=== PATIENT | male | born 1950 | race Caucasian/White ===

== ENCOUNTER → 2017-09-07 07:01 | Outpatient (CLI) | payer MEDICARE, SELFPAY | DX: Z12.5 Encounter for screening for malignant neoplasm of prostate (principal); R97.20 Elevated prostate specific antigen [PSA] | CPT/HCPCS: 36415; 84153; G0103 ==

== ENCOUNTER → 2018-01-12 15:23 | Outpatient (CLI) | payer MEDICARE, SELFPAY ==
[2018-01-12 17:51] LABS: Absolute Lymphocyte Count 1.01 X10^3/ul (0.83-4.51); Absolute Neutrophil Count 9.6 X10^3/uL (2.0-7.7); Basophil# 0.02 X10^3/uL; Basophil% 0.2 % (0-1); Eosinophil# 0.04 X10^3/uL; Eosinophils% 0.4 % (0-5); Hematocrit 41.2 % (40-54); Hemoglobin 13.9 g/dl (13.0-16.5); Lymphocyte # 1.01 X10^3/ul (4.0); Lymphocyte % 8.9 % (19-41); Mean Corp Hgb Conc 33.7 g/gl (32-36); Mean Corpuscular Hgb 29.6 pg (27.0-32.0); Mean Corpuscular Volume 87.8 fL (80-94); Mean Platelet Vol. 9.9 fl (6.2-12.0); Monocyte# 0.68 X10^3/uL; Neutrophil % 84.4 % (47-70); Platelet Count 198 K/mm3 (150-450); RBC Distribution Width CV 13.7 % (11.6-14.6); RBC Distribution Width SD 44.3 fl (35.1-43.9); Red Blood Count 4.69 M/mm3 (4.6-6.2); White Blood Count 11.4 K/mm3 (4.4-11.0)
[2018-01-12 17:54] LABS: ALB/GLOB Ratio 0.9 RATIO (0.9-2.4); AST(SGOT) 18 U/L (15-37); Alanine Aminotransfer ALT/SGPT 28 U/L (16-61); Albumin, Serum 3.8 g/dL (3.2-5.0); Alkaline Phosphatase 71 U/L (45-117); Anion Gap 10 (5-15); BUN 19 mg/dL (7-18); Calcium,Total 9.2 mg/dL (8.5-10.1); Chloride 106 mmol/L (98-107); Creatinine, Serum 1.19 mg/dL (0.70-1.30); EST Glomerular Filtration Rate 65 mL/min (>60); Est Glom Filt Rate - Afr Amer 78 mL/min (>60); Globulin 4.3 g/dL (2.2-4.2); Glucose 102 mg/dL (74-106); Lipase 126 U/L (73-393); Protein, Total 8.1 g/dL (6.4-8.2); Sodium Level 143 mmol/L (136-145)
[2018-01-12 17:59] LABS: POSITIVE COUNT NO; POSITIVE DIFFERENTIAL NO; POSITIVE MORPHOLOGY NO
--- OUTSIDE RECORDS SUMMARY | 2018-03-10 08:23 | XMS RPT_ITS ---
:1950 Author Organization OHIP Care Team Providers Name Role Phone RAYNA COMBS Referring Unavailable Primay Care Physicia, No Primary Care Unavailable RAYNA COMBS Attending Unavailable Napoleon Larson Attending Unavailable Napoleon Larson Primary Care Unavailable MESKO, RAJEEV W Referring Unavailable MESKO, RAJEEV W Attending Unavailable KIM RICHARDSON (LIANG) Referring Unavailable MESKO, RAJEEV W Attending Unavailable MESKO, RAJEEV W Attending Unavailable LUCIAN, RAVINDRA T Attending Unavailable MESKO, RAJEEV W Referring Unavailable LUCIAN, RAVINDRA T Referring Unavailable MESKO, RAJEEV W Referring Unavailable LUCIAN, RAVINDRA T Referring Unavailable LUCIAN, RAVINDRA T Referring Unavailable MESKO, RAJEEV W Referring Unavailable MESKO, RAJEEV W Referring Unavailable PROBLEMS PROBLEMS DATE TYPE CONDITION / CODE ATTENDING STATUS SOURCE 02/01/2018 Active Left upper NA Active [facility] quadrant pain / Main [place] R10.12(ICD-10) Repository 01/21/2018 Active Other specified NA Active [facility] disorders of [facility] [place] peritoneum / Repository K66.8(ICD-10) 01/21/2018 Active Left lower NA Active [facility] quadrant pain / [facility] [place] R10.32(ICD-10) Repository 01/20/2018 Active Neoplasm of NA Active [facility] unspecified Other [place] behavior of bone, Repository soft tissue, and skin / D49.2(ICD-10) 01/20/2018 Active Malignant neoplasm NA Active [facility] of other specified Other [place] ill-defined sites Repository / C76.8(ICD-10) 01/12/2018 Unknown K85.90 - Acute Marsha, Napoleon Active [place] pancreatitis Community without necrosis Hospital or infection, Repository unspecified / K85.90(ICD-10) 01/12/2018 Unknown M06.9 - Rheumatoid Napoleon Larson Active [place] arthritis, Community unspecified / Hospital M06.9(ICD-10) Repository 01/12/2018 Unknown G62.9 - Napoleon Larson Active [place] Polyneuropathy, Community unspecified / Hospital G62.9(ICD-10) Repository 10/09/2017 Unknown Z12.5 - Encounter RAYNA COMBS Active [place] for screening for Community malignant neoplasm [facility] of prostate / Repository Z12.5(ICD-10) 04/15/2017 Active Unknown / RAJEEV NAIR Active [facility] UNK(Unknown) [place] Repository 01/06/2016 Active Malignant neoplasm NA Active [facility] connective and Main [place] soft tissue of Repository right upper limb, including shoulder / C49.11(ICD-10) PROCEDURES PROCEDURES No Procedure Records FoundRESULTS RESULTS PROGRESS Observed: 02/01/2018 Status: COMPLETED Source: [place] 2:41 PM [facility] REPOSITORY HNO ID: [id number] Author: Gaby Burns Ct Service: (none) Author Type: (none) Type: Progress Notes Filed: 02/01/2018 2:42 PM Note Text: Radiology Service Progress Note PATIENT NAME: Marilee Simpson DATE OF SERVICE: February 01, 2018 TIME: 2:42 PM PATIENT IDENTITY VERIFICATION COMPLETED USING TWO (2) METHODS: Patient confirmed name verbally and Date of . PATIENT GENDER DATA: Male PATIENT RELEVANT IMPLANT DATA REVIEWED: Not Applicable RADIOLOGY DEPARTMENT: CT; Exam(s) Completed: Abdomen/Pelvis PERIPHERAL IV DATA: Not applicable SIGNED BY: Gaby Burns Ct February 01, 2018 2:42 PM CNOV Observed: 01/21/2018 Status: COMPLETED Source: [place] 3:00 PM [facility] REPOSITORY Office Visit (GENSWS) MARILEE SIMPSON ([id number]) 1950 M Date Time Provider Department 01/21/18 3:00 PM RAVINDRA EPSTEIN During your visit today, we recorded the following information about you: Temperature Pulse Respiration Blood pressure 97 degrees 59/minute 16/minute 118/62 Weight 116.1 kg Santa Hodge [employer]STATE [employer] DISP[employer] 01/21/2018 11:14 AM Signed REVIEW OF SYSTEMS: General: The patient denies fatigue, denies weight loss, denies weight gain, denies feeling hot, and denies feelings of cold. Eyes: The patient denies glaucoma, denies eye injury/surgery, wears glasses or contacts. Ear/Nose/Throat: The patient denies allergies, denies hayfever, denies ear infections, and denies bloody noses. Cardiovascular: The patient denies chest pain, denies heart disease, denies high blood pressure,denies cardiac stent, denies prior heart attack, denies irregular heart beat, NOTES high cholesterol, NOTES poor circulation, denies heart failure, other cardiac issues, denies claudication, denies cold feet, denies peripheral arterial stent. Respiratory: The patient denies tuberculosis, denies pneumonia, denies frequent cough, denies pulmonary embolism, denies shortness of breath, and denies coughing up blood. Gastrointestinal: The patient denies difficulty swallowing, denies acid reflux, denies ulcers, denies vomiting, denies jaundice/hepatitis, denies gallbladder problems, denies black or tarry stools, denies hemorrhoids, denies bleeding from rectum, denies diverticulitis, denies constipation, denies diarrhea, denies loss of stool control, and denies hernias. Kidney/Bladder: The patient denies kidney stones, denies urine infections, and denies bloody urine. Skin: The patient NOTES a history of skin cancer, denies bleeding/changing moles, and denies a history of skin rash. Neurologic: The patient denies a history of epilepsy/convulsions, denies headaches, denies head/spinal injuries, and denies stroke/TIA. Psychiatric: The patient denies psychiatric medications, denies depression, and denies voices, denies substance abuse. Endocrine: The patient denies thyroid disorders, denies diabetes, and denies hormonal problems. Hematologic: The patient denies a history of bruising, denies bleeding, and denies anemia, denies blood clots. Infections: The patient NOTES a history of measles and mumps, denies rheumatic fever, and denies sexually transmitted diseases. Musculoskeletal: The patient denies back pain/injury, denies back problems, denies sciatica, denies knee/foot trouble, NOTES arthritis, or denies gout. When was patient's last Mammogram screening? N/A Last Colonoscopy: NONE Santa Epstein MD 01/21/2018 5:13 PM Signed HISTORY AND PHYSICAL Marilee Mateo Simpson 1950 REFERRING PHYSICIAN: Rajeev Nair MD CHIEF COMPLAINT: abnormal ct scan - pneumoperitoneum HPI: The patient is a 67 year old male with a finding of pneumoperitoneum. The patient has a known history of right upper extremity sarcoma. He was scheduled for a follow-up chest CAT scan which he underwent at [facility] yesterday. Incidental finding was free intra-abdominal air. The patient's orthopedic surgeon, Dr. Nair called the patient this morning from a virtual visit. The patient had eaten breakfast and did not report any concerns. The patient was placed on my schedule for a diagnosis of pneumoperitoneum. In discussions with the patient, he notes pain in the left lower quadrant starting around Thanksgiving and then pain across the upper mid abdomen and through to the back. He states his been typically eating Jell-O since that time. He denies fever or chills. He notes that actually has been feeling better for the last 2 days. The patient has a diagnosis approximately one year ago of pancreatitis from unknown etiology. He was maintained in the hospital for 2 days without diagnosis. He assumed that his pain started on Thanksgiving was also pancreatitis and he felt it would be a waist at this time to return to the hospital. I had seen the patient 5 year previously were he underwent laparoscopic appendectomy for missed appendicitis. The patient was initially scheduled for later in the afternoon. I had him present to my office as soon as he could be contacted. In the office, he looked remarkably comfortable. His vitals were stable and he had no diffuse peritoneal signs. I reviewed the CT scan of the chest which did demonstrate significant free air. I did not see any time signs of intra- abdominal fluid collections and the stomach and duodenum did not demonstrate signs of inflammation. I elected to obtain laboratory studies-CBC chemistry panel and lipase, and a noncontrast CT scan. My interpretation of the CT scan as this is most likely descending colon/sigmoid diverticulitis. PAST MEDICAL HISTORY Diagnosis Date - Cancer (HCC) PAST SURGICAL HISTORY Procedure Laterality Date - APPENDECTOMY 08/28/12 Current Outpatient Prescriptions: amoxicillin-clavulanic acid (AUGMENTIN) 875-125 mg per tablet Take 1 tablet by mouth twice daily for 10 days. FOR 10 DAYS. enteric contrast (will be provided with radiology test) Take 1 Each by mouth one time only for [address] ABD/PEL WO Routine order Administer, As Directed One Time Only, via Oral, Rectal, both Oral and Rectal, Enteric Tube, Stoma or Indwelling Catheter, Enteric Contrast as designated per enteric contrast guidelines diphenhydrAMINE (BENADRYL) 25 mg tablet Take 1 tablet by mouth every 6 hours as needed for Itching/Rash. tamsulosin ER (FLOMAX) 0.4 mg cp24 Take 2 capsules by mouth daily at bedtime. Tadalafil (CIALIS) 5 mg tablet Take 5 mg by mouth as needed. Aspirin 81 mg Tab Take 81 mg by mouth. metoprolol tartrate 12.5 mg Tab Take 12.5 mg by mouth every 12 hours. MULTI-VITAMIN ORAL Take by mouth. Cholecalciferol, Vitamin D3, (VITAMIN D-3) 2,000 unit cap Take by mouth. simvastatin (ZOCOR) 40 mg tablet Take 40 mg by mouth daily at bedtime. tamsulosin (FLOMAX) 0.4 mg Cp24 Take 0.4 mg by mouth. Gabapentin 300 mg Tab Take 900 mg by mouth three times daily. No current facility-administered medications for this visit. ALLERGIES: Desitin [Zinc Oxide] PERSONAL HISTORY: Social History Marital status: Spouse name: Years of education: Number of children: Social History Main Topics Smoking status: Former Smoker Packs/day: 1.00 Years: 15.00 Types: Cigarettes Smokeless tobacco: Never Used Comment: Quit 20yrs ago Alcohol use: No FAMILY HISTORY: No family history on file. REVIEW OF SYMPTOMS: The review of systems data was entered by the nurse and reviewed by ia Nursing Notes: Santa Hodge LPN 01/21/2018 11:14 AM Signed REVIEW OF SYSTEMS: General: The patient denies fatigue, denies weight loss, denies weight gain, denies feeling hot, and denies feelings of cold. Eyes: The patient denies glaucoma, denies eye injury/surgery, wears glasses or contacts. Ear/Nose/Throat: The patient denies allergies, denies hayfever, denies ear infections, and denies bloody noses. Cardiovascular: The patient denies chest pain, denies heart disease, denies high blood pressure,denies cardiac stent, denies prior heart attack, denies irregular heart beat, NOTES high cholesterol, NOTES poor circulation, denies heart failure, other cardiac issues, denies claudication, denies cold feet, denies peripheral arterial stent. Respiratory: The patient denies tuberculosis, denies pneumonia, denies frequent cough, denies pulmonary embolism, denies shortness of breath, and denies coughing up blood. Gastrointestinal: The patient denies difficulty swallowing, denies acid reflux, denies ulcers, denies vomiting, denies jaundice/hepatitis, denies gallbladder problems, denies black or tarry stools, denies hemorrhoids, denies bleeding from rectum, denies diverticulitis, denies constipation, denies diarrhea, denies loss of stool control, and denies hernias. Kidney/Bladder: The patient denies kidney stones, denies urine infections, and denies bloody urine. Skin: The patient NOTES a history of skin cancer, denies bleeding/changing moles, and denies a history of skin rash. Neurologic: The patient denies a history of epilepsy/convulsions, denies headaches, denies head/spinal injuries, and denies stroke/TIA. Psychiatric: The patient denies psychiatric medications, denies depression, and denies voices, denies substance abuse. Endocrine: The patient denies thyroid disorders, denies diabetes, and denies hormonal problems. Hematologic: The patient denies a history of bruising, denies bleeding, and denies anemia, denies blood clots. Infections: The patient NOTES a history of measles and mumps, denies rheumatic fever, and denies sexually transmitted diseases. Musculoskeletal: The patient denies back pain/injury, denies back problems, denies sciatica, denies knee/foot trouble, NOTES arthritis, or denies gout. When was patient's last Mammogram screening? N/A Last Colonoscopy: NONE Santa Hodge LPN PHYSICAL EXAMINATION: General: The patient is 67 year old male, well nourished, well hydrated in no acute distress. The patient is oriented to time, place, and person. VITALS: Blood pressure 118/62, pulse (!) 59, temperature 36.1 ?C (97 ?F), temperature source Temporal Artery, resp. rate 16, weight 116.1 kg (256 lb), SpO2 96 %. HEENT: Normal cephalic, ataumatic, pupils are equally round, sclera are anicteric, mucous membranes are moist, oropharynx is clear. Neck has no masses, asymmetry or lymphadenopathy. Thyroid is unremarkable. Respiratory: Clear to auscultation and percussion. Normal respiratory excursion and pattern. Cardiac: Examination is regular rate and rhythm. Abdominal exam: Soft, nontender!, with no palpable masses. No hepatosplenomegaly. No palpable hernias. Rectal exam: Exam deferred Extremities: no clubbing, cyanosis or edema. No adenopathy. Other: LABORATORY VALUES: As Noted RADIOLOGIC STUDIES: As Noted I spoke directly with the radiologist interpreting the CAT scan image- Dr. Oscar Franco. Assessment IMPRESSION: Free air likely secondary to perforated diverticulitis, patient clinically improved per history and remarkably benign abdomen PLAN: At this point I feel its reasonable to have the patient maintained on a low residue diet to allow bowel rest and start Augmentin for treatment of presumed diverticulitis. I plan to obtain a repeat CT scan next week to assure that this is improving. I discussed with the patient had a presented with those pains a week ago who would most likely required urgent surgical intervention. I further reiterated that if the patient has worsening pain fever chills or other concerning symptoms that he should return immediately to my office or present to the emergency department. Diagnoses: (K66.8) Pneumoperitoneum (primary encounter diagnosis) (R10.32) LLQ pain (R10.32) Left lower quadrant pain (R10.12) Left upper quadrant pain (K57.92) Diverticulitis A letter was sent to Dr. Napoleon Larson MD indicating the above finding for this patient. Return to Clinic: The patient is instructed to follow-up with me in one week. This note was partially generated using [employer] voice recognition system, and there may be some incorrect words, spellings, and punctuation that were not noted in checking the note before saving. Ravindra Epstein MD Referring Provider: RAJEEV NAIR [[id number]] Allergies As of Date: 01/21/2018 Noted Allergy Reaction DESITIN (ZINC OXIDE) 09/09/2012 9 - Itching Date Reviewed: 01/21/2018 Reviewed by: Ravindra Epstein - Fully Assessed Reason for Visit: abnormal ct scan [Other] Primary Visit Diagnosis:Pneumoperitoneum [K66.8] Other Visit Diagnoses:LLQ pain [R10.32] Left lower quadrant pain [R10.32] Left upper quadrant pain [R10.12] Diverticulitis [K57.92] Order(s):CBC + DIFF [SQCBCDIF] Order #: [id number] FUTURE COMP METABOLIC PANEL [SQCMP] Order #: [id number] FUTURE LIPASE BLD [SQLIPA] Order #: [id number] FUTURE CT ABD/PEL WO IVCON [[id number]] Order #: [id number] FUTURE amoxicillin-clavulanic acid (AUGMENTIN) 875-125 mg per tabletTake 1 tablet by mouth twice daily for 10 days. FOR 10 DAYS.Disp: 20 tabletRfl: 0 CT ABD/PEL WO IVCON [[id number]] Order #: [id number] FUTURE enteric contrast (will be provided with radiology test)Take 1 Each by mouth one time only for [address] ABD/PEL WO Routine order Administer, As Directed One Time Only, via Oral, Rectal, both Oral and Rectal, Enteric Tube, Stoma or Indwelling Catheter, Enteric Contrast as designated per enteric contrast guidelinesDisp: 1 EachRfl: 0 Prescriptions as of 01/21/2018 Sig: AMOXICILLIN 875 MG-POTASSIUM * Take 1 tablet by mouth twice * ENTERIC CONTRAST (RADIOLOGY P* Take 1 Each by mouth one time* DIPHENHYDRAMINE 25 MG TABLET Take 1 tablet by mouth every * TAMSULOSIN 0.4 MG CAPSULE Take 2 capsules by mouth kemal* TADALAFIL 5 MG TABLET Take 5 mg by mouth as needed. ASPIRIN 81 MG TABLET Take 81 mg by mouth. METOPROLOL 12.5 MG TAB Take 12.5 mg by mouth every 1* MULTI-VITAMIN ORAL Take by mouth. CHOLECALCIFEROL (VITAMIN D3) * Take by mouth. SIMVASTATIN 40 MG TABLET Take 40 mg by mouth daily at * TAMSULOSIN 0.4 MG CAPSULE Take 0.4 mg by mouth. 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 Eyes: The patient denies glaucoma, denies eye injury/surgery, wears glasses or contacts. Ear/Nose/Throat: The patient denies allergies, denies hayfever, denies ear infections, and denies bloody noses. Cardiovascular: The patient denies chest pain, denies heart disease, denies high blood pressure,denies cardiac stent, denies prior heart attack, denies irregular heart beat, NOTES high cholesterol, NOTES poor circulation, denies heart failure, other cardiac issues, denies claudication, denies cold feet, denies peripheral arterial stent. Respiratory: The patient denies tuberculosis, denies pneumonia, denies frequent cough, denies pulmonary embolism, denies shortness of breath, and denies coughing up blood. Gastrointestinal: The patient denies difficulty swallowing, denies acid reflux, denies ulcers, denies vomiting, denies jaundice/hepatitis, denies gallbladder problems, denies black or tarry stools, denies hemorrhoids, denies bleeding from rectum, denies diverticulitis, denies constipation, denies diarrhea, denies loss of stool control, and denies hernias. Kidney/Bladder: The patient denies kidney stones, denies urine infections, and denies bloody urine. Skin: The patient NOTES a history of skin cancer, denies bleeding/changing moles, and denies a history of skin rash. Neurologic: The patient denies a history of epilepsy/convulsions, denies headaches, denies head/spinal injuries, and denies stroke/TIA. Psychiatric: The patient denies psychiatric medications, denies depression, and denies voices, denies substance abuse. Endocrine: The patient denies thyroid disorders, denies diabetes, and denies hormonal problems. Hematologic: The patient denies a history of bruising, denies bleeding, and denies anemia, denies blood clots. Infections: The patient NOTES a history of measles and mumps, denies rheumatic fever, and denies sexually transmitted diseases. Musculoskeletal: The patient denies back pain/injury, denies back problems, denies sciatica, denies knee/foot trouble, NOTES arthritis, or denies gout. When was patient's last Mammogram screening? N/A Last Colonoscopy: NONE Santa Hodge INTERSTATE [employer] DISP[employer]ER Prescriptions ordered this encounter Disp Refills Start End AMOXICILLIN 875 MG-POTASSIUM CLAVULA* 20 t* 0 01/21/2018 01/31/2018 Route: ORAL Sig: Take 1 tablet by mouth twice daily for 10 days. FOR 10 DAYS. ENTERIC CONTRAST (RADIOLOGY PROCEDUR* 1 Ea* 0 01/21/2018 01/21/2018 Class: In Office Route: ORAL Sig: Take 1 Each by mouth one time only for [address] ABD/PEL WO Routine order Administer, As Directed One Time Only, via Oral, Rectal, both Oral and Rectal, Enteric Tube, Stoma or Indwelling Catheter, Enteric Contrast as designated per enteric contrast guidelines Follow-up and Disposition History Recorded Letter Text Encounter Status:Closed by RAVINDRA EPSTEIN MD on 01/21/18 PROGRESS Observed: 01/21/2018 Status: COMPLETED Source: [place] 1:56 PM [facility] REPOSITORY O ID: [id number] Author: Ravindra Epstein Service: (none) Author Type: Physician Type: Progress Notes Filed: 01/21/2018 5:13 PM Note Text: HISTORY AND PHYSICAL Marilee Simpson 1950 REFERRING PHYSICIAN: Rajeev Nair MD CHIEF COMPLAINT: abnormal ct scan - pneumoperitoneum HPI: The patient is a 67 year old male with a finding of pneumoperitoneum. The patient has a known history of right upper extremity sarcoma. He was scheduled for a follow-up chest CAT scan which he underwent at [facility] yesterday. Incidental finding was free intra-abdominal air. The patient's orthopedic surgeon, Dr. Nair called the patient this morning from a virtual visit. The patient had eaten breakfast and did not report any concerns. The patient was placed on my schedule for a diagnosis of pneumoperitoneum. In discussions with the patient, he notes pain in the left lower quadrant starting around Thanksgiving and then pain across the upper mid abdomen and through to the back. He states his been typically eating Jell-O since that time. He denies fever or chills. He notes that actually has been feeling better for the last 2 days. The patient has a diagnosis approximately one year ago of pancreatitis from unknown etiology. He was maintained in the hospital for 2 days without diagnosis. He assumed that his pain started on Thanksgiving was also pancreatitis and he felt it would be a waist at this time to return to the hospital. I had seen the patient 5 year previously were he underwent laparoscopic appendectomy for missed appendicitis. The patient was initially scheduled for later in the afternoon. I had him present to my office as soon as he could be contacted. In the office, he looked remarkably comfortable. His vitals were stable and he had no diffuse peritoneal signs. I reviewed the CT scan of the chest which did demonstrate significant free air. I did not see any time signs of intra-abdominal fluid collections and the stomach and duodenum did not demonstrate signs of inflammation. I elected to obtain laboratory studies-CBC chemistry panel and lipase, and a noncontrast CT scan. My interpretation of the CT scan as this is most likely descending colon/sigmoid diverticulitis. PAST MEDICAL HISTORY Diagnosis Date - Cancer (HCC) PAST SURGICAL HISTORY Procedure Laterality Date - APPENDECTOMY 08/28/12 Current Outpatient Prescriptions: amoxicillin-clavulanic acid (AUGMENTIN) 875-125 mg per tablet Take 1 tablet by mouth twice daily for 10 days. FOR 10 DAYS. enteric contrast (will be provided with radiology test) Take 1 Each by mouth one time only for [address] ABD/PEL WO Routine order Administer, As Directed One Time Only, via Oral, Rectal, both Oral and Rectal, Enteric Tube, Stoma or Indwelling Catheter, Enteric Contrast as designated per enteric contrast guidelines diphenhydrAMINE (BENADRYL) 25 mg tablet Take 1 tablet by mouth every 6 hours as needed for Itching/Rash. tamsulosin ER (FLOMAX) 0.4 mg cp24 Take 2 capsules by mouth daily at bedtime. Tadalafil (CIALIS) 5 mg tablet Take 5 mg by mouth as needed. Aspirin 81 mg Tab Take 81 mg by mouth. metoprolol tartrate 12.5 mg Tab Take 12.5 mg by mouth every 12 hours. MULTI-VITAMIN ORAL Take by mouth. Cholecalciferol, Vitamin D3, (VITAMIN D-3) 2,000 unit cap Take by mouth. simvastatin (ZOCOR) 40 mg tablet Take 40 mg by mouth daily at bedtime. tamsulosin (FLOMAX) 0.4 mg Cp24 Take 0.4 mg by mouth. Gabapentin 300 mg Tab Take 900 mg by mouth three times daily. No current facility-administered medications for this visit. ALLERGIES: Desitin [Zinc Oxide] PERSONAL HISTORY: Social History Marital status: Spouse name: Years of education: Number of children: Social History Main Topics Smoking status: Former Smoker Packs/day: 1.00 Years: 15.00 Types: Cigarettes Smokeless tobacco: Never Used Comment: Quit 20yrs ago Alcohol use: No FAMILY HISTORY: No family history on file. REVIEW OF SYMPTOMS: The review of systems data was entered by the nurse and reviewed by ia Nursing Notes: Santa Hodge LPN 01/21/2018 11:14 AM Signed REVIEW OF SYSTEMS: General: The patient denies fatigue, denies weight loss, denies weight gain, denies feeling hot, and denies feelings of cold. Eyes: The patient denies glaucoma, denies eye injury/surgery, wears glasses or contacts. Ear/Nose/Throat: The patient denies allergies, denies hayfever, denies ear infections, and denies bloody noses. Cardiovascular: The patient denies chest pain, denies heart disease, denies high blood pressure,denies cardiac stent, denies prior heart attack, denies irregular heart beat, NOTES high cholesterol, NOTES poor circulation, denies heart failure, other cardiac issues, denies claudication, denies cold feet, denies peripheral arterial stent. Respiratory: The patient denies tuberculosis, denies pneumonia, denies frequent cough, denies pulmonary embolism, denies shortness of breath, and denies coughing up blood. Gastrointestinal: The patient denies difficulty swallowing, denies acid reflux, denies ulcers, denies vomiting, denies jaundice/hepatitis, denies gallbladder problems, denies black or tarry stools, denies hemorrhoids, denies bleeding from rectum, denies diverticulitis, denies constipation, denies diarrhea, denies loss of stool control, and denies hernias. Kidney/Bladder: The patient denies kidney stones, denies urine infections, and denies bloody urine. Skin: The patient NOTES a history of skin cancer, denies bleeding/changing moles, and denies a history of skin rash. Neurologic: The patient denies a history of epilepsy/convulsions, denies headaches, denies head/spinal injuries, and denies stroke/TIA. Psychiatric: The patient denies psychiatric medications, denies depression, and denies voices, denies substance abuse. Endocrine: The patient denies thyroid disorders, denies diabetes, and denies hormonal problems. Hematologic: The patient denies a history of bruising, denies bleeding, and denies anemia, denies blood clots. Infections: The patient NOTES a history of measles and mumps, denies rheumatic fever, and denies sexually transmitted diseases. Musculoskeletal: The patient denies back pain/injury, denies back problems, denies sciatica, denies knee/foot trouble, NOTES arthritis, or denies gout. When was patient's last Mammogram screening? N/A Last Colonoscopy: NONE Santa Hodge LPN PHYSICAL EXAMINATION: General: The patient is 67 year old male, well nourished, well hydrated in no acute distress. The patient is oriented to time, place, and person. VITALS: Blood pressure 118/62, pulse (!) 59, temperature 36.1 ?C (97 ?F), temperature source Temporal Artery, resp. rate 16, weight 116.1 kg (256 lb), SpO2 96 %. HEENT: Normal cephalic, ataumatic, pupils are equally round, sclera are anicteric, mucous membranes are moist, oropharynx is clear. Neck has no masses, asymmetry or lymphadenopathy. Thyroid is unremarkable. Respiratory: Clear to auscultation and percussion. Normal respiratory excursion and pattern. Cardiac: Examination is regular rate and rhythm. Abdominal exam: Soft, nontender!, with no palpable masses. No hepatosplenomegaly. No palpable hernias. Rectal exam: Exam deferred Extremities: no clubbing, cyanosis or edema. No adenopathy. Other: LABORATORY VALUES: As Noted RADIOLOGIC STUDIES: As Noted I spoke directly with the radiologist interpreting the CAT scan image- Dr. Oscar Franco. Assessment IMPRESSION: Free air likely secondary to perforated diverticulitis, patient clinically improved per history and remarkably benign abdomen PLAN: At this point I feel its reasonable to have the patient maintained on a low residue diet to allow bowel rest and start Augmentin for treatment of presumed diverticulitis. I plan to obtain a repeat CT scan next week to assure that this is improving. I discussed with the patient had a presented with those pains a week ago who would most likely required urgent surgical intervention. I further reiterated that if the patient has worsening pain fever chills or other concerning symptoms that he should return immediately to my office or present to the emergency department. Diagnoses: (K66.8) Pneumoperitoneum (primary encounter diagnosis) (R10.32) LLQ pain (R10.32) Left lower quadrant pain (R10.12) Left upper quadrant pain (K57.92) Diverticulitis A letter was sent to Dr. Napoleon Larson MD indicating the above finding for this patient. Return to Clinic: The patient is instructed to follow-up with me in one week. This note was partially generated using [employer] voice recognition system, and there may be some incorrect words, spellings, and punctuation that were not noted in checking the note before saving. Ravindra Epstein MD PROGRESS Observed: 01/21/2018 Status: COMPLETED Source: [place] 1:34 PM [facility] REPOSITORY HNO ID: [id number] Author: Gaby Cervantes Service: (none) Author Type: (none) Type: Progress Notes Filed: 01/21/2018 1:35 PM Note Text: Radiology Service Progress Note PATIENT NAME: Marilee Simpson DATE OF SERVICE: January 21, 2018 TIME: 1:35 PM PATIENT IDENTITY VERIFICATION COMPLETED USING TWO (2) METHODS: Patient confirmed name verbally and Date of . PATIENT GENDER DATA: Male PATIENT RELEVANT IMPLANT DATA REVIEWED: Not Applicable RADIOLOGY DEPARTMENT: CT; Exam(s) Completed: Abdomen/Pelvis PERIPHERAL IV DATA: Not applicable SIGNED BY: Gaby Cervantes January 21, 2018 1:[address] ABD/PEL WO IVCON Observed: 01/21/2018 Status: F Source: [place] 1:16 PM [facility] REPOSITORY * * *Final Report* * * DATE OF EXAM: Jan 21 2018 1:16PM [facility] 0531 - CT ABD/PEL WO IVCON / PROCEDURE REASON: Left lower quadrant pain * * * * Physician Interpretation * * * * EXAMINATION: CT ABD/PEL WO IVCON REASON FOR EXAM: Left lower quadrant pain TECHNIQUE: CT ABD/PEL WO IVCON; CT of the abdomen and pelvis was performed without intravenous contrast using standard technique. CT Radiation dose: Integrated Dose-length product (DLP) for this visit = 780 mGy*cm. CT Dose Reduction Employed: Automated exposure control(AEC) and iterative recon COMPARISON: CT abdomen/pelvis, 12/31/2015 FINDINGS: Manager Cost: No additional finding. Lower Thorax: Bibasilar atelectasis. Liver: Unremarkable. Biliary: No bile duct dilation. Prominence of the gallbladder rai, likely due to incomplete distention. Pancreas: Unremarkable. Spleen: Unremarkable. Splenule. Adrenals: Unremarkable. Kidneys/Ureters: Mild bilateral perinephric stranding, likely chronic. Punctate LEFT upper pole renal calculus. No hydronephrosis. Pelvis: Mild to moderate circumferential bladder wall thickening, likely related to chronic bladder outlet obstruction. Marked prostatomegaly. Prostate is 7.6 cm in size. Prominent prostate impression on the bladder. Calcification near the base of bladder (axial image 139) is within the prostatic parenchyma. Fat-containing inguinal hernias, greater on the LEFT. Gastrointestinal tract: Colonic diverticulosis. Mild wall thickening involving the proximal sigmoid colon with adjacent fat stranding consistent with diverticulitis. Appendix is absent. Stomach is incompletely distended. There are a few mildly distended segments of small bowel with a few scattered air fluid levels, but the overall bowel gas pattern appears nonobstructive. Vasculature: Vascular calcifications noted. Mild infrarenal abdominal aortic ectasia. IVC is slightly flattened in areas. No portal venous gas. Lymph nodes: No lymph node enlargement. Mesentery/Peritoneum: Trace fluid in the pelvis. Small to moderate amount of free air is present. A 1.4 x 2.5 x 1.8 cm air collection in the LEFT lower quadrant (axial image 111) has thin (2 mm thick) crescentic soft tissue or fluid attenuation along the dependent portion, though there is no discrete drainable abscess. Additional slightly larger air collections abut the anterior margin of the proximal sigmoid colon. Bones/Soft tissues: Umbilical hernia containing fat and free air. Minimal haziness in the herniated fat implies some degree of inflammation though this is felt to be of no current clinical significance. Calcification within the sacral canal inferiorly, similar to the prior. Mild degenerative changes. No acute or suspicious osseous finding. Dystrophic calcification about the RIGHT hip. IMPRESSION: 1. Perforated sigmoid diverticulitis with small to moderate amount of free air. No drainable abscess. 2. LEFT nephrolithiasis. No urinary tract obstruction. 3. Findings of chronic bladder outlet obstruction related to prostate gland enlargement. 4. Details and observations as discussed. CRITICAL TEST/RESULTS: Communicated with Dr. Lucian Lemons on 01/21/18 at 1:[address] Franco. END OF IMPRESSION Accounting Director: KRISTIAN Transcribe Date/Time: Jan 21 2018 1:30P Dictated by : OSCAR FRANCO DO This examination was interpreted and the report reviewed and electronically signed by: OSCAR FRANCO DO on Jan 21 2018 1:59PM EST [id number] COMP METABOLIC PANEL Collected: 01/21/2018 Status: F Source: [place] 12:13 PM [facility] REPOSITORY TYPE CODE TESTS RESULT OUT OF REFERENCE UNITS RANGE LAB TP 6.3-8.0 g/dL Protein, Total 7.2 LAB ALB 3.9-4.9 g/dL Albumin 4.2 LAB CA 8.5-10.2 mg/dL Calcium, Total 9.2 LAB TBIL 0.2-1.3 mg/dL Bilirubin, Total 0.6 LAB ALKP 38-113 U/L Alkaline Phosphatase 79 LAB AST 14-40 U/L AST 18 LAB GLU 74-99 mg/dL Glucose High 105 LAB BUN 9-24 mg/dL BUN 12 LAB CRET 0.73-1.22 mg/dL Creatinine 1.14 LAB NA 136-144 mmol/L Sodium 142 LAB K 3.7-5.1 mmol/L Potassium 4.8 LAB CL 97-105 mmol/L Chloride 105 LAB CO2 22-30 mmol/L CO2 28 LAB AGAP 9-18 mmol/L Anion Gap 9 LAB ALT 10-54 U/L ALT 26 LAB GFRAA eGFR- >60 Amer. LAB GFRNAA . eGFR-All Other Races >60 Result Comment: eGFR (Estimated GFR) Units of measure: mL/min/1.73 meters squared eGFR is derived from the reexpressed MDRD Study equation using the following parameters: serum creatinine, age, gender and race. The creatinine assay has been calibrated to be traceable to IDMS. An eGFR <60 mL/min/1.73m2 for >3 months is consistent with chronic kidney disease. Refer to KDOQI guidelines for clinical interpretation. In patients with unstable renal function, e.g. those with acute kidney injury, the eGFR may not accurately reflect actual GFR. CBC AND DIFFERENTIAL Collected: 01/21/2018 Status: F Source: [place] 12:13 PM [facility] REPOSITORY TYPE CODE TESTS RESULT OUT OF REFERENCE UNITS RANGE LAB WBC 3.70-11.00 k/uL WBC 7.51 LAB RBC 4.20-6.00 m/uL RBC 4.54 LAB HGB 13.0-17.0 g/dL Hemoglobin 13.2 LAB HCT 39.0-51.0 % Hematocrit 40.6 LAB MCV 80.0-100.0 fL MCV 89.4 LAB MCH 26.0-34.0 pG MCH 29.1 LAB MCHC 30.5-36.0 g/dL MCHC 32.5 LAB RDWCV 11.5-15.0 % RDW-CV 13.2 LAB PLTCT 150-400 k/uL Platelet Count 290 LAB MPV 9.0-12.7 fL MPV 10.1 LAB ANEUT % Neut% 65.6 LAB AANEUT 1.45-7.50 k/uL Abs Neut 4.93 LAB ALYMP % Lymph% 22.8 LAB AALYMP 1.00-4.00 k/uL Abs Lymph 1.71 LAB AMONO % [place]% 8.5 LAB AAMONO <0.87 k/uL Abs [place] 0.64 LAB AEOS % Eosin% 2.7 LAB AAEOS <0.46 k/uL Abs Eosin 0.20 LAB ABASO % Baso% 0.4 LAB AABASO <0.11 k/uL Abs Baso 0.03 LAB AUNRBC 0 /100 WBC NRBCs 0.0 LAB ABNRBC <0.01 k/uL Absolute nRBC <0.01 LAB DTYP DTYPE Auto Diff Performed By: #### CBCDIF, LIPA #### [facility] [address] [place], [place] [address] LIPASE Collected: 01/21/2018 Status: F Source: [place] 12:13 PM [facility] REPOSITORY TYPE CODE TESTS RESULT OUT OF REFERENCE UNITS RANGE LAB LIPA 16-61 U/L Lipase 40 Performed By: #### CBCDIF, LIPA #### [facility] [address] [place], [place] [address] PROGRESS Observed: 01/21/2018 Status: COMPLETED Source: [place] 9:42 AM [facility] REPOSITORY HNO ID: [id number] Author: Rajeev Nair MD Service: (none) Author Type: Physician Type: Progress Notes Filed: 01/21/2018 9:47 AM Note Text: Addendum: I have reviewed the CT chest imaging. No concern for anesthetic disease. The incidental finding of concern, however, is that he does have free air in his abdomen. I have actually reviewed this with our general surgery team, Dr. Lay. I saw him as a virtual visit this morning, and he did not report any concerns, was actually eating breakfast when I saw him. I called him with the results, and he tells me that he has had 2 bouts of pancreatitis, one about a year ago, and a second bout around 2017. He has had his appendix removed in the past by Dr. Epstein -- and he has kindly agreed to see the patient today and do an exam. Whether or not this can be something monitored or he needs additional imaging I will leave to the hands of the general surgeons. The patient has been made aware and given directions how to get to the clinic in [place]. Rajeev Nair MD electrical equipment technician, [facility], Division of Musculoskeletal Oncology Co-Director of [facility], [facility] Pager: [phone] January 21, 2018 9:43 AM PROGRESS Observed: 01/21/2018 Status: COMPLETED Source: [place] 8:10 AM [facility] REPOSITORY HNO ID: [id number] Author: Rajeev Nair MD Service: (none) Author Type: Physician Type: Progress Notes Filed: 01/21/2018 9:47 AM Note Text: Orthopaedic Oncology Follow-Up Clinic Note ? Surgery/Date: 01/03/2016 ?? 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 ? S: This visit represents our 24-month surveillance visit with Marilee and his . He reports no issues, no changes in his medications, still taking the Neurontin to aid with pain. No new lumps or bumps discovered. ? Pathology was reviewed under specimen #: [id number]. ?The excised specimen was consistent with Skin, right upper arm, biopsy - Cutaneous leiomyosarcoma, FNCLCC Grade 2. ? ? Exam: As this was a virtual visit, I did not perform an examination today. I did look at his wound on the screen, and I did not see any major changes as compared to previous. He was moving his elbow and hand without difficulty, and appears to have a similar exam to that which is previously documented, which I have left below: RUE The incision is pristine - horseshoe shaped -- small Dog ears are unchanged PIN/AIN/M fire well 5/ motor SILT R/U/M 2+ Radial pulse Elbow 0-130 No nodularity or concern for local recurrence on examination No axillary, supraclavicular, cervical lymphadenopathy, bilaterally. No pain with neck range of motion, rotate 70? either way, able to touch his chin to his chest, extend 30? Spinal column tenderness to percussion Raised both arms above head without difficulty, no RTC deficits concerns Well-tanned ? ? Imagin01/20/18 CT Chest --> I cannot pull up images at this point. I will review these later this morning once they're available and call the patient with the results. 01/20/18 MRI Right Humerus --> Reviewed. No concern for local recurrence. ? A/P: - I am having issues opening up the CT chest imaging. Once I get this reviewed, I will send him a Collaaj message - RTC in 6mo for CXR + clinical exam. We will begin spacing out his advanced imaging, and do this on an annual basis. I will plan on likely doing local/clinical exams only for his arm, given the subcutaneous nature, and this should be his last MRI unless there are clinical concerns. We will continue getting CT chest imaging until year 5. We will interspersed chest x-ray imaging on the opposite 6 month intervals. - I would like to get chest x-rays every other year until year 10, given the discussion the literature of cutaneous leiomyosarcoma as having a tendency to be found metastatic to the lungs even at 7-10 years postop. - I can see him annually with CT Chest imaging from years 2-5 if no concerns with next set of imaging -- with the premise that he will let me know BIBI if there are any concerning changes in the right arm appearance/exam - I have no issues with him continuing with his Neurontin, for which he is on 900 mg TID. ?He has been on this for a small nerve peripheral neuropathy for 13-14 years. ?This is being followed by his primary care physician. - He has recently changed his primary care physician. He now follows with: Dr. Napoleon Larson [address] [phone] ? ? The patient will continue being screened on the low-risk?sarcoma protocol. ? ? ? This was conducted as a virtual visit. ? Months post-op: ~2 years Rajeev Nair MD electrical equipment technician, CCL[facility], Division of Musculoskeletal Oncology Co-Director of [facility], [facility] Pager: [phone] January 21, 2018 8:10 AM MRI UP EXT W/O JOINT Observed: 01/20/2018 Status: F Source: [facility] UNILATERAL W/WO 10:46 AM [facility]ALTH SYSTEM CONTRAST REPOSITORY Performed at [facility] APPROVED BY: Bebo Patterson MD MRI RIGHT UPPER EXTREMITY WITHOUT AND WITH IV CONTRAST: CLINICAL INDICATION: Two-year surveillance imaging after reexcision of leiomyosarcoma of right upper arm December,. COMPARISON: None. Serial images are obtained of the right arm in the axial plane with T1 weighting, fat-saturated T1 weighting and STIR, coronal plane with T1 weighting and STIR and sagittal plane with T1 weighting. Fol lowing the administration of gadolinium contrast material fat-saturated T1-weighted images repeated in all three planes. There are study limitations imaging the entire arm with anatomic distortion at the level of the shoulder and elbow and inhomogeneity of fat saturation. Within these constraints, there is no definite evidence of a soft tissue mass. There is no appreciable muscle edema, atrophy or fatty replacement. The humerus is unremarkable. There are subcentimeter sized epitrochlear and axillary lymph nodes. IMPRESSION: Allowing for limitations discussed above, there is no definite evidence of locoregional recurrence. CT CHEST W/O CONTRAST Observed: 01/20/2018 Status: F Source: [facility] 9:00 AM [facility] SYSTEM REPOSITORY Performed at [facility] APPROVED BY: Marco Antonio Sotelo MD EXAMINATION: CHEST CT WITHOUT CONTRAST Indication: Leiomyosarcoma the right upper extremity. Technique: Spiral CT acquisition of the chest from the thoracic inlet to the upper abdomen without contrast. Sagittal and coronal reconstructions were performed. Lack of intravenous contrast limits e valuation of mediastinal and vascular structures. M: [id number]_3 CT Dose-Length Product: 596.84 mGy*cm CT Dose Reduction Employed: 3. mAs or kVp was manually adjusted based on either the patient size or age. Comparison: Chest CT 12/30/2016 RESULT: Limitations: None. Lines, tubes, and devices: None. Lung parenchyma and pleura: There is a stable 2 mm pulmonary nodule in the right upper lobe series 3 image 68. No new or enlarging pulmonary nodules are identified. No lung mass is identified. No ar eas of consolidation or pleural effusion. Tracheobronchial tree is unremarkable. Thoracic inlet, heart, and mediastinum: No enlarged supraclavicular, axillary, hilar or mediastinal lymph nodes. Thoracic aorta is normal in caliber. The heart is normal in size. No pericardial effusion. Bones and soft tissues: Stable 2 mm sclerotic lesion in the T12 vertebral body likely a bone island. Upper abdomen: There is a moderate amount of free intraperitoneal gas in the upper abdomen. A source for this gas is not definitively identified. There are scattered diverticula within the transverse colon. IMPRESSION: No findings to suggest recurrent or metastatic disease in the chest. There is a moderate amount of free intraperitoneal gas in the upper abdomen. This finding raises concern for perforated hollow viscus. Findings were discussed by phone with Dr. Rajeev Nair on 01/21/2018 at 8:52 AM. CBC W/DIFF, AUTOMATED Collected: 01/12/2018 Status: F Source: [place] 3:[address] [facility] REPOSITORY TYPE CODE TESTS RESULT OUT OF RANGE REFERENCE UNITS LAB L100.1000 4.4-11.0 K/mm3 High WBC 11.4 LAB L100.1200 4.6-6.2 M/mm3 Normal RBC 4.69 LAB L100.1300 13.0-16.5 g/dl Normal HGB 13.9 LAB L100.1400 40-54 % Normal HCT 41.2 LAB L100.1500 80-94 fL Normal MCV 87.8 LAB L100.1600 27.0-32.0 pg Normal MCH 29.6 LAB L100.1700 32-36 g/gl Normal MCHC 33.7 LAB L100.1810 11.6-14.6 % Normal RDW CV 13.7 LAB L100.1820 35.1-43.9 fl High RDW SD 44.3 LAB L100.1900 150-450 K/mm3 Normal PLT 198 LAB L100.2000 6.2-12.0 fl Normal MPV 9.9 LAB L100.2100 47-70 % High NEUT% 84.4 LAB L100.2200 19-41 % Low LY% 8.9 LAB L100.2300 0-10 % Normal MONO% 6.0 LAB L100.2400 0-5 % Normal EO% 0.4 LAB L100.2500 0-1 % Normal BASO% 0.2 LAB L100.2550 0.0-0.9 % Normal IM GRAN % 0.100 Result Comment: IG% - Immature Granulocytes (promyelocytes, myelocytes and metamyelocytes) > 1% indicates that a LEFT SHIFT is Present. LAB L100.2620 2.0-7.7 X10 3/uL High Absolute Neut 9.6 LAB L100.2720 0.83-4.51 X10 3/ul Normal Absolute Lymph 1.01 Performed By: #### L100.0100 #### [facility] [place], [address] COMPREHENSIVE METABOLIC Collected: 01/12/2018 Status: F Source: [facility] 3:[address] [facility] REPOSITORY Order Comment: Comments: CBCD TYPE CODE TESTS RESULT OUT OF RANGE REFERENCE UNITS LAB L501.0100 74-106 mg/dL Normal GLU 102 Result Comment: Fasting Glucose result from 100 to 125 mg/dL suggests IMPAIRED HOMEOSTASIS per A.D.A. criteria. Please note revised GLUCOSE reference range effective 2017. LAB L501.1000 7-18 mg/dL High BUN 19 LAB L501.1100 0.70-1.30 mg/dL Normal CREAT,SERUM 1.19 Result Comment: The validity of the calculated GFR AND GFRAA in patients over 70 years has not been determined. Clinical correlation is essential. LAB L501.1110 >60 mL/min Normal EST GFR 65 Result Comment: Non- GFR Calc LAB L501.1115 >60 mL/min Normal EST GFR - AA 78 Result Comment: GFR Calc LAB L501.1300 10-20 RATIO Normal BUN/CRE 16.0 LAB L501.1500 6.4-8.2 g/dL T Normal PROT 8.1 LAB L501.1800 3.2-5.0 g/dL Normal ALB 3.8 LAB L501.1950 2.2-4.2 g/dL High GLOB 4.3 LAB L501.2000 0.9-2.4 RATIO Normal A/G 0.9 LAB L501.2200 8.5-10.1 mg/dL CA Normal 9.2 LAB L501.4100 15-37 U/L Normal AST 18 LAB L501.4305 45-117 U/L Normal ALK P 71 LAB L501.4405 16-61 U/L Normal ALT 28 LAB L501.4600 0.20-1.00 mg/dL High T BILI 1.10 LAB L501.5300 136-145 mmol/L NA Normal 143 LAB L501.5600 3.5-5.1 mmol/L K Normal 4.0 LAB L501.5900 98-107 mmol/L CL Normal 106 LAB L501.6100 21.0-32.0 mmol/L Normal CO2 27.0 LAB L501.6200 5-15 Normal GAP 10 Performed By: #### L500.4050, L501.2450 #### [facility] [address] [place], [address] LIPASE Collected: 01/12/2018 Status: F Source: [place] 3:[address] [facility] REPOSITORY Order Comment: Comments: CBCD TYPE CODE TESTS RESULT OUT OF RANGE REFERENCE UNITS LAB L501.2450 73-393 U/L Normal LIPASE 126 Performed By: #### L500.4050, L501.2450 #### [facility] [address] [place], [address] PSA,TOTAL - ANNUAL Collected: 09/07/2017 Status: F Source: [place] SCREEN 7:[address] [facility] REPOSITORY TYPE CODE TESTS RESULT OUT OF REFERENCE UNITS RANGE LAB L501.9910 0.00-4.00 ng/mL High PSA,TOT 7.30 SCREEN Result Comment: This test was performed using the TPSA assay method for the [employer] chemistry system. Values obtained with different assay methods cannot be used interchangably. When changing PSA assays in the course of monitoring a patient, additional sequential testing should be carried out to confirm baseline values. Performed By: #### L501.9910 #### [place] [facility] [address] [place], [address] CNOV Observed: 07/15/2017 Status: COMPLETED Source: [place] 8:45 AM [facility] REPOSITORY Office Visit (ORTHMN) SIMPSONMARILEE RUST ([id number]) 1950 M Date Time Provider Department 07/15/17 8:45 AM RAJEEV NAIR During your visit today, we recorded the following information about you: Weight Height 113.4 kg 1.854 m Rajeev Nair MD, MD 07/15/2017 9:43 AM Signed Orthopaedic Oncology Follow-Up Clinic Note ? Surgery/Date: 01/03/2016 ?? 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 ? S: This visit represents our 18-month surveillance visit with Marilee and his . 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 Surgery date was 01/03/2016. No RT or chemotherapy pre or post operatively. He reports no new problems or concerns. He continues to be busy with various house projects, etc. He reports that intermittently he experiences numbness in the area of the incision/scar that radiates to his elbow. He continues to take Gabapentin 900 mg three times per day. As long as he stays on this dose he reports no pain. They are interested in virtual visits for his more off month visits, that don't require advanced imaging. ? Pathology was reviewed under specimen #: [id number]. The excised specimen was consistent with Skin, right upper arm, biopsy - Cutaneous leiomyosarcoma, FNCLCC Grade 2. ? ? Exam: RUE The incision is pristine - horseshoe shaped -- small Dog ears are unchanged PIN/AIN/M fire well 06/20 motor SILT R/U/M 2+ Radial pulse Elbow 0-130 No nodularity or concern for local recurrence on examination No axillary, supraclavicular, cervical lymphadenopathy, bilaterally. No pain with neck range of motion, rotate 70? either way, able to touch his chin to his chest, extend 30? Spinal column tenderness to percussion Raised both arms above head without difficulty, no RTC deficits concerns Well-tanned ? Imagin07/14/17 Chest X-ray --> Reviewed. No concerns for metastatic dissemination ? ? A/P: - RTC in 6mo for repeat CT Chest and his right humerus MRI at his 2yr anniversary. We can perform this as a virtual visit, so long as he obtains scans prior to the visit for me to review. - If there are no concerns locally, I will then revert to clinical examinations only for his arm, and do annual CT chest imaging until year 5. 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 - I can see him annually with CT Chest imaging from years 2-5 if no concerns with next set of imaging -- with the premise that he will let me know BBII if there are any concerning changes in the right arm appearance/exam - I have no issues with him continuing with his Neurontin, for which he is on 900 mg TID. He has been on this for a small nerve peripheral neuropathy for 13-14 years. This is being followed by his primary care physician. ? The patient will continue being screened on the low-risk sarcoma protocol. A total of 25min of dtgp-te-buzi minutes was spent with the patient in the office today. Greater than 50% of that time was spent counseling and/or with care coordination. ? ? ? 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 No IV access, insert saline lock prior to the beginning of sedation, infusion, injection of imaging exam. Discontinue saline lock post exam. If Pt. has a central line or IVAD, may access for administration according to line specific nursing protocol. Once exam is complete flush line and de-access according to line specific nursing protocol in the MR contrast administration guidelines linkDisp: 1 EachRfl: 0 CREATININE BLD [SQCRET] Order #: [id number] FUTURE CT CHEST WO IVCON [[id number]] Order #: [id number] FUTURE Prescriptions as of 07/15/2017 Sig: IV CONTRAST (RADIOLOGY PROCED* MRI Upper arm RT Inject, intr* DIPHENHYDRAMINE 25 MG TABLET Take 1 tablet by mouth every * TAMSULOSIN 0.4 MG CAPSULE Take 2 capsules by mouth kemal* TADALAFIL 5 MG TABLET Take 5 mg by mouth as needed. ASPIRIN 81 MG TABLET Take 81 mg by mouth. METOPROLOL 12.5 MG TAB Take 12.5 mg by mouth every 1* MULTI-VITAMIN ORAL Take by mouth. CHOLECALCIFEROL (VITAMIN D3) * Take by mouth. SIMVASTATIN 40 MG TABLET Take 40 mg by mouth daily at * TAMSULOSIN 0.4 MG CAPSULE Take 0.4 mg by mouth. GABAPENTIN 300 MG TABLET Take 900 mg by mouth three ti* Problem List As Of Date 07/15/2017 Noted Resolved PAIN IN LIMB [M79.609] INVALID FOR* Acute appendicitis with generalized peritonitis*INVALID FOR* Tumor of soft tissues [D49.2] INVALID FOR* Leiomyosarcoma of right upper extremity (HCC) [*INVALID FOR* Leiomyosarcoma of arm (HCC) [C49.10] INVALID FOR* Prescriptions ordered this encounter Disp Refills Start End IV CONTRAST (RADIOLOGY PROCEDURE) 1 Ea* 0 07/15/2017 07/16/2017 Class: In Office Sig: MRI Upper arm RT Inject, intravenously, once for 1 dose. No IV access, insert saline lock prior to the beginning of sedation, infusion, injection of imaging exam. Discontinue saline lock post exam. If Pt. has a central line or IVAD, may access for administration according to line specific nursing protocol. Once exam is complete flush line and de-access according to line specific nursing protocol in the MR contrast administration guidelines link Disposition: Return in about 6 months (around 01/15/2018). Follow-up and Disposition History Recorded Encounter Status:Closed by RAJEEV NAIR MD on 07/15/17 PROGRESS Observed: 07/15/2017 Status: COMPLETED Source: [place] 8:44 AM [facility] [place] REPOSITORY HNO ID: [id number] Author: Rajeev Nair MD Service: (none) Author Type: Physician Type: Progress Notes Filed: 07/15/2017 9:43 AM Note Text: Orthopaedic Oncology Follow-Up Clinic Note ? Surgery/Date: 01/03/2016 ?? 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 ? S: This visit represents our 18-month surveillance visit with Marilee and his . 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 Surgery date was 01/03/2016. No RT or chemotherapy pre or post operatively. He reports no new problems or concerns. He continues to be busy with various house projects, etc. He reports that intermittently he experiences numbness in the area of the incision/scar that radiates to his elbow. He continues to take Gabapentin 900 mg three times per day. As long as he stays on this dose he reports no pain. They are interested in virtual visits for his more off month visits, that don't require advanced imaging. ? Pathology was reviewed under specimen #: [id number]. The excised specimen was consistent with Skin, right upper arm, biopsy - Cutaneous leiomyosarcoma, FNCLCC Grade 2. ? ? Exam: RUE The incision is pristine - horseshoe shaped -- small Dog ears are unchanged PIN/AIN/M fire well 06/20 motor SILT R/U/M 2+ Radial pulse Elbow 0-130 No nodularity or concern for local recurrence on examination No axillary, supraclavicular, cervical lymphadenopathy, bilaterally. No pain with neck range of motion, rotate 70? either way, able to touch his chin to his chest, extend 30? Spinal column tenderness to percussion Raised both arms above head without difficulty, no RTC deficits concerns Well-tanned ? Imagin07/14/17 Chest X-ray --> Reviewed. No concerns for metastatic dissemination ? ? A/P: - RTC in 6mo for repeat CT Chest and his right humerus MRI at his 2yr anniversary. We can perform this as a virtual visit, so long as he obtains scans prior to the visit for me to review. - If there are no concerns locally, I will then revert to clinical examinations only for his arm, and do annual CT chest imaging until year 5. 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 - I can see him annually with CT Chest imaging from years 2-5 if no concerns with next set of imaging -- with the premise that he will let me know BIBI if there are any concerning changes in the right arm appearance/exam - I have no issues with him continuing with his Neurontin, for which he is on 900 mg TID. He has been on this for a small nerve peripheral neuropathy for 13-14 years. This is being followed by his primary care physician. ? The patient will continue being screened on the low-risk sarcoma protocol. A total of 25min of pohq-sw-tupu minutes was spent with the patient in the office today. Greater than 50% of that time was spent counseling and/or with care coordination. ? ? ? Months post-op: ~18 months Rajeev Nair MD electrical equipment technician, [facility], Division of Musculoskeletal Oncology Co-Director of Sarcoma Care, [facility] Pager: [phone] July 15, 2017 8:44 AM XR CHEST 2V FRONTAL/LAT Observed: 07/14/2017 Status: F Source: [place] 8:11 AM [facility] REPOSITORY * * *Final Report* * * DATE OF EXAM: Jul 14 2017 8:11AM [id number] [id number] - XR CHEST 2V FRONTAL/LAT / PROCEDURE REASON: Malignant neoplasm of connective and soft tissue of right upper limb, including * * * * Physician Interpretation * * * * EXAMINATION: CHEST RADIOGRAPH (2 VIEW FRONTAL and LATERAL) Clinical History: Malignant neoplasm of connective and soft tissue of right upper limb, including shoulder MQ: XC2_5 Comparison: 04/14/2017 RESULT: Lines, tubes, and devices: None. Lungs and pleura: No consolidation. No lung mass. No pleural effusion. Cardiomediastinal silhouette: Stable cardiomediastinal silhouette. Other: Stable degenerative changes of the thoracic spine. IMPRESSION: No acute radiographic abnormality. Accounting Director: PSCB Transcribe Date/Time: Jul 14 2017 8:48A Dictated by : DARRYL GAFFNEY MD This examination was interpreted and the report reviewed and electronically signed by: DARRYL GAFFNEY MD on Jul 14 2017 8:48AM EST [id number] PROGRESS Observed: 07/14/2017 Status: COMPLETED Source: [place] 8:04 AM [facility] REPOSITORY HNO ID: [id number] Author: Lesvia (RtОлег Jaimes Service: (none) Author Type: Catshovel Driver Type: Progress Notes Filed: 07/14/2017 8:11 AM Note Text: Radiology Service Progress Note PATIENT NAME: Marilee Simpson DATE OF SERVICE: July 14, 2017 TIME: 8:04 AM PATIENT IDENTITY VERIFICATION COMPLETED USING TWO (2) METHODS: Patient confirmed name verbally and Date of . PATIENT GENDER DATA: Male PATIENT RELEVANT IMPLANT DATA REVIEWED: Not Applicable RADIOLOGY DEPARTMENT: General X-ray: Exam(s) Completed: Chest X-Ray PERIPHERAL IV DATA: Not applicable SIGNED BY: Lesvia Baca July 14, 2017 8:04 AM PROGRESS Observed: 04/15/2017 Status: COMPLETED Source: [place] 9:24 AM [facility] REPOSITORY HNO ID: [id number] Author: Rajeev Nair MD Service: (none) Author Type: Physician Type: Progress Notes Filed: 04/15/2017 9:30 AM Note Text: [facility] STAFF PHYSICIAN NOTE OF PERSONAL INVOLVEMENT IN CARE PA-C's history reviewed. I have personally examined the patient and repeated the moreno components of the exam/history. The assessment and plan were formulated and discussed with the PA-C. Please see my below dicatation for all pertinent highlights, including historical emphasis, clinical exam, tests ordered, and the plan moving forward. See PA-C's note for additional details. Regarding the plan, we have had an in depth discussion today regarding the current symptomatology and possible causes for the current symptoms. This discussion included a personal review of all the available imaging studies with the patient, pertinent lab values, and highlighting moreno findings. I have spent a total time of 25min reviewing all available information, with 15min of that time spent in ptbk-jh-jrsb time with the patient. Greater than 50% of this visit time was spent in counseling an/or care coordination. In Summary: Highlights: This is my 15 months surveillance visit with Marilee. No issues to report, he continues on 900 mg TID for chronic small nerve peripheral neuropathy. This is not related to his arm surgery. No pain, no concerns for new lumps or bumps. Exam: RUE The incision is pristine - horseshoe shaped PIN/AIN/M fire well 5/5 motor SILT R/U/M DP palp Elbow 0-130 No nodularity or concern for local recurrence on examination No axillary, supraclavicular, cervical lymphadenopathy, bilaterally. No pain with neck range of motion, rotate 70? either way, able to touch his chin to his chest, extend 30? Spinal column tenderness to percussion Ambulates without an assistive device, no limp -- no concern for lower extremity issues Plan: - RTC in 3mo for CXR and clinical exam. We will repeat CT Chest and his right humerus MRI at his 2yr anniversary. If there are no concerns locally, I will then revert to clinical examinations only for his arm, and do annual CT chest imaging until year 5. 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 - I have no issues with him continuing with his Neurontin, for which she is on 900 mg TID. He has been on this for a small nerve peripheral neuropathy for 13-14 years. This is being followed by his primary care physician. We will continue to follow him on the low risk soft tissue sarcoma protocol. Rajeev Nair MD electrical equipment technician, [facility], Division of Musculoskeletal Oncology Co-Director of Sarcoma Care, [facility] Pager: [phone] April 15, 2017 9:24 AM PROGRESS Observed: 04/15/2017 Status: COMPLETED Source: [place] 8:45 AM [facility] REPOSIT[facility] HNO ID: [id number] Author: Kim Partida) Liz Service: (none) Author Type: Physician Ladies Suit Operator Type: Progress Notes Filed: 04/15/2017 9:30 AM Note Text: Orthopaedic Oncology Follow-Up Clinic Note Surgery/Date: 01/03/2016 ?? Diagnosis: Incompletely Excised Superficial Leiomyosarcoma of Right Posterior Arm, Superficial (original lesion 1.3cm) S: This visit represents our 15 month surveillance visit with Marilee and his . 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 Surgery date was 01/03/2016. No RT or chemotherapy pre or post operatively. He reports no new problems or concerns. He is back to his regular activities without restrictions. He reports that intermittently he experiences numbness in the area of the incision/scar that radiates to his elbow. He continues to take Gabapentin 900 mg three times per day. He reports if he misses a dose he feels the difference. As long as he stays on this dose he reports no pain. Pathology was reviewed under specimen #: [id number]. The excised specimen was consistent with Skin, right upper arm, biopsy - Cutaneous leiomyosarcoma, FNCLCC Grade 2. Exam: The right posterior arm incision is well-healed, no drainage, no concerns for erythema, cellulitis, or fluid collections that would signify infection. He has full ROM in extension of 60 degree's. Flexion to 180 degree's. Abduction and adduction is intact. Innovation Analyst strength is equal and symmetric. Able to fully pronate and supinate without difficulty. Imaging: X-ray chest 04/14/2017: Lungs and Pleura: ?The lungs are clear. ?No infiltrates, noncalcified ? nodules or pleural effusions are seen. Pulmonary vascularity is unremarkable. 3. Cardiomediastinal silhouette: ?Heart size within normal limits. 4. Other: ?Moderate narrowing of the disc spaces throughout the thoracic spine. A/P: - RTC 3 months(18 month surveillance) for clinical evaluation and imaging. Order has been placed for Chest x-ray - No restrictions on activity. - He has not weaned the Gabapentin. He continues with 900 mg tid. He reports if he misses a dose he feels the difference and would prefer to stray on current dosing. The medication is prescribed by his primary care physician Dr. Lawrence. The patient will continue being screened on the low-risk sarcoma protocol. Months post-op: 15 months Kim Richardson PA-C, MPAS Physician Ladies Suit Operator Orthopedic Oncology pager: [phone] phone: [phone] April 15, 2017 8:45 AM XR CHEST 2V FRONTAL/LAT Observed: 04/14/2017 Status: F Source: [place] 7:57 AM [facility] REPOSITORY * * *Final Report* * * DATE OF EXAM: Apr 14 2017 7:57AM [id number] - XR CHEST 2V FRONTAL/LAT / PROCEDURE REASON: Malignant neoplasm of connective and soft tissue of right upper limb, including * * * * Physician Interpretation * * * * CHEST RADIOGRAPH (PA and lateral views) 04/14/2017 7:57 AM Indications: Routine surveillance per NCCN guidelines after sarcoma resection Malignant neoplasm of connective and soft tissue of right upper limb, including shoulder follow up to leiomyosarcoma M: XC2_3 Comparison: 06/30/2016 RESULTS: 1. Lines, Tubes, and Devices: None 2. Lungs and Pleura: The lungs are clear. No infiltrates, noncalcified nodules or pleural effusions are seen. Pulmonary vascularity is unremarkable. 3. Cardiomediastinal silhouette: Heart size within normal limits. 4. Other: Moderate narrowing of the disc spaces throughout the thoracic spine. IMPRESSION: No acute museum librarian: KRISTIAN Transcribe Date/Time: Apr 14 2017 8:28A Dictated by : GAYATHRI HEAD, DO This examination was interpreted and the report reviewed and electronically signed by: GAYATHRI HEAD DO on Apr 14 2017 3:55PM EST [id number] PROGRESS Observed: 04/14/2017 Status: COMPLETED Source: [place] 7:52 AM [facility] REPOSITORY HNO ID: [id number] Author: Lesvia (Rt) Олег Baca Service: (none) Author Type: Catshovel Driver Type: Progress Notes Filed: 04/14/2017 7:58 AM Note Text: Radiology Service Progress Note PATIENT NAME: Marilee Simpson DATE OF SERVICE: April 14, 2017 TIME: 7:52 AM PATIENT IDENTITY VERIFICATION COMPLETED USING TWO (2) METHODS: Patient confirmed name verbally and Date of . PATIENT GENDER DATA: Male PATIENT RELEVANT IMPLANT DATA REVIEWED: Not Applicable RADIOLOGY DEPARTMENT: General X-ray: Exam(s) Completed: Chest X-Ray PERIPHERAL IV DATA: Not applicable SIGNED BY: RT Earl April 14, 2017 7:52 AM ALLERGIES ALLERGIES DATE TYPE / CODE NAME / CODE REACTION SEVERITY SOURCE 12/08/[address] [facility] Allergy/4160 Allergies/F00 Hospital [address](SNOMED 1638214(RXNOR Repository CT) M) 09/09/2012 DRUG ZINC OXIDE ITCHING [facility] INGREDI/[address] [place] [address](SNOMED Repository CT) ENCOUNTERS ENCOUNTERS ADMIT/DISCHARGE ACCOUNT ADMITTING ENCOUNTER LOCATION SOURCE NUMBER CLASS 02/01/2018/02/02/20 [id number] Ambulatory [address] [place] Repository 02/01/2018/02/02/20 [id number] Ambulatory [address] [place] Repository 01/21/2018/01/23/20 [id number] Ambulatory [address] [place] Repository 01/21/2018/01/22/20 [id number] Ambulatory [address] [place] Repository 01/21/2018/01/23/20 [id number] Ambulatory [address] Repository 01/21/2018/01/23/20 [id number] Ambulatory [address] [place] Repository 01/20/2018 [id number] Ambulatory [facility] Other [place] Repository 01/20/2018 [id number] Ambulatory [facility] Other [place] Repository 01/12/2018 [id number] Ambulatory [facility] ing:BFHLAB Repository 09/07/2017 [id number] Ambulatory [place] [facility] ing:MTLAB Repository 07/15/2017/07/16/19 [id number] Ambulatory [address] Repository 07/14/2017/07/15/19 [id number] Ambulatory [address] Repository 04/15/2017/04/15/19 [id number] Ambulatory [address] Repository 04/14/2017/04/14/19 [id number] Ambulatory [address] Repository PAYERS PAYERS ENCOUNTER GUARANTOR PAYER SUBSCRIBER SOURCE 01/12/2018 MARILEE Galindo Primary Insurance:MMO MARILEE Healy [id number] E MEDICAREPolicy HUFFDOB: [facility] [place]: [id number] [id number] Repository [address]Zun: (330) Date:6920-16-[phone] () [address], [place] [address]OP: 01/12/2018 Secondary NOT GIVENUNK [place] Insurance:SELF PAY [facility] Number: Effective Repository Date:2018-01-12 09/07/2017 MARILEE Galindo Primary Insurance:MMO MARILEE Healy [id number] E MEDICAREPolicy HUFFDOB: [facility] Number: [id number] [id number] Repository [address]Rkv: (330) Date:0828-59-96[phone] () [address], [place] [address]EN: 09/07/2017 Secondary NOT GIVENUNK [place] Insurance:SELF PAY [facility] Number: Effective Repository Date:2017-09-07
== END ==
PROVIDERS: Family Provider Family Medicine; PCP Family Medicine; Visit Provider Family Medicine
DX: K85.90 Acute pancreatitis without necrosis or infection, unspecified (principal); M06.9 Rheumatoid arthritis, unspecified; G62.9 Polyneuropathy, unspecified
CPT/HCPCS: 36415; 80053; 83690; 85025

== ENCOUNTER 2018-02-20 20:01 | Inpatient (IN) | payer MEDICARE, SELFPAY ==
[2018-02-20 20:01] VITALS: BP 145/87; PULSE 101; RESP 18; TEMP 39.6; O2SAT 95; BMI 33.0
--- NOTE | 2018-02-20 20:22 | EKG12_ITS ---
Test Reason : ABD PAIN Blood Pressure : / mmHG Vent. Rate : 104 BPM Atrial Rate : 104 BPM P-R Int : 158 ms QRS Dur : 112 ms QT Int : 368 ms P-R-T Axes : 049 -36 098 degrees QTc Int : 483 ms Sinus tachycardia Left axis deviation Septal infarct , age undetermined T wave abnormality, consider lateral ischemia Abnormal ECG Confirmed by JOURDAN GARCIA, MY ([id number]), photograph editor JULY TALAVERA ([id number]) on 02/23/2018 9:11:08 AM Referred By: ROXI Confirmed By:MY SOLIMAN MD
--- NOTE | 2018-02-20 20:25 | RAD_ITS ---
STUDY: X-RAY CHEST REASON FOR EXAM: Male, 67 years old. Status post perforated bowel with repair, abdominal pain and fever that started today TECHNIQUE: AP COMPARISON: 12/08/2016 FINDINGS: Lungs are mildly under expanded with reticular opacity at the right more than left lung base. Mild blunting of bilateral costophrenic angles. Normal size heart. Normal mediastinum and aidee. Normal visualized pulmonary arteries. There is atherosclerotic tortuosity of the aortic arch and descending thoracic aorta. Normal visualized thoracic spine. Normal visualized ribs, clavicles, and shoulders. There is no demonstrated abnormality of the visualized soft tissue structures of the upper abdomen. RAD/Chest 1 View (Portable) IMPRESSION: 1. Suspect bibasilar atelectasis. Pneumonia is considered less likely. Possible trace volume pleural effusions. Electronically Signed: Russel Boone MD at 20:39 EST , Service support ,
[2018-02-20 20:26] VITALS: PULSE 104
[2018-02-20 20:32] LABS: Absolute Lymphocyte Count 0.59 X10^3/ul (0.83-4.51); Absolute Neutrophil Count 9.1 X10^3/uL (2.0-7.7); Basophil# 0.01 X10^3/uL; Basophil% 0.1 % (0-1); Eosinophil# 0.05 X10^3/uL; Eosinophils% 0.5 % (0-5); Hematocrit 39.3 % (40-54); Hemoglobin 13.6 g/dl (13.0-16.5); Lymphocyte # 0.59 X10^3/ul (4.0); Lymphocyte % 5.8 % (19-41); Mean Corp Hgb Conc 34.6 g/gl (32-36); Mean Corpuscular Hgb 29.6 pg (27.0-32.0); Mean Corpuscular Volume 85.4 fL (80-94); Mean Platelet Vol. 9.8 fl (6.2-12.0); Monocyte# 0.49 X10^3/uL; Monocyte% 4.8 % (0-10); Neutrophil # 9.05 X10^3/uL (2.7-7.7); Neutrophil % 88.6 % (47-70); Platelet Count 122 K/mm3 (150-450); RBC Distribution Width CV 14.1 % (11.6-14.6); RBC Distribution Width SD 43.9 fl (35.1-43.9); White Blood Count 10.2 K/mm3 (4.4-11.0)
[2018-02-20 20:36] LABS: Differential Indicated SCAN CRITERIA MET; POSITIVE COUNT NO; POSITIVE DIFFERENTIAL YES; POSITIVE MORPHOLOGY YES
--- NOTE | 2018-02-20 20:39 | CT_ITS ---
STUDY: CT ABDOMEN AND PELVIS WITH CONTRAST REASON FOR EXAM: Male, 67 years old. Abdominal pain and fever. RADIATION DOSAGE (If Supplied By Facility): CTDIvol = ( 23.59 ) mGy, DLP = ( 1422.65 ) mGycm TECHNIQUE: Transaxial images were obtained from the dome of the diaphragm to the symphysis pubis without oral contrast. 100ML ml of Isovue 300 contrast was administered. Sagittal and coronal images were reconstructed. Individualized dose optimization techniques were used for this CT. COMPARISON: 12/08/2016. FINDINGS: Lung bases are clear. Visualized heart is normal. The liver is unremarkable. The gallbladder is unremarkable. The spleen and pancreas are unremarkable. The adrenal glands are normal. The kidneys are unremarkable. No stones or hydronephrosis. The aorta is normal in caliber. There is extensive diverticulosis of the colon. There is wall thickening and moderately extensive pericolonic stranding of the distal descending/proximal sigmoid colon. There is localized, contained perforation of the anterior bowel with a 2.5 x 2.5 cm diverticular abscess. There is no free fluid or free air. Urinary bladder is unremarkable. The prostate gland measures 6.5 x 7.1 x 8.3 cm. There is a small, fat-containing umbilical hernia, minimally increased compared to the prior study. Normal osseous structures. CT/Abdomen/Pelvis WITH Contrast IMPRESSION: 1. Acute diverticulitis of the distal descending/proximal sigmoid colon, with a small diverticular abscess. No free air. 2. Prostatic enlargement. 3. Fat-containing umbilical hernia. Dr. Clemente called results to Dr. Nina at 11:23 PM. N.B. : The above information has been verbally conveyed by Kyung Clemente MD to Yuni Nina MD, MD, on 02/20/2018 23:24:56 (ET). Electronically Signed: Kyung Clemente MD at 23:26 EST Tel , Service support ,
[2018-02-20 20:41] LABS: International Normalized Ratio 1.1; Prothrombin Time (Protime)PT. 13.8 SECONDS (11.7-14.9)
[2018-02-20 20:42] LABS: Partial Thromboplast Time 30.5 Seconds (24.1-36.2)
[2018-02-20 20:47] LABS: ALB/GLOB Ratio 1.2 RATIO (0.9-2.4); AST(SGOT) 12 U/L (15-37); Alanine Aminotransfer ALT/SGPT 20 U/L (16-61); Albumin, Serum 4.1 g/dL (3.2-5.0); Alkaline Phosphatase 83 U/L (45-117); Anion Gap 9 (5-15); BUN 17 mg/dL (7-18); BUN/Creat Ratio 15.2 RATIO (10-20); Calcium,Total 8.6 mg/dL (8.5-10.1); Chloride 107 mmol/L (98-107); Creatinine, Serum 1.12 mg/dL (0.70-1.30); EST Glomerular Filtration Rate 69 mL/min (>60); Est Glom Filt Rate - Afr Amer 84 mL/min (>60); Estimated Creatinine Clearance 72.33 ml/min; Globulin 3.4 g/dL (2.2-4.2); Glucose 138 mg/dL (74-106); Lactic Acid 1.3 mmol/L (0.4-2.0); Lipase 149 U/L (73-393); Potassium 3.4 mmol/L (3.5-5.1); Protein, Total 7.5 g/dL (6.4-8.2); Sodium Level 139 mmol/L (136-145)
[2018-02-20 21:02] LABS: Platelet Estimate SLT DEC (ADEQ)
[2018-02-20 21:05] VITALS: BP 121/79; PULSE 102; RESP 26; TEMP 39.2; O2SAT 94
[2018-02-20] MEDS: 0.9% Normal Saline 1,000 ML 150 ML IV (21:08)
[2018-02-20] MEDS: Acetaminophen 500 MG Tablet 1000 MG PO (21:08)
--- NOTE | 2018-02-20 21:20 | ED.DCSUM_ITS ---
- ER Visit Summary Date of Service: 02/20/18 Chief Complaint: Abdominal pain and fever History of Present Illness: The patient is a 67 M who presents with abdominal pain that started around 11 this morning. He has had chills and tonight noted a fever up to 105. Patient had a perforated bowel around Thanksgiving time. It was caught on a screening MRI study. Patient followed up with Dr. June and an upcoming colonoscopy is planned. 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 He has had prior appendectomy. Physical Examination: Blood pressure is 145/87, temperature 103.2, heart rate 101, respiratory rate 18, pulse ox 95% on room air. Patient sitting upright in bed. He is in no acute distress. Head neck examination reveals erythema and mild edema to the right upper eyelid. Heart is tachycardic and regular. Lungs sounds are clear. Abdomen is with diffuse tenderness and guarding throughout. Test Results: Portable chest x-ray shows suspected bibasilar atelectasis. EKG is sinus at [address] change. CBC was normal overall white count but left shift is noted with 88% neutrophils. Chemistry studies are difficult only for potassium of 3.4. LFTs significant only for a total bili of 1.5. Lipase is normal. Coags normal. Lactate is normal at 1.3. CT scan abdomen pelvis shows diverticulitis with a 2.5 cm contained abscess. No evidence of free air. Emergency Department Course and Treatment: Patient was given IV fluids and Tylenol. Repeat temperature is 100.2. Blood cultures have been sent. Patient is given a dose of Zosyn. I spoke with Dr. June who will follow along and patient will be discussed with hospitalist for admission. Treatment Plan: [] Disposition: Admit Impression: Diverticulitis with abscess This note was generated with [employer] dictation software. It may contain incorrect words, spelling, and punctuation that were not noted in review of the chart prior to signing ED Disposition - Plan for ED Patient: Chief Complaint: Abd Pain Referrals: Napoleon Larson MD [Primary Care Provider] -
[2018-02-20 21:22] VITALS: BP 121/68; PULSE 101; RESP 26; O2SAT 96
[2018-02-20 22:00] VITALS: PULSE 101; RESP 18; TEMP 37.9; O2SAT 96
[2018-02-20 23:01] LABS: Bacteria 0 SEEN /hpf (None Seen); Mucous, Urine 0 SEEN /hpf (<or=2+); Squamous Epithelial Cells - UA 0 SEEN /hpf (0-5)
[2018-02-20 23:16] LABS: Color, Urine Straw (Yellow); Glucose, Dipstick Normal (Normal); Ketone-Dipstick Negative (Negative); Leukocyte Esterase-Dipstick Negative /ul (Negative); Nitrite-Dipstick Negative (Negative); Occult Blood-Urine 25 /ul (Negative); Protein-Dipstick Negative (Negative); Specific Gravity, Urine 1.005 (1.002-1.030); Urine Bilirubin Dipstick Negative (Negative); Urine Clarity Clear (Clear); Urine Urobilinogen Normal (Normal)
[2018-02-20 23:18] LABS: Red Blood Cells-Urine 0-5 SEEN /hpf (0-5); White Blood Cells 0-5 SEEN /hpf (0-5)
--- NOTE | 2018-02-20 23:55 | PCM.HP.STD ---
Problem List (1) Acute diverticulitis of intestine Status: Acute History of Present Illness Date of Admission: 02/20/18 Chief Complaint: left lower quadrant abdomen pain The patient is a 67 year old M with a significant history of sarcoma status post surgery who presented with 1 day history of progressively worsening sharp excruciating pain in the left lower quadrant. His pain worsens with movement like standing up or walking. It is improved with not moving. His pain is nonradiating. Associated with his symptoms is fever; chills and diaphoresis. At home patient's temperature was 105.4 and a wet rag was applied to his forehead. At emergency department his highest temperature was 103.2. His initial heart rate was from 101-104. His respiratory rate was persistently 26. CT of his abdomen showed acute diverticulitis of the distal descending/proximal sigmoid colon with a small diverticular abscess without free air as well as fat-containing umbilical hernia. The Emergency department doctor discussed the case with General Surgeon; Dr. Watson. Per emergency department doctor Dr. Watson will be following the patient inpatient. As mentioned above patient has history of sarcoma and he follows up with oncology for longitudinal imaging. Around 2017 he had the same left lower quadrant pain. Longitudinal follow up of Sarcoma via radiographic image (?CT) of the Chest showed free air in his abdomen. Patient was subsequently sent to see General surgeon Dr. Watson who also ordered CT of his abdomen. The CT of the abdomen at that time showed diverticulitis for which reason patient was started on antibiotics. 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 Small fiber neuropathy G62.9 Allergies cod liver oil [From Desitin] Allergy (Verified 02/20/18 20:09) Rash zinc oxide [From Desitin] Allergy (Verified 02/20/18 20:09) Rash Home Medications: Ambulatory Orders Medication Instructions Recorded Aspirin [Aspirin, Baby] 81 mg PO DAILY@0800 12/08/16 Cholecalciferol (VIT D3) [Vitamin 2,000 unit PO DAILY 12/08/16 D] Gabapentin [Neurontin] 900 mg PO TIDCM 12/08/16 Metoprolol Tartrate [Lopressor 12.5 mg PO DAILY 12/08/16 (Beta Felicitas)] Multivit-Min/FA/Lycopen/Lutein 1 each PO DAILY 12/08/16 [Centrum Silver Men Tablet] Simvastatin [Zocor] 40 mg PO QHS 12/08/16 Tamsulosin HCl [Flomax] 0.4 mg PO DAILY 12/08/16 Surgical History: appendectomy, - - 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, 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 Denies: Weight Change HEENT: Denies: Head Aches, Sinus Congestion, Sinus Drainage Cardiovascular: Denies: Chest Pain, Palpitations Respiratory: Denies: Cough, Shortness of breath at rest, Sputum production Gastrointestinal: Reports: Abdominal Pain. Denies: Nausea, Vomiting Genitourinary: Denies: Dysuria Musculoskeletal: Denies: Joint Pain, Joint Tenderness Skin: Denies: Rash, Wounds Neurological: Denies: Numbness, Tingling, Focal weakness Psychiatric: Denies: Anxiety, Depression, Homicidal Ideations, Suicidal Ideations Hematologic/ Lymphatic: Denies: Easy Bruising, Easy Bleeding VTE Information - Inpt Only VTE Present on Admission: No VTE Mechan Device Prophylaxis: None VTE Pharm Prophylaxis ordered?: Yes Patient Problems: Active and Suspected Problems (Last Updated 02/21/18 @ 01:01 by Tomer Jones MD) Acute diverticulitis of intestine (Acute) - Physical Exam General: Alert, Oriented x3, Cooperative HEENT: Atraumatic, PERRLA, EOMI, Normocephalic, - - Erythematous right eyelid (raccoon eyes)-patient reported that this has occurred for the last month. Neck: Supple, No JVD, Negative Carotid Bruits Lungs: Clear to auscultation, Normal air movement Cardiovascular: Regular rate, No murmurs Abdomen: Bowel Sounds Present, Soft, Obese, Tender - Left lower quadrant Extremities: No edema, Capillary Refill Less than 3 Seconds Skin: No rashes, No breakdown Musculoskeletal: No Tenderness to Palpation of Joints or Extremities Neurological: Neuro grossly intact Psych/Mental Status: Normal Affect, Appropriate Vital Signs Temp Pulse Resp BP Pulse Ox 100.2 F H 101 H 18 121/68 H 96 02/20/18 22:00 02/20/18 22:00 02/20/18 22:00 02/20/18 21:22 02/20/18 22:00 Oxygen Delivery Method Room Air Weight: 113.398 kg Body Mass Index (BMI) 33.0 Laboratory Tests Past 24 Hrs 02/20/18 02/20/18 02/20/18 20:25 20:25 20:25 WBC 10.2 RBC 4.60 Hgb 13.6 Hct 39.3 L MCV 85.4 MCH 29.6 MCHC 34.6 RDW 14.1 RDW Differential 43.9 Plt Count 122 L MPV 9.8 Immature Gran % (Auto) 0.200 Neut % (Auto) 88.6 H Lymph % (Auto) 5.8 L [place] % (Auto) 4.8 Eos % (Auto) 0.5 Baso % (Auto) 0.1 Absolute Neuts (auto) 9.1 H Absolute Lymphs (auto) 0.59 L Total Counted Not Reportable Differential Comment SEE COMMENT Platelet Estimate SLT DEC PT 13.8 INR 1.1 APTT 30.5 Sodium 139 Potassium 3.4 L Chloride 107 Carbon Dioxide 23.0 Anion Gap 9 BUN 17 Creatinine 1.12 Estim Creat Clear Calc 72.33 Est GFR (MDRD) Af Amer 84 Est GFR (MDRD) Non-Af 69 BUN/Creatinine Ratio 15.2 Glucose 138 H Lactic Acid Calcium 8.6 Total Bilirubin 1.50 H AST 12 L ALT 20 Alkaline Phosphatase 83 Total Protein 7.5 Albumin 4.1 Globulin 3.4 Albumin/Globulin Ratio 1.2 Lipase 149 Urine Color Urine Clarity Urine pH Ur Specific [place] Urine Protein Urine Glucose (UA) Urine Ketones Urine Occult Blood Urine Nitrite Urine Bilirubin Urine Urobilinogen Ur Leukocyte Esterase Urine RBC Urine WBC Ur Squamous Epith Cells Urine Bacteria Urine Mucus 02/20/18 02/20/18 20:25 22:50 WBC RBC Hgb Hct MCV MCH MCHC RDW RDW Differential Plt Count MPV Immature Gran % (Auto) Neut % (Auto) Lymph % (Auto) [place] % (Auto) Eos % (Auto) Baso % (Auto) Absolute Neuts (auto) Absolute Lymphs (auto) Total Counted Differential Comment Platelet Estimate PT INR APTT Sodium Potassium Chloride Carbon Dioxide Anion Gap BUN Creatinine Estim Creat Clear Calc Est GFR (MDRD) Af Amer Est GFR (MDRD) Non-Af BUN/Creatinine Ratio Glucose Lactic Acid 1.3 Calcium Total Bilirubin AST ALT Alkaline Phosphatase Total Protein Albumin Globulin Albumin/Globulin Ratio Lipase Urine Color Straw Urine Clarity Clear Urine pH 6.0 Ur Specific [place] 1.005 Urine Protein Negative Urine Glucose (UA) Normal Urine Ketones Negative Urine Occult Blood 25 H Urine Nitrite Negative Urine Bilirubin Negative Urine Urobilinogen Normal Ur Leukocyte Esterase Negative Urine RBC 0-5 SEEN Urine WBC 0-5 SEEN Ur Squamous Epith Cells 0 SEEN Urine Bacteria 0 SEEN Urine Mucus 0 SEEN Assessment/Plan All Active Problems (Last Updated 02/21/18 @ 01:01 by Tomer Jones MD) Mid abdominal pain (Acute) Acute diverticulitis of intestine (Acute) The patient is a 67 year old M with a significant history of sarcoma status post surgery who presented with 1 day history of progressively worsening sharp excruciating pain in the left lower quadrant; fever; chills; and anorexia and with CT abdomen evidence of diverticulitis with abscess after being treated for the same disease with outpatient antibiotics; and meeting SIRS criteria consistent with sepsis Sepsis secondary to acute diverticulitis with abscess but without free air. Patient meets SIRS criteria with heart rate between 101 to 104; respiratory rate persistent at 26. Persistent fever with T-max of 103.2 and requiring Tylenol. Source of infection is acute diverticulitis. Patient meets criteria for sepsis. Patient does not meet criteria for severe sepsis or septic shock at this time. Patient received Zosyn and IV fluids maintenance infusion was initiated at the emergency department. We will continue patient on ciprofloxacin and Flagyl. Since patient is having some mild hypokalemia we will initiate Lactated Ringers with 40 of potassium for maintenance infusion. IV morphine as needed for pain IV Zofran as needed for nausea vomiting We will keep n.p.o. at this time. Trend CBC and BMP. General surgeon, Dr. Watson consulted. Hypokalemia Replacement as above Trend BMP. Elevated bilirubin Likely from sepsis. Treat sepsis as above. History of Sarcoma Continue outpatient follow-up. Small fiber neuropathy Gabapentin continued BPH Flomax continued DVT prophylaxis Subcutaneous heparin. Miscellaneous: Patient is on home metoprolol. He denies any dysrhythmia. He reported that he take it for dizzy spells. He reports that the medication was started about 10 years ago by a internet e commerce specialist. Importantly on admission his heart rate was from 101 to 104 but later trended down to normal range. Unclear while patient takes metoprolol. Initially discussed with patient that metoprolol will be stopped. However upon review of records his blood pressure is not within goal. We will continue metoprolol at this time. Hypertension?metoprolol continued. Code Visit Inpatient E&M: 96299 Init Hosp L3
[2018-02-21] VITALS (8 sets, daily range): BP systolic 106–124; BP diastolic 62–83; PULSE 81–91; RESP 18–24; TEMP 36.7–39.1; O2SAT 93–100; BMI 34.1
[2018-02-21] MEDS: Morphine 2 MG/ML Syringe IV ×5 (02:12→19:59)
[2018-02-21 06:07] LABS: Absolute Lymphocyte Count 1.05 X10^3/ul (0.83-4.51); Absolute Neutrophil Count 9.4 X10^3/uL (2.0-7.7); Basophil# 0.02 X10^3/uL; Basophil% 0.2 % (0-1); Eosinophil# 0.01 X10^3/uL; Eosinophils% 0.1 % (0-5); Hematocrit 35.9 % (40-54); Hemoglobin 12.1 g/dl (13.0-16.5); Lymphocyte # 1.05 X10^3/ul (4.0); Lymphocyte % 9.4 % (19-41); Mean Corp Hgb Conc 33.7 g/gl (32-36); Mean Corpuscular Hgb 29.5 pg (27.0-32.0); Mean Corpuscular Volume 87.6 fL (80-94); Mean Platelet Vol. 10.3 fl (6.2-12.0); Monocyte# 0.72 X10^3/uL; Monocyte% 6.4 % (0-10); Neutrophil # 9.36 X10^3/uL (2.7-7.7); Neutrophil % 83.7 % (47-70); Platelet Count 126 K/mm3 (150-450); RBC Distribution Width CV 14.4 % (11.6-14.6); White Blood Count 11.2 K/mm3 (4.4-11.0)
[2018-02-21 06:13] LABS: POSITIVE COUNT NO; POSITIVE DIFFERENTIAL NO; POSITIVE MORPHOLOGY NO
[2018-02-21 06:27] LABS: Anion Gap 9 (5-15); BUN 16 mg/dL (7-18); BUN/Creat Ratio 16.7 RATIO (10-20); Calcium,Total 7.9 mg/dL (8.5-10.1); Chloride 110 mmol/L (98-107); Creatinine, Serum 0.96 mg/dL (0.70-1.30); EST Glomerular Filtration Rate 83 mL/min (>60); Est Glom Filt Rate - Afr Amer 101 mL/min (>60); Estimated Creatinine Clearance 84.39 ml/min; Glucose 113 mg/dL (74-106); Potassium 3.7 mmol/L (3.5-5.1); Sodium Level 143 mmol/L (136-145)
[2018-02-21] MEDS: Ciprofloxacin 400 MG/200 ML BAG 200 MG IV ×2 (06:47→21:02)
--- NOTE | 2018-02-21 08:42 | PCM.PN.HOSP ---
Patient Problems: Active and Suspected Problems (Last Updated 02/21/18 @ 01:01 by Tomer Jones MD) Acute diverticulitis of intestine (Acute) Subjective: Patient seen and examined. He was admitted with complaint of worsening left lower quadrant pain and fever. He is being managed for sepsis due to diverticulitis and diverticular abscess. He still complains of pain in the left lower quadrant and rates it at about 5 out of 10. He denies any fever overnight, any chills, any shortness of breath, any diarrhea vomiting. Review of systems otherwise negative. Labs and vitals reviewed. General surgery on board. Vitals/I&O's: Vital Signs Temp Pulse Resp BP Pulse Ox 98.8 F 81 20 H 113/62 95 02/21/18 07:45 02/21/18 07:45 02/21/18 07:45 02/21/18 07:45 02/21/18 07:45 Oxygen Delivery Method Room Air Weight: 258 lb 13.163 oz Body Mass Index (BMI) 34.1 Intake and Output for Last 24 Hours 02/19/18 02/20/18 02/21/18 23:59 23:59 23:59 Intake Total 404 / 404 Output Total 300 / 300 Balance 104 / 104 General: Alert, Oriented x3, Cooperative, No apparent distress, - - looks uncomfortable and in pain HEENT: Atraumatic, PERRLA, EOMI, Normocephalic Oral: Moist Mucosa Neck: Supple, No JVD, Negative Carotid Bruits Lungs: Clear to auscultation, Normal air movement, No rhonchi, No wheeze, No rales Cardiovascular: Regular rate, Regular Rhythm, Normal S1, Normal S2, No murmurs Abdomen: Bowel Sounds Present, Soft, - - marked left lower quadrant tenderness, with significant guarding, but no rebound tenderness. Extremities: No clubbing, No cyanosis, No edema, Capillary Refill Less than 3 Seconds Skin: No rashes, No breakdown Musculoskeletal: No Tenderness to Palpation of Joints or Extremities Lymphatic: No Cervical, Supraclavicular, or Inguinal Adenopathy Neurological: Cranial nerves II-XII grossly intact, Neuro grossly intact, Motor Exam 5/5 strength throughout Psych/Mental Status: Normal Affect, Appropriate, Alert and oriented to time, place, person, mood and affect Laboratory Results 02/20/18 20:25: WBC 10.2, RBC 4.60, Hgb 13.6, Hct 39.3 L, MCV 85.4, MCH 29.6, MCHC 34.6, RDW 14.1, RDW Differential 43.9, Plt Count 122 L, MPV 9.8, Immature Gran % (Auto) 0.200, Neut % (Auto) 88.6 H, Lymph % (Auto) 5.8 L, [place] % (Auto) 4.8, Eos % (Auto) 0.5, Baso % (Auto) 0.1, Absolute Neuts (auto) 9.1 H, Absolute Lymphs (auto) 0.59 L, Total Counted Not Reportable, Differential Comment SEE COMMENT, Platelet Estimate SLT 02/20/18 20:25: PT 13.8, INR 1.1, APTT 30.5 02/20/18 20:25: Sodium 139, Potassium 3.4 L, Chloride 107, Carbon Dioxide 23.0, Anion Gap 9, BUN 17, Creatinine 1.12, Estim Creat Clear Calc 72.33, Est GFR (MDRD) Af Amer 84, Est GFR (MDRD) Non-Af 69, BUN/Creatinine Ratio 15.2, Glucose 138 H, Calcium 8.6, Total Bilirubin 1.50 H, AST 12 L, ALT 20, Alkaline Phosphatase 83, Total Protein 7.5, Albumin 4.1, Globulin 3.4, Albumin/Globulin Ratio 1.2, Lipase 149 02/20/18 20:25: Lactic Acid 1.3 02/20/18 22:50: Urine Color Straw, Urine Clarity Clear, Urine pH 6.0, Ur Specific [place] 1.005, Urine Protein Negative, Urine Glucose (UA) Normal, Urine Ketones Negative, Urine Occult Blood 25 H, Urine Nitrite Negative, Urine Bilirubin Negative, Urine Urobilinogen Normal, Ur Leukocyte Esterase Negative, Urine RBC 0-5 SEEN, Urine WBC 0-5 SEEN, Ur Squamous Epith Cells 0 SEEN, Urine Bacteria 0 SEEN, Urine Mucus 0 SEEN 02/21/18 05:38: WBC 11.2 H, RBC 4.10 L, Hgb 12.1 L, Hct 35.9 L, MCV 87.6, MCH 29.5, MCHC 33.7, RDW 14.4, RDW Differential 45.0 H, Plt Count 126 L, MPV 10.3, Immature Gran % (Auto) 0.200, Neut % (Auto) 83.7 H, Lymph % (Auto) 9.4 L, [place] % (Auto) 6.4, Eos % (Auto) 0.1, Baso % (Auto) 0.2, Absolute Neuts (auto) 9.4 H, Absolute Lymphs (auto) 1.05, Total Counted Not Reportable 02/21/18 05:38: Sodium 143, Potassium 3.7, Chloride 110 H, Carbon Dioxide 24.0, Anion Gap 9, BUN 16, Creatinine 0.96, Estim Creat Clear Calc 84.39, Est GFR (MDRD) Af Amer 101, Est GFR (MDRD) Non-Af 83, BUN/Creatinine Ratio 16.7, Glucose 113 H, Calcium 7.9 L Diagnostic Data Chest X-Ray 02/20/18 20:25 IMPRESSION: 1. Suspect bibasilar atelectasis. Pneumonia is considered less likely. Possible trace volume pleural effusions. Electronically Signed: Russel Boone MD at 20:39 EST , Service support , Abdomen/Pelvis CT 02/20/18 20:39 IMPRESSION: 1. Acute diverticulitis of the distal descending/proximal sigmoid colon, with a small diverticular abscess. No free air. 2. Prostatic enlargement. 3. Fat-containing umbilical hernia. Dr. Clemente called results to Dr. Nina at 11:23 PM. N.B. : The above information has been verbally conveyed by Kyung Clemente MD to Yuni Nina MD, MD, on 02/20/2018 23:24:56 (ET). Electronically Signed: Kyung Clemente MD at 23:26 EST Tel , Service support , Current Medications Gabapentin (Neurontin) 900 mg PO TIDCM JERED Ciprofloxacin (Cipro) 400 mg in 200 mls @ 200 mls/hr IV Q12 JERED Last Admin: 02/21/18 06:47 Dose: 200 mls/hr Potassium Chloride 40 meq/ (Lactated Ringer's) 1,020 mls @ 100 mls/hr IV .[id number] ON LICENSE OF [facility] Stop: 02/21/18 21:26 Last Admin: 02/21/18 01:57 Dose: 100 mls/hr Metronidazole (Flagyl) 500 mg in 100 mls @ 100 mls/hr IV Q8H JERED Last Admin: 02/21/18 05:18 Dose: 100 mls/hr Morphine Sulfate () 1 - 2 mg IV Q4H PRN PRN PRN Reason: PAIN Last Admin: 02/21/18 05:24 Dose: 2 mg Ondansetron HCl (Zofran) 4 mg IV Q8H PRN PRN PRN Reason: NAUSEA Tamsulosin HCl (Flomax) 0.4 mg PO DAILY ON LICENSE OF [facility] Zolpidem Tartrate (Ambien (Generic)) 5 mg PO QHS PRN PRN PRN Reason: INSOMNIA Medical Necessity - Tobacco Use Smoking Status: Never smoker Assessment/Plan All Active Problems (Last Updated 02/21/18 @ 01:01 by Tomer Jones MD) Mid abdominal pain (Acute) Acute diverticulitis of intestine (Acute) 1. Sepsis due to acute diverticulitis with diverticular abscess fever has trended down; tachycardia and tachypnea have also improved on IVF, and IV ciprofloxacin and IV flagyl general surgery on board; for percutaneous drainage of abscess tomorrow keep NPO for now IV morphine for pain and IV zofran for nausea and vomiting 2. Hypokalemia: resovled. k is 3.7. Will monitor 3. Elevated bilirubin: biliriubin was 1.5 on admission; will check to see if it has trended down 4. History of sarcoma: stable. Follow up with oncologist on outpatient basis 5. BPH: on flomax 6. Peripheral neuropathy: on gabapentin 7. Hypertension: controlled. On metoprolol DVT prophylaxis: heparin Code Visit Inpatient E&M: 20017 Subs Hosp L3
--- NOTE | 2018-02-21 08:47 | PN_ITS ---
Patient Problems: Active and Suspected Problems (Last Updated 02/21/18 @ 01:01 by Tomer Jones MD) Acute diverticulitis of intestine (Acute) Subjective: Patient seen and examined. He was admitted with complaint of worsening left lower quadrant pain and fever. He is being managed for sepsis due to diverticulitis and diverticular abscess. He still complains of pain in the left lower quadrant and rates it at about 5 out of 10. He denies any fever overnight, any chills, any shortness of breath, any diarrhea vomiting. Review of systems otherwise negative. Labs and vitals reviewed. General surgery on board. Vitals/I&O's: Vital Signs Temp Pulse Resp BP Pulse Ox 98.8 F 81 20 H 113/62 95 02/21/18 07:45 02/21/18 07:45 02/21/18 07:45 02/21/18 07:45 02/21/18 07:45 Oxygen Delivery Method Room Air Weight: 258 lb 13.163 oz Body Mass Index (BMI) 34.1 Intake and Output for Last 24 Hours 02/19/18 02/20/18 02/21/18 23:59 23:59 23:59 Intake Total 404 / 404 Output Total 300 / 300 Balance 104 / 104 General: Alert, Oriented x3, Cooperative, No apparent distress, - - looks uncomfortable and in pain HEENT: Atraumatic, PERRLA, EOMI, Normocephalic Oral: Moist Mucosa Neck: Supple, No JVD, Negative Carotid Bruits Lungs: Clear to auscultation, Normal air movement, No rhonchi, No wheeze, No rales Cardiovascular: Regular rate, Regular Rhythm, Normal S1, Normal S2, No murmurs Abdomen: Bowel Sounds Present, Soft, - - marked left lower quadrant tenderness, with significant guarding, but no rebound tenderness. Extremities: No clubbing, No cyanosis, No edema, Capillary Refill Less than 3 Seconds Skin: No rashes, No breakdown Musculoskeletal: No Tenderness to Palpation of Joints or Extremities Lymphatic: No Cervical, Supraclavicular, or Inguinal Adenopathy Neurological: Cranial nerves II-XII grossly intact, Neuro grossly intact, Motor Exam 5/5 strength throughout Psych/Mental Status: Normal Affect, Appropriate, Alert and oriented to time, place, person, mood and affect Laboratory Results 02/20/18 20:25: WBC 10.2, RBC 4.60, Hgb 13.6, Hct 39.3 L, MCV 85.4, MCH 29.6, MCHC 34.6, RDW 14.1, RDW Differential 43.9, Plt Count 122 L, MPV 9.8, Immature Gran % (Auto) 0.200, Neut % (Auto) 88.6 H, Lymph % (Auto) 5.8 L, [place] % (Auto) 4.8, Eos % (Auto) 0.5, Baso % (Auto) 0.1, Absolute Neuts (auto) 9.1 H, Absolute Lymphs (auto) 0.59 L, Total Counted Not Reportable, Differential Comment SEE COMMENT, Platelet Estimate SLT 02/20/18 20:25: PT 13.8, INR 1.1, APTT 30.5 02/20/18 20:25: Sodium 139, Potassium 3.4 L, Chloride 107, Carbon Dioxide 23.0, Anion Gap 9, BUN 17, Creatinine 1.12, Estim Creat Clear Calc 72.33, Est GFR (MDRD) Af Amer 84, Est GFR (MDRD) Non-Af 69, BUN/Creatinine Ratio 15.2, Glucose 138 H, Calcium 8.6, Total Bilirubin 1.50 H, AST 12 L, ALT 20, Alkaline Phosphatase 83, Total Protein 7.5, Albumin 4.1, Globulin 3.4, Albumin/Globulin Ratio 1.2, Lipase 149 02/20/18 20:25: Lactic Acid 1.3 02/20/18 22:50: Urine Color Straw, Urine Clarity Clear, Urine pH 6.0, Ur Specific [place] 1.005, Urine Protein Negative, Urine Glucose (UA) Normal, Urine Ketones Negative, Urine Occult Blood 25 H, Urine Nitrite Negative, Urine Bilirubin Negative, Urine Urobilinogen Normal, Ur Leukocyte Esterase Negative, Urine RBC 0-5 SEEN, Urine WBC 0-5 SEEN, Ur Squamous Epith Cells 0 SEEN, Urine Bacteria 0 SEEN, Urine Mucus 0 SEEN 02/21/18 05:38: WBC 11.2 H, RBC 4.10 L, Hgb 12.1 L, Hct 35.9 L, MCV 87.6, MCH 29.5, MCHC 33.7, RDW 14.4, RDW Differential 45.0 H, Plt Count 126 L, MPV 10.3, Immature Gran % (Auto) 0.200, Neut % (Auto) 83.7 H, Lymph % (Auto) 9.4 L, [place] % (Auto) 6.4, Eos % (Auto) 0.1, Baso % (Auto) 0.2, Absolute Neuts (auto) 9.4 H, Absolute Lymphs (auto) 1.05, Total Counted Not Reportable 02/21/18 05:38: Sodium 143, Potassium 3.7, Chloride 110 H, Carbon Dioxide 24.0, Anion Gap 9, BUN 16, Creatinine 0.96, Estim Creat Clear Calc 84.39, Est GFR (MDRD) Af Amer 101, Est GFR (MDRD) Non-Af 83, BUN/Creatinine Ratio 16.7, Glucose 113 H, Calcium 7.9 L Diagnostic Data Chest X-Ray 02/20/18 20:25 IMPRESSION: 1. Suspect bibasilar atelectasis. Pneumonia is considered less likely. Possible trace volume pleural effusions. Electronically Signed: Russel Boone MD at 20:39 EST , Service support , Abdomen/Pelvis CT 02/20/18 20:39 IMPRESSION: 1. Acute diverticulitis of the distal descending/proximal sigmoid colon, with a small diverticular abscess. No free air. 2. Prostatic enlargement. 3. Fat-containing umbilical hernia. Dr. Clemente called results to Dr. Nina at 11:23 PM. N.B. : The above information has been verbally conveyed by Kyung Clemente MD to Yuni Nina MD, MD, on 02/20/2018 23:24:56 (ET). Electronically Signed: Kyung Clemente MD at 23:26 EST Tel , Service support , Current Medications Gabapentin (Neurontin) 900 mg PO TIDCM JERED Ciprofloxacin (Cipro) 400 mg in 200 mls @ 200 mls/hr IV Q12 JERED Last Admin: 02/21/18 06:47 Dose: 200 mls/hr Potassium Chloride 40 meq/ (Lactated Ringer's) 1,020 mls @ 100 mls/hr IV .[id number] [facility] Stop: 02/21/18 21:26 Last Admin: 02/21/18 01:57 Dose: 100 mls/hr Metronidazole (Flagyl) 500 mg in 100 mls @ 100 mls/hr IV Q8H JERED Last Admin: 02/21/18 05:18 Dose: 100 mls/hr Morphine Sulfate () 1 - 2 mg IV Q4H PRN PRN PRN Reason: PAIN Last Admin: 02/21/18 05:24 Dose: 2 mg Ondansetron HCl (Zofran) 4 mg IV Q8H PRN PRN PRN Reason: NAUSEA Tamsulosin HCl (Flomax) 0.4 mg PO DAILY [facility] Zolpidem Tartrate (Ambien (Generic)) 5 mg PO QHS PRN PRN PRN Reason: INSOMNIA Medical Necessity - Tobacco Use Smoking Status: Never smoker Assessment/Plan All Active Problems (Last Updated 02/21/18 @ 01:01 by Tomer Jones MD) Mid abdominal pain (Acute) Acute diverticulitis of intestine (Acute) 1. Sepsis due to acute diverticulitis with diverticular abscess * fever has trended down; tachycardia and tachypnea have also improved * on IVF, and IV ciprofloxacin and IV flagyl * general surgery on board; for percutaneous drainage of abscess tomorrow * keep NPO for now * IV morphine for pain and IV zofran for nausea and vomiting * 2. Hypokalemia: resovled. k is 3.7. Will monitor 3. Elevated bilirubin: biliriubin was 1.5 on admission; will check to see if it has trended down 4. History of sarcoma: stable. Follow up with oncologist on outpatient basis 5. BPH: on flomax 6. Peripheral neuropathy: on gabapentin 7. Hypertension: controlled. On metoprolol DVT prophylaxis: heparin Code Visit Inpatient E&M: [id number] [facility] Hosp L3
[2018-02-21] MEDS: Gabapentin 300 MG Capsule 900 MG PO ×3 (09:35→18:15)
[2018-02-21] MEDS: Tamsulosin HCl 0.4 MG Capsule PO (09:42)
--- NOTE | 2018-02-21 11:15 | PCM.CONS.GEN ---
Reason for Consult Date of Consultation: 02/21/18 Reason for Consultation: diverticulitis History of Present Illness: The patient is a 67 year old M presents with a one-day history of left lower quadrant pain and fever up to 105. He presented to [facility] emergency department. CT scan of the abdomen and pelvis was obtained which demonstrated proximal sigmoid diverticulitis with a 2.5 cm abscess. Richard is a patient I am following for perforated diverticulitis with significant pneumoperitoneum. ? The patient is a 67 year old male with a finding of pneumoperitoneum. ?The patient has a known history of right upper extremity sarcoma. ?He was scheduled for a follow-up chest CAT scan which he underwent at [facility] yesterday. ?Incidental finding was free intra-abdominal air. ?The patient's orthopedic surgeon, Dr. Hill called the patient this morning from a virtual visit. The patient had eaten breakfast and did not report any concerns. ? The patient was placed on my schedule for a diagnosis of pneumoperitoneum. ? ? In discussions with the patient, he notes pain in the left lower quadrant starting around Thanksgiving and then pain across the upper mid abdomen and through to the back. ?He states he had been typically eating Jell-O since that time. ?He denies fever or chills. ?He notes that actually has been feeling better for the last 2 days. ? The patient has a diagnosis approximately one year ago of pancreatitis from unknown etiology. ?He was maintained in the hospital for 2 days without diagnosis. ?He assumed that his pain started on Thanksgiving was also pancreatitis and he felt it would be a waist at this time to return to the hospital. ?I had seen the patient 5 year previously were he underwent laparoscopic appendectomy for missed appendicitis. ? The patient was initially scheduled for later in the afternoon. ?I had him present to my office as soon as he could be contacted. ?In the office, he looked remarkably comfortable. ?His vitals were stable and he had no diffuse peritoneal signs. ?I reviewed the CT scan of the chest which did demonstrate significant free air. ?I did not see any time signs of intra-abdominal fluid collections and the stomach and duodenum did not demonstrate signs of inflammation. ?I elected to obtain laboratory studies-CBC chemistry panel and lipase, and a noncontrast CT scan. ? Again the patient had improved abdominal symptoms and was tolerating a low residue diet without challenges by the time he presented to my office. ? My interpretation of the CT scan as this is most likely descending colon/sigmoid diverticulitis. ?I received a phone call from the radiologist later commenting on the same findings. ?We agreed that this would be very clinically worrisome in the acute setting. ?We concluded it was reasonable to plan for a follow-up CT scan a week. ?He was discharged home from my office on a low residue diet with oral antibiotics. ? The patient still denies any significant abdominal pain. ?He notes no fever or chills. ?He is taking his oral antibiotics. ?He would like to advance his diet. ? Repeat CT scan was obtained on February 01, 2018. ?This demonstrated: ? IMPRESSION: Improving perforated diverticulitis without interval developing abscess. the patient was doing well until yesterday. he denies current nausea or vomiting. He notes no flatus or bowel movement since yesterday 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 Small fiber neuropathy G62.9 Allergies cod liver oil [From Desitin] Allergy (Verified 02/20/18 20:09) Rash zinc oxide [From Desitin] Allergy (Verified 02/20/18 20:09) Rash Home Medications: Ambulatory Orders Medication Instructions Recorded Aspirin [Aspirin, Baby] 81 mg PO DAILY@0800 12/08/16 Cholecalciferol (VIT D3) [Vitamin 2,000 unit PO DAILY 12/08/16 D] Gabapentin [Neurontin] 900 mg PO TIDCM 12/08/16 Metoprolol Tartrate [Lopressor 12.5 mg PO DAILY 12/08/16 (Beta Felicitas)] Multivit-Min/FA/Lycopen/Lutein 1 each PO DAILY 12/08/16 [Centrum Silver Men Tablet] Simvastatin [Zocor] 40 mg PO QHS 12/08/16 Tamsulosin HCl [Flomax] 0.4 mg PO DAILY 12/08/16 Surgical History: appendectomy, - - 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, 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 Denies: Chills, Weight Change HEENT: Denies: Head Aches, Sinus Congestion, Sinus Drainage Cardiovascular: Denies: Chest Pain, Palpitations Respiratory: Denies: Cough, Shortness of breath at rest, Sputum production Gastrointestinal: Reports: Abdominal Pain. Denies: Nausea, Vomiting Genitourinary: Denies: Dysuria Musculoskeletal: Denies: Joint Pain, Joint Tenderness Skin: Denies: Rash, Wounds Neurological: Denies: Numbness, Tingling, Focal weakness Psychiatric: Denies: Anxiety, Depression, Homicidal Ideations, Suicidal Ideations Hematologic/ Lymphatic: Denies: Easy Bruising, Easy Bleeding Patient Problems: Active and Suspected Problems (Last Updated 02/21/18 @ 01:01 by Tomer Jones MD) Acute diverticulitis of intestine (Acute) - Physical Exam General: Alert, Oriented x3, Cooperative Lungs: Clear to auscultation, Normal air movement Cardiovascular: Regular rate, No murmurs Abdomen: Bowel Sounds Present, Soft, Tender - LLQwithout diffuse peritoneal signs Vital Signs Temp Pulse Resp BP Pulse Ox 98.8 F 81 20 H 113/62 95 02/21/18 07:45 02/21/18 07:45 02/21/18 07:45 02/21/18 07:45 02/21/18 07:45 Oxygen Delivery Method Room Air Weight: 117.4 kg Body Mass Index (BMI) 34.1 Intake and Output for Last 24 Hours 02/19/18 02/20/18 02/21/18 23:59 23:59 23:59 Intake Total 404 / 404 Output Total 300 / 300 Balance 104 / 104 Laboratory Tests Past 24 Hrs 02/20/18 02/20/18 02/20/18 20:25 20:25 20:25 WBC 10.2 RBC 4.60 Hgb 13.6 Hct 39.3 L MCV 85.4 MCH 29.6 MCHC 34.6 RDW 14.1 RDW Differential 43.9 Plt Count 122 L MPV 9.8 Immature Gran % (Auto) 0.200 Neut % (Auto) 88.6 H Lymph % (Auto) 5.8 L [place] % (Auto) 4.8 Eos % (Auto) 0.5 Baso % (Auto) 0.1 Absolute Neuts (auto) 9.1 H Absolute Lymphs (auto) 0.59 L Total Counted Not Reportable Differential Comment SEE COMMENT Platelet Estimate SLT DEC PT 13.8 INR 1.1 APTT 30.5 Sodium 139 Potassium 3.4 L Chloride 107 Carbon Dioxide 23.0 Anion Gap 9 BUN 17 Creatinine 1.12 Estim Creat Clear Calc 72.33 Est GFR (MDRD) Af Amer 84 Est GFR (MDRD) Non-Af 69 BUN/Creatinine Ratio 15.2 Glucose 138 H Lactic Acid Calcium 8.6 Total Bilirubin 1.50 H AST 12 L ALT 20 Alkaline Phosphatase 83 Total Protein 7.5 Albumin 4.1 Globulin 3.4 Albumin/Globulin Ratio 1.2 Lipase 149 Urine Color Urine Clarity Urine pH Ur Specific Tensed Urine Protein Urine Glucose (UA) Urine Ketones Urine Occult Blood Urine Nitrite Urine Bilirubin Urine Urobilinogen Ur Leukocyte Esterase Urine RBC Urine WBC Ur Squamous Epith Cells Urine Bacteria Urine Mucus 02/20/18 02/20/18 02/21/18 20:25 22:50 05:38 WBC 11.2 H RBC 4.10 L Hgb 12.1 L Hct 35.9 L MCV 87.6 MCH 29.5 MCHC 33.7 RDW 14.4 RDW Differential 45.0 H Plt Count 126 L MPV 10.3 Immature Gran % (Auto) 0.200 Neut % (Auto) 83.7 H Lymph % (Auto) 9.4 L [place] % (Auto) 6.4 Eos % (Auto) 0.1 Baso % (Auto) 0.2 Absolute Neuts (auto) 9.4 H Absolute Lymphs (auto) 1.05 Total Counted Not Reportable Differential Comment Platelet Estimate PT INR APTT Sodium Potassium Chloride Carbon Dioxide Anion Gap BUN Creatinine Estim Creat Clear Calc Est GFR (MDRD) Af Amer Est GFR (MDRD) Non-Af BUN/Creatinine Ratio Glucose Lactic Acid 1.3 Calcium Total Bilirubin AST ALT Alkaline Phosphatase Total Protein Albumin Globulin Albumin/Globulin Ratio Lipase Urine Color Straw Urine Clarity Clear Urine pH 6.0 Ur Specific [place] 1.005 Urine Protein Negative Urine Glucose (UA) Normal Urine Ketones Negative Urine Occult Blood 25 H Urine Nitrite Negative Urine Bilirubin Negative Urine Urobilinogen Normal Ur Leukocyte Esterase Negative Urine RBC 0-5 SEEN Urine WBC 0-5 SEEN Ur Squamous Epith Cells 0 SEEN Urine Bacteria 0 SEEN Urine Mucus 0 SEEN 02/21/18 05:38 WBC RBC Hgb Hct MCV MCH MCHC RDW RDW Differential Plt Count MPV Immature Gran % (Auto) Neut % (Auto) Lymph % (Auto) [place] % (Auto) Eos % (Auto) Baso % (Auto) Absolute Neuts (auto) Absolute Lymphs (auto) Total Counted Differential Comment Platelet Estimate PT INR APTT Sodium 143 Potassium 3.7 Chloride 110 H Carbon Dioxide 24.0 Anion Gap 9 BUN 16 Creatinine 0.96 Estim Creat Clear Calc 84.39 Est GFR (MDRD) Af Amer 101 Est GFR (MDRD) Non-Af 83 BUN/Creatinine Ratio 16.7 Glucose 113 H Lactic Acid Calcium 7.9 L Total Bilirubin AST ALT Alkaline Phosphatase Total Protein Albumin Globulin Albumin/Globulin Ratio Lipase Urine Color Urine Clarity Urine pH Ur Specific Tensed Urine Protein Urine Glucose (UA) Urine Ketones Urine Occult Blood Urine Nitrite Urine Bilirubin Urine Urobilinogen Ur Leukocyte Esterase Urine RBC Urine WBC Ur Squamous Epith Cells Urine Bacteria Urine Mucus Assessment/Plan All Active Problems (Last Updated 02/21/18 @ 01:01 by Tomer Jones MD) Mid abdominal pain (Acute) Acute diverticulitis of intestine (Acute) recurrent diverticulitis mouth diverticular abscess Patient was admitted to medicine service was started on Zosyn for IV antibiotics. I plan for conservative management currently and plan for CT-guided aspiration/drainage of this left lower quadrant 2.5 cm abscess. We will order repeat laboratory studies along with coags in the morning. Hopefully the patient can be converted from a complicated due to an uncomplicated diverticulitis. My plan with just the patient in discussions before was to proceed with sigmoid resection typically 8 weeks after his attack. Hopefully by converting him through the above process will be able to perform some elective surgery. If the patient fails to improve or has persistent ileus obstructive pattern will require more urgent surgical intervention.
--- NOTE | 2018-02-21 11:19 | CON.PCM_ITS ---
Reason for Consult Date of Consultation: 02/21/18 Reason for Consultation: diverticulitis History of Present Illness: The patient is a 67 year old M presents with a one-day history of left lower quadrant pain and fever up to 105. He presented to [facility] emergency department. CT scan of the abdomen and pelvis was obtained which demonstrated proximal sigmoid diverticulitis with a 2.5 cm abscess. Richard is a patient I am following for perforated diverticulitis with significant pneumoperitoneum. ? The patient is a 67 year old male with a finding of pneumoperitoneum. ?The patient has a known history of right upper extremity sarcoma. ?He was scheduled for a follow-up chest CAT scan which he underwent at [facility] yesterday. ?Incidental finding was free intra-abdominal air. ?The patient's orthopedic surgeon, Dr. Hill called the patient this morning from a virtual visit. The patient had eaten breakfast and did not report any concerns. ? The patient was placed on my schedule for a diagnosis of pneumoperitoneum. ? ? In discussions with the patient, he notes pain in the left lower quadrant starting around Thanksgiving and then pain across the upper mid abdomen and through to the back. ?He states he had been typically eating Jell-O since that t mery. ?He denies fever or chills. ?He notes that actually has been feeling better for the last 2 days. ? The patient has a diagnosis approximately one year ago of pancreatitis from unknown etiology. ?He was maintained in the hospital for 2 days without diagnosis. ?He assumed that his pain started on Thanksgiving was also pancreatitis and he felt it would be a waist at this time to [facility]. ?I had seen the patient 5 year previously were he underwent laparoscopic appendectomy for missed appendicitis. ? The patient was initially scheduled for later in the afternoon. ?I had him prese nt to my office as soon as he could be contacted. ?In the office, he looked remarkably comfortable. ?His vitals were stable and he had no diffuse peritoneal signs. ?I reviewed the CT scan of the chest which did demonstrate significant free air. ?I did not see any time signs of intra-abdominal fluid collections and the stomach and duodenum did not demonstrate signs of inflammation. ?I elected to obtain laboratory studies-CBC chemistry panel and lipase, and a noncontrast CT scan. ? Again the patient had improved abdominal symptoms and was tolerating a low residue diet without challenges by the time he presented to my office. ? My interpretation of the CT scan as this is most likely descending colon/sigmoid diverticulitis. ?I received a phone call from the radiologist later commenting on the same findings. ?We agreed that this would be very clinically worrisome in the acute setting. ?We concluded it was reasonable to plan for a follow-up CT scan a week. ?He was discharged home from my office on a low residue diet with oral antibiotics. ? The patient still denies any significant abdominal pain. ?He notes no fever or chills. ?He is taking his oral antibiotics. ?He would like to advance his diet. ? Repeat CT scan was obtained on February 01, 2018. ?This demonstrated: ? IMPRESSION: Improving perforated diverticulitis without interval developing abscess. the patient was doing well until yesterday. he denies current nausea or vomiting. He notes no flatus or bowel movement since yesterday 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 Small fiber neuropathy G62.9 Allergies cod liver oil [From Desitin] Allergy (Verified 02/20/18 20:09) Rash zinc oxide [From Desitin] Allergy (Verified 02/20/18 20:09) Rash Home Medications: Ambulatory Orders Medication Instructions Recorded Aspirin [Aspirin, Baby] 81 mg PO DAILY@0800 12/08/16 Cholecalciferol (VIT D3) [Vitamin 2,000 unit PO DAILY 12/08/16 D] Gabapentin [Neurontin] 900 mg PO TIDCM 12/08/16 Metoprolol Tartrate [Lopressor 12.5 mg PO DAILY 12/08/16 (Beta Felicitas)] Multivit-Min/FA/Lycopen/Lutein 1 each PO DAILY 12/08/16 [Centrum Silver Men Tablet] Simvastatin [Zocor] 40 mg PO QHS 12/08/16 Tamsulosin HCl [Flomax] 0.4 mg PO DAILY 12/08/16 Surgical History: appendectomy, - - 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, 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 Denies: Chills, Weight Change HEENT: Denies: Head Aches, Sinus Congestion, Sinus Drainage Cardiovascular: Denies: Chest Pain, Palpitations Respiratory: Denies: Cough, Shortness of breath at rest, Sputum production Gastrointestinal: Reports: Abdominal Pain. Denies: Nausea, Vomiting Genitourinary: Denies: Dysuria Musculoskeletal: Denies: Joint Pain, Joint Tenderness Skin: Denies: Rash, Wounds Neurological: Denies: Numbness, Tingling, Focal weakness Psychiatric: Denies: Anxiety, Depression, Homicidal Ideations, Suicidal Ideations Hematologic/ Lymphatic: Denies: Easy Bruising, Easy Bleeding Patient Problems: Active and Suspected Problems (Last Updated 02/21/18 @ 01:01 by Tomer Jones MD) Acute diverticulitis of intestine (Acute) - Physical Exam General: Alert, Oriented x3, Cooperative Lungs: Clear to auscultation, Normal air movement Cardiovascular: Regular rate, No murmurs Abdomen: Bowel Sounds Present, Soft, Tender - LLQwithout diffuse peritoneal signs Vital Signs Temp Pulse Resp BP Pulse Ox 98.8 F 81 20 H 113/62 95 02/21/18 07:45 02/21/18 07:45 02/21/18 07:45 02/21/18 07:45 02/21/18 07:45 Oxygen Delivery Method Room Air Weight: 117.4 kg Body Mass Index (BMI) 34.1 Intake and Output for Last 24 Hours 02/19/18 02/20/18 02/21/18 23:59 23:59 23:59 Intake Total 404 / 404 Output Total 300 / 300 Balance 104 / 104 Laboratory Tests Past 24 Hrs 02/20/18 02/20/18 02/20/18 20:25 20:25 20:25 WBC 10.2 RBC 4.60 Hgb 13.6 Hct 39.3 L MCV 85.4 MCH 29.6 MCHC 34.6 RDW 14.1 RDW Differential 43.9 Plt Count 122 L MPV 9.8 Immature Gran % (Auto) 0.200 Neut % (Auto) 88.6 H Lymph % (Auto) 5.8 L [place] % (Auto) 4.8 Eos % (Auto) 0.5 Baso % (Auto) 0.1 Absolute Neuts (auto) 9.1 H Absolute Lymphs (auto) 0.59 L Total Counted Not Reportable Differential Comment SEE COMMENT Platelet Estimate SLT DEC PT 13.8 INR 1.1 APTT 30.5 Sodium 139 Potassium 3.4 L Chloride 107 Carbon Dioxide 23.0 Anion Gap 9 BUN 17 Creatinine 1.12 Estim Creat Clear Calc 72.33 Est GFR (MDRD) Af Amer 84 Est GFR (MDRD) Non-Af 69 BUN/Creatinine Ratio 15.2 Glucose 138 H Lactic Acid Calcium 8.6 Total Bilirubin 1.50 H AST 12 L ALT 20 Alkaline Phosphatase 83 Total Protein 7.5 Albumin 4.1 Globulin 3.4 Albumin/Globulin Ratio 1.2 Lipase 149 Urine Color Urine Clarity Urine pH Ur Specific [place] Urine Protein Urine Glucose (UA) Urine Ketones Urine Occult Blood Urine Nitrite Urine Bilirubin Urine Urobilinogen Ur Leukocyte Esterase Urine RBC Urine WBC Ur Squamous Epith Cells Urine Bacteria Urine Mucus 02/20/18 02/20/18 02/21/18 20:25 22:50 05:38 WBC 11.2 H RBC 4.10 L Hgb 12.1 L Hct 35.9 L MCV 87.6 MCH 29.5 MCHC 33.7 RDW 14.4 RDW Differential 45.0 H Plt Count 126 L MPV 10.3 Immature Gran % (Auto) 0.200 Neut % (Auto) 83.7 H Lymph % (Auto) 9.4 L [place] % (Auto) 6.4 Eos % (Auto) 0.1 Baso % (Auto) 0.2 Absolute Neuts (auto) 9.4 H Absolute Lymphs (auto) 1.05 Total Counted Not Reportable Differential Comment Platelet Estimate PT INR APTT Sodium Potassium Chloride Carbon Dioxide Anion Gap BUN Creatinine Estim Creat Clear Calc Est GFR (MDRD) Af Amer Est GFR (MDRD) Non-Af BUN/Creatinine Ratio Glucose Lactic Acid 1.3 Calcium Total Bilirubin AST ALT Alkaline Phosphatase Total Protein Albumin Globulin Albumin/Globulin Ratio Lipase Urine Color Straw Urine Clarity Clear Urine pH 6.0 Ur Specific [place] 1.005 Urine Protein Negative Urine Glucose (UA) Normal Urine Ketones Negative Urine Occult Blood 25 H Urine Nitrite Negative Urine Bilirubin Negative Urine Urobilinogen Normal Ur Leukocyte Esterase Negative Urine RBC 0-5 SEEN Urine WBC 0-5 SEEN Ur Squamous Epith Cells 0 SEEN Urine Bacteria 0 SEEN Urine Mucus 0 SEEN 02/21/18 05:38 WBC RBC Hgb Hct MCV MCH MCHC RDW RDW Differential Plt Count MPV Immature Gran % (Auto) Neut % (Auto) Lymph % (Auto) [place] % (Auto) Eos % (Auto) Baso % (Auto) Absolute Neuts (auto) Absolute Lymphs (auto) Total Counted Differential Comment Platelet Estimate PT INR APTT Sodium 143 Potassium 3.7 Chloride 110 H Carbon Dioxide 24.0 Anion Gap 9 BUN 16 Creatinine 0.96 Estim Creat Clear Calc 84.39 Est GFR (MDRD) Af Amer 101 Est GFR (MDRD) Non-Af 83 BUN/Creatinine Ratio 16.7 Glucose 113 H Lactic Acid Calcium 7.9 L Total Bilirubin AST ALT Alkaline Phosphatase Total Protein Albumin Globulin Albumin/Globulin Ratio Lipase Urine Color Urine Clarity Urine pH Ur Specific [place] Urine Protein Urine Glucose (UA) Urine Ketones Urine Occult Blood Urine Nitrite Urine Bilirubin Urine Urobilinogen Ur Leukocyte Esterase Urine RBC Urine WBC Ur Squamous Epith Cells Urine Bacteria Urine Mucus Assessment/Plan All Active Problems (Last Updated 02/21/18 @ 01:01 by Tomer Jones MD) Mid abdominal pain (Acute) Acute diverticulitis of intestine (Acute) recurrent diverticulitis mouth diverticular abscess Patient was admitted to medicine service was started on Zosyn for IV antibiotics. I plan for conservative management currently and plan for CT- guided aspiration/drainage of this left lower quadrant 2.5 cm abscess. We will order repeat laboratory studies along with coags in the morning. Hopefully the patient can be converted from a complicated due to an uncompli cated diverticulitis. My plan with just the patient in discussions before was to proceed with sigmoid resection typically 8 weeks after his attack. Hopefully by converting him through the above process will be able to perform some elective surgery. If the patient fails to improve or has persistent ileus obstructive pattern will require more urgent surgical intervention.
[2018-02-21] MEDS: Ondansetron 4 MG/2 ML Vial IV (12:27)
[2018-02-21 16:00] LABS: AST(SGOT) 12 U/L (15-37); Alanine Aminotransfer ALT/SGPT 16 U/L (16-61); Albumin, Serum 3.3 g/dL (3.2-5.0); Alkaline Phosphatase 64 U/L (45-117); Bilirubin, Direct 0.26 mg/dL (0.00-0.30); Globulin 3.1 g/dL (2.2-4.2); Protein, Total 6.4 g/dL (6.4-8.2)
[2018-02-21] MEDS: Acetaminophen 325 MG Tablet 650 MG PO (18:20)
[2018-02-22] VITALS (13 sets, daily range): BP systolic 109–154; BP diastolic 61–78; PULSE 77–88; RESP 13–22; TEMP 36.8–37.4; O2SAT 93–97
[2018-02-22] MEDS: Morphine 2 MG/ML Syringe IV ×2 (02:01→06:00)
[2018-02-22 05:42] LABS: Absolute Lymphocyte Count 0.95 X10^3/ul (0.83-4.51); Absolute Neutrophil Count 10.6 X10^3/uL (2.0-7.7); Basophil# 0.01 X10^3/uL; Basophil% 0.1 % (0-1); Eosinophil# 0.01 X10^3/uL; Eosinophils% 0.1 % (0-5); Hematocrit 37.4 % (40-54); Hemoglobin 12.1 g/dl (13.0-16.5); Lymphocyte # 0.95 X10^3/ul (4.0); Lymphocyte % 7.8 % (19-41); Mean Corp Hgb Conc 32.4 g/gl (32-36); Mean Corpuscular Hgb 29.2 pg (27.0-32.0); Mean Corpuscular Volume 90.3 fL (80-94); Mean Platelet Vol. 9.8 fl (6.2-12.0); Monocyte# 0.61 X10^3/uL; Neutrophil # 10.64 X10^3/uL (2.7-7.7); Neutrophil % 86.9 % (47-70); Platelet Count 115 K/mm3 (150-450); RBC Distribution Width SD 49.5 fl (35.1-43.9); Red Blood Count 4.14 M/mm3 (4.6-6.2); White Blood Count 12.2 K/mm3 (4.4-11.0)
[2018-02-22 05:46] LABS: Anion Gap 9 (5-15); BUN 13 mg/dL (7-18); BUN/Creat Ratio 14.3 RATIO (10-20); Calcium,Total 8.3 mg/dL (8.5-10.1); Chloride 107 mmol/L (98-107); Creatinine, Serum 0.91 mg/dL (0.70-1.30); EST Glomerular Filtration Rate 89 mL/min (>60); Est Glom Filt Rate - Afr Amer 107 mL/min (>60); Estimated Creatinine Clearance 89.02 ml/min; Glucose 110 mg/dL (74-106); Potassium 3.8 mmol/L (3.5-5.1); Sodium Level 140 mmol/L (136-145)
[2018-02-22] MEDS: 0.9% NaCl Peripheral Flush Adult/Peds IV ×3 (06:01→09:00)
[2018-02-22 06:13] LABS: International Normalized Ratio 1.4; Prothrombin Time (Protime)PT. 16.9 SECONDS (11.7-14.9)
[2018-02-22 06:25] LABS: POSITIVE COUNT NO; POSITIVE DIFFERENTIAL NO; POSITIVE MORPHOLOGY NO
[2018-02-22] MEDS: Ondansetron 4 MG/2 ML Vial IV (09:00)
[2018-02-22] MEDS: 0.9% NaCl IVPB Med Flush (250 mL) 15 ML IV (09:21)
[2018-02-22] MEDS: Tamsulosin HCl 0.4 MG Capsule PO (09:22)
[2018-02-22] MEDS: Ciprofloxacin 400 MG/200 ML BAG 200 MG IV ×2 (09:22→21:04)
[2018-02-22] MEDS: Gabapentin 300 MG Capsule 900 MG PO ×3 (09:22→16:31)
--- NOTE | 2018-02-22 09:25 | PCM.PN.HOSP ---
Patient Problems: Active and Suspected Problems (Last Updated 02/21/18 @ 01:01 by Tomer Jones MD) Acute diverticulitis of intestine (Acute) Subjective: Patient seen and examined. Still complains of abdominal pain and rates it at about 7 out of 10. He denies any nausea vomiting, any fever or chills, chest pain or shortness of breath. His mentions that patient has had some redness of the right eye which has been going on for about a month. He saw his primary care doctor wanted to monitor it and see if he would resolve on its own. However periorbital redness has persisted. Patient is asymptomatic and does not have any discharge or redness of the actual eye. Labs and vitals reviewed. Temperature peaked at 102.4 Fahrenheit yesterday. white cell count has trended up to 12.2 Vitals/I&O's: Vital Signs Temp Pulse Resp BP Pulse Ox 99.1 F 84 16 113/69 94 02/22/18 08:43 02/22/18 08:43 02/22/18 08:43 02/22/18 08:43 02/22/18 08:43 Oxygen Delivery Method Room Air Weight: 258 lb 13.163 oz Body Mass Index (BMI) 34.1 Intake and Output for Last 24 Hours 02/20/18 02/21/18 02/22/18 23:59 23:59 23:59 Intake Total 1778 / 1778 1087 / 1087 Output Total 1050 / 1050 550 / 550 Balance 728 / 728 537 / 537 General: Alert, Oriented x3, Cooperative, No apparent distress HEENT: Atraumatic, PERRLA, EOMI, Normocephalic, - - mild erythematous papular right periorbital rash. No erythema or discharge of the conjuctiva Oral: Dry Mucosa Neck: Supple, No JVD, Negative Carotid Bruits Lungs: Clear to auscultation, Normal air movement, No rhonchi, No wheeze, No rales Cardiovascular: Regular rate, Regular Rhythm, Normal S1, Normal S2, No murmurs Abdomen: Bowel Sounds Present, Soft, - - moderate suprapubic and left lower quadrant tenderness, with mild guarding, but no rebound tenderness Extremities: No clubbing, No cyanosis, No edema, Capillary Refill Less than 3 Seconds Skin: No rashes, No breakdown Musculoskeletal: No Tenderness to Palpation of Joints or Extremities Lymphatic: No Cervical, Supraclavicular, or Inguinal Adenopathy Neurological: Cranial nerves II-XII grossly intact, Neuro grossly intact, Motor Exam 5/5 strength throughout Psych/Mental Status: Normal Affect, Appropriate, Alert and oriented to time, place, person, mood and affect Laboratory Results 02/21/18 05:38: Total Bilirubin 2.20 H, Direct Bilirubin 0.26, AST 12 L, ALT 16, Alkaline Phosphatase 64, Total Protein 6.4, Albumin 3.3, Globulin 3.1 02/22/18 05:08: WBC 12.2 H, RBC 4.14 L, Hgb 12.1 L, Hct 37.4 L, MCV 90.3, MCH 29.2, MCHC 32.4, RDW 15.0 H, RDW Differential 49.5 H, Plt Count 115 L, MPV 9.8, Immature Gran % (Auto) 0.100, Neut % (Auto) 86.9 H, Lymph % (Auto) 7.8 L, [place] % (Auto) 5.0, Eos % (Auto) 0.1, Baso % (Auto) 0.1, Absolute Neuts (auto) 10.6 H, Absolute Lymphs (auto) 0.95, Total Counted Not Reportable 02/22/18 05:08: Sodium 140, Potassium 3.8, Chloride 107, Carbon Dioxide 24.0, Anion Gap 9, BUN 13, Creatinine 0.91, Estim Creat Clear Calc 89.02, Est GFR (MDRD) Af Amer 107, Est GFR (MDRD) Non-Af 89, BUN/Creatinine Ratio 14.3, Glucose 110 H, Calcium 8.3 L 02/22/18 05:08: PT 16.9 H, INR 1.4 Current Medications Acetaminophen (Tylenol) 650 mg PO Q6H PRN PRN PRN Reason: pain/fever Last Admin: 02/21/18 18:20 Dose: 650 mg Gabapentin (Neurontin) 900 mg PO TIDCM [facility] Last Admin: 02/22/18 09:22 Dose: 900 mg Ciprofloxacin (Cipro) 400 mg in 200 mls @ 200 mls/hr IV Q12 [facility] Last Admin: 02/22/18 09:22 Dose: 200 mls/hr Metronidazole (Flagyl) 500 mg in 100 mls @ 100 mls/hr IV Q8H [facility] Last Admin: 02/22/18 06:00 Dose: 100 mls/hr Sodium Chloride () 250 mls @ 15 mls/hr IV .[id number] PRN PRN Reason: SALINE FLUSH Last Admin: 02/22/18 09:21 Dose: 15 mls/hr Morphine Sulfate () 1 - 2 mg IV Q4H PRN PRN PRN Reason: PAIN Last Admin: 02/22/18 06:00 Dose: 2 mg Ondansetron HCl (Zofran) 4 mg IV Q8H PRN PRN PRN Reason: NAUSEA Last Admin: 02/22/18 09:00 Dose: 4 mg Sodium Chloride () 5 - 15 ml IV UD PRN PRN Reason: SALINE FLUSH Last Admin: 02/22/18 09:00 Dose: 10 ml Tamsulosin HCl (Flomax) 0.4 mg PO DAILY [facility] Last Admin: 02/22/18 09:22 Dose: 0.4 mg Zolpidem Tartrate (Ambien (Generic)) 5 mg PO QHS PRN PRN PRN Reason: INSOMNIA Medical Necessity - Tobacco Use Smoking Status: Never smoker Assessment/Plan All Active Problems (Last Updated 02/21/18 @ 01:01 by Tomer Jones MD) Mid abdominal pain (Acute) Acute diverticulitis of intestine (Acute) 1. Sepsis due to acute diverticulitis with diverticular abscess spiked fever to 102.4F overnight leucocytosis also trended up to 12.2 today on IV ciprofloxacin and flagyl for percutaneous drainage of the diverticular abscess today continue being NO on IV morphine and IV zofran urine and blood cultures still pending 2. Hypokalemia: resolved. 3. Elevated bilirubin: biliriubin was 1.5 on admission; trended up to 2.2 yesterday. will check today to monitor trend. 4. History of sarcoma: stable. Follow up with oncologist on outpatient basis 5. BPH: on flomax 6. Peripheral neuropathy: on gabapentin 7. Hypertension: controlled. On metoprolol DVT prophylaxis: heparin Code Visit Inpatient E&M: 27351 [facility] Hosp L3
--- NOTE | 2018-02-22 09:31 | PN_ITS ---
Patient Problems: Active and Suspected Problems (Last Updated 02/21/18 @ 01:01 by Tomer Jones MD) Acute diverticulitis of intestine (Acute) Subjective: Patient seen and examined. Still complains of abdominal pain and rates it at about 7 out of 10. He denies any nausea vomiting, any fever or chills, chest pain or shortness of breath. His mentions that patient has had some redness of the right eye which has been going on for about a month. He saw his primary care doctor wanted to monitor it and see if he would resolve on its own. However periorbital redness has persisted. Patient is asymptomatic and does not have any discharge or redness of the actual eye. Labs and vitals reviewed. Temperature peaked at 102.4 Fahrenheit yesterday. white cell count has trended up to 12.2 Vitals/I&O's: Vital Signs Temp Pulse Resp BP Pulse Ox 99.1 F 84 16 113/69 94 02/22/18 08:43 02/22/18 08:43 02/22/18 08:43 02/22/18 08:43 02/22/18 08:43 Oxygen Delivery Method Room Air Weight: 258 lb 13.163 oz Body Mass Index (BMI) 34.1 Intake and Output for Last 24 Hours 02/20/18 02/21/18 02/22/18 23:59 23:59 23:59 Intake Total 1778 / 1778 1087 / 1087 Output Total 1050 / 1050 550 / 550 Balance 728 / 728 537 / 537 General: Alert, Oriented x3, Cooperative, No apparent distress HEENT: Atraumatic, PERRLA, EOMI, Normocephalic, - - mild erythematous papular right periorbital rash. No erythema or discharge of the conjuctiva Oral: Dry Mucosa Neck: Supple, No JVD, Negative Carotid Bruits Lungs: Clear to auscultation, Normal air movement, No rhonchi, No wheeze, No rales Cardiovascular: Regular rate, Regular Rhythm, Normal S1, Normal S2, No murmurs Abdomen: Bowel Sounds Present, Soft, - - moderate suprapubic and left lower quadrant tenderness, with mild guarding, but no rebound tenderness Extremities: No clubbing, No cyanosis, No edema, Capillary Refill Less than 3 Seconds Skin: No rashes, No breakdown Musculoskeletal: No Tenderness to Palpation of Joints or Extremities Lymphatic: No Cervical, Supraclavicular, or Inguinal Adenopathy Neurological: Cranial nerves II-XII grossly intact, Neuro grossly intact, Motor Exam 5/5 strength throughout Psych/Mental Status: Normal Affect, Appropriate, Alert and oriented to time, place, person, mood and affect Laboratory Results 02/21/18 05:38: Total Bilirubin 2.20 H, Direct Bilirubin 0.26, AST 12 L, ALT 16, Alkaline Phosphatase 64, Total Protein 6.4, Albumin 3.3, Globulin 3.1 02/22/18 05:08: WBC 12.2 H, RBC 4.14 L, Hgb 12.1 L, Hct 37.4 L, MCV 90.3, MCH 29.2, MCHC 32.4, RDW 15.0 H, RDW Differential 49.5 H, Plt Count 115 L, MPV 9.8, Immature Gran % (Auto) 0.100, Neut % (Auto) 86.9 H, Lymph % (Auto) 7.8 L, [place] % (Auto) 5.0, Eos % (Auto) 0.1, Baso % (Auto) 0.1, Absolute Neuts (auto) 10.6 H, Absolute Lymphs (auto) 0.95, Total Counted Not Reportable 02/22/18 05:08: Sodium 140, Potassium 3.8, Chloride 107, Carbon Dioxide 24.0, Anion Gap 9, BUN 13, Creatinine 0.91, Estim Creat Clear Calc 89.02, Est GFR (MDRD) Af Amer 107, Est GFR (MDRD) Non-Af 89, BUN/Creatinine Ratio 14.3, Glucose 110 H, Calcium 8.3 L 02/22/18 05:08: PT 16.9 H, INR 1.4 Current Medications Acetaminophen (Tylenol) 650 mg PO Q6H PRN PRN PRN Reason: pain/fever Last Admin: 02/21/18 18:20 Dose: 650 mg Gabapentin (Neurontin) 900 mg PO TIDCM [facility] Last Admin: 02/22/18 09:22 Dose: 900 mg Ciprofloxacin (Cipro) 400 mg in 200 mls @ 200 mls/hr IV Q12 [facility] Last Admin: 02/22/18 09:22 Dose: 200 mls/hr Metronidazole (Flagyl) 500 mg in 100 mls @ 100 mls/hr IV Q8H [facility] Last Admin: 02/22/18 06:00 Dose: 100 mls/hr Sodium Chloride () 250 mls @ 15 mls/hr IV .[id number] PRN PRN Reason: SALINE FLUSH Last Admin: 02/22/18 09:21 Dose: 15 mls/hr Morphine Sulfate () 1 - 2 mg IV Q4H PRN PRN PRN Reason: PAIN Last Admin: 02/22/18 06:00 Dose: 2 mg Ondansetron HCl (Zofran) 4 mg IV Q8H PRN PRN PRN Reason: NAUSEA Last Admin: 02/22/18 09:00 Dose: 4 mg Sodium Chloride () 5 - 15 ml IV UD PRN PRN Reason: SALINE FLUSH Last Admin: 02/22/18 09:00 Dose: 10 ml Tamsulosin HCl (Flomax) 0.4 mg PO DAILY [facility] Last Admin: 02/22/18 09:22 Dose: 0.4 mg Zolpidem Tartrate (Ambien (Generic)) 5 mg PO QHS PRN PRN PRN Reason: INSOMNIA Medical Necessity - Tobacco Use Smoking Status: Never smoker Assessment/Plan All Active Problems (Last Updated 02/21/18 @ 01:01 by Tomer Jones MD) Mid abdominal pain (Acute) Acute diverticulitis of intestine (Acute) 1. Sepsis due to acute diverticulitis with diverticular abscess * spiked fever to 102.4F overnight * leucocytosis also trended up to 12.2 today * on IV ciprofloxacin and flagyl * for percutaneous drainage of the diverticular abscess today * continue being NO * on IV morphine and IV zofran * urine and blood cultures still pending * 2. Hypokalemia: resolved. 3. Elevated bilirubin: biliriubin was 1.5 on admission; trended up to 2.2 yesterday. will check today to monitor trend. 4. History of sarcoma: stable. Follow up with oncologist on outpatient basis 5. BPH: on flomax 6. Peripheral neuropathy: on gabapentin 7. Hypertension: controlled. On metoprolol DVT prophylaxis: heparin Code Visit Inpatient E&M: 61873 [facility] Hosp L3
[2018-02-22] MEDS: fentaNYL 100 MCG/2 ML Ampul IV (10:17)
[2018-02-22] MEDS: Midazolam 2 MG/2 ML Syringe IV (10:17)
[2018-02-22 10:22] LABS: AST(SGOT) 11 U/L (15-37); Alanine Aminotransfer ALT/SGPT 15 U/L (16-61); Alkaline Phosphatase 56 U/L (45-117); Globulin 3.6 g/dL (2.2-4.2); Protein, Total 6.6 g/dL (6.4-8.2)
--- NOTE | 2018-02-22 11:00 | CT_ITS ---
PROCEDURE: CT DIRECTED ABSCESS DRAINAGE, PERITONEAL DATE OF EXAMINATION: August 22, 2018. INDICATION: Male, 67 years old. Sigmoid diverticular abscess. PHYSICIAN: Jose Harrington M.D. CONSENT: Written informed consent was obtained having explained the risks, benefits and alternatives in detail with the patient who accepted the risks and agreed to proceed. Laboratory review and clinical assessment was performed. CONSCIOUS SEDATION PROTOCOL: The Drugs used were: 2 mg Versed, IV., and 50 mcg Fentanyl, IV. The sedation time was: 13 minutes. Conscious sedation was started at 10:17 AM and terminated at 10:30 AM. The conscious sedation protocol was independently monitored. RADIATION DOSAGE (If Supplied By Facility): CTDIvol = ( 26 ) mGy, DLP = ( 957.8 ) mGycm TECHNIQUE: CT sections were made through the abdomen and pelvis revealing an abscess in the sigmoid colon. The skin surface was prepped and draped in a sterile fashion. 8.5 [place] all-purpose drainage catheter was then inserted into the collection and formed into position. Additional fluid was aspirated for a total of approximately 6 cc of cloudy red fluid. The catheter was sutured into position to allow for continued drainage. Followup CT sections reveals good position of the catheter CT/Abscess/Fistula/Sinus Tract IMPRESSION: 1. CT directed drainage of a fluid collection using CT image guidance and image documentation as described. 2. Conscious Sedation protocol utilized with independent monitoring Electronically Signed: Jose Harrington MD at 12:26 EST Tel [phone], Service support ,
--- NOTE | 2018-02-22 13:30 | CASEMGMT ---
RN MISSY Face to Face with patient for initial transition planning/care coordination assessment. RN CM introduced self and role at [facility]. Patient lying in bed, alert and oriented, at bedside. Patient willing to participate in assessment and is able to answer all questions appropriately. Care providers, pharmacy, and demographics verified. Patient wishes to discharge home, denies need for home health at this time. Patient states he has no further needs or concerns at this time. CM to follow for discharge planning needs that may arise. PCP: Marsha Specialists: [facility] Pharmacy: [facility] Insurance: [employer] Prescription Benefit: Yes Living Will/HPOA: None LNOK: Living Arrangements: Patient lives with in 1 story home with 6 steps to enter home. Patient is independent at home. Transportation: Self/ DME/HHC: None, denies need Disposition Plan: Patient to discharge home with family support and follow-up plans in place. Dawn RODRIGUEZ, RN, CM
[2018-02-22] MEDS: Acetaminophen 325 MG Tablet 650 MG PO (16:31)
--- NOTE | 2018-02-22 18:14 | PCM.PN.SRG ---
Patient Problems: Active and Suspected Problems (Last Updated 02/21/18 @ 01:01 by Tomer Jones MD) Acute diverticulitis of intestine (Acute) Subjective: less pain after drainage of abscess - Physical Exam General: Alert, Oriented x3, Cooperative Lungs: Clear to auscultation, Normal air movement Cardiovascular: Regular rate, Regular Rhythm Abdomen: Bowel Sounds Present, Soft, Tender - LLQ, Pigtail drain with scant purulent drainage Vital Signs Temp Pulse Resp BP Pulse Ox 99.3 F H 80 16 119/67 94 02/22/18 16:26 02/22/18 14:23 02/22/18 14:23 02/22/18 14:23 02/22/18 14:23 Oxygen Flow Rate (L/min) [3] 2 Oxygen Flow Rate (L/min) [2] 2 Oxygen Flow Rate (L/min) 2 Oxygen Delivery Method [3] Nasal Cannula Oxygen Delivery Method [2] Nasal Cannula Oxygen Delivery Method [1 ( Room Air Initial Baseline)] Oxygen Delivery Method Room Air Weight: 117.4 kg Body Mass Index (BMI) 34.1 Intake and Output for Last 24 Hours 02/20/18 02/21/18 02/22/18 23:59 23:59 23:59 Intake Total 1778 / 1778 1087 / 1087 Output Total 1050 / 1050 556 / 556 Balance 728 / 728 531 / 531 Microbiology Past 72 Hours 02/22/18 10:30 Gram Stain - Final Diverticulum 02/20/18 22:50 Urine Culture - Preliminary Urine, Clean Catch Culture exhibits no growth. Laboratory Tests Past 24 Hrs 02/22/18 02/22/18 02/22/18 05:08 05:08 05:08 WBC 12.2 H RBC 4.14 L Hgb 12.1 L Hct 37.4 L MCV 90.3 MCH 29.2 MCHC 32.4 RDW 15.0 H RDW Differential 49.5 H Plt Count 115 L MPV 9.8 Immature Gran % (Auto) 0.100 Neut % (Auto) 86.9 H Lymph % (Auto) 7.8 L [place] % (Auto) 5.0 Eos % (Auto) 0.1 Baso % (Auto) 0.1 Absolute Neuts (auto) 10.6 H Absolute Lymphs (auto) 0.95 Total Counted Not Reportable PT 16.9 H INR 1.4 Sodium 140 Potassium 3.8 Chloride 107 Carbon Dioxide 24.0 Anion Gap 9 BUN 13 Creatinine 0.91 Estim Creat Clear Calc 89.02 Est GFR (MDRD) Af Amer 107 Est GFR (MDRD) Non-Af 89 BUN/Creatinine Ratio 14.3 Glucose 110 H Calcium 8.3 L Total Bilirubin Direct Bilirubin AST ALT Alkaline Phosphatase Total Protein Albumin Globulin 02/22/18 05:08 WBC RBC Hgb Hct MCV MCH MCHC RDW RDW Differential Plt Count MPV Immature Gran % (Auto) Neut % (Auto) Lymph % (Auto) [place] % (Auto) Eos % (Auto) Baso % (Auto) Absolute Neuts (auto) Absolute Lymphs (auto) Total Counted PT INR Sodium Potassium Chloride Carbon Dioxide Anion Gap BUN Creatinine Estim Creat Clear Calc Est GFR (MDRD) Af Amer Est GFR (MDRD) Non-Af BUN/Creatinine Ratio Glucose Calcium Total Bilirubin 2.70 H Direct Bilirubin 0.30 AST 11 L ALT 15 L Alkaline Phosphatase 56 Total Protein 6.6 Albumin 3.0 L Globulin 3.6 Medical Necessity - Tobacco Use Smoking Status: Never smoker Assessment/Plan All Active Problems (Last Updated 02/21/18 @ 01:01 by Tomer Jones MD) Mid abdominal pain (Acute) Acute diverticulitis of intestine (Acute) recurrent diverticulitis mouth diverticular abscess Patient was admitted to medicine service was started on Zosyn for IV antibiotics. I plan for conservative management. CT-guided aspiration/drainage of this left lower quadrant 2.5 cm abscess yielded 6cc pus and drain placed. patient clinically better Hopefully the patient can be converted from a complicated due to an uncomplicated diverticulitis. My plan with just the patient in discussions before was to proceed with sigmoid resection typically 8 weeks after his attack. Hopefully by converting him through the above process will be able to perform some elective surgery. If the patient fails to improve or has persistent ileus obstructive pattern will require more urgent surgical intervention.
[2018-02-23 03:50] VITALS: BP 134/69; PULSE 81; RESP 13; TEMP 36.6; O2SAT 95
[2018-02-23] MEDS: Acetaminophen 325 MG Tablet 650 MG PO (06:25)
[2018-02-23 06:40] LABS: Anion Gap 10 (5-15); BUN 14 mg/dL (7-18); BUN/Creat Ratio 17.1 RATIO (10-20); Calcium,Total 8.2 mg/dL (8.5-10.1); Chloride 106 mmol/L (98-107); Creatinine, Serum 0.82 mg/dL (0.70-1.30); EST Glomerular Filtration Rate 100 mL/min (>60); Est Glom Filt Rate - Afr Amer 121 mL/min (>60); Estimated Creatinine Clearance 98.79 ml/min; Glucose 106 mg/dL (74-106); Potassium 3.6 mmol/L (3.5-5.1); Sodium Level 140 mmol/L (136-145)
[2018-02-23 07:01] VITALS: O2SAT 94
[2018-02-23 07:18] LABS: Absolute Lymphocyte Count 0.85 X10^3/ul (0.83-4.51); Absolute Neutrophil Count 8.8 X10^3/uL (2.0-7.7); Basophil# 0.01 X10^3/uL; Basophil% 0.1 % (0-1); Eosinophil# 0.09 X10^3/uL; Eosinophils% 0.9 % (0-5); Hematocrit 34.1 % (40-54); Hemoglobin 11.3 g/dl (13.0-16.5); Lymphocyte # 0.85 X10^3/ul (4.0); Lymphocyte % 8.3 % (19-41); Mean Corp Hgb Conc 33.1 g/gl (32-36); Mean Corpuscular Hgb 29.2 pg (27.0-32.0); Mean Corpuscular Volume 88.1 fL (80-94); Mean Platelet Vol. 10.6 fl (6.2-12.0); Monocyte# 0.51 X10^3/uL; Neutrophil # 8.78 X10^3/uL (2.7-7.7); Neutrophil % 85.6 % (47-70); Platelet Count 121 K/mm3 (150-450); RBC Distribution Width CV 14.6 % (11.6-14.6); Red Blood Count 3.87 M/mm3 (4.6-6.2); White Blood Count 10.3 K/mm3 (4.4-11.0)
[2018-02-23 07:24] LABS: Differential Indicated SCAN CRITERIA MET; POSITIVE COUNT NO; POSITIVE DIFFERENTIAL NO; POSITIVE MORPHOLOGY YES
--- NOTE | 2018-02-23 07:33 | PN.SURG_ITS ---
Patient Problems: Active and Suspected Problems (Last Updated 02/21/18 @ 01:01 by Tomer Jones MD) Acute diverticulitis of intestine (Acute) Subjective: less pain, passing flatus and liquid bowel movements - Physical Exam General: Alert, Oriented x3, Cooperative Lungs: Clear to auscultation, Normal air movement Cardiovascular: Regular rate, Regular Rhythm Abdomen: Bowel Sounds Present, Soft, Tender - LLQ pain - less, pigtail in place Vital Signs Temp Pulse Resp BP Pulse Ox 98 F 81 13 134/69 H 95 02/23/18 03:50 02/23/18 03:50 02/23/18 03:50 02/23/18 03:50 02/23/18 03:50 Oxygen Flow Rate (L/min) [3] 2 Oxygen Flow Rate (L/min) [2] 2 Oxygen Flow Rate (L/min) 2 Oxygen Delivery Method [3] Nasal Cannula Oxygen Delivery Method [2] Nasal Cannula Oxygen Delivery Method [1 ( Room Air Initial Baseline)] Oxygen Delivery Method Room Air Weight: 117.4 kg Body Mass Index (BMI) 34.1 Intake and Output for Last 24 Hours 02/21/18 02/22/18 02/23/18 23:59 23:59 23:59 Intake Total 1778 / 1778 1087 / 1087 1024 / 1024 Output Total 1050 / 1050 556 / 556 600 / 600 Balance 728 / 728 531 / 531 424 / 424 Microbiology Past 72 Hours 02/22/18 10:30 Gram Stain - Final Diverticulum 02/20/18 22:50 Urine Culture - Preliminary Urine, Clean Catch Culture exhibits no growth. Laboratory Tests Past 24 Hrs 02/22/18 02/23/18 02/23/18 05:08 05:45 05:45 WBC 10.3 RBC 3.87 L Hgb 11.3 L Hct 34.1 L MCV 88.1 MCH 29.2 MCHC 33.1 RDW 14.6 RDW Differential 46.0 H Plt Count 121 L MPV 10.6 Immature Gran % (Auto) 0.100 Neut % (Auto) 85.6 H Lymph % (Auto) 8.3 L [place] % (Auto) 5.0 Eos % (Auto) 0.9 Baso % (Auto) 0.1 Absolute Neuts (auto) 8.8 H Absolute Lymphs (auto) 0.85 Total Counted Pending Sodium 140 Potassium 3.6 Chloride 106 Carbon Dioxide 24.0 Anion Gap 10 BUN 14 Creatinine 0.82 Estim Creat Clear Calc 98.79 Est GFR (MDRD) Af Amer 121 Est GFR (MDRD) Non-Af 100 BUN/Creatinine Ratio 17.1 Glucose 106 Calcium 8.2 L Total Bilirubin 2.70 H Direct Bilirubin 0.30 AST 11 L ALT 15 L Alkaline Phosphatase 56 Total Protein 6.6 Albumin 3.0 L Globulin 3.6 Medical Necessity - Tobacco Use Smoking Status: Never smoker Assessment/Plan All Active Problems (Last Updated 02/21/18 @ 01:01 by Tomer Jones MD) Mid abdominal pain (Acute) Acute diverticulitis of intestine (Acute) recurrent diverticulitis mouth diverticular abscess Patient was admitted to medicine service was started on Zosyn for IV antibiotics. I plan for conservative management. CT-guided aspiration/drainage of this left lower quadrant 2.5 cm abscess yielded 6cc pus and drain placed. patient clinically better. Passing flatus and liquid stools. Will start clears, may advance to full liquids/low residue if tolerating. Hopefully the patient can be converted from a complicated due to an uncomplicated diverticulitis. My plan with just the patient in discussions before was to proceed with sigmoid resection typically 8 weeks after his attack. Hopefully by converting him through the above process will be able to perform some elective surgery. If the patient fails to improve or has persistent ileus obstructive pattern will require more urgent surgical intervention.
--- NOTE | 2018-02-23 09:32 | PCM.PN.HOSP ---
Patient Problems: Active and Suspected Problems (Last Updated 02/21/18 @ 01:01 by Tomer Jones MD) Acute diverticulitis of intestine (Acute) Subjective: Patient seen and examined. He had CT-guided drainage of the diverticular abscess yesterday and it drained about 6 cc of fluid. A drain was left in place. He has no complaints this morning. He denies any fever or chills, any cough or chest pain, shortness of breath, diarrhea over 2. Abdominal pain is improved he rates it at about 5 out of 10 now. Labs and vitals reviewed. He is to be started on clears today to advance as tolerated. Vitals/I&O's: Vital Signs Temp Pulse Resp BP Pulse Ox 98 F 81 13 134/69 H 94 02/23/18 03:50 02/23/18 03:50 02/23/18 03:50 02/23/18 03:50 02/23/18 07:01 Oxygen Flow Rate (L/min) [3] 2 Oxygen Flow Rate (L/min) [2] 2 Oxygen Flow Rate (L/min) 2 Oxygen Delivery Method [3] Nasal Cannula Oxygen Delivery Method [2] Nasal Cannula Oxygen Delivery Method [1 ( Room Air Initial Baseline)] Oxygen Delivery Method Room Air Weight: 258 lb 13.163 oz Body Mass Index (BMI) 34.1 Intake and Output for Last 24 Hours 02/21/18 02/22/18 02/23/18 23:59 23:59 23:59 Intake Total 1778 / 1778 1087 / 1087 1024 / 1024 Output Total 1050 / 1050 556 / 556 600 / 600 Balance 728 / 728 531 / 531 424 / 424 General: Alert, Oriented x3, Cooperative, No apparent distress HEENT: Atraumatic, PERRLA, EOMI, Normocephalic, - - mild erythematous papular right periorbital rash. No erythema or discharge of the conjuctiva Oral: Dry Mucosa Neck: Supple, No JVD, Negative Carotid Bruits Lungs: Clear to auscultation, Normal air movement, No rhonchi, No wheeze, No rales Cardiovascular: Regular rate, Regular Rhythm, Normal S1, Normal S2, No murmurs Abdomen: Bowel Sounds Present, Soft, - -mild right lower quadrant tenderness, no guarding; drain in place, contains very scanty pus. Extremities: No clubbing, No cyanosis, No edema, Capillary Refill Less than 3 Seconds Skin: No rashes, No breakdown Musculoskeletal: No Tenderness to Palpation of Joints or Extremities Lymphatic: No Cervical, Supraclavicular, or Inguinal Adenopathy Neurological: Cranial nerves II-XII grossly intact, Neuro grossly intact, Motor Exam 5/5 strength throughout Psych/Mental Status: Normal Affect, Appropriate, Alert and oriented to time, place, person, mood and affect Microbiology Past 72 Hours 02/22/18 10:30 Diverticulum Gram Stain - Final 02/22/18 10:30 Diverticulum Wound Culture - Preliminary Gram positive organism GNR lactose wire drawer Gram negative meri 02/20/18 22:50 Urine, Clean Catch Urine Culture - Final Culture exhibits no growth. 02/20/18 20:25 Blood Culture (Wb) - Anticubital Right Blood Culture - Preliminary No growth in 48 hours. 02/20/18 20:25 Blood Culture (Wb) - Left Hand Blood Culture - Preliminary No growth in 48 hours. Laboratory Results 02/22/18 05:08: Total Bilirubin 2.70 H, Direct Bilirubin 0.30, AST 11 L, ALT 15 L, Alkaline Phosphatase 56, Total Protein 6.6, Albumin 3.0 L, Globulin 3.6 02/23/18 05:45: WBC 10.3, RBC 3.87 L, Hgb 11.3 L, Hct 34.1 L, MCV 88.1, MCH 29.2, MCHC 33.1, RDW 14.6, RDW Differential 46.0 H, Plt Count 121 L, MPV 10.6, Immature Gran % (Auto) 0.100, Neut % (Auto) 85.6 H, Lymph % (Auto) 8.3 L, [place] % (Auto) 5.0, Eos % (Auto) 0.9, Baso % (Auto) 0.1, Absolute Neuts (auto) 8.8 H, Absolute Lymphs (auto) 0.85, Total Counted Not Reportable 02/23/18 05:45: Sodium 140, Potassium 3.6, Chloride 106, Carbon Dioxide 24.0, Anion Gap 10, BUN 14, Creatinine 0.82, Estim Creat Clear Calc 98.79, Est GFR (MDRD) Af Amer 121, Est GFR (MDRD) Non-Af 100, BUN/Creatinine Ratio 17.1, Glucose 106, Calcium 8.2 L Current Medications Acetaminophen (Tylenol) 650 mg PO Q6H PRN PRN PRN Reason: pain/fever Last Admin: 02/23/18 06:25 Dose: 650 mg Gabapentin (Neurontin) 900 mg PO TIDCM [facility] Last Admin: 02/22/18 16:31 Dose: 900 mg Ciprofloxacin (Cipro) 400 mg in 200 mls @ 200 mls/hr IV Q12 [facility] Last Admin: 02/22/18 21:04 Dose: 200 mls/hr Metronidazole (Flagyl) 500 mg in 100 mls @ 100 mls/hr IV Q8H [facility] Last Admin: 02/23/18 06:20 Dose: 100 mls/hr Sodium Chloride () 250 mls @ 15 mls/hr IV .[id number] PRN PRN Reason: SALINE FLUSH Last Admin: 02/22/18 09:21 Dose: 15 mls/hr Sodium Chloride () 500 mls @ 15 mls/hr IV .[id number] [facility] Last Admin: 02/22/18 10:17 Dose: 15 mls/hr Morphine Sulfate () 1 - 2 mg IV Q4H PRN PRN PRN Reason: PAIN Last Admin: 02/22/18 06:00 Dose: 2 mg Ondansetron HCl (Zofran) 4 mg IV Q8H PRN PRN PRN Reason: NAUSEA Last Admin: 02/22/18 09:00 Dose: 4 mg Sodium Chloride () 5 - 15 ml IV UD PRN PRN Reason: SALINE FLUSH Last Admin: 02/22/18 09:00 Dose: 10 ml Tamsulosin HCl (Flomax) 0.4 mg PO DAILY [facility] Last Admin: 02/22/18 09:22 Dose: 0.4 mg Zolpidem Tartrate (Ambien (Generic)) 5 mg PO QHS PRN PRN PRN Reason: INSOMNIA Medical Necessity - Tobacco Use Smoking Status: Never smoker Assessment/Plan All Active Problems (Last Updated 02/21/18 @ 01:01 by Tomer Jones MD) Mid abdominal pain (Acute) Acute diverticulitis of intestine (Acute) 1. Sepsis due to acute diverticulitis with diverticular abscess s/p CT guided drainage of abscess temperature has resolved leucocytosis resolved and down to 10.2 had ~ 6cc of pus drained from abscess on IV morphine nad IV zofran on IV ciprofloxacin and IV metronidazole blood cultures showed no grown in 48 hours. urine culture was also negative wound culture showed gram positive organism, GNR lactose wire drawer and gram negative meri. Speciation is pending start clear liquid diet today, to advance as tolerated 2. Hypokalemia: resolved. 3. Elevated bilirubin: biliriubin was 1.5 on admission; trended up to 2.7 yesterday. will check today to monitor trend. WIll get liver and gallbladder [facility]G if it keeps trending up 4. History of sarcoma: stable. Follow up with oncologist on outpatient basis 5. BPH: on flomax 6. Peripheral neuropathy: on gabapentin 7. Hypertension: controlled. On metoprolol DVT prophylaxis: heparin Code Visit Inpatient E&M: [id number] Subs Hosp L3
--- NOTE | 2018-02-23 09:39 | PN_ITS ---
Patient Problems: Active and Suspected Problems (Last Updated 02/21/18 @ 01:01 by Tomer Jones MD) Acute diverticulitis of intestine (Acute) Subjective: Patient seen and examined. He had CT-guided drainage of the diverticular abscess yesterday and it drained about 6 cc of fluid. A drain was left in place. He has no complaints this morning. He denies any fever or chills, any cough or chest pain, shortness of breath, diarrhea over 2. Abdominal pain is improved he rates it at about 5 out of 10 now. Labs and vitals reviewed. He is to be started on clears today to advance as tolerated. Vitals/I&O's: Vital Signs Temp Pulse Resp BP Pulse Ox 98 F 81 13 134/69 H 94 02/23/18 03:50 02/23/18 03:50 02/23/18 03:50 02/23/18 03:50 02/23/18 07:01 Oxygen Flow Rate (L/min) [3] 2 Oxygen Flow Rate (L/min) [2] 2 Oxygen Flow Rate (L/min) 2 Oxygen Delivery Method [3] Nasal Cannula Oxygen Delivery Method [2] Nasal Cannula Oxygen Delivery Method [1 ( Room Air Initial Baseline)] Oxygen Delivery Method Room Air Weight: 258 lb 13.163 oz Body Mass Index (BMI) 34.1 Intake and Output for Last 24 Hours 02/21/18 02/22/18 02/23/18 23:59 23:59 23:59 Intake Total 1778 / 1778 1087 / 1087 1024 / 1024 Output Total 1050 / 1050 556 / 556 600 / 600 Balance 728 / 728 531 / 531 424 / 424 General: Alert, Oriented x3, Cooperative, No apparent distress HEENT: Atraumatic, PERRLA, EOMI, Normocephalic, - - mild erythematous papular right periorbital rash. No erythema or discharge of the conjuctiva Oral: Dry Mucosa Neck: Supple, No JVD, Negative Carotid Bruits Lungs: Clear to auscultation, Normal air movement, No rhonchi, No wheeze, No rales Cardiovascular: Regular rate, Regular Rhythm, Normal S1, Normal S2, No murmurs Abdomen: Bowel Sounds Present, Soft, - -mild right lower quadrant tenderness, no guarding; drain in place, contains very scanty pus. Extremities: No clubbing, No cyanosis, No edema, Capillary Refill Less than 3 Seconds Skin: No rashes, No breakdown Musculoskeletal: No Tenderness to Palpation of Joints or Extremities Lymphatic: No Cervical, Supraclavicular, or Inguinal Adenopathy Neurological: Cranial nerves II-XII grossly intact, Neuro grossly intact, Motor Exam 5/5 strength throughout Psych/Mental Status: Normal Affect, Appropriate, Alert and oriented to time, place, person, mood and affect Microbiology Past 72 Hours 02/22/18 10:30 Diverticulum Gram Stain - Final 02/22/18 10:30 Diverticulum Wound Culture - Preliminary Gram positive organism GNR lactose enterprise resource planner Gram negative meri 02/20/18 22:50 Urine, Clean Catch Urine Culture - Final Culture exhibits no growth. 02/20/18 20:25 Blood Culture (Wb) - Anticubital Right Blood Culture - Preliminary No growth in 48 hours. 02/20/18 20:25 Blood Culture (Wb) - Left Hand Blood Culture - Preliminary No growth in 48 hours. Laboratory Results 02/22/18 05:08: Total Bilirubin 2.70 H, Direct Bilirubin 0.30, AST 11 L, ALT 15 L, Alkaline Phosphatase 56, Total Protein 6.6, Albumin 3.0 L, Globulin 3.6 02/23/18 05:45: WBC 10.3, RBC 3.87 L, Hgb 11.3 L, Hct 34.1 L, MCV 88.1, MCH 29.2, MCHC 33.1, RDW 14.6, RDW Differential 46.0 H, Plt Count 121 L, MPV 10.6, Immature Gran % (Auto) 0.100, Neut % (Auto) 85.6 H, Lymph % (Auto) 8.3 L, [place] % (Auto) 5.0, Eos % (Auto) 0.9, Baso % (Auto) 0.1, Absolute Neuts (auto) 8.8 H, Absolute Lymphs (auto) 0.85, Total Counted Not Reportable 02/23/18 05:45: Sodium 140, Potassium 3.6, Chloride 106, Carbon Dioxide 24.0, Anion Gap 10, BUN 14, Creatinine 0.82, Estim Creat Clear Calc 98.79, Est GFR (MDRD) Af Amer 121, Est GFR (MDRD) Non-Af 100, BUN/Creatinine Ratio 17.1, Glucose 106, Calcium 8.2 L Current Medications Acetaminophen (Tylenol) 650 mg PO Q6H PRN PRN PRN Reason: pain/fever Last Admin: 02/23/18 06:25 Dose: 650 mg Gabapentin (Neurontin) 900 mg PO TIDCM [facility] Last Admin: 02/22/18 16:31 Dose: 900 mg Ciprofloxacin (Cipro) 400 mg in 200 mls @ 200 mls/hr IV Q12 [facility] Last Admin: 02/22/18 21:04 Dose: 200 mls/hr Metronidazole (Flagyl) 500 mg in 100 mls @ 100 mls/hr IV Q8H [facility] Last Admin: 02/23/18 06:20 Dose: 100 mls/hr Sodium Chloride () 250 mls @ 15 mls/hr IV .[id number] PRN PRN Reason: SALINE FLUSH Last Admin: 02/22/18 09:21 Dose: 15 mls/hr Sodium Chloride () 500 mls @ 15 mls/hr IV .[id number] [facility] Last Admin: 02/22/18 10:17 Dose: 15 mls/hr Morphine Sulfate () 1 - 2 mg IV Q4H PRN PRN PRN Reason: PAIN Last Admin: 02/22/18 06:00 Dose: 2 mg Ondansetron HCl (Zofran) 4 mg IV Q8H PRN PRN PRN Reason: NAUSEA Last Admin: 02/22/18 09:00 Dose: 4 mg Sodium Chloride () 5 - 15 ml IV UD PRN PRN Reason: SALINE FLUSH Last Admin: 02/22/18 09:00 Dose: 10 ml Tamsulosin HCl (Flomax) 0.4 mg PO DAILY [facility] Last Admin: 02/22/18 09:22 Dose: 0.4 mg Zolpidem Tartrate (Ambien (Generic)) 5 mg PO QHS PRN PRN PRN Reason: INSOMNIA Medical Necessity - Tobacco Use Smoking Status: Never smoker Assessment/Plan All Active Problems (Last Updated 02/21/18 @ 01:01 by Tomer Jones MD) Mid abdominal pain (Acute) Acute diverticulitis of intestine (Acute) 1. Sepsis due to acute diverticulitis with diverticular abscess s/p CT guided drainage of abscess * temperature has resolved * leucocytosis resolved and down to 10.2 * had ~ 6cc of pus drained from abscess * on IV morphine nad IV zofran * on IV ciprofloxacin and IV metronidazole * blood cultures showed no grown in 48 hours. urine culture was also negative * wound culture showed gram positive organism, GNR lactose enterprise resource planner and gram negative meri. Speciation is pending * start clear liquid diet today, to advance as tolerated * 2. Hypokalemia: resolved. 3. Elevated bilirubin: * biliriubin was 1.5 on admission; * trended up to 2.7 yesterday. will check today to monitor trend. * WIll get liver and gallbladder [facility] if it keeps trending up 4. History of sarcoma: stable. Follow up with oncologist on outpatient basis 5. BPH: on flomax 6. Peripheral neuropathy: on gabapentin 7. Hypertension: controlled. On metoprolol DVT prophylaxis: heparin Code Visit Inpatient E&M: [id number] [facility] Hosp L3
[2018-02-23 09:50] VITALS: BP 112/71; PULSE 74; RESP 18; TEMP 36.6; O2SAT 96
[2018-02-23] MEDS: Gabapentin 300 MG Capsule 900 MG PO ×3 (10:59→19:48)
[2018-02-23] MEDS: Ciprofloxacin 400 MG/200 ML BAG 200 MG IV ×2 (10:59→22:25)
[2018-02-23] MEDS: Tamsulosin HCl 0.4 MG Capsule PO (11:00)
[2018-02-23 11:20] LABS: AST(SGOT) 11 U/L (15-37); Alanine Aminotransfer ALT/SGPT 13 U/L (16-61); Alkaline Phosphatase 63 U/L (45-117); Bilirubin, Direct 0.54 mg/dL (0.00-0.30); Globulin 3.8 g/dL (2.2-4.2); Protein, Total 6.8 g/dL (6.4-8.2)
[2018-02-23] MEDS: Ondansetron 4 MG/2 ML Vial IV ×2 (13:48→22:28)
[2018-02-23] MEDS: Morphine 2 MG/ML Syringe IV (13:48)
[2018-02-23 15:50] VITALS: BP 124/70; PULSE 88; RESP 18; TEMP 36.6; O2SAT 95
[2018-02-23 21:21] VITALS: BP 111/74; PULSE 74; RESP 18; TEMP 37; O2SAT 97
[2018-02-23 21:25] VITALS: PULSE 101; RESP 18; O2SAT 96
[2018-02-24 02:41] VITALS: BP 107/76; PULSE 66; RESP 18; TEMP 36.6; O2SAT 97
[2018-02-24] MEDS: Morphine 2 MG/ML Syringe IV (02:43)
[2018-02-24 02:50] VITALS: PULSE 66
--- NOTE | 2018-02-24 06:38 | PN.SURG_ITS ---
Patient Problems: Active and Suspected Problems (Last Updated 02/21/18 @ 01:01 by Tomer Jones MD) Acute diverticulitis of intestine (Acute) Subjective: passing flatus, liquid bowel movements, pain improved - Physical Exam General: Alert, Oriented x3, Cooperative Lungs: Clear to auscultation, Normal air movement Cardiovascular: Regular rate, Regular Rhythm, No murmurs Abdomen: Bowel Sounds Present, Soft, Tender - LLQ improved Vital Signs Temp Pulse Resp BP Pulse Ox 98 F 66 18 107/76 97 02/24/18 02:41 02/24/18 02:50 02/24/18 02:41 02/24/18 02:41 02/24/18 02:41 Oxygen Flow Rate (L/min) [3] 2 Oxygen Flow Rate (L/min) [2] 2 Oxygen Flow Rate (L/min) 2 Oxygen Delivery Method [3] Nasal Cannula Oxygen Delivery Method [2] Nasal Cannula Oxygen Delivery Method [1 ( Room Air Initial Baseline)] Oxygen Delivery Method Room Air Weight: 117.4 kg Body Mass Index (BMI) 34.1 Intake and Output for Last 24 Hours 02/22/18 02/23/18 02/24/18 23:59 23:59 23:59 Intake Total 1087 / 1087 2300 / 2300 1552 / 1552 Output Total 556 / 556 600 / 600 1050 / 1050 Balance 531 / 531 1700 / 1700 502 / 502 Microbiology Past 72 Hours 02/22/18 10:30 Gram Stain - Final Diverticulum Wound Culture - Preliminary Gram positive organism GNR lactose diving judge Gram negative meri 02/20/18 22:50 Urine Culture - Final Urine, Clean Catch Culture exhibits no growth. 02/20/18 20:25 Blood Culture - Preliminary Blood Culture (Wb) - Anticubital Right No growth in 48 hours. 02/20/18 20:25 Blood Culture - Preliminary Blood Culture (Wb) - Left Hand No growth in 48 hours. Laboratory Tests Past 24 Hrs 02/23/18 02/23/18 02/23/18 05:45 05:45 05:45 WBC 10.3 RBC 3.87 L Hgb 11.3 L Hct 34.1 L MCV 88.1 MCH 29.2 MCHC 33.1 RDW 14.6 RDW Differential 46.0 H Plt Count 121 L MPV 10.6 Immature Gran % (Auto) 0.100 Neut % (Auto) 85.6 H Lymph % (Auto) 8.3 L [place] % (Auto) 5.0 Eos % (Auto) 0.9 Baso % (Auto) 0.1 Absolute Neuts (auto) 8.8 H Absolute Lymphs (auto) 0.85 Total Counted Not Reportable Sodium 140 Potassium 3.6 Chloride 106 Carbon Dioxide 24.0 Anion Gap 10 BUN 14 Creatinine 0.82 Estim Creat Clear Calc 98.79 Est GFR (MDRD) Af Amer 121 Est GFR (MDRD) Non-Af 100 BUN/Creatinine Ratio 17.1 Glucose 106 Calcium 8.2 L Total Bilirubin 2.40 H Direct Bilirubin 0.54 H AST 11 L ALT 13 L Alkaline Phosphatase 63 Total Protein 6.8 Albumin 3.0 L Globulin 3.8 Medical Necessity - Tobacco Use Smoking Status: Never smoker Assessment/Plan All Active Problems (Last Updated 02/21/18 @ 01:01 by Tomer Jones MD) Mid abdominal pain (Acute) Acute diverticulitis of intestine (Acute) recurrent diverticulitis mouth diverticular abscess Patient was admitted to medicine service was started on Zosyn for IV antibiotics. I plan for conservative management. CT-guided aspiration/drainage of this left lower quadrant 2.5 cm abscess yielded 6cc pus and drain placed. patient clinically better. Passing flatus and liquid stools. will maintain on full liquids/low residue. OK with discharge on oral cipro/flagyl. Have patient follow up in my office Thursday. Hopefully the patient can be converted from a complicated due to an uncomplicated diverticulitis. My plan with just the patient in discussions before was to proceed with sigmoid resection typically 8 weeks after his attack. Hopefully by converting him through the above process will be able to perform some elective surgery. If the patient fails to improve or has persistent ileus obstructive pattern will require more urgent surgical intervention.
[2018-02-24 06:53] LABS: Absolute Lymphocyte Count 1.01 X10^3/ul (0.83-4.51); Absolute Neutrophil Count 5.6 X10^3/uL (2.0-7.7); Basophil# 0.01 X10^3/uL; Basophil% 0.1 % (0-1); Eosinophil# 0.26 X10^3/uL; Eosinophils% 3.5 % (0-5); Hematocrit 35.1 % (40-54); Hemoglobin 11.6 g/dl (13.0-16.5); Lymphocyte # 1.01 X10^3/ul (4.0); Lymphocyte % 13.4 % (19-41); Mean Corpuscular Hgb 28.9 pg (27.0-32.0); Mean Corpuscular Volume 87.3 fL (80-94); Mean Platelet Vol. 9.7 fl (6.2-12.0); Monocyte# 0.61 X10^3/uL; Monocyte% 8.1 % (0-10); Neutrophil # 5.62 X10^3/uL (2.7-7.7); Neutrophil % 74.8 % (47-70); Platelet Count 138 K/mm3 (150-450); RBC Distribution Width CV 14.6 % (11.6-14.6); RBC Distribution Width SD 46.2 fl (35.1-43.9); Red Blood Count 4.02 M/mm3 (4.6-6.2); White Blood Count 7.5 K/mm3 (4.4-11.0)
[2018-02-24 06:57] LABS: POSITIVE COUNT NO; POSITIVE DIFFERENTIAL NO; POSITIVE MORPHOLOGY NO
[2018-02-24 07:05] LABS: AST(SGOT) 10 U/L (15-37); Alanine Aminotransfer ALT/SGPT 15 U/L (16-61); Alkaline Phosphatase 58 U/L (45-117); Anion Gap 9 (5-15); BUN 12 mg/dL (7-18); BUN/Creat Ratio 14.1 RATIO (10-20); Bilirubin, Direct 0.31 mg/dL (0.00-0.30); Calcium,Total 8.3 mg/dL (8.5-10.1); Chloride 106 mmol/L (98-107); Creatinine, Serum 0.85 mg/dL (0.70-1.30); EST Glomerular Filtration Rate 96 mL/min (>60); Est Glom Filt Rate - Afr Amer 116 mL/min (>60); Estimated Creatinine Clearance 95.31 ml/min; Globulin 4.1 g/dL (2.2-4.2); Glucose 110 mg/dL (74-106); Potassium 3.4 mmol/L (3.5-5.1); Protein, Total 7.1 g/dL (6.4-8.2); Sodium Level 141 mmol/L (136-145)
[2018-02-24] MEDS: Gabapentin 300 MG Capsule 900 MG PO ×2 (08:06→13:11)
[2018-02-24 08:37] VITALS: BP 125/73; PULSE 70; RESP 18; TEMP 36.6; O2SAT 95
[2018-02-24] MEDS: Ciprofloxacin 400 MG/200 ML BAG 200 MG IV (10:21)
[2018-02-24] MEDS: Tamsulosin HCl 0.4 MG Capsule PO (10:22)
[2018-02-24] MEDS: Acetaminophen 325 MG Tablet 650 MG PO (10:24)
--- NOTE | 2018-02-24 10:57 | DCINST_ITS ---
- Discharge Diagnoses Current Active Problems: Current Active and Chronic Problems (Last Updated 02/21/18 @ 01:01 by Tomer Jones MD) Acute diverticulitis of intestine (Acute) You will use the following diet at home:: Full liquid - no Cream of Wheat or Oatmeal. To advance as per general surgery instructions after review on Thursday Your food should be the consistency of: Regular Discharge Activity: Return to Normal Activity Weight Bearing Status: Weight bearing as tolerated Call your doctor if your incision/area has: Continuous Slow Oozing, Increased Pain/ Swelling, Foul Smelling Discharge Call your doctor if you observe: Fever of 101 or Higher, - - abdominal pain Instructions: Understanding Diverticulosis and Diverticulitis, Discharge Instructions for Diverticulitis Allergies/Adverse Reactions: Allergies cod liver oil [From Desitin] Allergy (Verified 02/20/18 20:09) Rash zinc oxide [From Desitin] Allergy (Verified 02/20/18 20:09) Rash Medications to take at Discharge Aspirin [Aspirin, Baby] 81 mg PO DAILY@0800 12/08/16 Cholecalciferol (VIT D3) [Vitamin D3] 2,000 unit PO DAILY 12/08/16 Gabapentin [Neurontin] 900 mg PO TIDCM 12/08/16 Metoprolol Tartrate [Lopressor (beta erinn)] 12.5 mg PO DAILY 12/08/16 Multivit-Min/FA/Lycopen/Lutein [Centrum Silver Men Tablet] 1 each PO DAILY 12/08/16 Simvastatin [Zocor] 40 mg PO QHS 12/08/16 Tamsulosin HCl [Flomax] 0.4 mg PO DAILY 12/08/16 Acetaminophen [Tylenol] 650 mg PO Q6H PRN PRN #30 tablet 02/24/18 Cefdinir 300 mg PO BID 7 Days #14 capsule 02/24/18 Ibuprofen 400 mg PO Q6H PRN PRN #30 tablet 02/24/18 Metronidazole 500 mg PO TID 7 Days #21 tablet 02/24/18 Ondansetron [Zofran] 8 mg PO Q8H PRN PRN #30 tablet 02/24/18 The following prescriptions were given: Acetaminophen [Tylenol] 650 mg PO Q6H PRN PRN #30 tablet PRN Reason: Pain Ibuprofen 400 mg PO Q6H PRN PRN #30 tablet PRN Reason: Pain Ondansetron [Zofran] 8 mg PO Q8H PRN PRN #30 tablet PRN Reason: Nausea/Vomiting Cefdinir 300 mg PO BID 7 Days #14 capsule Metronidazole 500 mg PO TID 7 Days #21 tablet Primary Care Physician: Napoleon Larson MD [Primary Care Provider] - Please follow up with your Primary Care Physician in: one week Test Results: Test results from this visit will be discussed in further detail at your follow- up appointment, if applicable. Please Follow Up With: Ravindra Watson MD When: 2 days Proposed Discharge Date: 02/24/18
--- NOTE | 2018-02-24 10:57 | DS.PCM_ITS ---
Discharge Date and Diagnosis Date of Admission: 02/20/18 Date of Discharge: 02/24/18 - Primary Discharge Diagnosis Active and Suspected Problems (Last Updated 02/21/18 @ 01:01 by Tomer Jones MD) Acute diverticulitis of intestine with abscess (Acute) Hospital Course and Treatment Imaging Results: Diagnostic Data Chest X-Ray 02/20/18 20:25 IMPRESSION: 1. Suspect bibasilar atelectasis. Pneumonia is considered less likely. Possible trace volume pleural effusions. Electronically Signed: Russel Boone MD at 20:39 EST , Service support , Abdomen/Pelvis CT 02/20/18 20:39 IMPRESSION: 1. Acute diverticulitis of the distal descending/proximal sigmoid colon, with a small diverticular abscess. No free air. 2. Prostatic enlargement. 3. Fat-containing umbilical hernia. Dr. Clemente called results to Dr. Nina at 11:23 PM. N.B. : The above information has been verbally conveyed by Kyung Clemente MD to Yuni Nina MD, MD, on 02/20/2018 23:24:56 (ET). Electronically Signed: Kyung Clemente MD at 23:26 EST Tel , Service support , Abscess Drainage 02/22/18 11:00 IMPRESSION: 1. CT directed drainage of a fluid collection using CT image guidance and image documentation as described. 2. 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 He was admitted with a 1 day history of progressively worsening sharp pain in his left lower quadrant which is aggravated by movement. He had no relieving factors. He had assisted fever and chills and diaphoresis. At home his temperature peaked at 105.4 Fahrenheit. He was also tachycardic and tachypneic. CT of the abdomen done in the ED showed acute diverticulitis of the distal descending and proximal sigmoid colon with a small diverticular abscess without free air as well as a fat-containing umbilical hernia. He was admitted and managed for acute diverticulitis with diverticular abscess formation. Of note it must be mentioned that patient had similar symptoms around 2017, and had a CAT scan done which showed diverticulitis. He was managed with antibiotics at that time. Patient was started on IV ciprofloxacin and Flagyl during this admission. General surgery was consulted. His temperature and elevated white cell count settled with tachypnea and tachycardia also settled. He had CT-guided drainage of the diverticular abscess drainage of about 6 cc of pus. Blood cultures were negative at 48 hours and urine culture was also negative. Wound cultures grew gram-negative lactose head of biology rods and gram-negative rods as well as 3+ alpha hemolytic Streptococcus. Patient remained stable, a drain was left in situ and he was discharged home on 02/24/2018 with a prescription for p.o. cefdinir 300 mg twice daily and p.o. Flagyl. He is to follow-up with general surgery on 02/26/2018 for assessment and possible removal of drain. He is also to follow-up with his primary care doctor. Per general surgery, plan will be for a colonoscopy about 6-8 weeks after this acute phase has resolved. Seen and examined prior to discharge. He felt well and had no complaints. Pain had improved significantly. He denied any fever or chills, any cough or chest pain, any palpitations or dizziness, any abdominal pain, any diarrhea vomiting. 12 point review of systems is otherwise negative. Labs and vitals reviewed. Home medications reviewed and reconciled On examination Vital Signs Height 6 ft 1 in Weight: 258 lb 13.163 oz Weight in Pounds 258.8 lbs Pulse Ox 95 Temperature 97.8 F Pulse Rate [3] 82 Pulse Rate [2] 80 Pulse Rate [1 (Initial 82 Baseline)] Pulse Rate 70 Respiratory Rate [3] 13 Respiratory Rate [2] 20 Respiratory Rate [1 (Initial 20 Baseline)] Respiratory Rate 18 Blood Pressure [3] 133/77 Blood Pressure [2] 121/75 Blood Pressure [1 (Initial 127/68 Baseline)] Blood Pressure 125/73 Blood Pressure Position Semi-Fowlers [] General: Alert, Oriented x3, Cooperative, No apparent distress HEENT: Atraumatic, PERRLA, EOMI, Normocephalic, - - mild erythematous papular right periorbital rash. No erythema or discharge of the conjuctiva Oral: Dry Mucosa Neck: Supple, No JVD, Negative Carotid Bruits Lungs: Clear to auscultation, Normal air movement, No rhonchi, No wheeze, No rales Cardiovascular: Regular rate, Regular Rhythm, Normal S1, Normal S2, No murmurs Abdomen: Bowel Sounds Present, Soft, - -mild right lower quadrant tenderness, no guarding; drain in place, contains no pus. Extremities: No clubbing, No cyanosis, No edema, Capillary Refill Less than 3 Seconds Skin: No rashes, No breakdown Musculoskeletal: No Tenderness to Palpation of Joints or Extremities Lymphatic: No Cervical, Supraclavicular, or Inguinal Adenopathy Neurological: Cranial nerves II-XII grossly intact, Neuro grossly intact, Motor Exam 5/5 strength throughout Psych/Mental Status: Normal Affect, Appropriate, Alert and oriented to time, place, person, mood and affect Plan as detailed above. - Physical Exam Vital Signs Temp Pulse Resp BP Pulse Ox 97.8 F 70 18 125/73 H 95 02/24/18 08:37 02/24/18 08:37 02/24/18 08:37 02/24/18 08:37 02/24/18 08:37 Oxygen Flow Rate (L/min) [3] 2 Oxygen Flow Rate (L/min) [2] 2 Oxygen Flow Rate (L/min) 2 Oxygen Delivery Method [3] Nasal Cannula Oxygen Delivery Method [2] Nasal Cannula Oxygen Delivery Method [1 ( Room Air Initial Baseline)] Oxygen Delivery Method Room Air Weight: 258 lb 13.163 oz Body Mass Index (BMI) 34.1 Intake and Output for Last 24 Hours 02/22/18 02/23/18 02/24/18 23:59 23:59 23:59 Intake Total 1087 / 1087 2300 / 2300 1552 / 1552 Output Total 556 / 556 600 / 600 1050 / 1050 Balance 531 / 531 1700 / 1700 502 / 502 Microbiology Past 72 Hours 02/22/18 10:30 Gram Stain - Final Diverticulum Wound Culture - Preliminary Alpha Hemolytic Streptococcus GNR lactose head of biology Gram negative meri Anaerobic Culture - Preliminary Checking for anaerobes, further studies to follow. 02/20/18 22:50 Urine Culture - Final Urine, Clean Catch Culture exhibits no growth. 02/20/18 20:25 Blood Culture - Preliminary Blood Culture (Wb) - Anticubital Right No growth in 48 hours. 02/20/18 20:25 Blood Culture - Preliminary Blood Culture (Wb) - Left Hand No growth in 48 hours. Laboratory Tests Past 24 Hrs 02/23/18 02/24/18 02/24/18 05:45 06:25 06:25 WBC 7.5 RBC 4.02 L Hgb 11.6 L Hct 35.1 L MCV 87.3 MCH 28.9 MCHC 33.0 RDW 14.6 RDW Differential 46.2 H Plt Count 138 L MPV 9.7 Immature Gran % (Auto) 0.100 Neut % (Auto) 74.8 H Lymph % (Auto) 13.4 L [place] % (Auto) 8.1 Eos % (Auto) 3.5 Baso % (Auto) 0.1 Absolute Neuts (auto) 5.6 Absolute Lymphs (auto) 1.01 Total Counted Not Reportable Sodium 141 Potassium 3.4 L Chloride 106 Carbon Dioxide 26.0 Anion Gap 9 BUN 12 Creatinine 0.85 Estim Creat Clear Calc 95.31 Est GFR (MDRD) Af Amer 116 Est GFR (MDRD) Non-Af 96 BUN/Creatinine Ratio 14.1 Glucose 110 H Calcium 8.3 L Total Bilirubin 2.40 H 1.30 H Direct Bilirubin 0.54 H 0.31 H AST 11 L 10 L ALT 13 L 15 L Alkaline Phosphatase 63 58 Total Protein 6.8 7.1 Albumin 3.0 L 3.0 L Globulin 3.8 4.1 Discharge Diet: Low fat/ Low Cholesterol Discharge Activity: Return to Normal Activity Weight Bearing Status: Weight bearing as tolerated Call your doctor if your incision/area has: Continuous Slow Oozing, Increased Pain/ Swelling, Foul Smelling Discharge Call your doctor if you observe: Fever of 101 or Higher, - - abdominal pain Home Medications: Medications to take at Discharge Aspirin [Aspirin, Baby] 81 mg PO DAILY@0800 12/08/16 Cholecalciferol (VIT D3) [Vitamin D3] 2,000 unit PO DAILY 12/08/16 Gabapentin [Neurontin] 900 mg PO TIDCM 12/08/16 Metoprolol Tartrate [Lopressor (beta erinn)] 12.5 mg PO DAILY 12/08/16 Multivit-Min/FA/Lycopen/Lutein [Centrum Silver Men Tablet] 1 each PO DAILY 12/08/16 Simvastatin [Zocor] 40 mg PO QHS 12/08/16 Tamsulosin HCl [Flomax] 0.4 mg PO DAILY 12/08/16 Acetaminophen [Tylenol] 650 mg PO Q6H PRN PRN #30 tablet 02/24/18 Cefdinir 300 mg PO BID 7 Days #14 capsule 02/24/18 Ibuprofen 400 mg PO Q6H PRN PRN #30 tablet 02/24/18 Metronidazole 500 mg PO TID 7 Days #21 tablet 02/24/18 Ondansetron [Zofran] 8 mg PO Q8H PRN PRN #30 tablet 02/24/18 Following Prescrptions Were Given to Patient: Acetaminophen [Tylenol] 650 mg PO Q6H PRN PRN #30 tablet PRN Reason: Pain Ibuprofen 400 mg PO Q6H PRN PRN #30 tablet PRN Reason: Pain Ondansetron [Zofran] 8 mg PO Q8H PRN PRN #30 tablet PRN Reason: Nausea/Vomiting Cefdinir 300 mg PO BID 7 Days #14 capsule Metronidazole 500 mg PO TID 7 Days #21 tablet Primary Care Physician: Napoleon Larson MD [Primary Care Provider] - Please follow up with your Primary Care Physician in: one week Please Follow Up With: Ravindra Watson MD When: 2 days Patient Instructions: Understanding Diverticulosis and Diverticulitis, Discharge Instructions for Diverticulitis Disposition: Home Minutes spent on discharge:: 35 Patient Condition:: Stable Medical Necessity - Tobacco Use Smoking Status: Never smoker Meaningful Use Info Meaningful Use Diagnoses (Choose all that apply): None applicable Code Visit Inpatient E&M: 82358 Disch Hosp
--- NOTE | 2018-02-25 14:54 | CASEMGMT ---
RODNEY LOUIS Discharge Follow-Up Phone Call. Kelly: Sol Strata: 3 Discharge Date: 02/24/18 Adm Dx: Sepsis secondary to Acute Diverticulitis. Call placed to pt to inquire about how he has been feeling since he was discharged home. Pt stated, I'm not doing too bad. Pt stated he was able to get all of his new prescriptions and has an appt with Dr Watson tomorrow. States he already had an appt scheduled with is PCP for next week as well. Pt denies having any questions about his discharge instructions or medications. States everyone @ [facility] treated him really nice. RODNEY LOUIS thanked pt for choosing [facility]. Dolores RODRIGUEZ RN, CM
== END 2018-02-24 13:00 | disposition home or self-care (01) | DRG 872 ==
LOC: ED 20:26 → MS3 02-21 00:30
PROVIDERS: Surgery; Admitting Provider Hospitalist; Emergency Provider Emergency Medicine; Family Provider Family Medicine; PCP Family Medicine; Visit Provider Student in an Organized Health Care Education/Training Program
DX: A41.9 Sepsis, unspecified organism (principal); K57.20 Diverticulitis of large intestine with perforation and abscess without bleeding; E87.6 Hypokalemia; N40.0 Benign prostatic hyperplasia without lower urinary tract symptoms; Z79.899 Other long term (current) drug therapy; K42.9 Umbilical hernia without obstruction or gangrene; Z85.89 Personal history of malignant neoplasm of other organs and systems; G62.9 Polyneuropathy, unspecified; I10 Essential (primary) hypertension; Z98.890 Other specified postprocedural states; B95.4 Other streptococcus as the cause of diseases classified elsewhere
CPT/HCPCS: 20501; 36415; 71045; 74177; 77012; 80048; 80053; 80076; 81001; 83605; 83690; 85025; 85610; 85730; 87040; 87070; 87075; 87077; 87086; 87186; 87205; 93005; 94762; 97162; 97166; 97530; 97802; 99156; 99284; J7030; J7040; J7050; J7120; Q9967; A4216; J0744; J2405

== ENCOUNTER → 2018-04-19 10:33 | Outpatient (CLI) | payer MEDICARE, SELFPAY ==
[2018-02-21 01:33] VITALS: BMI 34.1
--- NOTE | 2018-04-19 10:55 | RAD_ITS ---
STUDY: X-RAY CHEST REASON FOR EXAM: Male, 67 years old. Weakness and shortness of breath. Abnormal lung sounds. TECHNIQUE: PA and lateral views of the chest. COMPARISON: 02/20/2018 FINDINGS: There is marked amount of free air under the right hemidiaphragm and left hemidiaphragm compatible with bowel perforation. The lungs are clear and expanded. There is no demonstrated pleural abnormality. Normal size heart. Normal mediastinum and aidee. Normal visualized pulmonary arteries. Normal visualized aortic arch and descending thoracic aorta. Normal visualized thoracic spine. Normal visualized ribs, clavicles, and shoulders. There is no demonstrated abnormality of the visualized soft tissue structures of the upper abdomen. RAD/Chest PA and Lateral IMPRESSION: Large amounts of free air underneath both hemidiaphragms compatible with bowel perforation. CT abdomen and pelvis needed to further evaluate. Lungs themselves are clear. N.B. : Antionette Kay OT, confirmed on 04/19/2018 11:39:38 (ET) that the referring physician received the results and did not require a verbal consultation. Electronically Signed: Tenzin Lee DO at 11:40 EST Tel , Service support ,
[2018-04-19 12:35] LABS: Absolute Lymphocyte Count 0.92 X10^3/ul (0.83-4.51); Absolute Neutrophil Count 6.5 X10^3/uL (2.0-7.7); Basophil# 0.01 X10^3/uL; Basophil% 0.1 % (0-1); Eosinophil# 0.11 X10^3/uL; Eosinophils% 1.3 % (0-5); Hematocrit 35.2 % (40-54); Lymphocyte # 0.92 X10^3/ul (4.0); Lymphocyte % 11.2 % (19-41); Mean Corp Hgb Conc 31.3 g/gl (32-36); Mean Corpuscular Hgb 27.4 pg (27.0-32.0); Mean Corpuscular Volume 87.6 fL (80-94); Monocyte# 0.67 X10^3/uL; Monocyte% 8.2 % (0-10); Neutrophil # 6.47 X10^3/uL (2.7-7.7); Platelet Count 218 K/mm3 (150-450); RBC Distribution Width SD 53.3 fl (35.1-43.9); Red Blood Count 4.02 M/mm3 (4.6-6.2); White Blood Count 8.2 K/mm3 (4.4-11.0)
[2018-04-19 12:40] LABS: POSITIVE COUNT NO; POSITIVE DIFFERENTIAL NO; POSITIVE MORPHOLOGY NO
[2018-04-19 13:02] LABS: ALB/GLOB Ratio 0.7 RATIO (0.9-2.4); AST(SGOT) 40 U/L (15-37); Alanine Aminotransfer ALT/SGPT 31 U/L (16-61); Albumin, Serum 3.2 g/dL (3.2-5.0); Alkaline Phosphatase 75 U/L (45-117); Anion Gap 8 (5-15); BUN 17 mg/dL (7-18); BUN/Creat Ratio 18.2 RATIO (10-20); Calcium,Total 8.4 mg/dL (8.5-10.1); Chloride 105 mmol/L (98-107); Creatinine, Serum 0.94 mg/dL (0.70-1.30); EST Glomerular Filtration Rate 85 mL/min (>60); Est Glom Filt Rate - Afr Amer 103 mL/min (>60); Globulin 4.6 g/dL (2.2-4.2); Glucose 97 mg/dL (74-106); Protein, Total 7.8 g/dL (6.4-8.2); Sodium Level 138 mmol/L (136-145)
== END ==
PROVIDERS: Family Provider Family Medicine; PCP Family Medicine; Referring Provider Family Medicine; Visit Provider Family Medicine
DX: R53.83 Other fatigue (principal); R11.0 Nausea; K57.80 Diverticulitis of intestine, part unspecified, with perforation and abscess without bleeding; R05 Cough; R53.1 Weakness
CPT/HCPCS: 36415; 71046; 80053; 85025

== ENCOUNTER 2018-04-22 09:45 | Inpatient (IN) | payer MEDICARE, SELFPAY ==
[2018-02-21 01:33] VITALS: BMI 34.1
[2018-04-22 10:00] VITALS: BP 117/77; PULSE 71; RESP 18; TEMP 37.3; O2SAT 94
[2018-04-22 10:04] VITALS: BMI 29.1
--- NOTE | 2018-04-22 10:11 | CT_ITS ---
STUDY: CT ABDOMEN AND PELVIS WITH CONTRAST REASON FOR EXAM: Male, 67 years old. History of diverticulosis. Free abdominal air. RADIATION DOSAGE (If Supplied By Facility): CTDIvol = ( 26.03 ) mGy, DLP = ( 1518.45 ) mGycm TECHNIQUE: Transaxial images were obtained from the dome of the diaphragm to the symphysis pubis with oral contrast. Isovue 300 100 IV/Oral was administered. Sagittal and coronal images were reconstructed. Individualized dose optimization techniques were used for this CT. COMPARISON: Comparison is made with prior examination dated February 20, 2018. FINDINGS: Mild degree of increased markings at the lung bases suggestive of atelectasis. The visualized portions of the heart are within normal limits. There is evidence of a large amount of free intraperitoneal air. Small air bubbles are also seen in the retroperitoneum. There is decreased attenuation of the liver consistent with steatosis. Normal gallbladder and extrahepatic biliary system. There is mild splenomegaly. Normal pancreas. Normal bilateral adrenal glands. Normal right kidney. Normal left kidney. There is a small hiatal hernia. Normal small intestine. There are multiple colonic diverticula consistent with diverticulosis. The previously seen small peridiverticular abscess collection as resolved. The appendix is visualized and appears normal. There is scattered atherosclerotic calcification of the abdominal aorta, without a demonstrated aneurysm. Normal inferior vena cava. Normal retroperitoneum. Normal urinary bladder. There is enlargement of the prostate gland. It measures 6.9 cm by 6.3 cm. This causes indentation at the bladder base. There is a small umbilical hernia containing air. Normal osseous structures. CT/Abdomen/Pelvis WITH Contrast IMPRESSION: Large amount of free intraperitoneal air. This most likely secondary to a perforated gastric/duodenal ulcer. Sigmoid diverticulosis. The previously seen small peridiverticular abscess as cleared. Electronically Signed: Jose Harrington, at 14:59 EST , Service support ,
[2018-04-22] MEDS: Lactated Ringers 1,000 ML 100 ML IV ×2 (10:43→19:19)
[2018-04-22 10:49] LABS: Absolute Lymphocyte Count 0.74 X10^3/ul (0.83-4.51); Absolute Neutrophil Count 4.7 X10^3/uL (2.0-7.7); Basophil# 0.02 X10^3/uL; Basophil% 0.3 % (0-1); Eosinophil# 0.08 X10^3/uL; Eosinophils% 1.3 % (0-5); Hematocrit 30.4 % (40-54); Hemoglobin 9.7 g/dl (13.0-16.5); Lymphocyte # 0.74 X10^3/ul (4.0); Lymphocyte % 12.1 % (19-41); Mean Corp Hgb Conc 31.9 g/gl (32-36); Mean Corpuscular Hgb 27.4 pg (27.0-32.0); Mean Corpuscular Volume 85.9 fL (80-94); Mean Platelet Vol. 10.8 fl (6.2-12.0); Monocyte# 0.55 X10^3/uL; Platelet Count 185 K/mm3 (150-450); RBC Distribution Width CV 17.1 % (11.6-14.6); RBC Distribution Width SD 53.2 fl (35.1-43.9); Red Blood Count 3.54 M/mm3 (4.6-6.2); White Blood Count 6.1 K/mm3 (4.4-11.0)
[2018-04-22 10:54] LABS: International Normalized Ratio 1.2; Prothrombin Time (Protime)PT. 14.9 SECONDS (11.7-14.9)
[2018-04-22 10:55] LABS: POSITIVE COUNT NO; POSITIVE DIFFERENTIAL NO; POSITIVE MORPHOLOGY NO
--- NOTE | 2018-04-22 11:06 | HP.PCM_ITS ---
History and Physical Date of Admission: 04/22/18 HISTORY AND PHYSICAL ? Richard Fraire 1950 ? ? REFERRING PHYSICIAN: ??Napoleon Larson MD ? CHIEF COMPLAINT: ??Established Patient ? HPI: The patient is a 67 year old male with worsening failure to thrive over the past few weeks. ?He was seen by his primary care physician 2 days previously. ?He was sent to [facility] for a chest x-ray and laboratory studies. ?Laboratory studies were relatively unremarkable with normal white blood cell count, mild anemia, normal protein and albumin, slightly elevated liver profile. ?Chest x-ray did demonstrate significant free air. ? The patient states that he has a degree of apprehension eating food due to his diverticulitis but does not complain of pain. ?Unfortunately, the patient is very stoic. ?He denies change in his bowel habits. ?He denies fever or chills. ?He states he does not have pain when he eats but again a degree of food aversion. ?The most concerning feature to his is that he has lost approximately 20 pounds of weight and is having increasing weakness. ? The patient has a recently complex history related to his diverticulitis. ? Richard is a patient I am following for perforated diverticulitis with significant pneumoperitoneum. ? The patient is a 67 year old male with a finding of pneumoperitoneum. ?The patient has a known history of right upper extremity sarcoma. ?He was scheduled for a follow-up chest CAT scan which he underwent at [facility] yesterday. ?Incidental finding was free intra-abdominal air. ?The patient's orthopedic surgeon, Dr. Hill called the patient this morning from a virtual visit. The patient had eaten breakfast and did not report any concerns. ? The patient was placed on my schedule for a diagnosis of pneumoperitoneum. ? ? In discussions with the patient, he notes pain in the left lower quadrant starting around Thanksgiving and then pain across the upper mid abdomen and through to the back. ?He states his been typically eating Jell-O since that time. ?He denies fever or chills. ?He notes that actually has been feeling better for the last 2 days. ? The patient has a diagnosis approximately one year ago of pancreatitis from unknown etiology. ?He was maintained in the hospital for 2 days without diagnosis. ?He assumed that his pain started on Thanksgiving was also pancreatitis and he felt it would be a waist at this time to return to the hospital. ?I had seen the patient 5 year previously were he underwent laparoscopic appendectomy for missed appendicitis. ? The patient was initially scheduled for later in the afternoon. ?I had him present to my office as soon as he could be contacted. ?In the office, he looked remarkably comfortable. ?His vitals were stable and he had no diffuse peritoneal signs. ?I reviewed the CT scan of the chest which did demonstrate significant free air. ?I did not see any time signs of intra-abdominal fluid collections and the stomach and duodenum did not demonstrate signs of inflammation. ?I elected to obtain laboratory studies-CBC chemistry panel and lipase, and a noncontrast CT scan. ? Again the patient had improved abdominal symptoms and was tolerating a low residue diet without challenges by the time he presented to my office. ? My interpretation of the CT scan as this is most likely descending colon/sigmoid diverticulitis. ?I received a phone call from the radiologist later commenting on the same findings. ?We agreed that this would be very clinically worrisome in the acute setting. ?We concluded it was reasonable to plan for a follow-up CT scan a week. ?He was discharged home from my office on a low residue diet with oral antibiotics. ? The patient still denies any significant abdominal pain. ?He notes no fever or chills. ?He is taking his oral antibiotics. ?He would like to advance his diet. ? Repeat CT scan was obtained. ?This demonstrated: ? IMPRESSION: Improving perforated diverticulitis without interval developing abscess. ? The patient was then doing well until February 20 when he noted fever to 105 and left-sided abdominal pain. ?He presented to [facility] emergency department. ?Follow-up CT scan demonstrated a 2-1/2 cm abscess near the site of recurrent diverticulitis. ?He was admitted, given IV antibiotics and underwent percutaneous drainage with pigtail catheter placement. He did well and was transitioned to oral antibiotics and discharged to home on February 24, 2018. ?I saw him approximately 3 weeks previously. ?Our plan was to perform colonoscopy and then sigmoid resection on May 04 and . ? ? ? PAST MEDICAL HISTORY PAST MEDICAL HISTORY Diagnosis Date ? BPH (benign prostatic hyperplasia) ? ? Cancer (HCC) ? ? leiomyosarcoma ? Hyperlipidemia ? ? ? PAST SURGICAL HISTORY PAST SURGICAL HISTORY Procedure Laterality Date ? APPENDECTOMY ? 08/28/12 ? COLONOSCOPY ? ? ? KNEE SURGERY HX Right 1974 ? PAST SURGICAL HISTORY OF Right 2016 ? RUE sarcoma excision ? PAST SURGICAL HISTORY OF Right 2003 ? removeal of aneurysm behind rt knee ? ? CURRENT MEDICATIONS ? Current Outpatient Medications: ondansetron (ZOFRAN) 4 mg tablet Take 4 mg by mouth every 4 hours as needed. Lactobacillus acidophilus (PROBIOTIC ORAL) Take by mouth. Aspirin 81 mg Tab Take 81 mg by mouth. metoprolol tartrate 12.5 mg Tab Take 12.5 mg by mouth every 12 hours. MULTI-VITAMIN ORAL Take ?by mouth. Cholecalciferol, Vitamin D3, (VITAMIN D-3) 2,000 unit cap Take ?by mouth. simvastatin (ZOCOR) 40 mg tablet Take 40 mg by mouth daily at bedtime. tamsulosin (FLOMAX) 0.4 mg Cp24 Take 0.4 mg by mouth. Gabapentin 300 mg Tab Take 900 mg by mouth three times daily. ciprofloxacin HCl (CIPRO) 500 mg tablet Take 1 tablet by mouth twice daily. (Patient not taking: Reported on 04/22/2018 ) diphenhydrAMINE (BENADRYL) 25 mg tablet Take 1 tablet by mouth every 6 hours as needed for Itching/Rash. tamsulosin ER (FLOMAX) 0.4 mg cp24 Take 2 capsules by mouth daily at bedtime. Tadalafil (CIALIS) 5 mg tablet Take 5 mg by mouth as needed. ? No current facility-administered medications for this visit.? ? ALLERGIES:?Desitin [Zinc Oxide] ? PERSONAL HISTORY:? SOCIAL HISTORY Social History ??Socioeconomic History ?Marital status: ?Spouse name: Not on file ?Number of children: Not on file ?Years of education: Not on file ?Highest education level: Not on file ??Social Needs ?Financial resource strain: Not on file ?Food insecurity - worry: Not on file ?Food insecurity - inability: Not on file ?Transportation needs - medical: Not on file ?Transportation needs - non-medical: Not on file ??Occupational History ?Not on file ??Tobacco Use ?Smoking status: Former Smoker ?Packs/day: 1.00 ?Years: 15.00 ?Pack years: 15 ?Types: Cigarettes ?Smokeless tobacco: Never Used ?Tobacco comment: Quit 20yrs ago ??Substance and Sexual Activity ?Alcohol use: No ?Drug use: Never ?Sexual activity: Not on file ??Other Topics ?Concerns: ?Not on file ??Social History Narrative ?Not on file ? FAMILY HISTORY:? FAMILY HISTORY FAMILY HISTORY Problem Relation Age of Onset ? Cancer Mother ?uterine ? Cancer Father ?lung ? Cancer Sister ?multiple myeloma ? Diabetes Brother ? ? REVIEW OF SYMPTOMS: ??The review of systems data was entered by the nurse and reviewed by me ? There are no exam notes on file for this visit. ? ? PHYSICAL EXAMINATION: ? General: ?The patient is 67 year old male, well nourished, well hydrated in no acute distress. ?The patient is oriented to time, place, and person. ? VITALS:?Blood pressure 106/72, pulse 104, temperature 36.8 ?C (98.2 ?F), temperature source Temporal Artery, height 185.4 cm (6' 1), weight 101.2 kg (223 lb 3.2 oz), SpO2 93 %. ? HEENT: ?Normal cephalic, ataumatic, pupils are equally round, sclera are anicteric, mucous membranes are moist, oropharynx is clear. ?Neck has no masses, asymmetry or lymphadenopathy. ?Thyroid is unremarkable. ?Overall the patient just looks not well. ? Respiratory: ?Clear to auscultation and percussion. ?Normal respiratory excursion and pattern. ? Cardiac: ?Examination is regular rate and rhythm. ? Abdominal exam: ?Soft, nontender, ?with no palpable masses. ?No hepatosplenomegaly. ?No palpable hernias. ? Rectal exam:?exam deferred ? Extremities: ?no clubbing, cyanosis or edema. ?No adenopathy. ? Other: ? ? LABORATORY VALUES: As Noted ? RADIOLOGIC STUDIES: ?As Noted ? Assessment ? IMPRESSION: Significant internal free air on chest x-ray, question diverticulitis versus perforated ulcer etiology ? PLAN: ??I plan [place] the [place] [facility] [place] ?We'll start IV fluids and Zosyn. ?Repeat labs and obtain CT scan to hopefully better differentiate whether recurring complicated diverticulitis versus second etiology such as perforated gastric or duodenal ulcer. ? Diagnoses:?(K57.92) Diverticulitis ?(primary encounter diagnosis) (K66.8) Pneumoperitoneum ? ?This note will be forwarded to Dr. Napoleon Larson MD. ? This note was partially generated using [employer] voice recognition system, and there may be some incorrect words, spellings, and punctuation that were not noted in checking the note before saving.? Ravindra Watson MD
[2018-04-22] MEDS: 0.9% NaCl Peripheral Flush Adult/Peds IV ×2 (11:07→19:45)
[2018-04-22 11:50] LABS: ALB/GLOB Ratio 0.7 RATIO (0.9-2.4); AST(SGOT) 45 U/L (15-37); Alanine Aminotransfer ALT/SGPT 32 U/L (16-61); Albumin, Serum 3.1 g/dL (3.2-5.0); Alkaline Phosphatase 67 U/L (45-117); Anion Gap 10 (5-15); BUN 19 mg/dL (7-18); BUN/Creat Ratio 20.5 RATIO (10-20); Calcium,Total 8.3 mg/dL (8.5-10.1); Chloride 104 mmol/L (98-107); Creatinine, Serum 0.93 mg/dL (0.70-1.30); EST Glomerular Filtration Rate 87 mL/min (>60); Est Glom Filt Rate - Afr Amer 105 mL/min (>60); Estimated Creatinine Clearance 87.11 ml/min; Globulin 4.5 g/dL (2.2-4.2); Glucose 90 mg/dL (74-106); Potassium 3.9 mmol/L (3.5-5.1); Protein, Total 7.6 g/dL (6.4-8.2); Sodium Level 136 mmol/L (136-145)
[2018-04-22 16:00] VITALS: BP 117/55; PULSE 82; RESP 18; TEMP 37.4; O2SAT 94
[2018-04-22] MEDS: Morphine 2 MG/ML Syringe IV (19:18)
[2018-04-22 20:11] VITALS: BP 103/72; PULSE 88; RESP 18; TEMP 37.6; O2SAT 94
[2018-04-22 20:30] VITALS: PULSE 88; RESP 18; O2SAT 94
[2018-04-23] VITALS (12 sets, daily range): BP systolic 99–130; BP diastolic 61–73; PULSE 79–84; RESP 16–18; TEMP 36.8–37.4; O2SAT 92–96; BMI 29.1
[2018-04-23] MEDS: Lactated Ringers 1,000 ML 100 ML IV ×2 (05:32→13:31)
--- NOTE | 2018-04-23 05:54 | US_ITS ---
STUDY: Four-quadrant limited ultrasound of the abdomen-ascites check. REASON FOR VISIT: Male, 67 years old. Ascites check COMPARISON: CT scan 04/22/2018. FINDINGS: No free fluid seen in the abdomen or pelvis. Electronically Signed: Hermes Andrew MD at 10:23 EST , Service support , US/Abdomen Limited
[2018-04-23 06:33] LABS: Absolute Lymphocyte Count 0.65 X10^3/ul (0.83-4.51); Absolute Neutrophil Count 4.3 X10^3/uL (2.0-7.7); Basophil# 0.01 X10^3/uL; Basophil% 0.2 % (0-1); Eosinophils% 1.8 % (0-5); Hematocrit 31.7 % (40-54); Hemoglobin 9.8 g/dl (13.0-16.5); Lymphocyte # 0.65 X10^3/ul (4.0); Lymphocyte % 11.9 % (19-41); Mean Corp Hgb Conc 30.9 g/gl (32-36); Mean Corpuscular Hgb 26.6 pg (27.0-32.0); Mean Corpuscular Volume 86.1 fL (80-94); Mean Platelet Vol. 10.1 fl (6.2-12.0); Monocyte# 0.37 X10^3/uL; Monocyte% 6.8 % (0-10); Neutrophil # 4.33 X10^3/uL (2.7-7.7); Neutrophil % 78.9 % (47-70); Platelet Count 194 K/mm3 (150-450); RBC Distribution Width SD 51.8 fl (35.1-43.9); Red Blood Count 3.68 M/mm3 (4.6-6.2); White Blood Count 5.5 K/mm3 (4.4-11.0)
[2018-04-23 06:34] LABS: POSITIVE COUNT NO; POSITIVE DIFFERENTIAL NO; POSITIVE MORPHOLOGY NO
[2018-04-23 06:47] LABS: ALB/GLOB Ratio 0.7 RATIO (0.9-2.4); AST(SGOT) 37 U/L (15-37); Alanine Aminotransfer ALT/SGPT 27 U/L (16-61); Albumin, Serum 2.8 g/dL (3.2-5.0); Alkaline Phosphatase 60 U/L (45-117); Anion Gap 11 (5-15); BUN 14 mg/dL (7-18); BUN/Creat Ratio 15.6 RATIO (10-20); Chloride 106 mmol/L (98-107); EST Glomerular Filtration Rate 90 mL/min (>60); Est Glom Filt Rate - Afr Amer 109 mL/min (>60); Estimated Creatinine Clearance 90.01 ml/min; Globulin 3.9 g/dL (2.2-4.2); Glucose 101 mg/dL (74-106); Potassium 3.6 mmol/L (3.5-5.1); Protein, Total 6.7 g/dL (6.4-8.2); Sodium Level 140 mmol/L (136-145)
[2018-04-23 08:41] LABS: International Normalized Ratio 1.2; Prothrombin Time (Protime)PT. 15.1 SECONDS (11.7-14.9)
[2018-04-23 08:42] LABS: Partial Thromboplast Time 37.9 Seconds (24.1-36.2)
--- NOTE | 2018-04-23 10:25 | NURSING ---
Patient transported off unit to US at this time.
--- NOTE | 2018-04-23 10:25 | CASEMGMT ---
Addendum entered by Anita Perez 04/23/18 14:39: 1320: Returned to room to completed RN CM assessment. Pt is out of room at this time @ Endo. CM to attempt again at a later time. Original Note: To room for RN CM admission assessment. Staff in room getting pt ready to take to radiology for CT. Will attempt later. Dolores RODRIGUEZ RN CM
--- NOTE | 2018-04-23 10:50 | NURSING ---
Notified by procedure nurse in U/S that there was no fluid to drain. Patient transported back up to room.
--- NOTE | 2018-04-23 11:28 | NURSING ---
Patient off unit to ENDO at this time.
--- NOTE | 2018-04-23 12:30 | EGD_PTH ---
PATIENT: MARILEE SIMPSON LOC: MS3 U#:[id number] AGE/SX: 67/M ROOM: [facility] [place] RE04/22/[address]: Dr. Tangela Mortensen MD : 1950 BED: 1 DIS: 05/05/2018 SPEC #: [id number] RECD: 04/23/18 14:33 STATUS: ABRAHAM REAriadne #: [id number] LEROY: 04/23/18 12:[address]: Ravindra Watson DEPT: SURGICAL PATHOLOGY RECD BY: Radha Lyle ENTERED: 04/26/18 09:41 SP TYPE: EGD BIOPSY [facility] DR: Dr. Napoleon Larson MD Tissues: A - Gastric mucous membrane B - COLON BIOPSY Procedures: Surgery Specimen Level III Surgery Specimen Level IV Surgery Specimen Level V HEADER OPERATION: EGD ([facility] [place]) PRE-OP DIAGNOSIS: Free intra-abdominal air TISSUE SUBMITTED: A. Antral biopsy, B. Diverticulum segment MICROSCOPIC DIAGNOSIS A. Antral biopsy: Mild gastritis. See microscopic description and comment. B. Diverticulum segment: Diverticulosis and diverticulitis. Colonic donut, no pathologic diagnosis. TITO:hernando 04/28/18 COMMENT A. The results of immunohistochemistry for Helicobacter pylori will be reported separately ([id number]). MICROSCOPIC DESCRIPTION Slides are reviewed. A. The specimen shows fragments of gastric mucosa with chronic inflammatory cell infiltrates in the lamina propria consisting of lymphocytes and plasma cells, consistent with mild chronic gastritis. GROSS DESCRIPTION A - Received in fixative is one container labeled with the patient's name and designated antral biopsy. The specimen consists of multiple irregular fragments of light rhodes soft tissue that in aggregate measure 0.3 x 0.3 x 0.1 cm. Also present is one minute fragment measuring <0.1 cm in greatest dimension. The entire specimen is submitted in one cassette. / TITO:hernando 04/27/18 B - Received in fixative is one container labeled with the patient's name and designated diverticulum segment. The specimen consists of colon with attached pericolonic adipose tissue measuring 10 cm in length. Both resection margins are stapled. Sections reveal multiple diverticula. No obviously ruptured diverticula are identified. Sections of pericolonic adipose tissue show a focal area of youssef, purulent exudate. Sections of pericolonic adipose tissue do not show any obviously enlarged lymph node. Also present in the container is a donut-shaped piece of colonic tissue measuring 5.5 x 1 x 1 cm. Multiple bisi are noted in this piece. Also present in the container are three variable sized pieces of adipose tissue measuring in aggregate 7.5 x 6 x 3 cm. Sections do not reveal any mass lesion. Visitor Services Coordinator sections are submitted in six cassettes as follows: 1-5 - largest segment of colon (1 - resection margin, 2-4 - diverticula, 5 - pericolonic adipose tissue), 6 - detached pieces of adipose tissue and donut shaped piece of tissue. / SJ:rg 04/27/18 TC: 5 CPT: 19425, 27825, 83846
--- NOTE | 2018-04-23 12:30 | IMM_PTH ---
PATIENT: MARILEE SIMPSON LOC: MS3 U#:[id number] AGE/SX: 67/M ROOM: [facility] [place] RE04/22/[address]: Dr. Tangela Mortensen MD : 1950 BED: 1 DIS: 05/05/2018 SPEC #: [id number] RECD: 04/26/18 11:45 STATUS: ABRAHAM REQ #: [id number] LEROY: 04/23/18 12:[address]: Ravindra Watson DEPT: IMMUNOHISTOCHEMISTRY RECD BY: Gladis Arteaga ENTERED: 04/26/18 11:47 SP TYPE: IMMUNO OTHR DR: Dr. Napoleon Larson MD Tissues: A - Stomach, NOS Procedures: H Pylori (initial) PHYSICIAN & INSTITUTION [place] [id number] SPECIMEN INFORMATION: Tissue Source: A - Antral biopsy Clinical Info: Free intra-abdominal air Specimen Number: [id number] CPT code: 93079 METHODOLOGY: Deparaffinized sections of prefer/formalin-fixed tissue or PAP/DQ stained slides are incubated with monoclonal/polyclonal antibodies/oligonucleotide probes. Localization is made via biotin free immunoperoxidase method. Appropriate controls are performed and reacted as expected. Results on target cell population are indicated in the following table: RESULTS: ANTIBODY / CLONE RESULT Block A H Pylori (polyclonal) negative These tests were developed and their performance characteristics determined by [facility]. They may not have been cleared or approved by the U.S. Food and Drug Administration. The FDA has determined that such clearance or approval is not necessary. INTERPRETATION: A. Antral biopsy: Negative for Helicobacter pylori organisms. SJ:hernando 04/28/18
--- NOTE | 2018-04-23 13:03 | OP.ENDO_ITS ---
04/23/2018 Napoleon Larson Re : Upper GI endoscopy procedure for Richard Rosen Marsha This procedure was performed on Monday, April 23, 2018. My impressions and recommendations are as follows: Impressions : - Normal examined jejunum. - Acute duodenitis. - Gastritis. Biopsied. - Normal gastric fundus. - Small hiatal hernia. - Non-severe esophagitis. Recommendations : - Give Protonix (pantoprazole): initiate therapy with 80 mg IV bolus, then 8 mg/hr IV by continuous infusion. - Continue present medications. My findings are described in the full procedure note, which is enclosed. If I can be of further assistance, please feel free to contact me at Doctor phone number(s): , Work: . Sincerely, Ravindra Watson MD 04/23/2018 1:03:25 PM This report has been signed electronically.
--- NOTE | 2018-04-23 14:35 | NURSING ---
Patient off unit to US at this time.
--- NOTE | 2018-04-23 14:55 | RAD_ITS ---
PROCEDURE: Fluoroscopic guidance for aspiration of free intra-abdominal air. DATE OF EXAMINATION: April 23, 2018. INDICATION: Male, 67 years old. Free intraperitoneal air. PHYSICIAN: Dr. Harrington FLUOROSCOPY TIME (if supplied): (0:21) minutes/seconds Under direct fluoroscopic guidance, a 5 Yoruba catheter was placed in the anterior abdomen. Approximately 80 cc of air was withdrawn. RAD/Fluoro Guided Needle Placement IMPRESSION: 80 cc of air was aspirated. The patient tolerated the procedure well. Electronically Signed: Jose Harrington, at 15:41 EST , Service support ,
[2018-04-23] MEDS: Tamsulosin HCl 0.4 MG Capsule PO (16:20)
--- NOTE | 2018-04-23 18:40 | PN.SURG_ITS ---
Subjective: urinary retention, abdominal distention, no significant abdominal pain - Physical Exam General: Alert, Oriented x3, Cooperative Lungs: Clear to auscultation, Normal air movement Cardiovascular: Regular rate, No murmurs Abdomen: Bowel Sounds Present, Soft, Non Tender, - - tympanitic Vital Signs Temp Pulse Resp BP Pulse Ox 98.7 F 80 18 130/72 H 93 04/23/18 14:18 04/23/18 14:18 04/23/18 14:18 04/23/18 14:18 04/23/18 14:18 Oxygen Flow Rate (L/min) 2 Oxygen Delivery Method Room Air Weight: 100.2 kg Body Mass Index (BMI) 29.1 Intake and Output for Last 24 Hours 04/21/18 04/22/18 04/23/18 23:59 23:59 23:59 Intake Total 600 / 600 3048 / 3048 Output Total 200 / 200 1575 / 1575 Balance 400 / 400 1473 / 1473 Laboratory Tests Past 24 Hrs 04/23/18 04/23/18 04/23/18 06:15 06:15 06:15 WBC 5.5 RBC 3.68 L Hgb 9.8 L Hct 31.7 L MCV 86.1 MCH 26.6 L MCHC 30.9 L RDW 17.0 H RDW Differential 51.8 H Plt Count 194 MPV 10.1 Immature Gran % (Auto) 0.400 Neut % (Auto) 78.9 H Lymph % (Auto) 11.9 L Tyrrell % (Auto) 6.8 Eos % (Auto) 1.8 Baso % (Auto) 0.2 Absolute Neuts (auto) 4.3 Absolute Lymphs (auto) 0.65 L Total Counted Not Reportable PT 15.1 H INR 1.2 APTT 37.9 H Sodium 140 Potassium 3.6 Chloride 106 Carbon Dioxide 23.0 Anion Gap 11 BUN 14 Creatinine 0.90 Estim Creat Clear Calc 90.01 Est GFR (MDRD) Af Amer 109 Est GFR (MDRD) Non-Af 90 BUN/Creatinine Ratio 15.6 Glucose 101 Calcium 8.0 L Total Bilirubin 1.80 H AST 37 ALT 27 Alkaline Phosphatase 60 Total Protein 6.7 Albumin 2.8 L Globulin 3.9 Albumin/Globulin Ratio 0.7 L Medical Necessity - Tobacco Use Smoking Status: Former smoker Tobacco Use: Cigarettes Assessment/Plan All Active Problems (Last Updated 02/21/18 @ 01:01 by Tomer Jones MD) Mid abdominal pain (Acute) Acute diverticulitis of intestine (Acute) pneumoperitoneum with minimal abdominal pain patient with 2 week history of increasing abdominal distention and food aversion, history of complicated diverticulitis. CT scan obtained yesterday was felt to be consistent with probably a duodenal perforation due to a significant amount of intra-abdominal free air and no signs of intra-abdominal fluid. There was also noted to be no contrast leakage. Patient underwent upper endoscopy today which demonstrated significant duodenitis in the second and third portions of the duodenum. The impression was that he most likely had a duodenal ulcer perforation which sealed itself. The patient was started on a continuous IV proton pump inhibitor last night. he notes improvement in his abdominal complaints this morning. The patient also went abdominal aspiration yielding approximately 80 cc of air and attempt to see if this improved his abdominal distention feeling. Currently the patient is noting difficulty urination. We will restart his Garrison max and place a straight cathetered ?1.
[2018-04-23] MEDS: Atorvastatin Calcium 20 MG Tablet PO (20:07)
[2018-04-23] MEDS: Gabapentin 300 MG Capsule 900 MG PO (20:07)
[2018-04-24] VITALS (8 sets, daily range): BP systolic 114–133; BP diastolic 60–81; PULSE 66–99; RESP 18; TEMP 36.8–39.4; O2SAT 93–97
[2018-04-24] MEDS: Lactated Ringers 1,000 ML 100 ML IV (02:17)
[2018-04-24 06:54] LABS: Absolute Lymphocyte Count 0.67 X10^3/ul (0.83-4.51); Absolute Neutrophil Count 2.6 X10^3/uL (2.0-7.7); Basophil# 0.01 X10^3/uL; Basophil% 0.3 % (0-1); Eosinophil# 0.06 X10^3/uL; Eosinophils% 1.6 % (0-5); Lymphocyte # 0.67 X10^3/ul (4.0); Lymphocyte % 18.1 % (19-41); Mean Corpuscular Hgb 26.9 pg (27.0-32.0); Mean Corpuscular Volume 86.8 fL (80-94); Mean Platelet Vol. 10.2 fl (6.2-12.0); Monocyte# 0.39 X10^3/uL; Monocyte% 10.5 % (0-10); Neutrophil # 2.55 X10^3/uL (2.7-7.7); Neutrophil % 68.7 % (47-70); Platelet Count 184 K/mm3 (150-450); RBC Distribution Width CV 16.4 % (11.6-14.6); RBC Distribution Width SD 50.5 fl (35.1-43.9); Red Blood Count 3.34 M/mm3 (4.6-6.2); White Blood Count 3.7 K/mm3 (4.4-11.0)
[2018-04-24 06:56] LABS: POSITIVE COUNT NO; POSITIVE DIFFERENTIAL NO; POSITIVE MORPHOLOGY NO
[2018-04-24 07:06] LABS: ALB/GLOB Ratio 0.7 RATIO (0.9-2.4); AST(SGOT) 32 U/L (15-37); Alanine Aminotransfer ALT/SGPT 24 U/L (16-61); Albumin, Serum 2.5 g/dL (3.2-5.0); Alkaline Phosphatase 51 U/L (45-117); Anion Gap 11 (5-15); BUN 10 mg/dL (7-18); BUN/Creat Ratio 15.4 RATIO (10-20); Calcium,Total 7.9 mg/dL (8.5-10.1); Chloride 110 mmol/L (98-107); Creatinine, Serum 0.65 mg/dL (0.70-1.30); EST Glomerular Filtration Rate 131 mL/min (>60); Est Glom Filt Rate - Afr Amer 158 mL/min (>60); Estimated Creatinine Clearance 81.01 ml/min; Globulin 3.7 g/dL (2.2-4.2); Glucose 85 mg/dL (74-106); Potassium 3.4 mmol/L (3.5-5.1); Protein, Total 6.2 g/dL (6.4-8.2); Sodium Level 143 mmol/L (136-145)
[2018-04-24] MEDS: Tamsulosin HCl 0.4 MG Capsule PO (09:01)
[2018-04-24] MEDS: Gabapentin 300 MG Capsule 900 MG PO (09:01)
--- NOTE | 2018-04-24 09:06 | PCM.PN.SRG ---
Subjective: no complaints of pain, no nausea since starting proton pump inhibitors, tolerated liquids. - Physical Exam General: Alert, Oriented x3, Cooperative Lungs: Clear to auscultation, Normal air movement Cardiovascular: Regular rate, No murmurs Abdomen: Bowel Sounds Present, Soft, Non Tender, - - tympanitic Vital Signs Temp Pulse Resp BP Pulse Ox 98.4 F 69 18 114/67 96 04/24/18 02:13 04/24/18 02:13 04/24/18 02:13 04/24/18 02:13 04/24/18 02:13 Oxygen Flow Rate (L/min) 2 Oxygen Delivery Method Nasal Cannula Weight: 100.2 kg Body Mass Index (BMI) 29.1 Intake and Output for Last 24 Hours 04/22/18 04/23/18 04/24/18 23:59 23:59 23:59 Intake Total 600 / 600 3048 / 3048 1632 / 1632 Output Total 200 / 200 1575 / 1575 500 / 500 Balance 400 / 400 1473 / 1473 1132 / 1132 Laboratory Tests Past 24 Hrs 04/24/18 04/24/18 06:12 06:12 WBC 3.7 L RBC 3.34 L Hgb 9.0 L Hct 29.0 L MCV 86.8 MCH 26.9 L MCHC 31.0 L RDW 16.4 H RDW Differential 50.5 H Plt Count 184 MPV 10.2 Immature Gran % (Auto) 0.800 Neut % (Auto) 68.7 Lymph % (Auto) 18.1 L Whitman % (Auto) 10.5 H Eos % (Auto) 1.6 Baso % (Auto) 0.3 Absolute Neuts (auto) 2.6 Absolute Lymphs (auto) 0.67 L Total Counted Not Reportable Sodium 143 Potassium 3.4 L Chloride 110 H Carbon Dioxide 22.0 Anion Gap 11 BUN 10 Creatinine 0.65 L Estim Creat Clear Calc 81.01 Est GFR (MDRD) Af Amer 158 Est GFR (MDRD) Non-Af 131 BUN/Creatinine Ratio 15.4 Glucose 85 Calcium 7.9 L Total Bilirubin 1.70 H AST 32 ALT 24 Alkaline Phosphatase 51 Total Protein 6.2 L Albumin 2.5 L Globulin 3.7 Albumin/Globulin Ratio 0.7 L Medical Necessity - Tobacco Use Smoking Status: Former smoker Tobacco Use: Cigarettes Assessment/Plan All Active Problems (Last Updated 02/21/18 @ 01:01 by Tomer Jones MD) Mid abdominal pain (Acute) Acute diverticulitis of intestine (Acute) pneumoperitoneum with minimal abdominal pain patient with 2 week history of increasing abdominal distention and food aversion, history of complicated diverticulitis. CT scan obtained yesterday was felt to be consistent with probably a duodenal perforation due to a significant amount of intra-abdominal free air and no signs of intra-abdominal fluid. There was also noted to be no contrast leakage. Patient underwent upper endoscopy today which demonstrated significant duodenitis in the second and third portions of the duodenum. The impression was that he most likely had a duodenal ulcer perforation which sealed itself. The patient was started on a continuous IV proton pump inhibitor last night. he notes improvement in his abdominal complaints this morning. The patient also went abdominal aspiration yielding approximately 80 cc of air and attempt to see if this improved his abdominal distention feeling. Currently the patient is noting difficulty urination. We will restart his Flomax and place a straight cathetered ?1- patient had voided since straight catheter. We'll change IV fluids to maintenance fluid with increased potassium given electrolytes. Advance to regular diet.
[2018-04-24 10:08] LABS: Anion Gap 10 (5-15); BUN 10 mg/dL (7-18); BUN/Creat Ratio 15.3 RATIO (10-20); Calcium,Total 7.8 mg/dL (8.5-10.1); Chloride 110 mmol/L (98-107); Creatinine, Serum 0.65 mg/dL (0.70-1.30); EST Glomerular Filtration Rate 129 mL/min (>60); Est Glom Filt Rate - Afr Amer 157 mL/min (>60); Estimated Creatinine Clearance 81.01 ml/min; Glucose 101 mg/dL (74-106); Potassium 3.3 mmol/L (3.5-5.1); Sodium Level 141 mmol/L (136-145)
[2018-04-24] MEDS: Potassium Chloride 40 MEQ in Dext 5%-0.45% NS 1,000 ML 60 MEQ IV (10:25)
[2018-04-24] MEDS: Morphine 2 MG/ML Syringe IV (10:35)
[2018-04-24 11:33] LABS: Anion Gap 11 (5-15); BUN 10 mg/dL (7-18); BUN/Creat Ratio 14.5 RATIO (10-20); Calcium,Total 7.9 mg/dL (8.5-10.1); Chloride 111 mmol/L (98-107); Creatinine, Serum 0.69 mg/dL (0.70-1.30); EST Glomerular Filtration Rate 121 mL/min (>60); Est Glom Filt Rate - Afr Amer 146 mL/min (>60); Estimated Creatinine Clearance 81.01 ml/min; Glucose 83 mg/dL (74-106); Potassium 3.5 mmol/L (3.5-5.1); Sodium Level 143 mmol/L (136-145)
--- NOTE | 2018-04-24 12:25 | NS ---
Calorie Count Dietary staff will provide menus w/ pt meal trays. Please document percentage of foods consumed on menus and leave for dietitian on bathroom door in pt's room. Dietitian will collect menus and document calorie intake. Discussed calorie count w/ pt and - verbalized understanding. RN Heather kimble. Calorie count will be conducted for meals on 04/24, 04/25, and 04/26. Please call clinical dietitian at [phone] or [phone] w/ questions. Candido Srinivasan MS, RDN, LD
[2018-04-24 13:59] LABS: Anion Gap 6 (5-15); BUN 9 mg/dL (7-18); BUN/Creat Ratio 12.8 RATIO (10-20); Calcium,Total 7.5 mg/dL (8.5-10.1); Chloride 110 mmol/L (98-107); EST Glomerular Filtration Rate 119 mL/min (>60); Est Glom Filt Rate - Afr Amer 144 mL/min (>60); Estimated Creatinine Clearance 81.01 ml/min; Glucose 123 mg/dL (74-106); Potassium 3.2 mmol/L (3.5-5.1); Sodium Level 140 mmol/L (136-145)
--- NOTE | 2018-04-24 16:37 | CM.UR ---
RN CM Assessment Introduced role of RN CM to patient. Patient is alert, oriented and able to participate in RN CM Assessment. Care providers, pharmacy, and demographics verified. Presentation: free abd air noted when chest CT done. Hx of multiple abd problems. PCP: Niko Larson Specialists: Walter; urologist dr. anderson. Preferred Pharmacy: [facility] Insurance: [employer] Prescription Benefit: Yes LNOK: Juanis Living Arrangements: Lives in 1 story home with . 6 steps to enter. Usually independent at home but has been more weak. Transportation: Patient drives or . DME: Lift chair HHC/SNF: none, denies need. DC PLAN: Home with no anticipated needs identified. Pham Kearns, RNC, CCM.
[2018-04-24] MEDS: Ondansetron 4 MG/2 ML Vial IV (17:47)
--- NOTE | 2018-04-24 18:47 | CT_ITS ---
We are attempting to reach Ravindra Watson to discuss findings. An addendum with communication details will be sent when the communication is complete. STUDY: CT ABDOMEN AND PELVIS WITH CONTRAST REASON FOR EXAM: Male, 67 years old. Fever and nausea RADIATION DOSAGE (If Supplied By Facility): CTDIvol = ( 17.08 ) mGy, DLP = ( 1361.15 ) mGycm TECHNIQUE: Transaxial images were obtained from the dome of the diaphragm to the symphysis pubis with oral contrast. Isovue 300 100 IV/Oral was administered. Sagittal and coronal images were reconstructed. Individualized dose optimization techniques were used for this CT. COMPARISON: 04/22/2018 FINDINGS: The visualized lung bases are unremarkable. The visualized portions of the heart are within normal limits. Small hiatal hernia. Normal liver. Normal gallbladder and extrahepatic biliary system. Splenomegaly with spleen length of 16 cm. Normal pancreas. Normal bilateral adrenal glands. Normal right kidney. Normal left kidney. Normal visualized stomach. Normal small intestine. Stable extensive pneumoperitoneum. Site of perforation is identified in the descending colon laterally on image 88 of series 2, likely related to diverticulitis. Extensive adjacent inflammatory changes are now noted. Evolving mild ascites. Appendectomy. There is diffuse atherosclerotic calcification of the abdominal aorta, without a demonstrated aneurysm. Normal inferior vena cava. Normal retroperitoneum. Normal urinary bladder. Prostatomegaly and prostate calcifications. Normal abdominal wall. Normal osseous structures. CT/Abdomen/Pelvis WITH Contrast IMPRESSION: Stable extensive pneumoperitoneum. Site of perforation is identified in the descending colon laterally on image 88 of series 2, likely related to diverticulitis. Extensive adjacent inflammatory changes are now noted. No abscess is seen. Splenomegaly. Evolving mild ascites. Small hiatal hernia. Electronically Signed: Joe Dhaliwal MD at 23:12 EST Tel , Service support ,
[2018-04-24] MEDS: proCHLORPERazine 10 MG/2 ML Vial 5 MG IV (19:03)
[2018-04-24] MEDS: Acetaminophen 650 MG Suppository RECTAL (19:47)
[2018-04-25] VITALS (19 sets, daily range): BP systolic 97–124; BP diastolic 53–76; PULSE 69–91; RESP 16–20; TEMP 36.4–37.7; O2SAT 82–99; BMI 29.1
[2018-04-25] MEDS: Potassium Chloride 40 MEQ in Dext 5%-0.45% NS 1,000 ML 60 MEQ IV (04:57)
[2018-04-25 05:41] LABS: Absolute Lymphocyte Count 0.68 X10^3/ul (0.83-4.51); Absolute Neutrophil Count 5.3 X10^3/uL (2.0-7.7); Basophil# 0.01 X10^3/uL; Basophil% 0.2 % (0-1); Eosinophil# 0.01 X10^3/uL; Eosinophils% 0.2 % (0-5); Hematocrit 29.4 % (40-54); Hemoglobin 9.3 g/dl (13.0-16.5); Lymphocyte # 0.68 X10^3/ul (4.0); Lymphocyte % 10.5 % (19-41); Mean Corp Hgb Conc 31.6 g/gl (32-36); Mean Corpuscular Hgb 27.4 pg (27.0-32.0); Mean Corpuscular Volume 86.7 fL (80-94); Mean Platelet Vol. 10.1 fl (6.2-12.0); Monocyte# 0.45 X10^3/uL; Neutrophil # 5.28 X10^3/uL (2.7-7.7); Neutrophil % 81.8 % (47-70); POSITIVE COUNT NO; POSITIVE DIFFERENTIAL NO; POSITIVE MORPHOLOGY NO; Platelet Count 177 K/mm3 (150-450); RBC Distribution Width CV 16.4 % (11.6-14.6); RBC Distribution Width SD 50.4 fl (35.1-43.9); Red Blood Count 3.39 M/mm3 (4.6-6.2); White Blood Count 6.5 K/mm3 (4.4-11.0)
[2018-04-25 05:45] LABS: Anion Gap 9 (5-15); BUN 9 mg/dL (7-18); BUN/Creat Ratio 10.5 RATIO (10-20); Calcium,Total 7.6 mg/dL (8.5-10.1); Chloride 108 mmol/L (98-107); Creatinine, Serum 0.86 mg/dL (0.70-1.30); EST Glomerular Filtration Rate 94 mL/min (>60); Est Glom Filt Rate - Afr Amer 114 mL/min (>60); Glucose 112 mg/dL (74-106); Potassium 3.2 mmol/L (3.5-5.1); Sodium Level 142 mmol/L (136-145)
--- NOTE | 2018-04-25 07:47 | EKG12_ITS ---
Test Reason : PRE OP Blood Pressure : / mmHG Vent. Rate : 088 BPM Atrial Rate : 088 BPM P-R Int : 142 ms QRS Dur : 106 ms QT Int : 440 ms P-R-T Axes : 018 -09 004 degrees QTc Int : 532 ms Normal sinus rhythm Prolonged QT Abnormal ECG Confirmed by JOURDAN GARCIA, MY ([id number]), manager editorial SIRENA MALDONADO ([id number]) on 04/30/2018 9:59:52 AM Referred By: Ravindra Watson Confirmed By:MY SOLIMAN MD
[2018-04-25] MEDS: Potassium Chloride 10mEq/100mL 10 MEQ/100 ML IV.SOLN. 100 MEQ IV BOLUS ×3 (09:20→15:56)
[2018-04-25] MEDS: proCHLORPERazine 10 MG/2 ML Vial 5 MG IV (09:47)
--- NOTE | 2018-04-25 09:58 | PCM.PN.SRG ---
Subjective: feeling worse last night and fever - Physical Exam General: Alert, Oriented x3, Cooperative Lungs: Clear to auscultation, Normal air movement Cardiovascular: Regular rate, No murmurs Abdomen: Non Tender, Hypoactive Bowel Sounds, - - tympanitic Vital Signs Temp Pulse Resp BP Pulse Ox 99.3 F H 86 20 H 98/67 97 04/25/18 09:45 04/25/18 09:45 04/25/18 09:45 04/25/18 09:45 04/25/18 09:45 Oxygen Flow Rate (L/min) 2 Oxygen Delivery Method Nasal Cannula Weight: 100.2 kg Body Mass Index (BMI) 29.1 Intake and Output for Last 24 Hours 04/23/18 04/24/18 04/26/18 23:59 23:59 00:59 Intake Total 3048 / 3048 3002 / 3002 720 / 720 Output Total 1575 / 1575 1600 / 1600 825 / 825 Balance 1473 / 1473 1402 / 1402 -105 / -105 Laboratory Tests Past 24 Hrs 04/24/18 04/24/18 04/24/18 09:36 11:04 13:15 WBC RBC Hgb Hct MCV MCH MCHC RDW RDW Differential Plt Count MPV Immature Gran % (Auto) Neut % (Auto) Lymph % (Auto) [place] % (Auto) Eos % (Auto) Baso % (Auto) Absolute Neuts (auto) Absolute Lymphs (auto) Total Counted Sodium 141 143 140 Potassium 3.3 L 3.5 3.2 L Chloride 110 H 111 H 110 H Carbon Dioxide 21.0 21.0 24.0 Anion Gap 10 11 6 BUN 10 10 9 Creatinine 0.65 L 0.69 L 0.70 Estim Creat Clear Calc 81.01 81.01 81.01 Est GFR (MDRD) Af Amer 157 146 144 Est GFR (MDRD) Non-Af 129 121 119 BUN/Creatinine Ratio 15.3 14.5 12.8 Glucose 101 83 123 H Calcium 7.8 L 7.9 L 7.5 L 04/25/18 04/25/18 04:55 04:55 WBC 6.5 RBC 3.39 L Hgb 9.3 L Hct 29.4 L MCV 86.7 MCH 27.4 MCHC 31.6 L RDW 16.4 H RDW Differential 50.4 H Plt Count 177 MPV 10.1 Immature Gran % (Auto) 0.300 Neut % (Auto) 81.8 H Lymph % (Auto) 10.5 L [place] % (Auto) 7.0 Eos % (Auto) 0.2 Baso % (Auto) 0.2 Absolute Neuts (auto) 5.3 Absolute Lymphs (auto) 0.68 L Total Counted Not Reportable Sodium 142 Potassium 3.2 L Chloride 108 H Carbon Dioxide 25.0 Anion Gap 9 BUN 9 Creatinine 0.86 Estim Creat Clear Calc 94.20 Est GFR (MDRD) Af Amer 114 Est GFR (MDRD) Non-Af 94 BUN/Creatinine Ratio 10.5 Glucose 112 H Calcium 7.6 L Medical Necessity - Tobacco Use Smoking Status: Former smoker Tobacco Use: Cigarettes Assessment/Plan All Active Problems (Last Updated 02/21/18 @ 01:01 by Tomer Jones MD) Mid abdominal pain (Acute) Acute diverticulitis of intestine (Acute) pneumoperitoneum with minimal abdominal pain - initially felt to be probable perforated duodenal ulcer given the patient's presentation and lack of abdominal pain patient with 2 week history of increasing abdominal distention and food aversion, history of complicated diverticulitis. CT scan obtained yesterday was felt to be consistent with probably a duodenal perforation due to a significant amount of intra-abdominal free air and no signs of intra-abdominal fluid. There was also noted to be no contrast leakage. The patient was started on a continuous IV proton pump inhibitor. he notes improvement in his abdominal complaints this morning. Patient underwent upper endoscopy today which demonstrated significant duodenitis in the second and third portions of the duodenum. The impression was that he most likely had a duodenal ulcer perforation which sealed itself. the patient was given food Thursday morning. By Thursday afternoon he is feeling more nauseated and vomited. He also had fever to 103. He was still denying any significant abdominal pain. Repeat CT scan was obtained late in the evening. This demonstrated was felt to be more inflammation again around the area of prior diverticulitis and extravasated air with now a small amount of intra-abdominal fluid. I discussed with the patient and his the fact that I am now totally comfortable his issue is recurring diverticulitis and probably did have duodenitis doubted duodenal perforation. My plan at this point since he has failed to improve on IV antibiotics and now seems worsening is to perform exploratory laparotomy with end Timmons's colostomy. I discussed with the patient and his the fact that performing an anastomosis has in my opinion too high a risk of leak in a contaminated field and given all his other issues feel this is the safest way to proceed. Patient's potassium is low. He was given potassium riders.
--- NOTE | 2018-04-25 11:11 | NURSING ---
1050 report given to OR nurse, pt taken down to OR. Robin Oejda RN
[2018-04-25] MEDS: Bupivacaine Mpf 0.5% 30 ML VIAL (13:30)
--- NOTE | 2018-04-25 13:58 | OP.PCM_ITS ---
Report of Operation Date of Procedure: 04/25/18 Pre-Operative Diagnosis: complicated diverticulitis, Hinchey III or IV Post-Operative Diagnosis: complicated diverticulitis, Hinchey III - proximal sigmoid perforation with significant pneumoperitoneum, no signs of gastric or duodenal perforation Surgery/Procedure Performed:: exploratory laparotomy, sigmoid resetion with end Phyllis's colostomy crop insurance claims adjuster: Chau Mejía Type of Anesthesia:: General Anesthesiologist: Marlena Montejo - [id number] Specimen's removed: sigmoid resection, umbilicla hernia sac Drains: NG, Ríos - 130cc, ARIE x 1 Estimated Blood Loss (mL): 150 Fluids Replaced: 2300 Description of Procedure: The patient was brought to the operating suite. Sign in was performed verifying patient, site, procedure, position, and DVT prophylaxis with SCDs. Patient is received Zosyn. A Ríos catheter was placed. Following induction of general anesthetic, the patient?s abdomen was prepped and draped in the usual fashion. Timeout was performed verifying patient, site, position. A linear incision was made in the midline above and below the umbilicus and dissection carried down to the posterior sheath. The peritoneal cavity was carefully entered and then extension of the incision was made both sharply and using electrocautery. The patient was found to have significant intra-abdominal inflammation without monica purulent stool being present. The proximal sigmoid colon had 2 small areas of perforation which were noted and oversewn with a 3-0 silk. Self- retaining retractors were placed, the small bowel was packed up and the sigmoid colon was mobilized. There were adhesions of the omentum to the area of diverticulitis in the proximal and mid sigmoid. The Harmonic scalpel was used to free up the omentum from its attachments to prevent additional spillage had been a perforation below this point. Once this was completed , a window was made through the sigmoid mesentery just distal to this significantly inflamed segment and in echelon stapler-gold or thick load was used to transect the sigmoid colon in the mid sigmoid colon. The sigmoid mesentery below the transected bowel was divided. When the distal sigmoid was sufficiently mobilized, 2 2-0 Prolene sutures were placed in the apices of the transected sigmoid colon/Timmons?s pouch to allow it to be located more easily in the future. The sigmoid colon was bluntly and sharply dissected from the lateral attachments. The mesentery below the inflamed section of colon was divided with Harmonic scalpel and occasionally ligated with 2-0 Vicryl ties As the colon was mobilized proximal to the area of perforation significant inflammation, a window was again made in the mesentery and the bowel transected with an echelon stapler gold or thick load. The specimen was then passed off. The avascular plane at the descending sigmoid junction was mobilized somewhat to allow the colon to be brought up as a colostomy. Once this was felt to be adequately mobilized, the site was marked for creation of the left lower quadrant colostomy. A nasogastric tube was placed into the stomach and verified by palpation I was present. The abdominal cavity was then irrigated and aspirated copious amounts of saline. Due to the concern of a possible perforated ulcer the duodenum was palpated below the transverse colon with no signs of inflammation or leakage and above the transverse colon at the level of the anterior aspect of the stomach and the duodenal bulb. There were no signs of intrinsic inflammation in that area. The lesser sac was not opened. A circular incision is made at the skin at the colostomy site of core of fat taken out. A cruciate incision was made in the anterior sheath. The rectus muscle was slightly divided but then spread using Shara clamps and a cruciate incision made in the posterior sheath. 4 3-0 Vicryl sutures were used to connect the posterior and anterior sheath and then later to the colon at the level of the fascial defect. Following this peritoneal cavity was again examined all 4 quadrants. A 15 round Kevin-Zavala drain was placed through a right lower quadrant incision and secured with 3-0 nylon suture. The drain was placed in the pelvis to the left lower quadrant. This was attached to bulb suction After all sponge and instrument counts were correct, 0 - PDS suture was used to close the fascia in running fashion. The cutaneous fat was irrigated. Skin was closed with bisi. Dressing was applied. The above deeper Vicryl sutures were then sewn to the serosa of the colon at 4 points. The staple line transected and sent to pathology. Interrupted 3-0 Vicryl sutures were then used to mature the colon edge to the skin edge creating a flush colostomy. A digit was easily be inserted into the stoma subfascially. A red top tube was used to verify that there was good perfusion the mucosa throughout. Dressing applied to the midline. A dressing was applied to the Kevin-Zavala drain site. Stoma bag was applied over the colostomy. The patient was extubated and brought to recovery room in stable condition. - Admit VTE Documentation VTE Present on Admission: No VTE Mechan Device Prophylaxis: SCD's VTE Pharm Prophylaxis ordered?: No
--- NOTE | 2018-04-25 16:22 | NURSING ---
AccessRN will be here between 1900 and 1999 for PICC line placement
[2018-04-25] MEDS: Lactated Ringers 1,000 ML 100 ML IV (17:50)
[2018-04-26] VITALS (23 sets, daily range): BP systolic 103–125; BP diastolic 54–79; PULSE 60–78; RESP 16–18; TEMP 36.4–36.8; O2SAT 92–97
[2018-04-26] MEDS: Lactated Ringers 1,000 ML 100 ML IV ×2 (03:11→14:21)
--- NOTE | 2018-04-26 08:04 | NURSING ---
Was asked to see patient for colostomy education and teaching. pt states his plan is to return home with his . did discuss home health for further teaching as well. pt is POD#1. there is minimal serosanguineous drainage noted in the colostomy appliance. no flatus noted. pt still has NG tube. stoma is dark red in color. does not appear to be very well budded. pt may need a convex appliance in the future. plan to better assess the stoma and change the appliance probably tomorrow. will do some education with the as well when she comes in. pt denies further needs at this time.
--- NOTE | 2018-04-26 08:57 | PCM.PN.SRG ---
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 ARIE serosanguinous, Stoma pink, slight bloody output, no gas in bag Vital Signs Temp Pulse Resp BP Pulse Ox 98.3 F 71 18 112/66 92 04/26/18 08:22 04/26/18 08:22 04/26/18 08:22 04/26/18 08:22 04/26/18 08:22 Oxygen Flow Rate (L/min) 1 Oxygen Delivery Method Nasal Cannula Weight: 100.2 kg Body Mass Index (BMI) 29.1 Intake and Output for Last 24 Hours 04/24/18 04/25/18 04/26/18 22:59 23:59 23:59 Intake Total 1622 / 1622 Output Total 1265 / 1265 Balance 357 / 357 Medical Necessity - Tobacco Use Smoking Status: Former smoker Tobacco Use: Cigarettes Assessment/Plan All Active Problems (Last Updated 02/21/18 @ 01:01 by Tomer Jones MD) Mid abdominal pain (Acute) Acute diverticulitis of intestine (Acute) POD # 1 s/p exploratory laparotomy with segmental sigmoid resection for perforated diverticulitis with end Phyllis's colostomy pneumoperitoneum with spiking fever Thursday night- initially felt to be probable perforated duodenal ulcer given the patient's presentation and lack of abdominal pain. He had fever to 103. He was still denying any significant abdominal pain. Repeat CT scan was obtained late in the evening. This demonstrated was felt to be more inflammation again around the area of prior diverticulitis and extravasated air with now a small amount of intra-abdominal fluid. I discussed with the patient and his the fact that I am now totally comfortable his issue is recurring diverticulitis and probably did have duodenitis doubted duodenal perforation. My plan at this point since he has failed to improve on IV antibiotics and now seems worsening is to perform exploratory laparotomy with end Timmons's colostomy. I discussed with the patient and his the fact that performing an anastomosis has in my opinion too high a risk of leak in a contaminated field and given all his other issues feel this is the safest way to proceed. Patient's potassium is low. He was given potassium riders. patient with 2 week history of increasing abdominal distention and food aversion, history of complicated diverticulitis. CT scan obtained yesterday was felt to be consistent with probably a duodenal perforation due to a significant amount of intra-abdominal free air and no signs of intra-abdominal fluid. There was also noted to be no contrast leakage. The patient was started on a continuous IV proton pump inhibitor. he notes improvement in his abdominal complaints this morning. Patient underwent upper endoscopy today which demonstrated significant duodenitis in the second and third portions of the duodenum. The impression was that he most likely had a duodenal ulcer perforation which sealed itself - The duodenum and anterior stomach were examined and felt to be normal intraoperatively Patient is doing well today, few bowel sounds, minimal gas in stoma bag. Is and Os as anticipated. WIll encourage incentive spirometer use and ambulation
[2018-04-26] MEDS: Enoxaparin 40 MG/0.4 ML Syringe SC (10:21)
[2018-04-27] VITALS (10 sets, daily range): BP systolic 107–133; BP diastolic 70–83; PULSE 67–84; RESP 12–20; TEMP 36.4–37.1; O2SAT 93–97
[2018-04-27] MEDS: Lactated Ringers 1,000 ML 100 ML IV ×3 (00:14→19:38)
--- NOTE | 2018-04-27 08:14 | NURSING ---
removed the ostomy appliance from the left abdomen. there was a small amount of serosanguineous drainage noted. no flatus noted. stoma is pink, flush with skin, and measures approx 1 3/8. stoma is slightly oval in shape. peristomal skin is intact. cleansed with skin with Dial soap and water. pat dry. applied a 2 piece flat Paco appliance with a small amount of stoma paste. patient and observed appliance change. both deny questions. reviewed the colostomy booklet with patient's . will discuss with case management to get home health arranged at home. will arrange for supplies through [facility] unless home health prefers to get them through somewhere else. will continue education.
--- NOTE | 2018-04-27 08:59 | NURSING ---
wound/stoma photo: abdomen
[2018-04-27] MEDS: Enoxaparin 40 MG/0.4 ML Syringe SC (09:47)
--- NOTE | 2018-04-27 18:32 | PCM.PN.SRG ---
Subjective: no flatus, incisional abdominal pain - Physical Exam General: Alert, Oriented x3, Cooperative Lungs: Clear to auscultation, Normal air movement Cardiovascular: Regular rate, No murmurs Abdomen: Soft, Hypoactive Bowel Sounds, Tender - at incisions, mildly distended, ARIE serosanguineous, NG minimal output, stoma pink with minimal output Vital Signs Temp Pulse Resp BP Pulse Ox 97.6 F L 81 16 131/78 H 94 04/27/18 15:58 04/27/18 15:58 04/27/18 15:59 04/27/18 15:58 04/27/18 15:59 Oxygen Flow Rate (L/min) 1 Oxygen Delivery Method Nasal Cannula Weight: 100.2 kg Body Mass Index (BMI) 29.1 Intake and Output for Last 24 Hours 04/25/18 04/26/18 04/27/18 23:59 23:59 23:59 Intake Total 3286.7 / 3286.7 3313.5 / 3313.5 Output Total 2395 / 2395 1678 / 1678 Balance 891.7 / 891.7 1635.5 / 1635.5 Medical Necessity - Tobacco Use Smoking Status: Former smoker Tobacco Use: Cigarettes Assessment/Plan All Active Problems (Last Updated 02/21/18 @ 01:01 by Tomer Jones MD) Mid abdominal pain (Acute) Acute diverticulitis of intestine (Acute) POD # 2 s/p exploratory laparotomy with segmental sigmoid resection for perforated diverticulitis with end Phyllis's colostomy pneumoperitoneum with spiking fever Thursday night- initially felt to be probable perforated duodenal ulcer given the patient's presentation and lack of abdominal pain. He had fever to 103. He was still denying any significant abdominal pain. Repeat CT scan was obtained late in the evening. This demonstrated was felt to be more inflammation again around the area of prior diverticulitis and extravasated air with now a small amount of intra-abdominal fluid. I discussed with the patient and his the fact that I am now totally comfortable his issue is recurring diverticulitis and probably did have duodenitis doubted duodenal perforation. My plan at this point since he has failed to improve on IV antibiotics and now seems worsening is to perform exploratory laparotomy with end Timmons's colostomy. I discussed with the patient and his the fact that performing an anastomosis has in my opinion too high a risk of leak in a contaminated field and given all his other issues feel this is the safest way to proceed. Patient's potassium is low. He was given potassium riders. patient with 2 week history of increasing abdominal distention and food aversion, history of complicated diverticulitis. CT scan obtained yesterday was felt to be consistent with probably a duodenal perforation due to a significant amount of intra-abdominal free air and no signs of intra-abdominal fluid. There was also noted to be no contrast leakage. The patient was started on a continuous IV proton pump inhibitor. he notes improvement in his abdominal complaints this morning. Patient underwent upper endoscopy today which demonstrated significant duodenitis in the second and third portions of the duodenum. The impression was that he most likely had a duodenal ulcer perforation which sealed itself - The duodenum and anterior stomach were examined and felt to be normal intraoperatively Patient is doing well today, few bowel sounds, minimal gas in stoma bag. Is and Os as anticipated. WIll encourage incentive spirometer use and ambulation
[2018-04-28] VITALS (14 sets, daily range): BP systolic 111–141; BP diastolic 67–86; PULSE 74–89; RESP 12–24; TEMP 36.7–37.5; O2SAT 93–98
[2018-04-28] MEDS: Lactated Ringers 1,000 ML 100 ML IV ×2 (04:41→14:38)
[2018-04-28] MEDS: 0.9% NaCl Peripheral Flush Adult/Peds IV ×2 (05:54→05:55)
[2018-04-28 06:22] LABS: Absolute Lymphocyte Count 0.49 X10^3/ul (0.83-4.51); Absolute Neutrophil Count 3.7 X10^3/uL (2.0-7.7); Eosinophil# 0.03 X10^3/uL; Eosinophils% 0.6 % (0-5); Hematocrit 27.6 % (40-54); Hemoglobin 8.7 g/dl (13.0-16.5); Lymphocyte # 0.49 X10^3/ul (4.0); Lymphocyte % 10.5 % (19-41); Mean Corp Hgb Conc 31.5 g/gl (32-36); Mean Corpuscular Hgb 27.5 pg (27.0-32.0); Mean Corpuscular Volume 87.3 fL (80-94); Mean Platelet Vol. 9.9 fl (6.2-12.0); Monocyte# 0.37 X10^3/uL; Monocyte% 7.9 % (0-10); Neutrophil # 3.74 X10^3/uL (2.7-7.7); Neutrophil % 80.1 % (47-70); Platelet Count 175 K/mm3 (150-450); RBC Distribution Width CV 16.3 % (11.6-14.6); RBC Distribution Width SD 50.8 fl (35.1-43.9); Red Blood Count 3.16 M/mm3 (4.6-6.2); White Blood Count 4.7 K/mm3 (4.4-11.0)
[2018-04-28 06:24] LABS: Differential Indicated SCAN CRITERIA MET; POSITIVE COUNT NO; POSITIVE DIFFERENTIAL YES; POSITIVE MORPHOLOGY NO
--- NOTE | 2018-04-28 06:25 | PCM.PN.SRG ---
Subjective: pain 3/10 - Physical Exam General: Alert, Oriented x3, Cooperative Lungs: Clear to auscultation, Normal air movement Cardiovascular: Regular rate, No murmurs Abdomen: Bowel Sounds Present, Soft, Tender - at incisions, minimal NG output. no output in stoma bag, stoma pink, JU - serosanguinous Vital Signs Temp Pulse Resp BP Pulse Ox 98.2 F 77 12 134/77 H 94 04/28/18 04:00 04/28/18 04:00 04/28/18 04:03 04/28/18 04:00 04/28/18 04:00 Oxygen Flow Rate (L/min) 1 Oxygen Delivery Method Nasal Cannula Weight: 100.2 kg Body Mass Index (BMI) 29.1 Intake and Output for Last 24 Hours 04/26/18 04/27/18 04/28/18 23:59 23:59 23:59 Intake Total 3286.7 / 3286.7 4171.4 / 4171.4 801 / 801 Output Total 2395 / 2395 2123 / 2123 1130 / 1130 Balance 891.7 / 891.7 2048.4 / 2048.4 -329 / -329 Laboratory Tests Past 24 Hrs 04/28/18 04/28/18 06:00 06:00 WBC 4.7 RBC 3.16 L Hgb 8.7 L Hct 27.6 L MCV 87.3 MCH 27.5 MCHC 31.5 L RDW 16.3 H RDW Differential 50.8 H Plt Count 175 MPV 9.9 Immature Gran % (Auto) 0.900 Neut % (Auto) 80.1 H Lymph % (Auto) 10.5 L [place] % (Auto) 7.9 Eos % (Auto) 0.6 Baso % (Auto) 0.0 Absolute Neuts (auto) 3.7 Absolute Lymphs (auto) 0.49 L Total Counted Pending Sodium Pending Potassium Pending Chloride Pending Carbon Dioxide Pending Anion Gap Pending BUN Pending Creatinine Pending Est GFR (MDRD) Af Amer Pending Est GFR (MDRD) Non-Af Pending BUN/Creatinine Ratio Pending Glucose Pending Calcium Pending Total Bilirubin Pending AST Pending ALT Pending Alkaline Phosphatase Pending Total Protein Pending Albumin Pending Medical Necessity - Tobacco Use Smoking Status: Former smoker Tobacco Use: Cigarettes Assessment/Plan All Active Problems (Last Updated 02/21/18 @ 01:01 by Tomer Jones MD) Mid abdominal pain (Acute) Acute diverticulitis of intestine (Acute) POD # 3 s/p exploratory laparotomy with segmental sigmoid resection for perforated diverticulitis with end Phyllis's colostomy pneumoperitoneum with spiking fever Thursday night- initially felt to be probable perforated duodenal ulcer given the patient's presentation and lack of abdominal pain. He had fever to 103. He was still denying any significant abdominal pain. Repeat CT scan was obtained late in the evening. This demonstrated was felt to be more inflammation again around the area of prior diverticulitis and extravasated air with now a small amount of intra-abdominal fluid. I discussed with the patient and his the fact that I am now totally comfortable his issue is recurring diverticulitis and probably did have duodenitis doubted duodenal perforation. My plan at this point since he has failed to improve on IV antibiotics and now seems worsening is to perform exploratory laparotomy with end Timmons's colostomy. I discussed with the patient and his the fact that performing an anastomosis has in my opinion too high a risk of leak in a contaminated field and given all his other issues feel this is the safest way to proceed. Patient's potassium is low. He was given potassium riders. patient with 2 week history of increasing abdominal distention and food aversion, history of complicated diverticulitis. CT scan obtained yesterday was felt to be consistent with probably a duodenal perforation due to a significant amount of intra-abdominal free air and no signs of intra-abdominal fluid. There was also noted to be no contrast leakage. The patient was started on a continuous IV proton pump inhibitor. he notes improvement in his abdominal complaints this morning. Patient is doing well today, improved bowel sounds, minimal gas in stoma bag. WIll D/C NG tube and restart flomax. Is and Os as anticipated. WIll encourage incentive spirometer use and ambulation
[2018-04-28 06:30] LABS: ALB/GLOB Ratio 0.6 RATIO (0.9-2.4); AST(SGOT) 28 U/L (15-37); Alanine Aminotransfer ALT/SGPT 25 U/L (16-61); Albumin, Serum 2.1 g/dL (3.2-5.0); Alkaline Phosphatase 42 U/L (45-117); Anion Gap 11 (5-15); BUN 12 mg/dL (7-18); BUN/Creat Ratio 17.7 RATIO (10-20); Calcium,Total 7.5 mg/dL (8.5-10.1); Chloride 105 mmol/L (98-107); Creatinine, Serum 0.68 mg/dL (0.70-1.30); EST Glomerular Filtration Rate 124 mL/min (>60); Est Glom Filt Rate - Afr Amer 150 mL/min (>60); Estimated Creatinine Clearance 81.01 ml/min; Globulin 3.7 g/dL (2.2-4.2); Glucose 87 mg/dL (74-106); Potassium 3.3 mmol/L (3.5-5.1); Protein, Total 5.8 g/dL (6.4-8.2); Sodium Level 143 mmol/L (136-145)
[2018-04-28 06:43] LABS: Anisocytosis 1+; Differential Comment SCAN; Hypochromasia 1+; Microcytosis 1+; Platelet Estimate ADEQUATE (ADEQ); Platelet Morphology LARGE; Polychromasia 1+
--- NOTE | 2018-04-28 07:02 | NURSING ---
MORPHINE BAG FOR COOK ROAST THAT WAS INITIATED ON 04/25 AT 1646 COMPLETED INFUSION TODAY. NO MORPHINE TO WASTE. WITNESSED BY RODNEY BROWN AND RODNEY VILLARREAL.
[2018-04-28] MEDS: Enoxaparin 40 MG/0.4 ML Syringe SC (08:24)
--- NOTE | 2018-04-28 16:40 | CON.PCM_ITS ---
Problem List (1) Altered mental status Status: Acute (2) Mid abdominal pain Status: Acute (3) Acute diverticulitis of intestine Status: Acute Reason for Consult Date of Consultation: 04/28/18 Reason for Consultation: Altered mental status today History of Present Illness: The patient is a 67 year old M with history of perforated sigmoid diverticulitis status post exploratory laparotomy with segmental sigmoid resection for perforated diverticulitis with an Timmons's colostomy; postop day 3 is being consulted for altered mental status and overall medical management. As mentioned, patient was initially admitted with minimal abdominal pain with increasing abdominal distention, loss of appetite and history of complicated diverticulitis. CT scan was done which showed pneumoperitoneum with site of perforation identified in descending colon likely due to diverticulitis with extensive adjacent inflammatory changes. No obvious abscess but evolving mild ascites. For which patient underwent exploratory laparotomy. As per the , patient is more confused and sleepy today. Patient is on IV morphine, patient-controlled analgesia. He has been participating in physical therapy and walked a few steps yesterday but more lethargic today. Colostomy is empty. No gas passed through colostomy. Colostomy is healthy and red granulation tissue. No high-grade fever. T-max today was 99.5 Fahrenheit. Patient had a bout of cough in the morning mainly dry. No tachypnea. On 1 L of oxygen. 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 Small fiber neuropathy G62.9 Allergies cod liver oil [From Desitin] Allergy (Verified 02/20/18 20:09) Rash zinc oxide [From Desitin] Allergy (Verified 02/20/18 20:09) Rash Home Medications: Ambulatory Orders Medication Instructions Recorded Aspirin [Aspirin, Baby] 81 mg PO DAILY@0800 12/08/16 Cholecalciferol (VIT D3) [Vitamin 2,000 unit PO DAILY 12/08/16 D3] Gabapentin [Neurontin] 900 mg PO BID 12/08/16 Multivit-Min/FA/Lycopen/Lutein 1 each PO DAILY 12/08/16 [Centrum Silver Men Tablet] Simvastatin [Zocor] 40 mg PO QHS 12/08/16 Tamsulosin HCl [Flomax] 0.4 mg PO DAILY 12/08/16 Acetaminophen [Tylenol] 650 mg PO Q6H PRN PRN #30 tablet 02/24/18 Ibuprofen 400 mg PO Q6H PRN PRN #30 tablet 02/24/18 Ondansetron [Zofran Odt] 4 mg PO Q4H PRN PRN 04/22/18 Surgical History: appendectomy, - - 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, 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 Denies: Shortness of breath at rest, Sputum production Gastrointestinal: Reports: Abdominal Pain. Denies: Nausea, Vomiting Genitourinary: Denies: Dysuria Musculoskeletal: Denies: Joint Pain, Joint Tenderness Skin: Denies: Rash, Wounds Neurological: Denies: Numbness, Tingling, Focal weakness Psychiatric: Denies: Anxiety, Depression, Homicidal Ideations, Suicidal Ideations Hematologic/ Lymphatic: Denies: Easy Bruising, Easy Bleeding Patient Problems: Active and Suspected Problems (Last Updated 02/21/18 @ 01:01 by Tomer Jones MD) Altered mental status (Acute) - Physical Exam General: Alert, Oriented x3, Cooperative, Lethargic HEENT: Atraumatic, PERRLA, EOMI, Normocephalic Oral: Dry Mucosa Neck: Supple, No JVD, Negative Carotid Bruits Lungs: Diminished - Air entry is diminished in bilateral lung bases., Rhonchi - Bilateral coarse rhonchi present Cardiovascular: Regular rate, Regular Rhythm, Normal S1, Normal S2, No murmurs Abdomen: Bowel Sounds Present, Soft, Non Tender, Hypoactive Bowel Sounds, - - Left lower quadrant colostomy with healthy granulation tissue. Colostomy bag empty. No bleeding Midline abdominal surgical incision wound. ARIE drain present with a small serosanguineous fluid. Extremities: No edema, Capillary Refill Less than 3 Seconds Skin: - Musculoskeletal: No Tenderness to Palpation of Joints or Extremities Neurological: Cranial nerves II-XII grossly intact Psych/Mental Status: Normal Affect, Appropriate Vital Signs Temp Pulse Resp BP Pulse Ox 99.5 F H 77 18 138/76 H 95 04/28/18 15:25 04/28/18 15:25 04/28/18 15:25 04/28/18 15:25 04/28/18 15:25 Oxygen Flow Rate (L/min) 1 Oxygen Delivery Method Nasal Cannula Weight: 220 lb 14.451 oz Body Mass Index (BMI) 29.1 Intake and Output for Last 24 Hours 04/26/18 04/27/18 04/28/18 23:59 23:59 23:59 Intake Total 3286.7 / 3286.7 4171.4 / 4171.4 1584 / 1584 Output Total 2395 / 2395 2123 / 2123 3020 / 3020 Balance 891.7 / 891.7 2048.4 / 2048.4 -1436 / -1436 Laboratory Tests Past 24 Hrs 04/28/18 04/28/18 06:00 06:00 WBC 4.7 RBC 3.16 L Hgb 8.7 L Hct 27.6 L MCV 87.3 MCH 27.5 MCHC 31.5 L RDW 16.3 H RDW Differential 50.8 H Plt Count 175 MPV 9.9 Immature Gran % (Auto) 0.900 Neut % (Auto) 80.1 H Lymph % (Auto) 10.5 L [place] % (Auto) 7.9 Eos % (Auto) 0.6 Baso % (Auto) 0.0 Absolute Neuts (auto) 3.7 Absolute Lymphs (auto) 0.49 L Total Counted Not Reportable Differential Comment SCAN Platelet Estimate ADEQUATE Plt Morphology Comment LARGE Polychromasia 1+ Hypochromasia 1+ Anisocytosis 1+ Microcytosis 1+ Sodium 143 Potassium 3.3 L Chloride 105 Carbon Dioxide 27.0 Anion Gap 11 BUN 12 Creatinine 0.68 L Estim Creat Clear Calc 81.01 Est GFR (MDRD) Af Amer 150 Est GFR (MDRD) Non-Af 124 BUN/Creatinine Ratio 17.7 Glucose 87 Calcium 7.5 L Total Bilirubin 1.20 H AST 28 ALT 25 Alkaline Phosphatase 42 L Total Protein 5.8 L Albumin 2.1 L Globulin 3.7 Albumin/Globulin Ratio 0.6 L Assessment/Plan All Active Problems (Last Updated 02/21/18 @ 01:01 by Tomer Jones MD) Mid abdominal pain (Acute) Acute diverticulitis of intestine (Acute) Altered mental status (Acute) The patient is a 67 year old M with history of perforated sigmoid diverticulitis status post exploratory laparotomy with segmental sigmoid resection for perforated diverticulitis with an Timmons's colostomy; postop day 3 is being consulted for altered mental status and overall medical management. As mentioned, patient was initially admitted with minimal abdominal pain with increasing abdominal distention, loss of appetite and history of complicated diverticulitis. CT scan was done which showed pneumoperitoneum mainly due to descending colon perforation due to diverticulitis with extensive inflammatory changes. Patient is more lethargic today. 1. Acute encephalopathy probably related to medication induced, morphine/bilateral lower lungs atelectasis: Patient has low-grade fever 99.5. Patient is already on IV antibiotic Zosyn. Repeat chest x-ray. Patient is encouraged for incentive spirometry. Mucinex 1200 mg twice daily. DuoNeb as needed. Patient denies history of COPD/emphysema or chronic respiratory disease. Pulmonary hygiene encouraged. Advise decreasing the IV morphine to the minimum until the patient is more awake and participate in physical therapy and chest physiotherapy. Avoid Benadryl. Advise Ríos catheter discontinuation if patient can spontaneously void on bedside. Patient to maintain negative fluid balance as he still 6.5 L cumulative positive fluid balance since admission 2. Perforated diverticulitis status post extensive laparotomy with segmental sigmoid resection with Phyllis's colostomy: As per Dr. June's care. Medications reviewed. DVT prophylaxis already on enoxaparin 40 g subcu daily. Follow-up chest x-ray. Code Visit Inpatient E&M: 93432 Init Hosp L3
--- NOTE | 2018-04-28 16:47 | RAD_ITS ---
STUDY: X-RAY CHEST REASON FOR EXAM: Male, 67 years old. Shortness of breath TECHNIQUE: 1 view COMPARISON: Moderate for 2019 FINDINGS: The free air underneath both hemidiaphragms seen in the prior examination have resolved. The lungs are clear. The heart and mediastinum are normal. Mild degenerative changes of the thoracic spine. Normal visualized ribs, clavicles, and shoulders. There is no demonstrated abnormality of the visualized soft tissue structures of the upper abdomen. RAD/Chest 1 View (Portable) IMPRESSION: No acute findings in the lungs. Electronically Signed: Benedicto Mattson MD at 5:23 EDT Tel , Service support ,
[2018-04-28] MEDS: Tamsulosin HCl 0.4 MG Capsule PO (17:06)
[2018-04-28] MEDS: Acetylcysteine 800 MG/4 ML VIAL.NEB. INHALATION (19:03)
[2018-04-28] MEDS: Ipratropium/Albuterol Sulfate 3 ML AMPUL.NEB INHALATION (19:04)
[2018-04-28] MEDS: Ondansetron 4 MG/2 ML Vial IV (19:06)
[2018-04-29] VITALS (12 sets, daily range): BP systolic 103–127; BP diastolic 64–78; PULSE 80–97; RESP 16–22; TEMP 36.6–37.7; O2SAT 90–99
[2018-04-29] MEDS: Ondansetron 4 MG/2 ML Vial IV ×3 (00:12→11:09)
[2018-04-29] MEDS: Lactated Ringers 1,000 ML 100 ML IV (00:12)
[2018-04-29] MEDS: Ipratropium/Albuterol Sulfate 3 ML AMPUL.NEB INHALATION ×3 (02:42→19:12)
[2018-04-29] MEDS: Acetylcysteine 800 MG/4 ML VIAL.NEB. INHALATION ×2 (02:42→11:15)
[2018-04-29 07:20] LABS: Absolute Lymphocyte Count 0.54 X10^3/ul (0.83-4.51); Absolute Neutrophil Count 3.6 X10^3/uL (2.0-7.7); Basophil# 0.01 X10^3/uL; Basophil% 0.2 % (0-1); Eosinophil# 0.04 X10^3/uL; Eosinophils% 0.9 % (0-5); Hematocrit 26.8 % (40-54); Hemoglobin 8.3 g/dl (13.0-16.5); Lymphocyte # 0.54 X10^3/ul (4.0); Lymphocyte % 11.6 % (19-41); Mean Corpuscular Hgb 26.5 pg (27.0-32.0); Mean Corpuscular Volume 85.6 fL (80-94); Mean Platelet Vol. 9.7 fl (6.2-12.0); Monocyte# 0.43 X10^3/uL; Monocyte% 9.2 % (0-10); Neutrophil % 77.2 % (47-70); POSITIVE COUNT NO; POSITIVE DIFFERENTIAL YES; Platelet Count 152 K/mm3 (150-450); RBC Distribution Width CV 16.8 % (11.6-14.6); RBC Distribution Width SD 52.8 fl (35.1-43.9); Red Blood Count 3.13 M/mm3 (4.6-6.2); White Blood Count 4.7 K/mm3 (4.4-11.0)
[2018-04-29 07:21] LABS: Differential Indicated SCAN CRITERIA MET; POSITIVE MORPHOLOGY NO
[2018-04-29 07:48] LABS: Anisocytosis 1+
[2018-04-29 07:54] LABS: ALB/GLOB Ratio 0.5 RATIO (0.9-2.4); AST(SGOT) 71 U/L (15-37); Alanine Aminotransfer ALT/SGPT 46 U/L (16-61); Alkaline Phosphatase 43 U/L (45-117); Anion Gap 9 (5-15); BUN 8 mg/dL (7-18); BUN/Creat Ratio 14.2 RATIO (10-20); Calcium,Total 7.6 mg/dL (8.5-10.1); Chloride 106 mmol/L (98-107); Creatinine, Serum 0.56 mg/dL (0.70-1.30); EST Glomerular Filtration Rate 154 mL/min (>60); Est Glom Filt Rate - Afr Amer 186 mL/min (>60); Estimated Creatinine Clearance 81.01 ml/min; Globulin 3.7 g/dL (2.2-4.2); Glucose 84 mg/dL (74-106); Potassium 3.4 mmol/L (3.5-5.1); Protein, Total 5.7 g/dL (6.4-8.2); Sodium Level 142 mmol/L (136-145)
--- NOTE | 2018-04-29 08:54 | NURSING ---
Pt resting awake in bed. states patient still has some confusion this morning, but slightly improved. dressing to abdomen is D&I. the colostomy appliance is in place with a small amount of serosanguineous drainage noted. no flatus or stool noted yet. pt denies much discomfort at this time. will continue to monitor. plan to change appliance again tomorrow with .
[2018-04-29] MEDS: Enoxaparin 40 MG/0.4 ML Syringe SC (11:08)
--- NOTE | 2018-04-29 11:35 | CPS ---
patients would like for RT to evaluate patient and Not give the mucomyst if it is not indicated, med makes patient nauseated.
--- NOTE | 2018-04-29 14:26 | CASEMGMT ---
Social Work Note RN MISSY Oliveira updated this worker that pt is agreeable to TCU at discharge and per Dr. Watson pt won't be medically cleared for discharge until Thursday or Thursday. SW placed a call to [facility] in TCU who states she will have a bed for pt Thursday and is able to accept pt pending pre-cert. Pt updated. Plan: TCU pending pre-cert Dawn Jordan [employer], FUGITIVE DETECTIVE
--- NOTE | 2018-04-29 16:23 | PCM.PROGNOTE ---
Patient Problems: Active and Suspected Problems (Last Updated 02/21/18 @ 01:01 by Tomer Jones MD) Altered mental status (Acute) Subjective: Patient was seen and examined today, he is still n.p.o., I talked briefly with his also who is in the room today. Patient's white count remains normal at 4.7, hemoglobin is stable at 8.3. Potassium was slightly low at 3.4 - Physical Exam General: Alert, Oriented x3, Cooperative, No apparent distress, Well developed HEENT: Atraumatic, PERRLA, EOMI, Normocephalic Oral: Moist Mucosa Neck: Supple, No JVD, Negative Carotid Bruits Lungs: Clear to auscultation, Normal air movement Cardiovascular: Regular rate, No murmurs Abdomen: Bowel Sounds Present, Soft, Hypoactive Bowel Sounds, - - Colostomy present Extremities: No clubbing, No cyanosis, No edema, Capillary Refill Less than 3 Seconds Skin: No rashes, No breakdown Musculoskeletal: No Tenderness to Palpation of Joints or Extremities, No Muscle Wasting Neurological: Cranial nerves II-XII grossly intact, Neuro grossly intact, Sensory exam intact to light touch and pain, Coordination normal Psych/Mental Status: Normal Affect, Appropriate, Alert and oriented to time, place, person, mood and affect Vital Signs Temp Pulse Resp BP Pulse Ox 97.8 F 90 18 103/78 94 04/29/18 15:03 04/29/18 15:03 04/29/18 15:03 04/29/18 15:03 04/29/18 15:03 Oxygen Flow Rate (L/min) 1 Oxygen Delivery Method Nasal Cannula Weight: 100.2 kg Body Mass Index (BMI) 29.1 Intake and Output for Last 24 Hours 04/27/18 04/28/18 04/29/18 23:59 23:59 23:59 Intake Total 4171.4 / 4171.4 1584 / 1584 2360 / 2360 Output Total 2123 / 2123 3020 / 3020 2125 / 2125 Balance 2048.4 / 2048.4 -1436 / -1436 235 / 235 Laboratory Tests Past 24 Hrs 04/29/18 04/29/18 06:50 06:50 WBC 4.7 RBC 3.13 L Hgb 8.3 L Hct 26.8 L MCV 85.6 MCH 26.5 L MCHC 31.0 L RDW 16.8 H RDW Differential 52.8 H Plt Count 152 MPV 9.7 Immature Gran % (Auto) 0.900 Neut % (Auto) 77.2 H Lymph % (Auto) 11.6 L [place] % (Auto) 9.2 Eos % (Auto) 0.9 Baso % (Auto) 0.2 Absolute Neuts (auto) 3.6 Absolute Lymphs (auto) 0.54 L Total Counted Not Reportable Anisocytosis 1+ Sodium 142 Potassium 3.4 L Chloride 106 Carbon Dioxide 27.0 Anion Gap 9 BUN 8 Creatinine 0.56 L Estim Creat Clear Calc 81.01 Est GFR (MDRD) Af Amer 186 Est GFR (MDRD) Non-Af 154 BUN/Creatinine Ratio 14.2 Glucose 84 Calcium 7.6 L Total Bilirubin 1.10 H AST 71 H ALT 46 Alkaline Phosphatase 43 L Total Protein 5.7 L Albumin 2.0 L Globulin 3.7 Albumin/Globulin Ratio 0.5 L Medical Necessity - Tobacco Use Smoking Status: Former smoker Tobacco Use: Cigarettes Assessment/Plan All Active Problems (Last Updated 02/21/18 @ 01:01 by Tomer Jones MD) Mid abdominal pain (Acute) Acute diverticulitis of intestine (Acute) Altered mental status (Acute) #1 acute encephalopathy-resolved at this time, this could be as result of medications (narcotics), continue present care, patient is on oral medications at home including gabapentin, he is n.p.o. at this time however it is not able to take them. When the patient resumes a clear liquid diet, I will place him back on his home medications #2 chronic neuropathy-etiology unclear #3 hyperlipidemia #4 BPH #5 postop day #4 oratory laparotomy, sigmoid resection, and colostomy placement due to complicated diverticulitis with proximal sigmoid perforation-continue present antibiotic coverage Code Visit Inpatient E&M: 31827 Subs Hosp L2
--- NOTE | 2018-04-29 17:06 | PCM.PN.SRG ---
Patient Problems: Active and Suspected Problems (Last Updated 02/21/18 @ 01:01 by Tomer Jones MD) Altered mental status (Acute) Subjective: still tired, no flatus in bag, somewhat confused but improved - Physical Exam General: Alert, Cooperative Lungs: Clear to auscultation, Normal air movement Cardiovascular: Regular rate, Regular Rhythm Abdomen: Bowel Sounds Present, Soft, Tender - incisions, ARIE serous, no output in stoma, stoma pink Vital Signs Temp Pulse Resp BP Pulse Ox 97.8 F 90 18 103/78 94 04/29/18 15:03 04/29/18 15:03 04/29/18 15:03 04/29/18 15:03 04/29/18 15:03 Oxygen Flow Rate (L/min) 1 Oxygen Delivery Method Nasal Cannula Weight: 100.2 kg Body Mass Index (BMI) 29.1 Intake and Output for Last 24 Hours 04/27/18 04/28/18 04/29/18 23:59 23:59 23:59 Intake Total 4171.4 / 4171.4 1584 / 1584 2360 / 2360 Output Total 2123 / 2123 3020 / 3020 2125 / 2125 Balance 2048.4 / 2048.4 -1436 / -1436 235 / 235 Laboratory Tests Past 24 Hrs 04/29/18 04/29/18 06:50 06:50 WBC 4.7 RBC 3.13 L Hgb 8.3 L Hct 26.8 L MCV 85.6 MCH 26.5 L MCHC 31.0 L RDW 16.8 H RDW Differential 52.8 H Plt Count 152 MPV 9.7 Immature Gran % (Auto) 0.900 Neut % (Auto) 77.2 H Lymph % (Auto) 11.6 L [place] % (Auto) 9.2 Eos % (Auto) 0.9 Baso % (Auto) 0.2 Absolute Neuts (auto) 3.6 Absolute Lymphs (auto) 0.54 L Total Counted Not Reportable Anisocytosis 1+ Sodium 142 Potassium 3.4 L Chloride 106 Carbon Dioxide 27.0 Anion Gap 9 BUN 8 Creatinine 0.56 L Estim Creat Clear Calc 81.01 Est GFR (MDRD) Af Amer 186 Est GFR (MDRD) Non-Af 154 BUN/Creatinine Ratio 14.2 Glucose 84 Calcium 7.6 L Total Bilirubin 1.10 H AST 71 H ALT 46 Alkaline Phosphatase 43 L Total Protein 5.7 L Albumin 2.0 L Globulin 3.7 Albumin/Globulin Ratio 0.5 L Medical Necessity - Tobacco Use Smoking Status: Former smoker Tobacco Use: Cigarettes Assessment/Plan All Active Problems (Last Updated 02/21/18 @ 01:01 by Tomer Jones MD) Mid abdominal pain (Acute) Acute diverticulitis of intestine (Acute) Altered mental status (Acute) POD # 4 s/p exploratory laparotomy with segmental sigmoid resection for perforated diverticulitis with end Phyllis's colostomy pneumoperitoneum with spiking fever Thursday night- initially felt to be probable perforated duodenal ulcer given the patient's presentation and lack of abdominal pain. He had fever to 103. He was still denying any significant abdominal pain. Repeat CT scan was obtained late in the evening. This demonstrated was felt to be more inflammation again around the area of prior diverticulitis and extravasated air with now a small amount of intra-abdominal fluid. I discussed with the patient and his the fact that I am now totally comfortable his issue is recurring diverticulitis and probably did have duodenitis doubted duodenal perforation. My plan at this point since he has failed to improve on IV antibiotics and now seems worsening is to perform exploratory laparotomy with end Timmons's colostomy. I discussed with the patient and his the fact that performing an anastomosis has in my opinion too high a risk of leak in a contaminated field and given all his other issues feel this is the safest way to proceed. Patient's potassium is low. He was given potassium riders. patient with 2 week history of increasing abdominal distention and food aversion, history of complicated diverticulitis. CT scan obtained yesterday was felt to be consistent with probably a duodenal perforation due to a significant amount of intra-abdominal free air and no signs of intra-abdominal fluid. There was also noted to be no contrast leakage. The patient was started on a continuous IV proton pump inhibitor. he notes improvement in his abdominal complaints this morning. Patient is doing well today, improved bowel sounds, minimal gas in stoma bag. WIll D/C NG tube and restart flomax. Is and Os as anticipated. WIll encourage incentive spirometer use and ambulation
[2018-04-29] MEDS: Tamsulosin HCl 0.4 MG Capsule PO (18:45)
[2018-04-30 00:28] VITALS: BP 115/70; PULSE 85; RESP 16; TEMP 37.1; O2SAT 94
[2018-04-30 04:31] VITALS: BP 118/76; PULSE 78; RESP 16; TEMP 36.9; O2SAT 94
[2018-04-30 08:52] VITALS: BP 113/70; PULSE 80; RESP 16; TEMP 37; O2SAT 93
[2018-04-30 09:03] LABS: Prealbumin 9.8 mg/dL (20.0-40.0)
[2018-04-30] MEDS: Pantoprazole Sodium 40 MG Tablet PO (09:20)
[2018-04-30] MEDS: Enoxaparin 40 MG/0.4 ML Syringe SC (09:20)
--- NOTE | 2018-04-30 09:34 | CASEMGMT ---
Addendum entered by Dawn Jordan 04/30/18 12:53: Green sheet on chart in the event pre-cert is obtained for the weekend. Original Note: Social Work Note SW received call from Nara in TCU stating that a bed opened up on Thursday if pre-cert is obtained and pt is medically cleared. Plan: TCU pending pre-cert Dawn Jordan [employer], [employer]
[2018-04-30 14:05] VITALS: BP 100/68; PULSE 85; RESP 16; TEMP 36.7; O2SAT 92
--- NOTE | 2018-04-30 14:09 | NURSING ---
Removed the colostomy appliance. stoma remains beefy red and measures approx 1 3/8 and is oval in shape. stoma is flush with the skin. periwound is intact. states there was a moderate amount of flatus in the appliance earlier today. none noted currently. only small amount of serosanguineous drainage noted in the pouch. cleansed peristomal skin with warm water. pat dry. applied a flat 2 piece Bassett appliance with a small amount of stoma paste. present and observed ostomy appliance change as well. plan is for patient to go to TCU at discharge.
[2018-04-30] MEDS: Ibuprofen 400 MG Tablet PO ×2 (14:14→20:11)
[2018-04-30 15:33] VITALS: PULSE 88; RESP 20; O2SAT 92
[2018-04-30] MEDS: Ipratropium/Albuterol Sulfate 3 ML AMPUL.NEB INHALATION (15:33)
[2018-04-30] MEDS: Tamsulosin HCl 0.4 MG Capsule PO (17:12)
--- NOTE | 2018-04-30 19:14 | PN_ITS ---
Patient Problems: Active and Suspected Problems (Last Updated 02/21/18 @ 01:01 by Tomer Jones MD) Altered mental status (Acute) Subjective: Patient was seen and examined today, patient appeared appropriate today and alert, he is not on any oxygen any longer, we are waiting approval for the patient to go to TCU for rehab services. Patient's diet was changed today he is now able to intake a clear liquid diet, he will be resuming his oral medications. - Physical Exam General: Alert, Oriented x3, Cooperative, No apparent distress, Well developed HEENT: Atraumatic, PERRLA, EOMI, Normocephalic Oral: Moist Mucosa Neck: Supple, Trachea Midline, Thyroid Normal Size and Texture Lungs: Clear to auscultation, Normal air movement, No rhonchi, No wheeze, No rales Cardiovascular: Regular rate, Regular Rhythm, Normal S1, Normal S2, No murmurs, No Ectopic Activity, PMI Normal, No rub noted, No Gallop Abdomen: Bowel Sounds Present, Soft, Non Tender, - - Colostomy in place Extremities: No clubbing, No cyanosis, No edema, Capillary Refill Less than 3 Seconds Skin: No rashes, No breakdown Neurological: Cranial nerves II-XII grossly intact, Neuro grossly intact, Sensory exam intact to light touch and pain, Coordination normal Psych/Mental Status: Normal Affect, Appropriate, Alert and oriented to time, place, person, mood and affect Vital Signs Temp Pulse Resp BP Pulse Ox 98.1 F 88 20 H 100/68 92 04/30/18 14:05 04/30/18 15:33 04/30/18 15:33 04/30/18 14:05 04/30/18 15:33 Oxygen Flow Rate (L/min) 1 Oxygen Delivery Method Nasal Cannula Weight: 100.2 kg Body Mass Index (BMI) 29.1 Intake and Output for Last 24 Hours 04/28/18 04/29/18 04/30/18 23:59 23:59 23:59 Intake Total 1584 / 1584 3079 / 3079 970 / 970 Output Total 3020 / 3020 2375 / 2375 2530 / 2530 Balance -1436 / -1436 704 / 704 -1560 / -1560 Laboratory Tests Past 24 Hrs 04/30/18 08:30 Prealbumin 9.8 L Medical Necessity - Tobacco Use Smoking Status: Former smoker Tobacco Use: Cigarettes Assessment/Plan All Active Problems (Last Updated 02/21/18 @ 01:01 by Tomer Jones MD) Mid abdominal pain (Acute) Acute diverticulitis of intestine (Acute) Altered mental status (Acute) #1 acute encephalopathy-resolved at this time, this most probably was secondary to narcotic pain medications and stress of surgery. #2 chronic neuropathy-etiology unclear, patient will resume oral medication for this- Neurontin-I have started him back on a smaller dose of Neurontin that he was taking at home, I have decided to place him on 300 mg twice a day. #3 hyperlipidemia-patient was placed on Lipitor #4 BPH #5 postop day #5 exploratory laparotomy, sigmoid resection, and colostomy placement due to complicated diverticulitis with proximal sigmoid perforation- continue present antibiotic coverage #6 generalized debility secondary to complicated diverticulitis with proximal sigmoid perforation Code Visit Inpatient E&M: 04113 Subs Hosp L2
[2018-04-30 20:00] VITALS: BP 112/70; PULSE 75; RESP 16; TEMP 36.9; O2SAT 96
[2018-04-30] MEDS: 0.9% NaCl PICC Flush IV (20:13)
[2018-04-30] MEDS: 0.9% NaCl Peripheral Flush Adult/Peds IV (20:14)
[2018-04-30] MEDS: Atorvastatin Calcium 20 MG Tablet PO (21:20)
[2018-05-01] VITALS (9 sets, daily range): BP systolic 91–110; BP diastolic 59–72; PULSE 73–86; RESP 16–24; TEMP 36.5–37; O2SAT 90–99
[2018-05-01 05:38] LABS: Absolute Lymphocyte Count 0.48 X10^3/ul (0.83-4.51); Absolute Neutrophil Count 3.2 X10^3/uL (2.0-7.7); Basophil# 0.01 X10^3/uL; Basophil% 0.2 % (0-1); Eosinophil# 0.12 X10^3/uL; Eosinophils% 2.8 % (0-5); Hematocrit 26.7 % (40-54); Hemoglobin 8.1 g/dl (13.0-16.5); Lymphocyte # 0.48 X10^3/ul (4.0); Lymphocyte % 11.2 % (19-41); Mean Corp Hgb Conc 30.3 g/gl (32-36); Mean Corpuscular Hgb 26.7 pg (27.0-32.0); Mean Corpuscular Volume 88.1 fL (80-94); Mean Platelet Vol. 9.9 fl (6.2-12.0); Monocyte# 0.41 X10^3/uL; Monocyte% 9.5 % (0-10); Neutrophil # 3.18 X10^3/uL (2.7-7.7); Platelet Count 156 K/mm3 (150-450); RBC Distribution Width CV 16.9 % (11.6-14.6); RBC Distribution Width SD 52.4 fl (35.1-43.9); Red Blood Count 3.03 M/mm3 (4.6-6.2); White Blood Count 4.3 K/mm3 (4.4-11.0)
[2018-05-01] MEDS: 0.9% NaCl PICC Flush IV ×4 (05:42→16:06)
[2018-05-01 05:43] LABS: Differential Indicated SCAN CRITERIA MET; POSITIVE COUNT YES; POSITIVE DIFFERENTIAL YES; POSITIVE MORPHOLOGY YES
[2018-05-01 05:59] LABS: BUN 5 mg/dL (7-18); Creatinine, Serum 0.55 mg/dL (0.70-1.30); Glucose 110 mg/dL (74-106)
[2018-05-01 06:00] LABS: ALB/GLOB Ratio 0.5 RATIO (0.9-2.4); AST(SGOT) 66 U/L (15-37); Alanine Aminotransfer ALT/SGPT 61 U/L (16-61); Albumin, Serum 2.1 g/dL (3.2-5.0); Alkaline Phosphatase 45 U/L (45-117); Anion Gap 5 (5-15); Calcium,Total 7.8 mg/dL (8.5-10.1); Chloride 112 mmol/L (98-107); EST Glomerular Filtration Rate 156 mL/min (>60); Est Glom Filt Rate - Afr Amer 189 mL/min (>60); Estimated Creatinine Clearance 81.01 ml/min; Globulin 3.9 g/dL (2.2-4.2); Potassium 3.5 mmol/L (3.5-5.1); Sodium Level 145 mmol/L (136-145)
--- NOTE | 2018-05-01 06:02 | PCM.PN.SRG ---
Patient Problems: Active and Suspected Problems (Last Updated 02/21/18 @ 01:01 by Tomer Jones MD) Altered mental status (Acute) Subjective: missed note 04/30 - still slightly confused - Physical Exam General: Alert, Oriented x3, Cooperative Lungs: Clear to auscultation, Normal air movement Cardiovascular: Regular rate, No murmurs Abdomen: Bowel Sounds Present, Soft, Tender - incisions - air in stoma bag, no stool, ARIE - serosanguinous Vital Signs Temp Pulse Resp BP Pulse Ox 97.7 F L 73 18 110/70 99 05/01/18 02:00 05/01/18 02:00 05/01/18 02:00 05/01/18 02:00 05/01/18 02:00 Oxygen Flow Rate (L/min) 1 Oxygen Delivery Method Room Air Weight: 100.2 kg Body Mass Index (BMI) 29.1 Intake and Output for Last 24 Hours 04/29/18 04/30/18 05/01/18 23:59 23:59 23:59 Intake Total 3079 / 3079 970 / 970 1201 / 1201 Output Total 2375 / 2375 2530 / 2530 1520 / 1520 Balance 704 / 704 -1560 / -1560 -319 / -319 Laboratory Tests Past 24 Hrs 04/30/18 05/01/18 05/01/18 08:30 05:18 05:18 WBC 4.3 L RBC 3.03 L Hgb 8.1 L Hct 26.7 L MCV 88.1 MCH 26.7 L MCHC 30.3 L RDW 16.9 H RDW Differential 52.4 H Plt Count 156 MPV 9.9 Immature Gran % (Auto) 2.300 H Neut % (Auto) 74.0 H Lymph % (Auto) 11.2 L [place] % (Auto) 9.5 Eos % (Auto) 2.8 Baso % (Auto) 0.2 Absolute Neuts (auto) 3.2 Absolute Lymphs (auto) 0.48 L Total Counted Pending Sodium 145 Potassium 3.5 Chloride 112 H Carbon Dioxide 28.0 Anion Gap 5 BUN 5 L Creatinine 0.55 L Estim Creat Clear Calc 81.01 Est GFR (MDRD) Af Amer 189 Est GFR (MDRD) Non-Af 156 BUN/Creatinine Ratio 9.0 L Glucose 110 H Calcium 7.8 L Total Bilirubin 1.20 H AST 66 H ALT 61 Alkaline Phosphatase 45 Total Protein 6.0 L Albumin 2.1 L Globulin 3.9 Albumin/Globulin Ratio 0.5 L Prealbumin 9.8 L Medical Necessity - Tobacco Use Smoking Status: Former smoker Tobacco Use: Cigarettes Assessment/Plan All Active Problems (Last Updated 02/21/18 @ 01:01 by Tomer Jones MD) Mid abdominal pain (Acute) Acute diverticulitis of intestine (Acute) Altered mental status (Acute) POD # 5 s/p exploratory laparotomy with segmental sigmoid resection for perforated diverticulitis with end Phyllis's colostomy pneumoperitoneum with spiking fever Thursday night- initially felt to be probable perforated duodenal ulcer given the patient's presentation and lack of abdominal pain. He had fever to 103. He was still denying any significant abdominal pain. Repeat CT scan was obtained late in the evening. This demonstrated was felt to be more inflammation again around the area of prior diverticulitis and extravasated air with now a small amount of intra-abdominal fluid. I discussed with the patient and his the fact that I am now totally comfortable his issue is recurring diverticulitis and probably did have duodenitis doubted duodenal perforation. My plan at this point since he has failed to improve on IV antibiotics and now seems worsening is to perform exploratory laparotomy with end Timmons's colostomy. I discussed with the patient and his the fact that performing an anastomosis has in my opinion too high a risk of leak in a contaminated field and given all his other issues feel this is the safest way to proceed. Patient's potassium is low. He was given potassium riders. patient with 2 week history of increasing abdominal distention and food aversion, history of complicated diverticulitis. CT scan obtained yesterday was felt to be consistent with probably a duodenal perforation due to a significant amount of intra-abdominal free air and no signs of intra-abdominal fluid. There was also noted to be no contrast leakage. The patient was started on a continuous IV proton pump inhibitor. he notes improvement in his abdominal complaints this morning. Patient is doing well today, improved bowel sounds, more gas in stoma bag. start clears and restart oral meds. Anticipate need for rehab due to deconditioning and malnutrition. Will encourage incentive spirometer use and ambulation
[2018-05-01] MEDS: Ipratropium/Albuterol Sulfate 3 ML AMPUL.NEB INHALATION ×3 (07:04→22:29)
--- NOTE | 2018-05-01 07:21 | PN.SURG_ITS ---
Patient Problems: Active and Suspected Problems (Last Updated 02/21/18 @ 01:01 by Tomer Jones MD) Altered mental status (Acute) Subjective: alert and oriented 2 out of 3,still mildly confused, - Physical Exam General: Alert, Cooperative, No apparent distress Lungs: Clear to auscultation, Normal air movement Cardiovascular: Regular rate, Regular Rhythm Abdomen: Hypoactive Bowel Sounds, Tender - along incisions, some air and stoma bag without stool, [place] serosanguineous Vital Signs Temp Pulse Resp BP Pulse Ox 97.7 F L 73 18 110/70 99 05/01/18 02:00 05/01/18 02:00 05/01/18 02:00 05/01/18 02:00 05/01/18 02:00 Oxygen Flow Rate (L/min) 1 Oxygen Delivery Method Room Air Weight: 100.2 kg Body Mass Index (BMI) 29.1 Intake and Output for Last 24 Hours 04/29/18 04/30/18 05/01/18 23:59 23:59 23:59 Intake Total 3079 / 3079 970 / 970 1201 / 1201 Output Total 2375 / 2375 2530 / 2530 1520 / 1520 Balance 704 / 704 -1560 / -1560 -319 / -319 Laboratory Tests Past 24 Hrs 04/30/18 05/01/18 05/01/18 08:30 05:18 05:18 WBC 4.3 L RBC 3.03 L Hgb 8.1 L Hct 26.7 L MCV 88.1 MCH 26.7 L MCHC 30.3 L RDW 16.9 H RDW Differential 52.4 H Plt Count 156 MPV 9.9 Immature Gran % (Auto) 2.300 H Neut % (Auto) 74.0 H Lymph % (Auto) 11.2 L [place] % (Auto) 9.5 Eos % (Auto) 2.8 Baso % (Auto) 0.2 Absolute Neuts (auto) 3.2 Absolute Lymphs (auto) 0.48 L Total Counted Not Reportable Diff Path Review June Sodium 145 Potassium 3.5 Chloride 112 H Carbon Dioxide 28.0 Anion Gap 5 BUN 5 L Creatinine 0.55 L Estim Creat Clear Calc 81.01 Est GFR (MDRD) Af Amer 189 Est GFR (MDRD) Non-Af 156 BUN/Creatinine Ratio 9.0 L Glucose 110 H Calcium 7.8 L Total Bilirubin 1.20 H AST 66 H ALT 61 Alkaline Phosphatase 45 Total Protein 6.0 L Albumin 2.1 L Globulin 3.9 Albumin/Globulin Ratio 0.5 L Prealbumin 9.8 L Medical Necessity - Tobacco Use Smoking Status: Former smoker Tobacco Use: Cigarettes Assessment/Plan All Active Problems (Last Updated 02/21/18 @ 01:01 by Tomer Jones MD) Mid abdominal pain (Acute) Acute diverticulitis of intestine (Acute) Altered mental status (Acute) POD # 6 s/p exploratory laparotomy with segmental sigmoid resection for perforated diverticulitis with end Phyllis's colostomy pneumoperitoneum with spiking fever Thursday night- initially felt to be probable perforated duodenal ulcer given the patient's presentation and lack of abdominal pain. He had fever to 103. He was still denying any significant abdominal pain. Repeat CT scan was obtained late in the evening. This demonstrated was felt to be more inflammation again around the area of prior diverticulitis and extravasated air with now a small amount of intra-abdominal fluid. I discussed with the patient and his the fact that I am now totally comfortable his issue is recurring diverticulitis and probably did have duodenitis doubted duodenal perforation. My plan at this point since he has failed to improve on IV antibiotics and now seems worsening is to perform exploratory laparotomy with end Timmons's colostomy. I discussed with the patient and his the fact that performing an anastomosis has in my opinion too high a risk of leak in a contaminated field and given all his other issues feel this is the safest way to proceed. Patient's potassium is low. He was given potassium riders. patient with 2 week history of increasing abdominal distention and food aversion, history of complicated diverticulitis. CT scan obtained yesterday was felt to be consistent with probably a duodenal perforation due to a significant amount of intra-abdominal free air and no signs of intra-abdominal fluid. There was also noted to be no contrast leakage. The patient was started on a continuous IV proton pump inhibitor. he notes improvement in his abdominal c omplaints this morning. Patient is doing well today, improved bowel sounds, more gas in stoma bag. Add ensure clear to current clear liquids clears and restart oral meds. Anticipate need for rehab due to deconditioning and malnutrition. Will encourage incentive spirometer use and ambulation
--- NOTE | 2018-05-01 09:57 | PN_ITS ---
Patient Problems: Active and Suspected Problems (Last Updated 02/21/18 @ 01:01 by Tomer Jones MD) Altered mental status (Acute) Subjective: Patient was seen and examined. His pain is fairly controlled. Denied any fever or chills. Has had a advancement of his diet and he has been tolerating it. ROS is negative. Vitals/I&O's: Vital Signs Temp Pulse Resp BP Pulse Ox 97.7 F L 85 20 H 110/70 90 05/01/18 02:00 05/01/18 07:04 05/01/18 07:04 05/01/18 02:00 05/01/18 07:04 Oxygen Flow Rate (L/min) 1 Oxygen Delivery Method Room Air Weight: 100.2 kg Body Mass Index (BMI) 29.1 Intake and Output for Last 24 Hours 04/29/18 04/30/18 05/01/18 23:59 23:59 23:59 Intake Total 3079 / 3079 970 / 970 1201 / 1201 Output Total 2375 / 2375 2530 / 2530 1520 / 1520 Balance 704 / 704 -1560 / -1560 -319 / -319 General: Alert, Oriented x3, Cooperative, No apparent distress HEENT: Atraumatic, PERRLA, EOMI, Normocephalic Oral: Moist Mucosa Neck: Supple Lungs: Diminished Cardiovascular: Regular rate, Regular Rhythm, Normal S1, Normal S2, No murmurs Abdomen: Bowel Sounds Present, Soft, Distended, - - midline incision with bisi, right drain in place Extremities: Edema - Trace bilateral edema Skin: No rashes Musculoskeletal: No Tenderness to Palpation of Joints or Extremities Lymphatic: No Cervical, Supraclavicular, or Inguinal Adenopathy Neurological: Cranial nerves II-XII grossly intact, Neuro grossly intact Psych/Mental Status: Normal Affect, Appropriate Laboratory Results 05/01/18 05:18: WBC 4.3 L, RBC 3.03 L, Hgb 8.1 L, Hct 26.7 L, MCV 88.1, MCH 26.7 L, MCHC 30.3 L, RDW 16.9 H, RDW Differential 52.4 H, Plt Count 156, MPV 9.9, Immature Gran % (Auto) 2.300 H, Neut % (Auto) 74.0 H, Lymph % (Auto) 11.2 L, [place] % (Auto) 9.5, Eos % (Auto) 2.8, Baso % (Auto) 0.2, Absolute Neuts (auto) 3.2, Absolute Lymphs (auto) 0.48 L, Total Counted Not Reportable, Diff Path Review June05/01/18 05:18: Sodium 145, Potassium 3.5, Chloride 112 H, Carbon Dioxide 28.0, Anion Gap 5, BUN 5 L, Creatinine 0.55 L, Estim Creat Clear Calc 81.01, Est GFR (MDRD) Af Amer 189, Est GFR (MDRD) Non-Af 156, BUN/Creatinine Ratio 9.0 L, Glucose 110 H, Calcium 7.8 L, Total Bilirubin 1.20 H, AST 66 H, ALT 61, Alkaline Phosphatase 45, Total Protein 6.0 L, Albumin 2.1 L, Globulin 3.9, Albumin/Globulin Ratio 0.5 L Current Medications Acetaminophen (Tylenol) 650 mg RECTAL Q4H PRN PRN PRN Reason: TEMP>101.5 Last Admin: 04/24/18 19:47 Dose: 650 mg Albuterol/Ipratropium (Duoneb) 3 ml INHALATION Q8H.RT [facility] Last Admin: 05/01/18 07:04 Dose: 3 ml Atorvastatin Calcium (Lipitor) 20 mg PO QHS [facility] Last Admin: 04/30/18 21:20 Dose: 20 mg Diphenhydramine HCl (Benadryl) 12.5 - 25 mg IV Q6H PRN PRN PRN Reason: ITCHING Enoxaparin Sodium (Lovenox) 40 mg SC DAILY [facility] Last Admin: 04/30/18 09:20 Dose: 40 mg Gabapentin (Neurontin) 300 mg PO BIDCM [facility] Guaifenesin (Robitussin Dm) 10 ml PO Q6H PRN PRN PRN Reason: cough Heparin Sodium (Beef Lung) () 50 units IV UD PRN PRN Reason: HEPARIN FLUSH Sodium Chloride () 250 mls @ 15 mls/hr IV .[id number] PRN PRN Reason: SALINE FLUSH Naloxone HCl 4 mg/ Dextrose 504 mls @ 0 mls/hr IV .Q0M PRN; Protocol PRN Reason: To maintain Resp. rate >10 Potassium Chloride/Dextrose/Sod Cl (Kcl 20meq In D5.45ns 1000ml) 1,000 mls @ 60 mls/hr IV .[id number] [facility] Last Admin: 04/30/18 17:09 Dose: 60 mls/hr Ibuprofen (Motrin) 400 mg PO Q4H PRN PRN PRN Reason: MILD PAIN (1-3/10) Last Admin: 04/30/18 20:11 Dose: 400 mg Morphine Sulfate () 1 - 3 mg IV Q1H PRN PRN PRN Reason: SEVERE PAIN (6-10/10) Last Admin: 04/24/18 10:35 Dose: 2 mg Naloxone HCl (Narcan) 0.02 mg IV Q1M PRN PRN Reason: RR <10 and pt unresponsive Nutritional Formula (Lactose Free) (Ensure Clear) 120 ml PO 4X/DAY [facility] Ondansetron HCl (Zofran) 4 mg IV Q4H PRN PRN PRN Reason: NAUSEA Last Admin: 04/29/18 11:09 Dose: 4 mg Pantoprazole Sodium (Protonix) 40 mg PO DAILY [facility] Last Admin: 04/30/18 09:20 Dose: 40 mg Prochlorperazine Edisylate (Compazine Iv) 5 mg IV Q4H PRN PRN PRN Reason: NAUSEA/VOMITING Last Admin: 04/25/18 09:47 Dose: 5 mg Sodium Chloride () 5 - 15 ml IV UD PRN PRN Reason: SALINE FLUSH Last Admin: 04/30/18 20:14 Dose: 10 ml Sodium Chloride () 10 - 20 ml IV UD PRN PRN Reason: PICC FLUSH Last Admin: 05/01/18 05:43 Dose: 10 ml Tamsulosin HCl (Flomax) 0.4 mg PO DAILY@1730 [facility] Last Admin: 04/30/18 17:12 Dose: 0.4 mg Medical Necessity - Tobacco Use Smoking Status: Former smoker Tobacco Use: Cigarettes Assessment/Plan All Active Problems (Last Updated 02/21/18 @ 01:01 by Tomer Jones MD) Mid abdominal pain (Acute) Acute diverticulitis of intestine (Acute) Altered mental status (Acute) 1. POD #7 status post exploratory laparotomy with segmental sigmoid resection for perforated diet ventriculitis with and Timmons's colostomy. Vitals are stable. Patient is having advancement in his diet. General surgery following, will follow up with recommendation 2. Acute encephalopathy, resolved. 3. Chronic neuropathy, etiology unclear, on Neurontin 4. Hyperlipidemia, on statin 5. BPH, on flomax 6. Debility secondary to complicated diverticulitis with proximal sigmoid perforation, awaiting insurance precertification for discharge to TCU 7. DVT PPx- Lovenox SC Code Visit Inpatient E&M: 12448 Subs Hosp L2
[2018-05-01] MEDS: Gabapentin 300 MG Capsule PO ×2 (10:38→18:20)
[2018-05-01] MEDS: Pantoprazole Sodium 40 MG Tablet PO (10:38)
[2018-05-01] MEDS: Ensure Clear 120 ML Liquid PO ×3 (10:38→18:20)
[2018-05-01] MEDS: Enoxaparin 40 MG/0.4 ML Syringe SC (12:04)
[2018-05-01] MEDS: Ondansetron 4 MG/2 ML Vial IV ×3 (12:04→21:29)
[2018-05-01] MEDS: Ibuprofen 400 MG Tablet PO ×2 (12:15→21:28)
[2018-05-01] MEDS: Tamsulosin HCl 0.4 MG Capsule PO (18:19)
[2018-05-01] MEDS: Atorvastatin Calcium 20 MG Tablet PO (21:28)
[2018-05-02] VITALS (8 sets, daily range): BP systolic 107–109; BP diastolic 62–69; PULSE 73–96; RESP 16–20; TEMP 36.5–37.3; O2SAT 92–98
[2018-05-02] MEDS: Ipratropium/Albuterol Sulfate 3 ML AMPUL.NEB INHALATION ×3 (07:44→22:25)
--- NOTE | 2018-05-02 08:52 | PCM.PN.HOSP ---
Patient Problems: Active and Suspected Problems (Last Updated 02/21/18 @ 01:01 by Tomer Jones MD) Altered mental status (Acute) Subjective: Patient was seen and examined. He feels improved. Denies chest pain, dizziness, SOB. Been out of bed to the chair. ROS is negative. Objective: Physical exam: General: Alert, Oriented x3, Cooperative, No apparent distress HEENT: Atraumatic, PERRLA, EOMI, Normocephalic Oral: Moist Mucosa Neck: Supple Lungs: Diminished Cardiovascular: Regular rate, Regular Rhythm, Normal S1, Normal S2, No murmurs Abdomen: Bowel Sounds Present, Soft, Distended, - - midline incision with bisi, right drain in place, sero-sanguinous , colostomy has soft brown stools Extremities: Edema - Trace bilateral edema Skin: No rashes Musculoskeletal: No Tenderness to Palpation of Joints or Extremities Lymphatic: No Cervical, Supraclavicular, or Inguinal Adenopathy Neurological: Cranial nerves II-XII grossly intact, Neuro grossly intact Psych/Mental Status: Normal Affect, Appropriate Vitals/I&O's: Vital Signs Temp Pulse Resp BP Pulse Ox 97.7 F L 88 16 108/66 92 05/02/18 03:05 05/02/18 07:44 05/02/18 07:44 05/02/18 03:05 05/02/18 07:44 Oxygen Flow Rate (L/min) 1 Oxygen Delivery Method Room Air Weight: 100.2 kg Body Mass Index (BMI) 29.1 Intake and Output for Last 24 Hours 04/30/18 05/01/18 05/02/18 23:59 23:59 23:59 Intake Total 970 / 970 3011 / 3011 855 / 855 Output Total 2530 / 2530 2120 / 2120 650 / 650 Balance -1560 / -1560 891 / 891 205 / 205 Current Medications Acetaminophen (Tylenol) 650 mg RECTAL Q4H PRN PRN PRN Reason: TEMP>101.5 Last Admin: 04/24/18 19:47 Dose: 650 mg Albuterol/Ipratropium (Duoneb) 3 ml INHALATION Q8H.RT JERED Last Admin: 05/02/18 07:44 Dose: 3 ml Atorvastatin Calcium (Lipitor) 20 mg PO QHS JERED Last Admin: 05/01/18 21:28 Dose: 20 mg Enoxaparin Sodium (Lovenox) 40 mg SC DAILY [facility] Last Admin: 05/01/18 12:04 Dose: 40 mg Gabapentin (Neurontin) 300 mg PO BIDCM [facility] Last Admin: 05/01/18 18:20 Dose: 300 mg Guaifenesin (Robitussin Dm) 10 ml PO Q6H PRN PRN PRN Reason: cough Heparin Sodium (Beef Lung) () 50 units IV UD PRN PRN Reason: HEPARIN FLUSH Sodium Chloride () 250 mls @ 15 mls/hr IV .[id number] PRN PRN Reason: SALINE FLUSH Naloxone HCl 4 mg/ Dextrose 504 mls @ 0 mls/hr IV .Q0M PRN; Protocol PRN Reason: To maintain Resp. rate >10 Potassium Chloride/Dextrose/Sod Cl (Kcl 20meq In D5.45ns 1000ml) 1,000 mls @ 60 mls/hr IV .[id number] [facility] Last Admin: 05/02/18 04:46 Dose: 60 mls/hr Ibuprofen (Motrin) 400 mg PO Q4H PRN PRN PRN Reason: MILD PAIN (1-3/10) Last Admin: 05/01/18 21:28 Dose: 400 mg Morphine Sulfate () 1 - 3 mg IV Q1H PRN PRN PRN Reason: SEVERE PAIN (6-10/10) Last Admin: 04/24/18 10:35 Dose: 2 mg Naloxone HCl (Narcan) 0.02 mg IV Q1M PRN PRN Reason: RR <10 and pt unresponsive Nutritional Formula (Lactose Free) (Ensure Clear) 120 ml PO 4X/DAY [facility] Last Admin: 05/01/18 21:29 Dose: Not Given Ondansetron HCl (Zofran) 4 mg IV Q4H PRN PRN PRN Reason: NAUSEA Last Admin: 05/01/18 21:29 Dose: 4 mg Pantoprazole Sodium (Protonix) 40 mg PO DAILY [facility] Last Admin: 05/01/18 10:38 Dose: 40 mg Prochlorperazine Edisylate (Compazine Iv) 5 mg IV Q4H PRN PRN PRN Reason: NAUSEA/VOMITING Last Admin: 04/25/18 09:47 Dose: 5 mg Sodium Chloride () 10 - 20 ml IV UD PRN PRN Reason: PICC FLUSH Last Admin: 05/01/18 16:06 Dose: 10 ml Tamsulosin HCl (Flomax) 0.4 mg PO DAILY@1730 JERED Last Admin: 05/01/18 18:19 Dose: 0.4 mg Medical Necessity - Tobacco Use Smoking Status: Former smoker Tobacco Use: Cigarettes Assessment/Plan All Active Problems (Last Updated 02/21/18 @ 01:01 by Tomer Jones MD) Mid abdominal pain (Acute) Acute diverticulitis of intestine (Acute) Altered mental status (Acute) 1. POD #8, status post exploratory laparotomy with segmental sigmoid resection for perforated diet ventriculitis s/p Timmons's colostomy. Vitals are stable. Tolerating advancement in her diet. General surgery following, will follow up with recommendation 2. Acute encephalopathy, resolved. 3. Chronic neuropathy, etiology unclear, on Neurontin 4. Hyperlipidemia, on statin 5. BPH, on flomax 6. Debility secondary to complicated diverticulitis with proximal sigmoid perforation, awaiting insurance precertification for discharge to TCU 7. DVT PPx- Lovenox SC 8. Disposition: Possible DC to SNF when bed is available. Code Visit Inpatient E&M: 27531 Subs Hosp L2
[2018-05-02] MEDS: Ensure Clear 120 ML Liquid PO (09:38)
[2018-05-02] MEDS: Gabapentin 300 MG Capsule PO ×2 (09:40→17:01)
[2018-05-02] MEDS: Enoxaparin 40 MG/0.4 ML Syringe SC (09:40)
[2018-05-02] MEDS: Pantoprazole Sodium 40 MG Tablet PO (09:40)
--- NOTE | 2018-05-02 10:01 | PN.SURG_ITS ---
Patient Problems: Active and Suspected Problems (Last Updated 02/21/18 @ 01:01 by Tomer Jones MD) Altered mental status (Acute) Subjective: more air and stool in bag, feeling stronger today - Physical Exam General: Alert, Oriented x3, Cooperative Lungs: Clear to auscultation, Normal air movement, Diminished Cardiovascular: Regular rate, Regular Rhythm Abdomen: Bowel Sounds Present, Soft, Non Tender, - - ARIE with serous fluid Vital Signs Temp Pulse Resp BP Pulse Ox 97.8 F 96 16 109/62 96 05/02/18 09:05 05/02/18 09:05 05/02/18 09:05 05/02/18 09:05 05/02/18 09:05 Oxygen Flow Rate (L/min) 1 Oxygen Delivery Method Room Air Weight: 100.2 kg Body Mass Index (BMI) 29.1 Intake and Output for Last 24 Hours 04/30/18 05/01/18 05/02/18 23:59 23:59 23:59 Intake Total 970 / 970 3011 / 3011 855 / 855 Output Total 2530 / 2530 2120 / 2120 650 / 650 Balance -1560 / -1560 891 / 891 205 / 205 Medical Necessity - Tobacco Use Smoking Status: Former smoker Tobacco Use: Cigarettes Assessment/Plan All Active Problems (Last Updated 02/21/18 @ 01:01 by Tomer Jones MD) Mid abdominal pain (Acute) Acute diverticulitis of intestine (Acute) Altered mental status (Acute) POD # 7 s/p exploratory laparotomy with segmental sigmoid resection for perforated diverticulitis with end Phyllis's colostomy pneumoperitoneum with spiking fever Thursday night- initially felt to be probable perforated duodenal ulcer given the patient's presentation and lack of abdominal pain. He had fever to 103. He was still denying any significant abdominal pain. Repeat CT scan was obtained late in the evening. This dem onstrated was felt to be more inflammation again around the area of prior diverticulitis and extravasated air with now a small amount of intra-abdominal fluid. I discussed with the patient and his the fact that I am now totally comfortable his issue is recurring diverticulitis and probably did have duodenitis doubted duodenal perforation. My plan at this point since he has failed to improve on IV antibiotics and now seems worsening is to perform exploratory laparotomy with end Timmons's colostomy. I discussed with the patient and his the fact that performing an anastomosis has in my opinion too high a risk of leak in a contaminated field and given all his other issues feel this is the safest way to proceed. Patient's potassium is low. He was given potassium riders. patient with 2 week history of increasing abdominal distention and food aversion, history of complicated diverticulitis. CT scan obtained yesterday was felt to be consistent with probably a duodenal perforation due to a significant amount of intra-abdominal free air and no signs of intra-abdominal fluid. There was also noted to be no contrast leakage. The patient was started on a continuous IV proton pump inhibitor. he notes improvement in his abdominal complaints this morning. Patient is doing well today, improved bowel sounds, more gas and stool in stoma bag. tolerating clear liquids. We'll advance to full liquids-no fiber + ensure clear. Anticipate need for rehab due to deconditioning - the patient becoming fatigued when walking from bed to door - and malnutrition - prealbumin less than 10. Will encourage incentive spirometer use and ambulation.
[2018-05-02] MEDS: 0.9% NaCl PICC Flush IV ×2 (12:34→17:03)
[2018-05-02] MEDS: Ondansetron 4 MG/2 ML Vial IV (12:34)
[2018-05-02] MEDS: Ibuprofen 400 MG Tablet PO (15:18)
[2018-05-02] MEDS: Tamsulosin HCl 0.4 MG Capsule PO (17:01)
--- NOTE | 2018-05-02 17:51 | NURSING ---
Calorie count requested by , however, is with patient and bringing multiple drinks and things from home and is with pt- ensuring. Yesterday- day shift pt drank 4 120cc of ensure clear, pepsi and purple grape juice,and water. today 05/02- pt drank 1, 240ml carton of whole milk, a small milkshake, purple grape juice, ensure clear and ensure enlive. Pt tolerating well. Pain reported by pt to be minimal this shift, non verbal pain correlates.
[2018-05-02] MEDS: Atorvastatin Calcium 20 MG Tablet PO (22:35)
[2018-05-03] VITALS (9 sets, daily range): BP systolic 92–157; BP diastolic 57–102; PULSE 84–98; RESP 14–18; TEMP 36.5–36.9; O2SAT 95–98
[2018-05-03] MEDS: Tamsulosin HCl 0.4 MG Capsule PO ×2 (06:29→22:05)
[2018-05-03] MEDS: 0.9% NaCl PICC Flush IV ×3 (07:44→07:46)
[2018-05-03 08:00] LABS: Absolute Lymphocyte Count 0.55 X10^3/ul (0.83-4.51); Absolute Neutrophil Count 3.3 X10^3/uL (2.0-7.7); Basophil# 0.01 X10^3/uL; Basophil% 0.2 % (0-1); Eosinophil# 0.08 X10^3/uL; Eosinophils% 1.8 % (0-5); Hematocrit 27.4 % (40-54); Hemoglobin 8.6 g/dl (13.0-16.5); Lymphocyte # 0.55 X10^3/ul (4.0); Lymphocyte % 12.3 % (19-41); Mean Corp Hgb Conc 31.4 g/gl (32-36); Mean Corpuscular Hgb 26.5 pg (27.0-32.0); Mean Corpuscular Volume 84.6 fL (80-94); Mean Platelet Vol. 9.5 fl (6.2-12.0); Monocyte# 0.48 X10^3/uL; Monocyte% 10.8 % (0-10); Neutrophil # 3.27 X10^3/uL (2.7-7.7); Neutrophil % 73.3 % (47-70); Platelet Count 146 K/mm3 (150-450); RBC Distribution Width SD 53.2 fl (35.1-43.9); Red Blood Count 3.24 M/mm3 (4.6-6.2); White Blood Count 4.5 K/mm3 (4.4-11.0)
[2018-05-03 08:01] LABS: Differential Indicated SCAN CRITERIA MET; POSITIVE COUNT NO; POSITIVE DIFFERENTIAL YES; POSITIVE MORPHOLOGY NO
[2018-05-03 08:23] LABS: ALB/GLOB Ratio 0.6 RATIO (0.9-2.4); AST(SGOT) 56 U/L (15-37); Alanine Aminotransfer ALT/SGPT 60 U/L (16-61); Albumin, Serum 2.4 g/dL (3.2-5.0); Alkaline Phosphatase 55 U/L (45-117); Anion Gap 7 (5-15); BUN 8 mg/dL (7-18); BUN/Creat Ratio 12.1 RATIO (10-20); Chloride 111 mmol/L (98-107); Creatinine, Serum 0.66 mg/dL (0.70-1.30); EST Glomerular Filtration Rate 127 mL/min (>60); Est Glom Filt Rate - Afr Amer 154 mL/min (>60); Estimated Creatinine Clearance 81.01 ml/min; Glucose 115 mg/dL (74-106); Magnesium 1.7 mg/dL (1.6-2.6); Phosphorus 2.3 mg/dL (2.5-4.9); Potassium 3.6 mmol/L (3.5-5.1); Protein, Total 6.4 g/dL (6.4-8.2); Sodium Level 143 mmol/L (136-145)
[2018-05-03] MEDS: Pantoprazole Sodium 40 MG Tablet PO (09:41)
[2018-05-03] MEDS: Enoxaparin 40 MG/0.4 ML Syringe SC (09:42)
[2018-05-03] MEDS: Gabapentin 300 MG Capsule PO ×2 (09:42→17:58)
--- NOTE | 2018-05-03 10:11 | NURSING ---
Pt now having some rhodes stool from colostomy. abdominal incision is well approximated with bisi in place. MAKAYLA. no drainage noted. will monitor.
--- NOTE | 2018-05-03 10:30 | PN_ITS ---
Patient Problems: Active and Suspected Problems (Last Updated 02/21/18 @ 01:01 by Tomer Jones MD) Altered mental status (Acute) BPH (benign prostatic hyperplasia) (Acute) Subjective: Patient was seen and examined. Had episodes of urine retention, s/p straight cath. Denies fever or chills. Waiting on insurance precertification. Objective: Physical exam: General: Alert, Oriented x3, Cooperative, No apparent distress HEENT: Atraumatic, PERRLA, EOMI, Normocephalic Oral: Moist Mucosa Neck: Supple Lungs: Diminished Cardiovascular: Regular rate, Regular Rhythm, Normal S1, Normal S2, No murmurs Abdomen: Bowel Sounds Present, Soft, Distended, - - midline incision with bisi, right drain in place, sero-sanguinous , colostomy has soft brown stools Extremities: Edema - Trace bilateral edema Skin: No rashes Musculoskeletal: No Tenderness to Palpation of Joints or Extremities Lymphatic: No Cervical, Supraclavicular, or Inguinal Adenopathy Neurological: Cranial nerves II-XII grossly intact, Neuro grossly intact Psych/Mental Status: Normal Affect, Appropriate Vitals/I&O's: Vital Signs Temp Pulse Resp BP Pulse Ox 98.4 F 95 14 95/69 95 05/03/18 09:27 05/03/18 09:27 05/03/18 09:27 05/03/18 09:27 05/03/18 09:27 Oxygen Flow Rate (L/min) 1 Oxygen Delivery Method Room Air Weight: 100.2 kg Body Mass Index (BMI) 29.1 Intake and Output for Last 24 Hours 05/01/18 05/02/18 05/03/18 23:59 23:59 23:59 Intake Total 3011 / 3011 1931 / 1931 1127 / 1127 Output Total 2120 / 2120 1310 / 1310 1408 / 1408 Balance 891 / 891 621 / 621 -281 / -281 Laboratory Results 05/03/18 07:40: WBC 4.5, RBC 3.24 L, Hgb 8.6 L, Hct 27.4 L, MCV 84.6, MCH 26.5 L , MCHC 31.4 L, RDW 17.0 H, RDW Differential 53.2 H, Plt Count 146 L, MPV 9.5, Immature Gran % (Auto) 1.600 H, Neut % (Auto) 73.3 H, Lymph % (Auto) 12.3 L, [place] % (Auto) 10.8 H, Eos % (Auto) 1.8, Baso % (Auto) 0.2, Absolute Neuts (auto) 3.3, Absolute Lymphs (auto) 0.55 L, Total Counted Not Reportable, Differential Comment COMMENT 05/03/18 07:40: Sodium 143, Potassium 3.6, Chloride 111 H, Carbon Dioxide 25.0, Anion Gap 7, BUN 8, Creatinine 0.66 L, Estim Creat Clear Calc 81.01, Est GFR (MDRD) Af Amer 154, Est GFR (MDRD) Non-Af 127, BUN/Creatinine Ratio 12.1, Glucose 115 H, Calcium 8.0 L, Phosphorus 2.3 L, Magnesium 1.7, Total Bilirubin 0.90, AST 56 H, ALT 60, Alkaline Phosphatase 55, Total Protein 6.4, Albumin 2.4 L, Globulin 4.0, Albumin/Globulin Ratio 0.6 L Current Medications Albuterol/Ipratropium (Duoneb) 3 ml INHALATION Q8H.RT [facility] Last Admin: 05/03/18 07:30 Dose: Not Given Atorvastatin Calcium (Lipitor) 20 mg PO QHS [facility] Last Admin: 05/02/18 22:35 Dose: 20 mg Enoxaparin Sodium (Lovenox) 40 mg SC DAILY [facility] Last Admin: 05/03/18 09:42 Dose: 40 mg [facility] Last Admin: 05/03/18 09:42 Dose: 300 mg Guaifenesin (Robitussin Dm) 10 ml PO Q6H PRN PRN PRN Reason: cough Heparin Sodium (Beef Lung) () 50 units IV UD PRN PRN Reason: HEPARIN FLUSH Ibuprofen (Motrin) 400 mg PO Q4H PRN PRN PRN Reason: MILD PAIN (1-3/10) Last Admin: 05/02/18 15:18 Dose: 400 mg Ondansetron HCl (Zofran) 4 mg IV Q4H PRN PRN PRN Reason: NAUSEA Last Admin: 05/02/18 12:34 Dose: 4 mg Oxycodone HCl (Oxyir) 5 mg PO Q4H PRN PRN PRN Reason: SEVERE PAIN (6-11/25) Pantoprazole Sodium (Protonix) 40 mg PO DAILY [facility] Last Admin: 05/03/18 09:41 Dose: 40 mg Prochlorperazine Edisylate (Compazine Iv) 5 mg IV Q4H PRN PRN PRN Reason: NAUSEA/VOMITING Last Admin: 04/25/18 09:47 Dose: 5 mg Sodium Chloride () 10 - 20 ml IV UD PRN PRN Reason: PICC FLUSH Last Admin: 05/03/18 07:46 Dose: 10 ml Tamsulosin HCl (Flomax) 0.4 mg PO BID [facility] Last Admin: 05/03/18 06:29 Dose: 0.4 mg Medical Necessity - Tobacco Use Smoking Status: Former smoker Tobacco Use: Cigarettes Assessment/Plan All Active Problems (Last Updated 02/21/18 @ 01:01 by Tomer Jones MD) Mid abdominal pain (Acute) Acute diverticulitis of intestine (Acute) Altered mental status (Acute) BPH (benign prostatic hyperplasia) (Acute) 1. POD #9, status post exploratory laparotomy with segmental sigmoid resection for perforated diverticulitis. s/p Timmons's colostomy. Appears to be doing well, tolerating full liquid diet. General surgery following. 2. Acute encephalopathy, resolved. 3. Chronic neuropathy, etiology unclear, on Neurontin 4. Hyperlipidemia, on statin 5. BPH, with episodes of urine retention, s/p madden catheter, on flomax, urology consulted, Proscar added 6. Debility secondary to complicated diverticulitis with proximal sigmoid perforation, awaiting insurance precertification for discharge to TCU 7. DVT PPx- Lovenox SC 8. Disposition: Possible DC to SNF when bed is available. Code Visit Inpatient E&M: 71811 Subs Hosp L2
[2018-05-03 11:55] LABS: Pathologist Review Reviewed
[2018-05-03] MEDS: Ibuprofen 400 MG Tablet PO (12:51)
--- NOTE | 2018-05-03 16:48 | CASEMGMT ---
Social Work: TC from Nara Smith, RODNEY stating that [facility] has informed her that [facility] is nor currently in network with [facility]. Will update patient that TCU is unable to accept patient. Met with patient and . Patient requesting to return home with home health verses initiating another pre cert at a different facility. Patient's also agreeable to this plan. Will update Dawn Rojas RN regarding plan to return home with home health. PLAN: Patient to return home with home health services at [facility] [place]
--- NOTE | 2018-05-03 17:40 | PCM.CONS.U ---
Problem List (1) BPH (benign prostatic hyperplasia) Status: Acute Qualifiers: Lower urinary tract symptom detail: urinary retention Reason for Consult Date of Consultation: 05/03/18 Reason for Consultation: urinary retention History of Present Illness: The patient is a 67 year old Male complicated history has BPH and retention of urine on flomax bid can add proscar 5mg daily, no h/o prostate surgery going home tomorrow with madden. 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 Small fiber neuropathy G62.9 Allergies cod liver oil [From Desitin] Allergy (Verified 02/20/18 20:09) Rash zinc oxide [From Desitin] Allergy (Verified 02/20/18 20:09) Rash Home Medications: Ambulatory Orders Medication Instructions Recorded Aspirin [Aspirin, Baby] 81 mg PO DAILY@0800 12/08/16 Cholecalciferol (VIT D3) [Vitamin 2,000 unit PO DAILY 12/08/16 D3] Gabapentin [Neurontin] 900 mg PO BID 12/08/16 Multivit-Min/FA/Lycopen/Lutein 1 each PO DAILY 12/08/16 [Centrum Silver Men Tablet] Simvastatin [Zocor] 40 mg PO QHS 12/08/16 Tamsulosin HCl [Flomax] 0.4 mg PO DAILY 12/08/16 Acetaminophen [Tylenol] 650 mg PO Q6H PRN PRN #30 tablet 02/24/18 Ibuprofen 400 mg PO Q6H PRN PRN #30 tablet 02/24/18 Ondansetron [Zofran Odt] 4 mg PO Q4H PRN PRN 04/22/18 Surgical History: appendectomy, - - 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, 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, arthroplasty of knee with tendon repair Psychiatric History: No pertinent psych hx Smoking Status: Former smoker Tobacco Use: Cigarettes - *Family History Maternal History Items: Heart Disease Paternal History Items: Cancer - Lung cancer Sibling History Items: - - Multiple myeloma Review of Systems Constitutional: Denies: Chills, Fever, Weight Change HEENT: Denies: Head Aches, Sinus Congestion, Sinus Drainage Cardiovascular: Denies: Chest Pain, Palpitations Respiratory: Denies: Cough, Shortness of breath at rest, Sputum production Gastrointestinal: Denies: Abdominal Pain, Nausea, Vomiting Genitourinary: Reports: Retention. Denies: Dysuria Musculoskeletal: Denies: Joint Pain, Joint Tenderness Skin: Denies: Rash, Wounds Neurological: Denies: Numbness, Tingling, Focal weakness Psychiatric: Denies: Anxiety, Depression, Homicidal Ideations, Suicidal Ideations Hematologic/ Lymphatic: Denies: Easy Bruising, Easy Bleeding Physical Exam - Physical Exam Vital Signs Temp 98.3 F 05/03/18 15:05 Pulse 95 05/03/18 15:05 Resp 14 05/03/18 15:05 BP 115/70 05/03/18 16:34 Pulse Ox 96 05/03/18 15:05 Intake & Output 05/01/18 05/02/18 05/03/18 23:59 23:59 23:59 Intake Total 3011 / 3011 1931 / 1931 1527 / 1527 Output Total 2120 / 2120 1310 / 1310 1858 / 1858 Balance 891 / 891 621 / 621 -331 / -331 Weight: 100.2 kg 100.2 kg 100.2 kg Intake: Oral 1400 / 1400 580 / 580 1527 / 1527 IV fluid/meds 1611 / 1611 1351 / 1351 Output: Urine 2100 / 2100 1100 / 1100 1575 / 1575 #2 Urine 25 / 25 Stool Amount 200 / 200 250 / 250 Gastric Drainage 0 / 0 0 / 0 Drainage Amount 20 / 20 10 / 10 8 / 8 danita drain 20 / 20 10 / 10 8 / 8 Other: Number of Voids 2 Number of Bowel Movements 1 2 Drain Location danita drain 15 2 Tube Type danita drain DANITA drain DANITA drain DANITA drain rt lower quad DANITA drain DANITA drain DANITA drain General: Alert, Oriented x3 HEENT: Atraumatic Oral: Moist Mucosa Neck: Supple Lungs: Normal air movement Cardiovascular: Regular rate Abdomen: Soft Rectal: Exam deferred Laboratory Tests Past 24 Hrs 05/01/18 05/03/18 05/03/18 05:18 07:40 07:40 WBC 4.5 RBC 3.24 L Hgb 8.6 L Hct 27.4 L MCV 84.6 MCH 26.5 L MCHC 31.4 L RDW 17.0 H RDW Differential 53.2 H Plt Count 146 L MPV 9.5 Immature Gran % (Auto) 1.600 H Neut % (Auto) 73.3 H Lymph % (Auto) 12.3 L [place] % (Auto) 10.8 H Eos % (Auto) 1.8 Baso % (Auto) 0.2 Absolute Neuts (auto) 3.3 Absolute Lymphs (auto) 0.55 L Total Counted Not Reportable Differential Comment COMMENT Diff Path Review Reviewed Sodium 143 Potassium 3.6 Chloride 111 H Carbon Dioxide 25.0 Anion Gap 7 BUN 8 Creatinine 0.66 L Estim Creat Clear Calc 81.01 Est GFR (MDRD) Af Amer 154 Est GFR (MDRD) Non-Af 127 BUN/Creatinine Ratio 12.1 Glucose 115 H Calcium 8.0 L Phosphorus 2.3 L Magnesium 1.7 Total Bilirubin 0.90 AST 56 H ALT 60 Alkaline Phosphatase 55 Total Protein 6.4 Albumin 2.4 L Globulin 4.0 Albumin/Globulin Ratio 0.6 L Assessment/Plan All Active Problems (Last Updated 02/21/18 @ 01:01 by Tomer Jones MD) Mid abdominal pain (Acute) Acute diverticulitis of intestine (Acute) Altered mental status (Acute) BPH (benign prostatic hyperplasia) (Acute) 67 yo male with BPH and post op retention of urine home with madden, on flomax bid add proscar 5mg daily follow up wiht Urology as outpatient to d/c madden.
--- NOTE | 2018-05-03 18:08 | PCM.PN.SRG ---
Patient Problems: Active and Suspected Problems (Last Updated 02/21/18 @ 01:01 by Tomer Jones MD) Altered mental status (Acute) BPH (benign prostatic hyperplasia) (Acute) Subjective: still urinary challenges - Physical Exam General: Alert, Oriented x3, Cooperative Lungs: Clear to auscultation, Normal air movement Cardiovascular: Regular rate, Regular Rhythm Abdomen: Bowel Sounds Present, Soft, Non Tender, - - stool and air and stoma bag Vital Signs Temp Pulse Resp BP Pulse Ox 98.3 F 95 14 115/70 96 05/03/18 15:05 05/03/18 15:05 05/03/18 15:05 05/03/18 16:34 05/03/18 15:05 Oxygen Flow Rate (L/min) 1 Oxygen Delivery Method Room Air Weight: 100.2 kg Body Mass Index (BMI) 29.1 Intake and Output for Last 24 Hours 05/01/18 05/02/18 05/03/18 23:59 23:59 23:59 Intake Total 3011 / 3011 193 / 1931 2026 Output Total 2120 / 2120 1310 / 1310 2403 / 2403 Balance 891 / 891 621 / 621 -376 / -376 Laboratory Tests Past 24 Hrs 05/01/18 05/03/18 05/03/18 05:18 07:40 07:40 WBC 4.5 RBC 3.24 L Hgb 8.6 L Hct 27.4 L MCV 84.6 MCH 26.5 L MCHC 31.4 L RDW 17.0 H RDW Differential 53.2 H Plt Count 146 L MPV 9.5 Immature Gran % (Auto) 1.600 H Neut % (Auto) 73.3 H Lymph % (Auto) 12.3 L [place] % (Auto) 10.8 H Eos % (Auto) 1.8 Baso % (Auto) 0.2 Absolute Neuts (auto) 3.3 Absolute Lymphs (auto) 0.55 L Total Counted Not Reportable Differential Comment COMMENT Diff Path Review Reviewed Sodium 143 Potassium 3.6 Chloride 111 H Carbon Dioxide 25.0 Anion Gap 7 BUN 8 Creatinine 0.66 L Estim Creat Clear Calc 81.01 Est GFR (MDRD) Af Amer 154 Est GFR (MDRD) Non-Af 127 BUN/Creatinine Ratio 12.1 Glucose 115 H Calcium 8.0 L Phosphorus 2.3 L Magnesium 1.7 Total Bilirubin 0.90 AST 56 H ALT 60 Alkaline Phosphatase 55 Total Protein 6.4 Albumin 2.4 L Globulin 4.0 Albumin/Globulin Ratio 0.6 L Medical Necessity - Tobacco Use Smoking Status: Former smoker Tobacco Use: Cigarettes Assessment/Plan All Active Problems (Last Updated 02/21/18 @ 01:01 by Tomer Jones MD) Mid abdominal pain (Acute) Acute diverticulitis of intestine (Acute) Altered mental status (Acute) BPH (benign prostatic hyperplasia) (Acute) POD # 8 s/p exploratory laparotomy with segmental sigmoid resection for perforated diverticulitis with end Phyllis's colostomy pneumoperitoneum with spiking fever Thursday night- initially felt to be probable perforated duodenal ulcer given the patient's presentation and lack of abdominal pain. He had fever to 103. He was still denying any significant abdominal pain. Repeat CT scan was obtained late in the evening. This demonstrated was felt to be more inflammation again around the area of prior diverticulitis and extravasated air with now a small amount of intra-abdominal fluid. I discussed with the patient and his the fact that I am now totally comfortable his issue is recurring diverticulitis and probably did have duodenitis doubted duodenal perforation. My plan at this point since he has failed to improve on IV antibiotics and now seems worsening is to perform exploratory laparotomy with end Timmons's colostomy. I discussed with the patient and his the fact that performing an anastomosis has in my opinion too high a risk of leak in a contaminated field and given all his other issues feel this is the safest way to proceed. Patient's potassium is low. He was given potassium riders. patient with 2 week history of increasing abdominal distention and food aversion, history of complicated diverticulitis. CT scan obtained yesterday was felt to be consistent with probably a duodenal perforation due to a significant amount of intra-abdominal free air and no signs of intra-abdominal fluid. There was also noted to be no contrast leakage. The patient was started on a continuous IV proton pump inhibitor. he notes improvement in his abdominal complaints this morning. Patient is doing well today, improved bowel sounds, more gas and stool in stoma bag. tolerating clear liquids. We'll advance to full liquids-no fiber + ensure clear. Anticipate need for rehab due to deconditioning - the patient becoming fatigued when walking from bed to door - and malnutrition - prealbumin less than 10. Will encourage incentive spirometer use and ambulation.
[2018-05-03] MEDS: Atorvastatin Calcium 20 MG Tablet PO (22:05)
[2018-05-04 02:47] VITALS: BP 116/73; PULSE 82; RESP 18; TEMP 36.6; O2SAT 96
[2018-05-04 07:10] VITALS: O2SAT 95
--- NOTE | 2018-05-04 08:35 | NURSING ---
was able to change the colostomy appliance with minimal instruction. peristomal skin was intact. no breakdown noted. peristomal skin was cleansed with warm water and pat dry. applied a new 2 piece flat Paco appliance with a small amount of stoma paste. will continue education such as emptying appliance, etc. all questions answered. abdominal incision is well approximated with bisi in place. no redness, no drainage noted. pt is now eating a no gastric stim diet and tolerating well.
[2018-05-04 08:45] VITALS: BP 107/69; PULSE 87; RESP 16; TEMP 37.1; O2SAT 94
[2018-05-04] MEDS: Pantoprazole Sodium 40 MG Tablet PO (08:48)
[2018-05-04] MEDS: Gabapentin 300 MG Capsule PO ×2 (08:48→16:31)
[2018-05-04] MEDS: Tamsulosin HCl 0.4 MG Capsule PO ×2 (08:48→23:24)
[2018-05-04] MEDS: Ibuprofen 400 MG Tablet PO (08:51)
[2018-05-04] MEDS: Finasteride 5 MG Tablet PO (08:52)
--- NOTE | 2018-05-04 10:02 | CASEMGMT ---
RODNEY LOUIS updated by that patient would like to discharge home with [facility]. RODNEY CM in to discuss discharge plans with patient and . Patient will need a walker for at home. RODNEY LOUIS will assist with setting up FWW for patient. RODNEY LOUIS confirmed with [facility] that they are still able to accept patient. [facility] is able to follow the patient. Wound nurse updated regarding planned discharge for home now and will assist with ostomy supply setup. RODNEY LOUIS will continue to follow this patient and plan for a safe discharge.
[2018-05-04 10:41] VITALS: PULSE 100
--- NOTE | 2018-05-04 10:41 | PN_ITS ---
Patient Problems: Active and Suspected Problems (Last Updated 02/21/18 @ 01:01 by Tomer Jones MD) Altered mental status (Acute) BPH (benign prostatic hyperplasia) (Acute) Subjective: Patient was seen and examined. He feels stronger. Tolerating an advancement in his diet. Ambulating well also with walker. Objective: Physical exam: General: Alert, Oriented x3, Cooperative, No apparent distress HEENT: Atraumatic, PERRLA, EOMI, Normocephalic Oral: Moist Mucosa Neck: Supple Lungs: Diminished Cardiovascular: Regular rate, Regular Rhythm, Normal S1, Normal S2, No murmurs Abdomen: Bowel Sounds Present, Soft, Distended, - - midline incision with bisi, right drain in place, sero-sanguinous , colostomy has soft brown stools Extremities: Edema - Trace bilateral edema Skin: No rashes Musculoskeletal: No Tenderness to Palpation of Joints or Extremities Lymphatic: No Cervical, Supraclavicular, or Inguinal Adenopathy Neurological: Cranial nerves II-XII grossly intact, Neuro grossly intact Psych/Mental Status: Normal Affect, Appropriate Vitals/I&O's: Vital Signs Temp Pulse Resp BP Pulse Ox 98.7 F 87 16 107/69 94 05/04/18 08:45 05/04/18 08:45 05/04/18 08:45 05/04/18 08:45 05/04/18 08:45 Oxygen Flow Rate (L/min) 1 Oxygen Delivery Method Room Air Weight: 100.2 kg Body Mass Index (BMI) 29.1 Intake and Output for Last 24 Hours 05/02/18 05/03/18 05/04/18 23:59 23:59 23:59 Intake Total 193 / [id number] 340 / 340 Output Total 1310 / 1310 2403 / 2403 870 / 870 Balance 621 / 621 -376 / -376 -530 / -530 Laboratory Results 05/01/18 05:18: Diff Path Review Reviewed Current Medications Albuterol/Ipratropium (Duoneb) 3 ml INHALATION Q8H.RT [facility] Last Admin: 05/04/18 07:10 Dose: Not Given Atorvastatin Calcium (Lipitor) 20 mg PO QHS [facility] Last Admin: 05/03/18 22:05 Dose: 20 mg Enoxaparin Sodium (Lovenox) 40 mg SC DAILY [facility] Last Admin: 05/03/18 09:42 Dose: 40 mg Finasteride (Proscar) 5 mg PO DAILY [facility] Last Admin: 05/04/18 08:52 Dose: 5 mg [facility] Last Admin: 05/04/18 08:48 Dose: 300 mg Guaifenesin (Robitussin Dm) 10 ml PO Q6H PRN PRN PRN Reason: cough Heparin Sodium (Beef Lung) () 50 units IV UD PRN PRN Reason: HEPARIN FLUSH Ibuprofen (Motrin) 400 mg PO Q4H PRN PRN PRN Reason: MILD PAIN (1-310) Last Admin: 05/04/18 08:51 Dose: 400 mg Ondansetron HCl (Zofran) 4 mg IV Q4H PRN PRN PRN Reason: NAUSEA Last Admin: 05/02/18 12:34 Dose: 4 mg Oxycodone HCl (Oxyir) 5 mg PO Q4H PRN PRN PRN Reason: SEVERE PAIN (6-1010) Pantoprazole Sodium (Protonix) 40 mg PO DAILY [facility] Last Admin: 05/04/18 08:48 Dose: 40 mg Prochlorperazine Edisylate (Compazine Iv) 5 mg IV Q4H PRN PRN PRN Reason: NAUSEA/VOMITING Last Admin: 04/25/18 09:47 Dose: 5 mg Sodium Chloride () 10 - 20 ml IV UD PRN PRN Reason: PICC FLUSH Last Admin: 05/03/18 07:46 Dose: 10 ml Tamsulosin HCl (Flomax) 0.4 mg PO BID [facility] Last Admin: 05/04/18 08:48 Dose: 0.4 mg Medical Necessity - Tobacco Use Smoking Status: Former smoker Tobacco Use: Cigarettes Assessment/Plan All Active Problems (Last Updated 02/21/18 @ 01:01 by Tomer Jones MD) Mid abdominal pain (Acute) Acute diverticulitis of intestine (Acute) Altered mental status (Acute) BPH (benign prostatic hyperplasia) (Acute) 1. POD #10, status post exploratory laparotomy with segmental sigmoid resection for perforated diverticulitis. s/p Timmons's colostomy. Appears to be doing well, tolerating full liquid diet. General surgery following. 2. Acute encephalopathy, resolved. 3. Chronic neuropathy, etiology unclear, on Neurontin 4. Hyperlipidemia, on statin 5. BPH, with episodes of urine retention, s/p madden catheter, on flomax, urology consulted, Proscar added 6. Debility secondary to complicated diverticulitis with proximal sigmoid perforation, awaiting insurance precertification for discharge to TCU 7. DVT PPx- Lovenox SC Code Visit Inpatient E&M: 46152 Subs Hosp L2
[2018-05-04] MEDS: Enoxaparin 40 MG/0.4 ML Syringe SC (10:52)
[2018-05-04 13:31] VITALS: BP 102/59; PULSE 88; RESP 16; TEMP 36.8; O2SAT 95
[2018-05-04 20:31] VITALS: BP 105/65; PULSE 88; RESP 16; TEMP 37.7; O2SAT 93
--- NOTE | 2018-05-04 23:01 | PN.SURG_ITS ---
Patient Problems: Active and Suspected Problems (Last Updated 02/21/18 @ 01:01 by Tomer Jones MD) Altered mental status (Acute) BPH (benign prostatic hyperplasia) (Acute) Subjective: concerned about stoma care, overall oral intake and strengthening - declined by insurance for extended care facility/rehabilitation - Physical Exam General: Alert, Oriented x3, Cooperative Lungs: Clear to auscultation, Normal air movement Cardiovascular: Regular rate, No murmurs Abdomen: Bowel Sounds Present, Soft, Tender - a long incision, stoma site pink with stool and air in bag Vital Signs Temp Pulse Resp BP Pulse Ox 99.8 F H 88 16 105/65 93 05/04/18 20:31 05/04/18 20:31 05/04/18 20:31 05/04/18 20:31 05/04/18 20:31 Oxygen Flow Rate (L/min) 1 Oxygen Delivery Method Room Air Weight: 100.2 kg Body Mass Index (BMI) 29.1 Intake and Output for Last 24 Hours 05/02/18 05/03/18 05/04/18 23:59 23:59 23:59 Intake Total 1931 / 1931 2026 / 2026 2230 / 2230 Output Total 1310 / 1310 2403 / 2403 1270 / 1270 Balance 621 / 621 -376 / -376 960 / 960 Medical Necessity - Tobacco Use Smoking Status: Former smoker Tobacco Use: Cigarettes Assessment/Plan All Active Problems (Last Updated 02/21/18 @ 01:01 by Tomer Jones MD) Mid abdominal pain (Acute) Acute diverticulitis of intestine (Acute) Altered mental status (Acute) BPH (benign prostatic hyperplasia) (Acute) POD # 9 s/p exploratory laparotomy with segmental sigmoid resection for perforated diverticulitis with end Phyllis's colostomy pneumoperitoneum with spiking fever Thursday night- initially felt to be probable perforated duodenal ulcer given the patient's presentation and lack of abdominal pain. He had fever to 103. He was still denying any significant abdominal pain. Repeat CT scan was obtained late in the evening. This demonstrated was felt to be more inflammation again around the area of prior diverticulitis and extravasated air with now a small amount of intra-abdominal fluid. I discussed with the patient and his the fact that I am now totally comfortable his issue is recurring diverticulitis and probably did have duodenitis doubted duodenal perforation. My plan at this point since he has failed to improve on IV antibiotics and now seems worsening is to perform exploratory laparotomy with end Timmons's colostomy. I discussed with the patient and his the fact that performing an anastomosis has in my opinion t oo high a risk of leak in a contaminated field and given all his other issues feel this is the safest way to proceed. Patient's potassium is low. He was given potassium riders. patient with 2 week history of increasing abdominal distention and food aversion, history of complicated diverticulitis. CT scan obtained yesterday was felt to be consistent with probably a duodenal perforation due to a significant amount of intra-abdominal free air and no signs of intra-abdominal fluid. There was also noted to be no contrast leakage. The patient was started on a continuous IV proton pump inhibitor. he notes improvement in his abdominal complaints this morning. Patient is doing well today, improved bowel sounds, more gas and stool in stoma bag. tolerating clear liquids. We'll advance to full liquids-no fiber + ensure clear. patient declined for rehab by insurance. overall today seems somewhat stronger than the previous day. Targets to assure he will be appropriate for discharge to home include ability to change stoma bag, ability to take adequate oral nutrition-anticipate at least 12-1500 abel per day, and strength to ambulate and improve.
[2018-05-04] MEDS: Atorvastatin Calcium 20 MG Tablet PO (23:24)
[2018-05-05 02:45] VITALS: BP 116/71; PULSE 89; RESP 16; TEMP 37.3; O2SAT 92
[2018-05-05] MEDS: Gabapentin 300 MG Capsule PO (07:58)
[2018-05-05 08:03] VITALS: BP 110/68; PULSE 85; RESP 16; TEMP 36.9; O2SAT 94
[2018-05-05] MEDS: Ibuprofen 400 MG Tablet PO (09:12)
--- NOTE | 2018-05-05 09:37 | DCINST_ITS ---
Discharge Diet: Light diet - advance as tolerated, - - add 4 cans of ensure or other supplement per day. bring diet diary to office Discharge Activity: May not drive while taking narcotic pain medications. Call your doctor if your incision/area has: Continuous Slow Oozing, Sudden Increased Bleeding, Increased Pain/ Swelling, Increased Redness, Foul Smelling Discharge, Swelling at the incision site Call your doctor if you observe: Fever of 101 or Higher, Inability to have a bowel movement Cleanse incision/area with: Soap & Water Additional Dressing/Incision Instructions:: stoma care per wound/stoma nurse. bring extra stoma bag to office visit Allergies/Adverse Reactions: Allergies cod liver oil [From Desitin] Allergy (Verified 02/20/18 20:09) Rash zinc oxide [From Desitin] Allergy (Verified 02/20/18 20:09) Rash Medications to take at Discharge Aspirin [Aspirin, Baby] 81 mg PO DAILY@0800 12/08/16 Cholecalciferol (VIT D3) [Vitamin D3] 2,000 unit PO DAILY 12/08/16 Gabapentin [Neurontin] 900 mg PO BID 12/08/16 Multivit-Min/FA/Lycopen/Lutein [Centrum Silver Men Tablet] 1 each PO DAILY 12/08/16 Simvastatin [Zocor] 40 mg PO QHS 12/08/16 Tamsulosin HCl [Flomax] 0.4 mg PO DAILY 12/08/16 Acetaminophen [Tylenol] 650 mg PO Q6H PRN PRN #30 tablet 02/24/18 Ibuprofen 400 mg PO Q6H PRN PRN #30 tablet 02/24/18 Ondansetron [Zofran Odt] 4 mg PO Q4H PRN PRN 04/22/18 Primary Care Physician: Napoleon Larson MD [Primary Care Provider] - Test Results: Test results from this visit will be discussed in further detail at your follow- up appointment, if applicable. Please Follow Up With: Ravindra Watson MD - [phone] When: Next Thursday
[2018-05-05] MEDS: Tamsulosin HCl 0.4 MG Capsule PO (09:54)
[2018-05-05] MEDS: Pantoprazole Sodium 40 MG Tablet PO (09:55)
[2018-05-05] MEDS: Enoxaparin 40 MG/0.4 ML Syringe SC (09:55)
[2018-05-05] MEDS: Finasteride 5 MG Tablet PO (09:57)
--- NOTE | 2018-05-05 10:30 | CASEMGMT ---
RODNEY LOUIS received script for FWW and referral sent to [facility] [place]. [facility] is not in-network with patient's insurance. RODNEY LOUIS updated and patient. They said they will borrow a walker from friend and did not want to wait for walker to be delivered to patient's room. and patient agreeable to have new walker be delivered to patient's home through [facility], his in-network insurance preferred provider. RODNEY LOUIS sent referral to [employer] and arranged for FWW to be delivered to patient's home. [facility] updated regarding patient discharging today.
--- NOTE | 2018-05-05 16:46 | PCM.PN.HOSP ---
Subjective: Patient was seen and examined. Denies any fever or chills. Denies any chest pain, dizziness. Objective: Physical exam: General: Alert, Oriented x3, Cooperative, No apparent distress HEENT: Atraumatic, PERRLA, EOMI, Normocephalic Oral: Moist Mucosa Neck: Supple Lungs: Diminished Cardiovascular: Regular rate, Regular Rhythm, Normal S1, Normal S2, No murmurs Abdomen: Bowel Sounds Present, Soft, Distended, - - midline incision with bisi, right drain in place, sero-sanguinous , colostomy has soft brown stools Extremities: Edema - Trace bilateral edema Skin: No rashes Musculoskeletal: No Tenderness to Palpation of Joints or Extremities Lymphatic: No Cervical, Supraclavicular, or Inguinal Adenopathy Neurological: Cranial nerves II-XII grossly intact, Neuro grossly intact Psych/Mental Status: Normal Affect, Appropriate Vitals/I&O's: Vital Signs Temp Pulse Resp BP Pulse Ox 98.5 F 85 16 110/68 94 05/05/18 08:03 05/05/18 08:03 05/05/18 08:03 05/05/18 08:03 05/05/18 08:03 Oxygen Flow Rate (L/min) 1 Oxygen Delivery Method Room Air Weight: 100.2 kg Body Mass Index (BMI) 29.1 Intake and Output for Last 24 Hours 05/03/18 05/04/18 05/05/18 23:59 23:59 23:59 Intake Total 2026 / 2026 2230 / 2230 250 / 250 Output Total 2403 / 2403 1270 / 1270 1400 / 1400 Balance -376 / -376 960 / 960 -1150 / -1150 Medical Necessity - Tobacco Use Smoking Status: Former smoker Tobacco Use: Cigarettes Assessment/Plan All Active Problems (Last Updated 02/21/18 @ 01:01 by Tomer Jones MD) Mid abdominal pain (Acute) Acute diverticulitis of intestine (Acute) Altered mental status (Acute) BPH (benign prostatic hyperplasia) (Acute) 1. POD #11, status post exploratory laparotomy with segmental sigmoid resection for perforated diverticulitis. s/p Timmons's colostomy. Appears to be doing well, tolerating full liquid diet. General surgery following. 2. Acute encephalopathy, resolved. 3. Chronic neuropathy, etiology unclear, on Neurontin 4. Hyperlipidemia, on statin 5. BPH, with episodes of urine retention, s/p madden catheter, on flomax, urology consulted, Proscar added 6. Debility secondary to complicated diverticulitis with proximal sigmoid perforation,ambulating well with wheeled walker, being discharged home with Home health 7. DVT PPx- Lovenox SC Code Visit Inpatient E&M: 44554 Subs Hosp L2
--- NOTE | 2018-05-05 17:46 | DS.PCM_ITS ---
Discharge Date and Diagnosis Date of Admission: 04/22/18 Date of Discharge: 05/05/18 - Primary Discharge Diagnosis complicated diverticulitis, malnutrition, urinary retention Hospital Course and Treatment Consultations 04/25/18 15:27 Consult: Onc/Wound/retail area manager Routine Comment: Reason for Consult:: Stoma care and teaching Operations: None, - - sigmoid colectomy with end Timmons's colostomy Summary of Care Provided: The patient is a 67 year old M with complicated diverticulitis. The patient is a 67 year old male with worsening failure to thrive over the past few weeks. ?He was seen by his primary care physician 2 days previously. ?He was sent to [facility] for a chest x-ray and laboratory studies. ?Laboratory studies were relatively unremarkable with normal white blood cell count, mild anemia, normal protein and albumin, slightly elevated liver profile. ?Chest x-ray did demonstrate significant free air. ? The patient states that he has a degree of apprehension eating food due to his diverticulitis but does not complain of pain. ?Unfortunately, the patient is very stoic. ?He denies change in his bowel habits. ?He denies fever or chills. ?He states he does not have pain when he eats but again a degree of food aversion. ?The most concerning feature to his is that he has lost approximately 20 pounds of weight and is having increasing weakness. ? The patient has a recently complex history related to his diverticulitis. ? Richard is a patient I am following for perforated diverticulitis with significant pneumoperitoneum. ? The patient is a 67 year old male with a finding of pneumoperitoneum. ?The patient has a known history of right upper extremity sarcoma. ?He was scheduled for a follow-up chest CAT scan which he underwent at [facility] yesterday. ?Incidental finding was free intra-abdominal air. ?The patient's orthopedic surgeon, Dr. Hill called the patient this morning from a virtual visit. The patient had eaten breakfast and did not report any concerns. ? The patient was placed on my schedule for a diagnosis of pneumoperitoneum. ? ? In discussions with the patient, he notes pain in the left lower quadrant starting around Thanksgiving and then pain across the upper mid abdomen and through to the back. ?He states his been typically eating Jell-O since that time. ?He denies fever or chills. ?He notes that actually has been feeling better for the last 2 days. ? The patient has a diagnosis approximately one year ago of pancreatitis from unknown etiology. ?He was maintained in the hospital for 2 days without diagnosis. ?He assumed that his pain started on Thanksgiving was also pancreatitis and he felt it would be a waist at this time to return to the hospital. ?I had seen the patient 5 year previously were he underwent laparoscopic appendectomy for missed appendicitis. ? The patient was initially scheduled for later in the afternoon. ?I had him present to my office as soon as he could be contacted. ?In the office, he looked remarkably comfortable. ?His vitals were stable and he had no diffuse peritoneal signs. ?I reviewed the CT scan of the chest which did demonstrate significant free air. ?I did not see any time signs of intra-abdominal fluid collections and the stomach and duodenum did not demonstrate signs of inflammation. ?I elected to obtain laboratory studies-CBC chemistry panel and lipase, and a noncontrast CT scan. ? Again the patient had improved abdominal symptoms and was tolerating a low residue diet without challenges by the time he presented to my office. ? My interpretation of the CT scan as this is most likely descending colon/sigmoid diverticulitis. ?I received a phone call from the radiologist later commenting on the same findings. ?We agreed that this would be very clinically worrisome in the acute setting. ?We concluded it was reasonable to plan for a follow-up CT scan a week. ?He was discharged home from my office on a low residue diet with oral antibiotics. ? The patient still denies any significant abdominal pain. ?He notes no fever or chills. ?He is taking his oral antibiotics. ?He would like to advance his diet. ? Repeat CT scan was obtained. ?This demonstrated: ? IMPRESSION: Improving perforated diverticulitis without interval developing abscess. ? The patient was then doing well until February 20 when he noted fever to 105 and left-sided abdominal pain. ?He presented to [facility] emergency department. ?Follow-up CT scan demonstrated a 2-1/2 cm abscess near the site of recurrent diverticulitis. ?He was admitted, given IV antibiotics and underwent percutaneous drainage with pigtail catheter placement. He did well and was transitioned to oral antibiotics and discharged to home on February 24, 2018. ?I saw him approximately 3 weeks previously. ?Our plan was to perform colonoscopy and then sigmoid resection on May 04 and . ? the patient was admitted. Started on IV antibiotics and proton pump inhibitors. Due to the lack of peritoneal signs a normal white blood cell count this was questioned whether this could be related to a perforated duodenal ulcer which was suggested via CAT scan. The patient underwent endoscopy the following day which demonstrated duodenitis but no obvious perforation. There was no intra- abdominal fluid. Paracentesis was performed see if any fluid was encountered and if so this would be assessed for findings consistent with perforated ulcer versus diverticulitis. With no fluid the patient was monitored initially seemed doing well but then spiked fevers on hospital day 3. He was brought semi- urgently to the operating suite and underwent an open sigmoid resection with end Phyllis's colostomy. The patient's postoperative course was complicated by prolonged ileus. He also had significant deconditioning and poor oral intake. Initial plan was for transfer to extended care facility for strengthening and to verify good oral intake. He was declined by his insurance for extended care facility. The patient was maintained at [facility] slightly longer until he was felt to have adequate strength to go home, until his oral intake improved, and lastly until he was comfortable with stoma management after teaching by the stoma nurse. - Physical Exam General: Alert, Oriented x3, Cooperative Lungs: Clear to auscultation, Normal air movement Cardiovascular: Regular rate, No murmurs Abdomen: Bowel Sounds Present, Soft, Non Tender, - - stoma with air and stool in bag Vital Signs Temp Pulse Resp BP Pulse Ox 98.5 F 85 16 110/68 94 05/05/18 08:03 05/05/18 08:03 05/05/18 08:03 05/05/18 08:03 05/05/18 08:03 Oxygen Flow Rate (L/min) 1 Oxygen Delivery Method Room Air Weight: 100.2 kg Body Mass Index (BMI) 29.1 Intake and Output for Last 24 Hours 05/03/18 05/04/18 05/05/18 23:59 23:59 23:59 Intake Total 2026 / 2026 2230 / 2230 250 / 250 Output Total 2403 / 2403 1270 / 1270 1400 / 1400 Balance -376 / -376 960 / 960 -1150 / -1150 Discharge Diet: Light diet - advance as tolerated, - - add 4 cans of ensure or other supplement per day. bring diet diary to office Discharge Activity: May not drive while taking narcotic pain medications. Call your doctor if your incision/area has: Continuous Slow Oozing, Sudden Increased Bleeding, Increased Pain/ Swelling, Increased Redness, Foul Smelling Discharge, Swelling at the incision site Call your doctor if you observe: Fever of 101 or Higher, Inability to have a bowel movement Cleanse incision/area with: Soap & Water Additional Dressing/Incision Instructions:: stoma care per wound/stoma nurse. bring extra stoma bag to office visit Home Medications: Medications to take at Discharge Aspirin [Aspirin, Baby] 81 mg PO DAILY@0800 12/08/16 Cholecalciferol (VIT D3) [Vitamin D3] 2,000 unit PO DAILY 12/08/16 Gabapentin [Neurontin] 900 mg PO BID 12/08/16 Multivit-Min/FA/Lycopen/Lutein [Centrum Silver Men Tablet] 1 each PO DAILY 12/08/16 Simvastatin [Zocor] 40 mg PO QHS 12/08/16 Tamsulosin HCl [Flomax] 0.4 mg PO DAILY 12/08/16 Acetaminophen [Tylenol] 650 mg PO Q6H PRN PRN #30 tablet 02/24/18 Ibuprofen 400 mg PO Q6H PRN PRN #30 tablet 02/24/18 Ondansetron [Zofran Odt] 4 mg PO Q4H PRN PRN 04/22/18 Primary Care Physician: Napoleon Larson MD [Primary Care Provider] - Please Follow Up With: Ravindra Watson MD When: Next Thursday Medical Necessity - Tobacco Use Smoking Status: Former smoker Tobacco Use: Cigarettes Meaningful Use Info Meaningful Use Diagnoses (Choose all that apply): None applicable
== END 2018-05-05 12:02 | disposition home or self-care (01) | DRG 330 ==
PROVIDERS: Admitting Provider Surgery; Family Provider Family Medicine; PCP Family Medicine; Referring Provider Surgery; Visit Provider Internal Medicine
PROC: 0DJ08ZZ Inspection of Upper Intestinal Tract, Via Natural or Artificial Opening Endoscopic (ICD-10-PCS; CPT 43235; principal; 2018-04-23 12:25)
PROC: 0DTN0ZZ Resection of Sigmoid Colon, Open Approach (ICD-10-PCS; CPT 49000; principal; 2018-04-25 10:30)
DX: K57.20 Diverticulitis of large intestine with perforation and abscess without bleeding (principal); E44.0 Moderate protein-calorie malnutrition; K56.7 Ileus, unspecified; K44.9 Diaphragmatic hernia without obstruction or gangrene; G62.9 Polyneuropathy, unspecified; N40.1 Benign prostatic hyperplasia with lower urinary tract symptoms; R33.8 Other retention of urine; Z68.29 Body mass index [BMI] 29.0-29.9, adult; E78.5 Hyperlipidemia, unspecified; T40.605A Adverse effect of unspecified narcotics, initial encounter; R53.83 Other fatigue; R05 Cough; R11.0 Nausea; R53.1 Weakness
CPT/HCPCS: 36415; 36569; 71045; 71046; 74177; 76705; 77002; 80048; 80053; 83735; 84100; 84134; 85025; 85610; 85730; 88304; 88305; 88307; 88342; 93005; 94640; 94667; 94668; 94762; 97110; 97116; 97162; 97166; 97530; 97535; 97802; 97803; J7040; J7120; Q9967; A4216; J2270; J2405; J3490; J7799

== ENCOUNTER → 2018-06-14 15:02 | Outpatient (CLI) | payer MEDICARE, SELFPAY ==
[2018-04-25 04:45] VITALS: BMI 29.1
[2018-06-14 17:45] LABS: Absolute Lymphocyte Count 0.83 X10^3/ul (0.83-4.51); Eosinophil# 0.07 X10^3/uL; Eosinophils% 1.6 % (0-5); Hematocrit 35.6 % (40-54); Hemoglobin 11.1 g/dl (13.0-16.5); Lymphocyte # 0.83 X10^3/ul (4.0); Lymphocyte % 19.3 % (19-41); Mean Corp Hgb Conc 31.2 g/gl (32-36); Mean Corpuscular Hgb 26.7 pg (27.0-32.0); Mean Corpuscular Volume 85.6 fL (80-94); Mean Platelet Vol. 10.5 fl (6.2-12.0); Monocyte# 0.34 X10^3/uL; Monocyte% 7.9 % (0-10); Neutrophil # 3.02 X10^3/uL (2.7-7.7); Neutrophil % 70.5 % (47-70); Platelet Count 182 K/mm3 (150-450); RBC Distribution Width CV 19.3 % (11.6-14.6); Red Blood Count 4.16 M/mm3 (4.6-6.2); White Blood Count 4.3 K/mm3 (4.4-11.0)
[2018-06-14 17:46] LABS: POSITIVE COUNT NO; POSITIVE DIFFERENTIAL NO; POSITIVE MORPHOLOGY NO
[2018-06-14 18:04] LABS: ALB/GLOB Ratio 0.7 RATIO (0.9-2.4); AST(SGOT) 72 U/L (15-37); Alanine Aminotransfer ALT/SGPT 56 U/L (16-61); Alkaline Phosphatase 82 U/L (45-117); Anion Gap 8 (5-15); BUN 20 mg/dL (7-18); BUN/Creat Ratio 19.6 RATIO (10-20); CPK Total, Creatine Kinase 53 U/L (39-308); Calcium,Total 8.8 mg/dL (8.5-10.1); Chloride 108 mmol/L (98-107); Creatinine, Serum 1.02 mg/dL (0.70-1.30); EST Glomerular Filtration Rate 77 mL/min (>60); Est Glom Filt Rate - Afr Amer 94 mL/min (>60); Ferritin 1150 ng/mL (26-388); Globulin 4.5 g/dL (2.2-4.2); Glucose 100 mg/dL (74-106); Iron 52 ug/dL (65-175); Potassium 4.4 mmol/L (3.5-5.1); Prealbumin 19.6 mg/dL (20.0-40.0); Protein, Total 7.5 g/dL (6.4-8.2); Sodium Level 141 mmol/L (136-145)
== END ==
PROVIDERS: Family Provider Family Medicine; PCP Family Medicine; Referring Provider Family Medicine; Visit Provider Family Medicine
DX: E46 Unspecified protein-calorie malnutrition (principal); D64.9 Anemia, unspecified; M79.10 Myalgia, unspecified site
CPT/HCPCS: 36415; 80053; 82550; 82728; 83540; 84134; 85025

== ENCOUNTER 2018-06-24 08:55 | Observation (INO) | payer MEDICARE, SELFPAY ==
[2018-04-25 04:45] VITALS: BMI 29.1
[2018-06-24] VITALS (10 sets, daily range): BP systolic 94–122; BP diastolic 52–76; PULSE 81–104; RESP 12–20; TEMP 36.2–37.3; O2SAT 94–99; BMI 14.4; BMI 27.6; BMI 27.5
--- NOTE | 2018-06-24 09:26 | RAD_ITS ---
STUDY: X-RAY CHEST REASON FOR EXAM: Male, 67 years old. Weakness. Shortness of breath. TECHNIQUE: Single AP portable view of the chest. COMPARISON: Comparison is made with prior study of April 28, 2018. FINDINGS: EKG electrodes are seen. The lungs are clear and expanded. There is no demonstrated pleural abnormality. Normal size heart. Normal mediastinum and aidee. Normal visualized pulmonary arteries. There is atherosclerotic calcification of the aortic arch with tortuosity. There are diffuse degenerative changes of the visualized thoracic spine. Normal visualized ribs, clavicles, and shoulders. There is no demonstrated abnormality of the visualized soft tissue structures of the upper abdomen. RAD/Chest 1 View (Portable) IMPRESSION: No acute abnormality is seen. Electronically Signed: Jose Harrington, at 9:54 EDT , Service support ,
--- NOTE | 2018-06-24 09:27 | EKG12_ITS ---
Test Reason : WEAKNESS Blood Pressure : / mmHG Vent. Rate : 093 BPM Atrial Rate : 093 BPM P-R Int : 140 ms QRS Dur : 094 ms QT Int : 384 ms P-R-T Axes : 038 -42 047 degrees QTc Int : 477 ms Normal sinus rhythm Left axis deviation , LAHB Abnormal ECG Confirmed by RITA NINA ([id number]), fan mail editor SIRENA MALDONADO ([id number]) on 06/28/2018 2:20:00 PM Referred By: Rocio West Confirmed By:RITA NINA
[2018-06-24] MEDS: 0.9% Normal Saline 1,000 ML 1000 ML IV (10:00)
[2018-06-24 10:09] LABS: Absolute Lymphocyte Count 0.75 X10^3/ul (0.83-4.51); Absolute Neutrophil Count 2.9 X10^3/uL (2.0-7.7); Eosinophil# 0.06 X10^3/uL; Eosinophils% 1.5 % (0-5); Hematocrit 33.6 % (40-54); Hemoglobin 10.6 g/dl (13.0-16.5); Lymphocyte # 0.75 X10^3/ul (4.0); Lymphocyte % 18.8 % (19-41); Mean Corp Hgb Conc 31.5 g/gl (32-36); Mean Corpuscular Hgb 26.6 pg (27.0-32.0); Mean Corpuscular Volume 84.2 fL (80-94); Mean Platelet Vol. 9.8 fl (6.2-12.0); Monocyte# 0.23 X10^3/uL; Monocyte% 5.8 % (0-10); Neutrophil # 2.92 X10^3/uL (2.7-7.7); Neutrophil % 73.4 % (47-70); Platelet Count 139 K/mm3 (150-450); RBC Distribution Width SD 58.6 fl (35.1-43.9); Red Blood Count 3.99 M/mm3 (4.6-6.2)
[2018-06-24 10:12] LABS: POSITIVE COUNT NO; POSITIVE DIFFERENTIAL NO; POSITIVE MORPHOLOGY NO
[2018-06-24 10:17] LABS: International Normalized Ratio 1.1; Partial Thromboplast Time 30.7 Seconds (24.1-36.2); Prothrombin Time (Protime)PT. 13.6 SECONDS (11.7-14.9)
[2018-06-24 10:34] LABS: Lactic Acid 1.4 mmol/L (0.4-2.0)
[2018-06-24] MEDS: 0.9% Normal Saline 1,000 ML 150 ML IV (10:44)
--- NOTE | 2018-06-24 10:52 | ED.DCSUM_ITS ---
- ER Visit Summary Date of Service: 06/24/18 Chief Complaint: Failure to thrive History of Present Illness: The patient is a 67 M who presents the emergency department with global weakness. Patient underwent partial colectomy in April for perforated diverticulitis. states he is never fully recovered from this. He has not been eating or drinking much. states that he frequently has emesis. They state that due to the poor nutrition he has become increasingly weak. For example she had to help him to the shower and after the shower had to stop several times in the way back to his chair. He was feeling near syncopal. Patient his do not believe that they can continue to take care of him at home. They state he is unable to even pull himself up in the bed currently. Typically on a good days blood pressures in the 120 range. They have had it as low as in the 70s. He notes that he has been having arm and leg pains. Physical Examination: 94/64 heart rate of 104 respirations are 12 pulse ox is 95% temperature 97.2 Gen: Well-nourished well-developed Head: Normocephalic atraumatic Eyes: Perrl EOMI ENT: TMs clear no rhinorrhea dry mucous membranes Neck: Supple no lymphadenopathy no JVD nontender CVS: Regular rate rhythm no murmurs normal S1-S2 Respiratory: No distress clear to auscultation bilaterally chest nontender Abdomen: Soft nontender nondistended normal bowel sounds no masses Back: Nontender Extremity: Nontender no edema Skin: Normal color there are small erythematous areas (3 to 4 mm elliptical) on fingers and hands that sushila. Neuro: alert orientated ?3 CN II-XII intact patient is globally weak. He is unable to lift himself up in bed. He can move all extremities x4. Sensation is intact. Psych: Normal affect normal mood Test Results: EKG shows a normal sinus rhythm at a rate of 93. Basic blood work show white count of 4 and hemoglobin 10.6. Chemistries are otherwise negative. Lipase is normal. Lactic acid 1.4. Troponin less than 0.015. Chest x-ray is negative. CT abdomen pelvis shows no acute findings. Patient received IV fluids and his blood pressure is better. I wonder if these pains in his arms legs and rash is related to nutritional deficiency. Plan will be admission. Impression: 1. Failure to thrive 2. Malnutrition This note was generated with [employer] dictation software. It may contain incorrect words, spelling, and punctuation that were not noted in review of the chart prior to signing ED Disposition - Plan for ED Patient: Referrals: Napoleon Larson MD [Primary Care Provider] -
[2018-06-24 11:05] LABS: AST(SGOT) 126 U/L (15-37); Alanine Aminotransfer ALT/SGPT 84 U/L (16-61); Albumin, Serum 2.9 g/dL (3.2-5.0); Alkaline Phosphatase 88 U/L (45-117); Anion Gap 8 (5-15); BUN 17 mg/dL (7-18); BUN/Creat Ratio 19.7 RATIO (10-20); Bilirubin, Direct 0.26 mg/dL (0.00-0.30); Calcium,Total 8.2 mg/dL (8.5-10.1); Chloride 107 mmol/L (98-107); Creatinine, Serum 0.86 mg/dL (0.70-1.30); EST Glomerular Filtration Rate 94 mL/min (>60); Est Glom Filt Rate - Afr Amer 113 mL/min (>60); Estimated Creatinine Clearance 58.61 ml/min; Globulin 4.3 g/dL (2.2-4.2); Glucose 99 mg/dL (74-106); Lipase 159 U/L (73-393); Potassium 4.2 mmol/L (3.5-5.1); Protein, Total 7.2 g/dL (6.4-8.2); Sodium Level 141 mmol/L (136-145)
--- NOTE | 2018-06-24 11:31 | CT_ITS ---
STUDY: CT ABDOMEN AND PELVIS WITH CONTRAST REASON FOR EXAM: Male, 67 years old. Weakness. Vomiting. Recent colostomy. RADIATION DOSAGE (If Supplied By Facility): CTDIvol = ( 17.66 ) mGy, DLP = ( 1184.30 ) mGycm TECHNIQUE: Transaxial images were obtained from the dome of the diaphragm to the symphysis pubis with oral contrast. 100mL IV/Oral Isovue 300 was administered. Sagittal and coronal images were reconstructed. Individualized dose optimization techniques were used for this CT. COMPARISON: Comparison is made with prior study dated April 24, 2018. FINDINGS: Stable mild increased markings at the lung bases suggestive of a mild degree of atelectasis and scarring. The visualized portions of the heart are within normal limits. There is decreased attenuation of the liver consistent with steatosis. Normal gallbladder and extrahepatic biliary system. There is mild splenomegaly. Normal pancreas. Normal bilateral adrenal glands. Normal right kidney. Normal left kidney. There is a small hiatal hernia. Normal small intestine. A colostomy is seen in the left anterior mid abdomen. Scattered sigmoid diverticula are seen. Moderate amount of fecal material is seen in the right colon. The appendix is visualized and appears normal. There is diffuse atherosclerotic calcification of the abdominal aorta, without a demonstrated aneurysm. Normal inferior vena cava. Normal retroperitoneum. Normal urinary bladder. There is enlargement of the prostate gland. It measures 6 cm x 6 cm. This causes indentation at the bladder base. There is evidence of marked calcifications along the peripheral posterior aspect of the prostate. Normal abdominal wall. There are degenerative changes of the visualized lumbar spine. CT/Abdomen/Pelvis WITH Contrast IMPRESSION: Colostomy is seen in the left anterior mid abdomen. Scattered sigmoid diverticula. Material is seen in the right hemicolon. Fatty infiltration of the liver. Electronically Signed: Jose Harrington, at 13:30 EDT , Service support ,
--- NOTE | 2018-06-24 14:35 | PCM.HP.STD ---
Problem List (1) Status post sigmoid resection Status: Acute (2) BPH (benign prostatic hyperplasia) Status: Chronic History of Present Illness Date of Admission: 06/24/18 Chief Complaint: Weakness, poor oral intake. The patient is a 67 year old M with past medical history as mentioned above who underwent exploratory laparotomy with sigmoid resection and colostomy back on April 25, 2018 for complicated diverticulitis presented to the emergency room because of weakness, fatigue, persistent nausea and poor oral intake. The patient mentioned that after his surgery, he remained in the hospital for almost 2 weeks and he was refused by his insurance to go to intermediate facility. According to his , he did okay at home after discharge until 2 weeks ago. In the last 2 weeks, patient has been progressively getting weak and tired, having very poor oral intake, complaining of persistent nausea and pain in arms and legs. He states that he started having this pain 2 weeks ago, it is both on upper and lower extremities, persistent pain, comes up mainly up on moving his extremities or activities, aggravated by minimal activity, somewhat relieved with rest and he could not tell if the pain as muscle pain or bone pain. He reported persistent nausea without vomiting and he has been using Zofran at home which is not very helpful. He denies cough or sputum production. He denied abdominal pain, constipation or diarrhea. mentioned that his stool became more loose in the last couple of days. He denied chest pain or shortness of breath. Denies fever or chills. In the emergency department, his vital signs were stable. His routine blood work was remarkable for chronic anemia, mild chronic thrombocytopenia, otherwise normal. His LFT revealed very slightly elevated liver transaminases, alk phos is normal. Lipase is normal. EKG revealed normal sinus rhythm without evidence of acute ischemic changes. Troponin is negative. Chest x-ray showed no acute findings. Scan abdomen and pelvis with contrast revealed colostomy, sigmoid diverticula, no acute intra-abdominal findings. Patient is being admitted for functional decline in physical debility, status post recent sigmoid resection and bone/muscle pain for evaluation. 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 Small fiber neuropathy G62.9 Allergies cod liver oil [From Desitin] Allergy (Verified 06/24/18 08:57) Rash zinc oxide [From Desitin] Allergy (Verified 06/24/18 08:57) Rash Home Medications: Ambulatory Orders Medication Instructions Recorded Aspirin [Aspirin, Baby] 81 mg PO DAILY@0800 12/08/16 Cholecalciferol (VIT D3) [Vitamin 2,000 unit PO DAILY 12/08/16 D3] Gabapentin [Neurontin] 900 mg PO BID 12/08/16 Multivit-Min/FA/Lycopen/Lutein 1 each PO DAILY 12/08/16 [Centrum Silver Men Tablet] Tamsulosin HCl [Flomax] 0.4 mg PO DAILY 12/08/16 Acetaminophen [Tylenol] 650 mg PO Q6H PRN PRN #30 tablet 02/24/18 Ibuprofen 400 mg PO Q6H PRN PRN #30 tablet 02/24/18 Ondansetron [Zofran Odt] 4 mg PO Q4H PRN PRN 04/22/18 Finasteride 5 mg PO DAILY 06/24/18 Surgical History: appendectomy, colectomy, - - 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 Denies: Chills, Fever Eyes: Denies: Blurred vision, Double vision, Drainage, Redness HEENT: Denies: Difficulty Hearing, Ear Pain, Eye Pain, Nasal Congestion, Sore Throat Cardiovascular: Denies: Chest Pain, Chest Pressure, Edema, Heaviness, Light Headedness, Orthopnea, Paroxysmal Noc. Dyspnea, Syncope Respiratory: Denies: Cough, Pleuritic Pain, Shortness of Breath, Shortness of breath at rest, Sputum production, Wheezing Gastrointestinal: Reports: Diarrhea, Nausea. Denies: Abdominal Pain, Constipation, Vomiting Genitourinary: Denies: Dysuria, Frequency, Hematuria Musculoskeletal: Denies: Arm Pain, Back Pain, Foot Pain Skin: Denies: Dryness, Rash Neurological: Denies: Balance problems, Change in Speech, Slurred speech, Confusion, Focal weakness, Headaches, Incoordination Psychiatric: Denies: Anxiety, Depression Endocrine: Denies: Change in Body Habitus, Polydipsia VTE Information - Inpt Only VTE Present on Admission: No VTE Mechan Device Prophylaxis: None VTE Pharm Prophylaxis ordered?: Yes Patient Problems: Active and Suspected Problems (Last Updated 02/21/18 @ 01:01 by Tomer Jones MD) Status post sigmoid resection (Acute) - Physical Exam General: Alert, Oriented x3, Cooperative, No apparent distress HEENT: Atraumatic, PERRLA, EOMI, Normocephalic Oral: Moist Mucosa, No Gingival or Mucosal Lesions/ Ulcerations Neck: Supple, No JVD, Negative Carotid Bruits, Trachea Midline, Thyroid Normal Size and Texture Lungs: Clear to auscultation, No rhonchi, No wheeze, No rales, Diminished Cardiovascular: Regular rate, Regular Rhythm, Normal S1, Normal S2, PMI Normal Abdomen: Bowel Sounds Present, Soft, Non Tender, Non-Distended, No Hepato-splenomegaly, - - Colostomy bag in place. Extremities: No clubbing, No cyanosis, No edema Skin: No rashes, No breakdown, Incision Lymphatic: No Cervical, Supraclavicular, or Inguinal Adenopathy Neurological: Cranial nerves II-XII grossly intact, Motor Exam 5/5 strength throughout Psych/Mental Status: Normal Affect, Appropriate, Alert and oriented to time, place, person, mood and affect Vital Signs Temp Pulse Resp BP Pulse Ox 97.6 F L 91 15 99/52 L 99 06/24/18 12:06 06/24/18 14:30 06/24/18 14:30 06/24/18 14:30 06/24/18 14:30 Oxygen Delivery Method Room Air Weight: 109 lb 9.6 oz Body Mass Index (BMI) 14.4 Laboratory Tests Past 24 Hrs 06/24/18 06/24/18 06/24/18 09:56 09:56 09:56 WBC 4.0 L RBC 3.99 L Hgb 10.6 L Hct 33.6 L MCV 84.2 MCH 26.6 L MCHC 31.5 L RDW 19.0 H RDW Differential 58.6 H Plt Count 139 L MPV 9.8 Immature Gran % (Auto) 0.500 Neut % (Auto) 73.4 H Lymph % (Auto) 18.8 L [place] % (Auto) 5.8 Eos % (Auto) 1.5 Baso % (Auto) 0.0 Absolute Neuts (auto) 2.9 Absolute Lymphs (auto) 0.75 L Total Counted Not Reportable PT 13.6 INR 1.1 APTT 30.7 Sodium 141 Potassium 4.2 Chloride 107 Carbon Dioxide 26.0 Anion Gap 8 BUN 17 Creatinine 0.86 Estim Creat Clear Calc 58.61 Est GFR (MDRD) Af Amer 113 Est GFR (MDRD) Non-Af 94 BUN/Creatinine Ratio 19.7 Glucose 99 Lactic Acid Calcium 8.2 L Total Bilirubin 1.10 H Direct Bilirubin 0.26 AST 126 H ALT 84 H Alkaline Phosphatase 88 Troponin I < 0.015 Total Protein 7.2 Albumin 2.9 L Globulin 4.3 H Lipase 159 Whole Bld Vitamin B1 Folate 44.00 06/24/18 06/24/18 09:56 09:56 WBC RBC Hgb Hct MCV MCH MCHC RDW RDW Differential Plt Count MPV Immature Gran % (Auto) Neut % (Auto) Lymph % (Auto) [place] % (Auto) Eos % (Auto) Baso % (Auto) Absolute Neuts (auto) Absolute Lymphs (auto) Total Counted PT INR APTT Sodium Potassium Chloride Carbon Dioxide Anion Gap BUN Creatinine Estim Creat Clear Calc Est GFR (MDRD) Af Amer Est GFR (MDRD) Non-Af BUN/Creatinine Ratio Glucose Lactic Acid 1.4 Calcium Total Bilirubin Direct Bilirubin AST ALT Alkaline Phosphatase Troponin I Total Protein Albumin Globulin Lipase Whole Bld Vitamin B1 Pending Folate Clinical Impression(s) from Imaging Studies Chest X-Ray 06/24/18 09:26 IMPRESSION: No acute abnormality is seen. Electronically Signed: Jose Harrington, at 9:54 EDT , Service support , Abdomen/Pelvis CT 06/24/18 11:31 IMPRESSION: Colostomy is seen in the left anterior mid abdomen. Scattered sigmoid diverticula. Material is seen in the right hemicolon. Fatty infiltration of the liver. Electronically Signed: Jose Harrington, at 13:30 EDT , Service support , Assessment/Plan All Active Problems (Last Updated 02/21/18 @ 01:01 by Tomer Jones MD) Status post sigmoid resection (Acute) This is a 67 years old male patient presented to the emergency room because of weakness, poor oral intake, upper and lower extremity pains and aches in context of recent history of exploratory laparotomy with sigmoid resection and colostomy for complicated diverticulitis and he is being admitted for evaluation and probably he would need placement to intermediate facility. #1 physical debility/functional decline/difficulty ambulating: Patient is very weak, not able to ambulate, poor oral intake and has upper and lower extremity pains and aches. After surgery, he was recommended to go to intermediate facility but his insurance coverage denied. At this time, no evidence of acute infection. CT scan abdomen and pelvis without acute findings. Patient's vitals are stable, afebrile. Plan: Admit to MedSurg floor for observation, cardiac monitoring, IV fluids, check vitamin D level, serum phosphorus, serum magnesium, TSH, CPK, LDH, prealbumin, nutrition consult, IV fluids, IV antiemetics, PT OT evaluation and treatment. #2 weakness/upper and lower extremity pain: Vague symptoms, unclear etiology. Malnutrition and minerals or vitamin deficiency could be the etiology of this vague extremities pain and weakness. Plan as above, check TSH, CPK, LDH, prealbumin, phosphorus, magnesium, vitamin D. #3 minimally elevated LFT: Total bilirubin is 1.1, minimally elevated, AST is 126 and ALT is 84, alkaline phosphatase is normal. Lipase was normal patient has no right upper quadrant abdominal pain. CT scan abdomen revealed normal gallbladder and biliary system. At this time, I doubt any acute biliary infection or obstruction. Plan for IV fluids, repeat CMP tomorrow morning. #4 status post exploratory laparotomy/sigmoid resection and colostomy: This was done on May 26, [address] complicated [address] scan abdomen pelvis that was done today showed no acute findings. Plan as above, general surgery consult. #5 benign prostatic hypertrophy: Continue Flomax and Proscar. #6 chronic anemia: It is normocytic anemia, admission hemoglobin is 10.6 g/dL. Since August,, hemoglobin has been around 8 to 11 g/dL. At this time, no evidence of active bleeding. Serum folate was normal, B1 is pending. Plan: Viral studies, B12 #7 DVT prophylaxis: Subcu Lovenox. This note was generated with [employer] dictation software. It may contain incorrect words, spelling, and punctuation that were not noted in checking the note before signing. Patient is very weak, not able to ambulate Code Visit OBSV E&M: 98938 Initial observation care L3
[2018-06-24 15:10] LABS: Mucous, Urine 0 SEEN /hpf (<or=2+); Red Blood Cells-Urine 0 SEEN /hpf (0-5); Squamous Epithelial Cells - UA 0 SEEN /hpf (0-5); White Blood Cells 0 SEEN /hpf (0-5)
[2018-06-24 15:13] LABS: Color, Urine Yellow (Yellow); Glucose, Dipstick Normal (Normal); Ketone-Dipstick 5 mg/dl (Negative); Leukocyte Esterase-Dipstick Negative /ul (Negative); Nitrite-Dipstick Negative (Negative); Occult Blood-Urine 10 /ul (Negative); Protein-Dipstick Negative (Negative); Urine Bilirubin Dipstick Negative (Negative); Urine Clarity Sl. Cloudy (Clear); Urine Urobilinogen Normal (Normal)
[2018-06-24 15:18] LABS: Bacteria 1+ /hpf (None Seen)
[2018-06-24] MEDS: Lactated Ringers 1,000 ML 75 ML IV (16:06)
[2018-06-24 16:44] LABS: CPK Total, Creatine Kinase 42 U/L (39-308); LDH 313 U/L (87-241); Prealbumin 18.5 mg/dL (20.0-40.0); Thyroid Stim Hormone (TSH) 4.42 uIU/mL (0.358-3.74)
[2018-06-24 16:57] LABS: Magnesium 1.9 mg/dL (1.6-2.6); Phosphorus 3.2 mg/dL (2.5-4.9)
--- NOTE | 2018-06-24 17:03 | CON.PCM_ITS ---
- Consult Date of Consult: 06/24/18 - Reason for Consult Chief complaint - weakness HPI: 67 y/o WM with failure to thrive. He has had a complicated surgical course - This is a note from Dr. Watson dated 05/18/18 The patient is a 67 year old male with worsening failure to thrive when I saw him on April 22, 2018. He was seen by his primary care physician 2 days previously. He was sent to [facility] for a chest x-ray and laboratory studies. Laboratory studies were relatively unremarkable with normal white blood cell count, mild anemia, normal protein and albumin, slightly elevated liver profile. Chest x-ray did demonstrate significant free air. The patient states that he has a degree of apprehension eating food due to his diverticulitis but does not complain of pain. Unfortunately, the patient is very stoic. He denies change in his bowel habits. He denies fever or chills. He states he does not have pain when he eats but again a degree of food aversion. The most concerning feature to his is that he has lost approximately 20 pounds of weight and is having increasing weakness. ? The patient has a recently complex history related to his diverticulitis. ? The patient has a known history of right upper extremity sarcoma. He was scheduled for a follow-up chest CAT scan which he underwent at [facility] yesterday. Incidental finding was free intra-abdominal air. The patient's orthopedic surgeon, Dr. Hill called the patient this morning from a virtual visit. The patient had eaten breakfast and did not report any concerns. ? The patient was placed on my schedule for a diagnosis of pneumoperitoneum. ? In discussions with the patient, he notes pain in the left lower quadrant starting around Thanksgiving and then pain across the upper mid abdomen and through to the back. He states his been typically eating Jell-O since that time. He denies fever or chills. He notes that actually has been feeling better for the last 2 days. ? The patient has a diagnosis approximately one year ago of pancreatitis from unknown etiology. He was maintained in the hospital for 2 days without diagnosis. He assumed that his pain started on Thanksgiving was also pancreatitis and he felt it would be a waist at this time to return to the hospital. I had seen the patient 5 year previously were he underwent laparoscopic appendectomy for missed appendicitis. ? The patient was initially scheduled for later in the afternoon. I had him present to my office as soon as he could be contacted. In the office, he looked remarkably comfortable. His vitals were stable and he had no diffuse peritoneal signs. I reviewed the CT scan of the chest which did demonstrate significant free air. I did not see any time signs of intra-abdominal fluid collections and the stomach and duodenum did not demonstrate signs of inflammation. I elected to obtain laboratory studies-CBC chemistry panel and lipase, and a noncontrast CT scan. ? Again the patient had improved abdominal symptoms and was tolerating a low residue diet without challenges by the time he presented to my office. ? My interpretation of the CT scan as this is most likely descending colon/sigmoid diverticulitis. I received a phone call from the radiologist later commenting on the same findings. We agreed that this would be very clinically worrisome in the acute setting. We concluded it was reasonable to plan for a follow-up CT scan a week. He was discharged home from my office on a low residue diet with oral antibiotics. ? The patient still denies any significant abdominal pain. He notes no fever or chills. He is taking his oral antibiotics. He would like to advance his diet. The patient was then doing well until February 20 when he noted fever to 105 and left-sided abdominal pain. He presented to [facility] emergency department. Follow-up CT scan demonstrated a 2-1/2 cm abscess near the site of recurrent diverticulitis. He was admitted, given IV antibiotics and underwent percutaneous drainage with pigtail catheter placement. He did well and was transitioned to oral antibiotics and discharged to home on February 24, 2018. I saw him approximately 3 weeks previously. Our plan was to perform colonoscopy and then sigmoid resection on May 04 and . ? He was admitted to the hospital on April 22, 2018. CT scan of the abdomen and pelvis was obtained at that time. This demonstrated his diverticulosis without was felt to be significantly active diverticulitis significant free air with no fluid and was felt to be inflammation in the duodenum interpreted as possible perforated duodenal ulcer. Given his relatively benign abdomen, significant free air and no signs of fluid along with the remarkably normal white count and the fact that the patient's said they had trouble buttoning his pants for the past 8-10 days, I entertained the possibility of a perforated duodenal ulcer. He was taken for upper endoscopy on April 23 and found to have duodenitis. Ultrasound-guided aspiration yielded no intra-abdominal fluid for culture. The patient was maintained on proton pump inhibitors and antibiotics. 2 days later he had increasing abdominal pain and spiking fevers. Repeat CAT scan now demonstrated active diverticulitis with a more pericolonic air and gas then the CAT scan on April 22 ? I performed a exploratory laparotomy with segmental sigmoid colon resection and Timmons's colostomy on April 25, 2018. The patient had a protracted hospital course due to ileus, malnutrition, and overall debilitation. He was discharged home on May 05. The patient had recurring urinary retention and was discharged on double dose Flomax and having a Ríos catheter in place ? At the time of discharge, the patient had a normal white blood cell count. His albumin was low at 2.4, his prealbumin was 9.8 with normal 20-40 and his protein was lower limits of normal at 6.4. The patient currently notes that he is proceeding with his physical therapy but they noted him to be tachycardic and hypotensive. He notes he is making good urine and actually has an increase in his urine output. his appetite has been fair but his is encouraging him to eat. He is generally drinking 3 cans of ensure per day and taking some food in. he denies fever, chills or abdominal pain. he does note some mild incisional discomfort. ? I removed the Ríos catheter last week. He is been urinating without difficulty. I decreased his Flomax at the patient still is having issues with a degree of hypotension. He had some nausea over the weekend. He notes continued output from his colostomy bag ? In the past two weeks, patient has had progressive weakness, poor appetite, nausea. He denies abdominal pain. Admitted for failure to thrive. PAST?MEDICAL?HISTORY Cancer (HCC) - sarcoma? Episode of perforated diverticulitis ? ? PAST?SURGICAL?HISTORY APPENDECTOMY ? 08/28/12 see above ? MEDICATIONS tylenol prn aspirin vitamin D lovenox proscar neurontin zofran pantoprazole flomax ALLERGIES: cod liver oil, zinc oxide REVIEW OF SYSTEMS: General: weakness and fatigue, also weight loss Cardiovascular: chest pain Respiratory: denies frequent cough, denies pulmonary embolism, has some shortness of breath, and denies coughing up blood. Gastrointestinal: denies abdominal pain, has poor appetite Kidney/Bladder: The patient denies kidney stones, denies urine infections, and denies bloody urine. Skin: denies skin rash. Neurologic: denies seizures, has generalized weakness Psychiatric: The patient denies psychiatric medications, denies depression, and denies voices, denies substance abuse. Endocrine: denies diabetes Hematologic: denies spontaneous/prolonged bleeding Infections: denies fevers Musculoskeletal: The patient denies back pain/injury, denies back problems, denies sciatica, denies knee/foot trouble, NOTES arthritis, or denies gout. ? PHYSICAL EXAMINATION: ?General: The patient is 67 year old male, well nourished, well hydrated in no acute distress. The patient is oriented to time, place, and person. ?VITALS: Blood pressure 118/62, pulse (!) 59, temperature 36.1 ?C (97 ?F), temperature source Temporal Artery, resp. rate 16, weight 116.1 kg (256 lb), SpO2 96 %. ?HEENT: Normal cephalic, ataumatic, pupils are equally round, sclera are anicteric, mucous membranes are moist, oropharynx is clear. Neck has no masses, asymmetry or lymphadenopathy. Thyroid is unremarkable. ?Respiratory: Clear to auscultation and percussion. Normal respiratory excursion and pattern. ?Cardiac: Examination is regular rate and rhythm. ?Abdominal exam: Soft, nontender, well healed midline incision, stoma functioning in left lower quadrant. ?Rectal exam: Exam deferred ?Extremities: no clubbing, cyanosis or edema. No adenopathy. ? Impression: failure to thrive Recommendations/Plan: no surgical recommendations at this point I believe patient would best benefit placement in nursing rehab facility (he has failed home health care) and is at high risk for readmission
--- NOTE | 2018-06-24 17:55 | CASEMGMT ---
RN CM Assessment Introduced role of RN CM to patient and patient Juanis at bedside.? Patient is alert, oriented and able?to participate in RN CM Assessment. ?Care providers, pharmacy, and demographics verified. Presentation: Sent by Dr Watson's office, Since April-Weakness, worse the past 2 weeks. Had Colostomy placed in April. Unable to eat. Admit Dx: Debility, Weakness, Functional decline, recent Sigmoid resection. Re-Admit: No, Inpt 04/22-05/05/18 for Failure to thrive & Diverticulosis- Colostomy placed, was DC'd with [facility] for PT/OT/RN, Inpt 02/21-02/24/18 for Acute Diverticulitis Barriers/Issues: Per told upon last admit that TCU was not In Network with Insurance and then told that Insurance would not approve stay- would not qualify for SNF since patient was up walking with by his side. States that patient has had difficulty since returning home, however the past 2 weeks has deconditioned with pain to bilt arms and legs, weakness, decreased po intake. States that she had to put patient in WC and use lift that she has in front of house for her disabled grandchild in order to get patient in car. Told by Dr Watson that he cannot attend Outpt PT at this time d/t needs to be stronger to be able to participate for 3-4hrs at a time. States PT- did not feel was beneficial because every time they came out- patient Bp was low or had something going on with the patient where they were unable to work with him. PCP: Napoleon Larson Specialists: Surgeon- Dr Watson, Uro- Dr Elias (Has not seen yet, has an appt. in July) Preferred Pharmacy: [facility] Insurance: [employer] [facility] HMO Rx Benefit:?Yes LNOK: Juanis Fraire LW/HPOA: No, Declines offered information Living Arrangements:?Lives with in a 2 story home, resides on the [facility], 5-6 steps to enter, does have a WC lift for Disabled Grandchild that they are able to use if needed. ADL?s: Normally patient ambulates independently, the past couple weeks has needed to use walker and WC. Normally Independent with ADL's, recently has had to assist with all ADL's Transportation: DME: Walker, WC, Shower Chair HHC: Past [facility] PT/OT/RN SNF: None, Preference TCU Goal: Would like patient to go to SNF for PT to get stronger so that he can attend outpatient PT, States Preference is TCU if In Network. DC PLAN: Possible SNF for PT, Possible TPN. Niko Bergeron RNCM
[2018-06-24 17:59] LABS: Ferritin 1319 ng/mL (26-388); Iron 53 ug/dL (65-175); Iron Binding Capacity,Total 219 ug/dL (250-450); PERCENT IRON SATURATION 24.2 % (15.0-55.0)
[2018-06-24 18:03] LABS: Vitamin B12 702 pg/mL (211-911)
[2018-06-24] MEDS: Ondansetron 4 MG/2 ML Vial IV (18:09)
[2018-06-24] MEDS: Gabapentin 300 MG Capsule 900 MG PO (21:53)
[2018-06-25] VITALS (13 sets, daily range): BP systolic 107–122; BP diastolic 66–70; PULSE 77–91; RESP 18; TEMP 36.3–37.2; O2SAT 95–98
[2018-06-25 06:16] LABS: Absolute Lymphocyte Count 0.64 X10^3/ul (0.83-4.51); Absolute Neutrophil Count 1.6 X10^3/uL (2.0-7.7); Eosinophil# 0.08 X10^3/uL; Eosinophils% 3.1 % (0-5); Hematocrit 32.1 % (40-54); Lymphocyte # 0.64 X10^3/ul (4.0); Lymphocyte % 24.4 % (19-41); Mean Corp Hgb Conc 31.2 g/gl (32-36); Mean Corpuscular Hgb 26.5 pg (27.0-32.0); Mean Corpuscular Volume 84.9 fL (80-94); Mean Platelet Vol. 10.3 fl (6.2-12.0); Monocyte# 0.29 X10^3/uL; Monocyte% 11.1 % (0-10); Neutrophil # 1.58 X10^3/uL (2.7-7.7); Neutrophil % 60.3 % (47-70); Platelet Count 127 K/mm3 (150-450); RBC Distribution Width SD 58.3 fl (35.1-43.9); Red Blood Count 3.78 M/mm3 (4.6-6.2); White Blood Count 2.6 K/mm3 (4.4-11.0)
[2018-06-25 06:23] LABS: POSITIVE COUNT NO; POSITIVE DIFFERENTIAL NO; POSITIVE MORPHOLOGY NO
[2018-06-25 06:34] LABS: ALB/GLOB Ratio 0.7 RATIO (0.9-2.4); AST(SGOT) 109 U/L (15-37); Alanine Aminotransfer ALT/SGPT 77 U/L (16-61); Albumin, Serum 2.6 g/dL (3.2-5.0); Alkaline Phosphatase 77 U/L (45-117); Anion Gap 6 (5-15); BUN 11 mg/dL (7-18); BUN/Creat Ratio 16.2 RATIO (10-20); Chloride 114 mmol/L (98-107); Creatinine, Serum 0.68 mg/dL (0.70-1.30); EST Glomerular Filtration Rate 123 mL/min (>60); Est Glom Filt Rate - Afr Amer 149 mL/min (>60); Estimated Creatinine Clearance 78.68 ml/min; Globulin 3.8 g/dL (2.2-4.2); Glucose 88 mg/dL (74-106); Potassium 3.9 mmol/L (3.5-5.1); Protein, Total 6.4 g/dL (6.4-8.2); Sodium Level 144 mmol/L (136-145)
[2018-06-25] MEDS: Lactated Ringers 1,000 ML 75 ML IV (07:31)
--- NOTE | 2018-06-25 07:35 | PN.SURG_ITS ---
Patient Problems: Active and Suspected Problems (Last Updated 02/21/18 @ 01:01 by Tomer Jones MD) Status post sigmoid resection (Acute) Subjective: patient feeling improved, denies nausea denies abdominal pain - Physical Exam General: Alert, Oriented x3 Oral: Moist Mucosa Neck: Supple Lungs: Normal air movement Cardiovascular: Regular rate Abdomen: Bowel Sounds Present, Soft, - - stoma pink and functioning Vital Signs Temp Pulse Resp BP Pulse Ox 97.8 F 78 18 115/69 97 06/25/18 03:30 06/25/18 06:00 06/25/18 03:30 06/25/18 03:30 06/25/18 03:30 Oxygen Delivery Method Room Air Weight: 94.3 kg Body Mass Index (BMI) 27.5 Intake and Output for Last 24 Hours 06/23/18 06/24/18 06/25/18 23:59 23:59 23:59 Intake Total 1043 / 1043 737 / 737 Output Total 300 / 300 525 / 525 Balance 743 / 743 212 / 212 Laboratory Tests Past 24 Hrs 06/24/18 06/24/18 06/24/18 09:56 09:56 09:56 WBC 4.0 L RBC 3.99 L Hgb 10.6 L Hct 33.6 L MCV 84.2 MCH 26.6 L MCHC 31.5 L RDW 19.0 H RDW Differential 58.6 H Plt Count 139 L MPV 9.8 Immature Gran % (Auto) 0.500 Neut % (Auto) 73.4 H Lymph % (Auto) 18.8 L Harrison % (Auto) 5.8 Eos % (Auto) 1.5 Baso % (Auto) 0.0 Absolute Neuts (auto) 2.9 Absolute Lymphs (auto) 0.75 L Total Counted Not Reportable PT 13.6 INR 1.1 APTT 30.7 Sodium 141 Potassium 4.2 Chloride 107 Carbon Dioxide 26.0 Anion Gap 8 BUN 17 Creatinine 0.86 Estim Creat Clear Calc 58.61 Est GFR (MDRD) Af Amer 113 Est GFR (MDRD) Non-Af 94 BUN/Creatinine Ratio 19.7 Glucose 99 Lactic Acid Calcium 8.2 L Phosphorus Magnesium Iron TIBC Iron Saturation Ferritin Total Bilirubin 1.10 H Direct Bilirubin 0.26 AST 126 H ALT 84 H Alkaline Phosphatase 88 Lactate Dehydrogenase Total Creatine Kinase Troponin I < 0.015 Total Protein 7.2 Albumin 2.9 L Globulin 4.3 H Albumin/Globulin Ratio Prealbumin Lipase 159 Whole Bld Vitamin B1 Vitamin B12 Vit D 1,25-Dihydroxy Folate 44.00 TSH Urine Color Urine Clarity Urine pH Ur Specific [place] Urine Protein Urine Glucose (UA) Urine Ketones Urine Occult Blood Urine Nitrite Urine Bilirubin Urine Urobilinogen Ur Leukocyte Esterase Urine RBC Urine WBC Ur Squamous Epith Cells Urine Bacteria Urine Mucus 06/24/18 06/24/18 06/24/18 09:56 09:56 09:56 WBC RBC Hgb Hct MCV MCH MCHC RDW RDW Differential Plt Count MPV Immature Gran % (Auto) Neut % (Auto) Lymph % (Auto) Harrison % (Auto) Eos % (Auto) Baso % (Auto) Absolute Neuts (auto) Absolute Lymphs (auto) Total Counted PT INR APTT Sodium Potassium Chloride Carbon Dioxide Anion Gap BUN Creatinine Estim Creat Clear Calc Est GFR (MDRD) Af Amer Est GFR (MDRD) Non-Af BUN/Creatinine Ratio Glucose Lactic Acid 1.4 Calcium Phosphorus Magnesium Iron TIBC Iron Saturation Ferritin Total Bilirubin Direct Bilirubin AST ALT Alkaline Phosphatase Lactate Dehydrogenase Total Creatine Kinase Troponin I Total Protein Albumin Globulin Albumin/Globulin Ratio Prealbumin Lipase Whole Bld Vitamin B1 Pending Vitamin B12 Vit D 1,25-Dihydroxy Pending Folate TSH Urine Color Urine Clarity Urine pH Ur Specific [place] Urine Protein Urine Glucose (UA) Urine Ketones Urine Occult Blood Urine Nitrite Urine Bilirubin Urine Urobilinogen Ur Leukocyte Esterase Urine RBC Urine WBC Ur Squamous Epith Cells Urine Bacteria Urine Mucus 06/24/18 06/24/18 06/24/18 09:56 14:00 14:00 WBC RBC Hgb Hct MCV MCH MCHC RDW RDW Differential Plt Count MPV Immature Gran % (Auto) Neut % (Auto) Lymph % (Auto) Harrison % (Auto) Eos % (Auto) Baso % (Auto) Absolute Neuts (auto) Absolute Lymphs (auto) Total Counted PT INR APTT Sodium Potassium Chloride Carbon Dioxide Anion Gap BUN Creatinine Estim Creat Clear Calc Est GFR (MDRD) Af Amer Est GFR (MDRD) Non-Af BUN/Creatinine Ratio Glucose Lactic Acid Calcium Phosphorus 3.2 Magnesium 1.9 Iron TIBC Iron Saturation Ferritin Total Bilirubin Direct Bilirubin AST ALT Alkaline Phosphatase Lactate Dehydrogenase 313 H Total Creatine Kinase 42 Troponin I Total Protein Albumin Globulin Albumin/Globulin Ratio Prealbumin 18.5 L Lipase Whole Bld Vitamin B1 Vitamin B12 702 Vit D 1,25-Dihydroxy Folate TSH 4.42 H Urine Color Urine Clarity Urine pH Ur Specific [place] Urine Protein Urine Glucose (UA) Urine Ketones Urine Occult Blood Urine Nitrite Urine Bilirubin Urine Urobilinogen Ur Leukocyte Esterase Urine RBC Urine WBC Ur Squamous Epith Cells Urine Bacteria Urine Mucus 06/24/18 06/24/18 06/25/18 14:00 15:00 05:35 WBC 2.6 L RBC 3.78 L Hgb 10.0 L Hct 32.1 L MCV 84.9 MCH 26.5 L MCHC 31.2 L RDW 19.0 H RDW Differential 58.3 H Plt Count 127 L MPV 10.3 Immature Gran % (Auto) 1.100 H Neut % (Auto) 60.3 Lymph % (Auto) 24.4 Harrison % (Auto) 11.1 H Eos % (Auto) 3.1 Baso % (Auto) 0.0 Absolute Neuts (auto) 1.6 L Absolute Lymphs (auto) 0.64 L Total Counted Not Reportable PT INR APTT Sodium Potassium Chloride Carbon Dioxide Anion Gap BUN Creatinine Estim Creat Clear Calc Est GFR (MDRD) Af Amer Est GFR (MDRD) Non-Af BUN/Creatinine Ratio Glucose Lactic Acid Calcium Phosphorus Magnesium Iron 53 L TIBC 219 L Iron Saturation 24.2 Ferritin 1319 H Total Bilirubin Direct Bilirubin AST ALT Alkaline Phosphatase Lactate Dehydrogenase Total Creatine Kinase Troponin I Total Protein Albumin Globulin Albumin/Globulin Ratio Prealbumin Lipase Whole Bld Vitamin B1 Vitamin B12 Vit D 1,25-Dihydroxy Folate TSH Urine Color Yellow Urine Clarity Sl. Cloudy Urine pH 7.0 Ur Specific [place] 1.010 Urine Protein Negative Urine Glucose (UA) Normal Urine Ketones 5 H Urine Occult Blood 10 H Urine Nitrite Negative Urine Bilirubin Negative Urine Urobilinogen Normal Ur Leukocyte Esterase Negative Urine RBC 0 SEEN Urine WBC 0 SEEN Ur Squamous Epith Cells 0 SEEN Urine Bacteria 1+ Urine Mucus 0 SEEN 06/25/18 05:35 WBC RBC Hgb Hct MCV MCH MCHC RDW RDW Differential Plt Count MPV Immature Gran % (Auto) Neut % (Auto) Lymph % (Auto) Harrison % (Auto) Eos % (Auto) Baso % (Auto) Absolute Neuts (auto) Absolute Lymphs (auto) Total Counted PT INR APTT Sodium 144 Potassium 3.9 Chloride 114 H Carbon Dioxide 24.0 Anion Gap 6 BUN 11 Creatinine 0.68 L Estim Creat Clear Calc 78.68 Est GFR (MDRD) Af Amer 149 Est GFR (MDRD) Non-Af 123 BUN/Creatinine Ratio 16.2 Glucose 88 Lactic Acid Calcium 8.0 L Phosphorus Magnesium Iron TIBC Iron Saturation Ferritin Total Bilirubin 1.00 Direct Bilirubin AST 109 H ALT 77 H Alkaline Phosphatase 77 Lactate Dehydrogenase Total Creatine Kinase Troponin I Total Protein 6.4 Albumin 2.6 L Globulin 3.8 Albumin/Globulin Ratio 0.7 L Prealbumin Lipase Whole Bld Vitamin B1 Vitamin B12 Vit D 1,25-Dihydroxy Folate TSH Urine Color Urine Clarity Urine pH Ur Specific [place] Urine Protein Urine Glucose (UA) Urine Ketones Urine Occult Blood Urine Nitrite Urine Bilirubin Urine Urobilinogen Ur Leukocyte Esterase Urine RBC Urine WBC Ur Squamous Epith Cells Urine Bacteria Urine Mucus Medical Necessity - Tobacco Use Smoking Status: Former smoker Tobacco Use: Cigarettes Assessment/Plan All Active Problems (Last Updated 02/21/18 @ 01:01 by Tomer Jones MD) Status post sigmoid resection (Acute) Impression: status post sigmoid resection, failure to thrive Plan: patient with failure to thrive, had attempted home health care and failed, awaiting nursing rehab facility placement
[2018-06-25] MEDS: Aspirin 81 MG TAB.CHEW PO (08:48)
--- NOTE | 2018-06-25 09:02 | CASEMGMT ---
Social Work Note SW received message from Nara in TCU stating TCU is not in network with pt's insurance. [facility] will meet with pt to discuss other SNF options. Plan: SNF pending acceptance and pre-cert [facility] [employer]
--- NOTE | 2018-06-25 10:19 | NURSING ---
The colostomy appliance had been changed in the ED yesterday by the patient's . leak noted this morning near the umbilical area. removed the ostomy appliance. stoma sits right at the skin level within an abdominal fold. will try a convex barrier ring to see if that will help with the leaks. peristomal skin is intact. stoma is oval in shape. Adapt convex ring #[id number] used. applied new 2 piece appliance with the barrier ring. states she feels this will help with the leaks. this nurse called Gera to add to the patient's order. pt and very appreciative and deny further questions or concerns at this time.
[2018-06-25] MEDS: Enoxaparin 40 MG/0.4 ML Syringe SC (11:01)
[2018-06-25] MEDS: Gabapentin 300 MG Capsule 900 MG PO ×2 (11:02→21:48)
[2018-06-25] MEDS: Finasteride 5 MG Tablet PO (11:04)
[2018-06-25] MEDS: Tamsulosin HCl 0.4 MG Capsule PO (11:04)
[2018-06-25] MEDS: Ondansetron 8 MG Tablet PO ×2 (12:40→15:36)
--- NOTE | 2018-06-25 12:49 | CASEMGMT ---
RODNEY LOUIS Note: ARMSTRONG form reviewed with patient and his for his diagnosis of debility and meeting Observation status. Form reviewed in detail, questions answered especially re: 's concern that pt cannot [facility] RODNEY LOUIS explained HMO policies generally do not have any, or have reduced out of network benefits and financially, staying in insurance network provides best financial payment. has list of InNetwork facilities and will review. Also reviewed that [facility] does precertification process for SNF and pt does not need to have MCR qualifying 3 day stay. signed ARMSTRONG form as pt is not feeling well. Pt did listen to conversation and did not have questions. Darrell RODRIGUEZ RN ACM
--- NOTE | 2018-06-25 13:46 | PCM.PN.HOSP ---
Patient Problems: Active and Suspected Problems (Last Updated 02/21/18 @ 01:01 by Tomer Jones MD) Status post sigmoid resection (Acute) Subjective: Still nauseated. Consumed only 1/2 can on Ensure yesterday, which he attributed to his not being present to make him eat more. Vitals/I&O's: Vital Signs Temp Pulse Resp BP Pulse Ox 36.3 C L 84 18 122/66 H 98 06/25/18 08:42 06/25/18 10:00 06/25/18 08:42 06/25/18 08:42 06/25/18 08:42 Oxygen Delivery Method Room Air Weight: 94.3 kg Body Mass Index (BMI) 27.5 Intake and Output for Last 24 Hours 06/23/18 06/24/18 06/25/18 23:59 23:59 23:59 Intake Total 1043 / 1043 1611 / 1611 Output Total 300 / 300 975 / 975 Balance 743 / 743 636 / 636 General: Alert, No apparent distress HEENT: Atraumatic, Normocephalic Neck: No Nodes, Thyroid Normal Size and Texture Lungs: Clear to auscultation, Normal air movement, No rhonchi, No wheeze Cardiovascular: Regular rate, Regular Rhythm, Normal S1, Normal S2, No murmurs Abdomen: Bowel Sounds Present, Soft, Non Tender, Non-Distended, No Hepato-splenomegaly Extremities: No edema, No Calf Tenderness Skin: No rashes, No breakdown Musculoskeletal: No Tenderness to Palpation of Joints or Extremities, No Muscle Wasting Psych/Mental Status: Appropriate, Flat Affect Laboratory Results 06/24/18 09:56: Vit D 1,25-Dihydroxy Pending 06/24/18 09:56: Vitamin B12 702 06/24/18 14:00: Lactate Dehydrogenase 313 H, Total Creatine Kinase 42, Prealbumin 18.5 L, TSH 4.42 H 06/24/18 14:00: Phosphorus 3.2, Magnesium 1.9 06/24/18 14:00: Iron 53 L, TIBC 219 L, Iron Saturation 24.2, Ferritin 1319 H 06/24/18 15:00: Urine Color Yellow, Urine Clarity Sl. Cloudy, Urine pH 7.0, Ur Specific [place] 1.010, Urine Protein Negative, Urine Glucose (UA) Normal, Urine Ketones 5 H, Urine Occult Blood 10 H, Urine Nitrite Negative, Urine Bilirubin Negative, Urine Urobilinogen Normal, Ur Leukocyte Esterase Negative, Urine RBC 0 SEEN, Urine WBC 0 SEEN, Ur Squamous Epith Cells 0 SEEN, Urine Bacteria 1+, Urine Mucus 0 SEEN 06/25/18 05:35: WBC 2.6 L, RBC 3.78 L, Hgb 10.0 L, Hct 32.1 L, MCV 84.9, MCH 26.5 L, MCHC 31.2 L, RDW 19.0 H, RDW Differential 58.3 H, Plt Count 127 L, MPV 10.3, Immature Gran % (Auto) 1.100 H, Neut % (Auto) 60.3, Lymph % (Auto) 24.4, [place] % (Auto) 11.1 H, Eos % (Auto) 3.1, Baso % (Auto) 0.0, Absolute Neuts (auto) 1.6 L, Absolute Lymphs (auto) 0.64 L, Total Counted Not Reportable 06/25/18 05:35: Sodium 144, Potassium 3.9, Chloride 114 H, Carbon Dioxide 24.0, Anion Gap 6, BUN 11, Creatinine 0.68 L, Estim Creat Clear Calc 78.68, Est GFR (MDRD) Af Amer 149, Est GFR (MDRD) Non-Af 123, BUN/Creatinine Ratio 16.2, Glucose 88, Calcium 8.0 L, Total Bilirubin 1.00, AST 109 H, ALT 77 H, Alkaline Phosphatase 77, Total Protein 6.4, Albumin 2.6 L, Globulin 3.8, Albumin/Globulin Ratio 0.7 L Current Medications Acetaminophen (Tylenol) 650 mg PO Q6H PRN PRN PRN Reason: Mild Pain (1-3)/Temp > 100.7 F Aspirin (Aspirin, Baby) 81 mg PO DAILY@0800 [facility] Last Admin: 06/25/18 08:48 Dose: 81 mg Cholecalciferol (Vitamin D) 2,000 unit PO DAILY [facility] Last Admin: 06/25/18 11:02 Dose: 2,000 unit Enoxaparin Sodium (Lovenox) 40 mg SC DAILY@1000 [facility] Last Admin: 06/25/18 11:01 Dose: 40 mg Finasteride (Proscar) 5 mg PO DAILY [facility] Last Admin: 06/25/18 11:04 Dose: 5 mg Gabapentin (Neurontin) 900 mg PO BID [facility] Last Admin: 06/25/18 11:02 Dose: 900 mg Lactated Ringer's () 1,000 mls @ 75 mls/hr IV .[id number] [facility] Stop: 06/25/18 18:27 Last Admin: 06/25/18 07:31 Dose: 75 mls/hr Nutritional Formula (Lactose Free) (Ensure Enlive) 120 ml PO 4X/DAY [facility] Last Admin: 06/25/18 10:56 Dose: 120 ml Ondansetron HCl (Zofran) 8 mg PO TIDAC [facility] Last Admin: 06/25/18 12:40 Dose: 8 mg Promethazine HCl (Phenergan) 6.25 mg IV Q6H PRN PRN PRN Reason: NAUSEA/VOMITING Sodium Chloride () 5 - 15 ml IV UD PRN PRN Reason: SALINE FLUSH Tamsulosin HCl (Flomax) 0.4 mg PO DAILY [facility] Last Admin: 06/25/18 11:04 Dose: 0.4 mg Medical Necessity - Tobacco Use Smoking Status: Former smoker Tobacco Use: Cigarettes Assessment/Plan All Active Problems (Last Updated 02/21/18 @ 01:01 by Tomer Jones MD) Status post sigmoid resection (Acute) 1. Intractable nausea encouraged patient to try to eat, particularly since he has not vomiting for about 1 week. change PPI to PO BID Zofran before meals 2. failure to thrive PT recommends additional therapy awaiting on placement to SNF, previously declined by facilities 3. Anemia: Hg stable monitor 4. VTE prophylaxis: LMWH Code Visit Inpatient E&M: 60162 Subs Hosp L2
--- NOTE | 2018-06-25 14:00 | PN_ITS ---
Patient Problems: Active and Suspected Problems (Last Updated 02/21/18 @ 01:01 by Tomer Jones MD) Status post sigmoid resection (Acute) Subjective: Still nauseated. Consumed only 1/2 can on Ensure yesterday, which he attributed to his not being present to make him eat more. Vitals/I&O's: Vital Signs Temp Pulse Resp BP Pulse Ox 36.3 C L 84 18 122/66 H 98 06/25/18 08:42 06/25/18 10:00 06/25/18 08:42 06/25/18 08:42 06/25/18 08:42 Oxygen Delivery Method Room Air Weight: 94.3 kg Body Mass Index (BMI) 27.5 Intake and Output for Last 24 Hours 06/23/18 06/24/18 06/25/18 23:59 23:59 23:59 Intake Total 1043 / 1043 1611 / 1611 Output Total 300 / 300 975 / 975 Balance 743 / 743 636 / 636 General: Alert, No apparent distress HEENT: Atraumatic, Normocephalic Neck: No Nodes, Thyroid Normal Size and Texture Lungs: Clear to auscultation, Normal air movement, No rhonchi, No wheeze Cardiovascular: Regular rate, Regular Rhythm, Normal S1, Normal S2, No murmurs Abdomen: Bowel Sounds Present, Soft, Non Tender, Non-Distended, No Hepato- splenomegaly Extremities: No edema, No Calf Tenderness Skin: No rashes, No breakdown Musculoskeletal: No Tenderness to Palpation of Joints or Extremities, No Muscle Wasting Psych/Mental Status: Appropriate, Flat Affect Laboratory Results 06/24/18 09:56: Vit D 1,25-Dihydroxy Pending 06/24/18 09:56: Vitamin B12 702 06/24/18 14:00: Lactate Dehydrogenase 313 H, Total Creatine Kinase 42, Prealbumin 18.5 L, TSH 4.42 H 06/24/18 14:00: Phosphorus 3.2, Magnesium 1.9 06/24/18 14:00: Iron 53 L, TIBC 219 L, Iron Saturation 24.2, Ferritin 1319 H 06/24/18 15:00: Urine Color Yellow, Urine Clarity Sl. Cloudy, Urine pH 7.0, Ur Specific [place] 1.010, Urine Protein Negative, Urine Glucose (UA) Normal, Urine Ketones 5 H, Urine Occult Blood 10 H, Urine Nitrite Negative, Urine Bilirubin Negative, Urine Urobilinogen Normal, Ur Leukocyte Esterase Negative, Urine RBC 0 SEEN, Urine WBC 0 SEEN, Ur Squamous Epith Cells 0 SEEN, Urine Bacteria 1+, Urine Mucus 0 SEEN 06/25/18 05:35: WBC 2.6 L, RBC 3.78 L, Hgb 10.0 L, Hct 32.1 L, MCV 84.9, MCH 2 6.5 L, MCHC 31.2 L, RDW 19.0 H, RDW Differential 58.3 H, Plt Count 127 L, MPV 10.3, Immature Gran % (Auto) 1.100 H, Neut % (Auto) 60.3, Lymph % (Auto) 24.4, [place] % (Auto) 11.1 H, Eos % (Auto) 3.1, Baso % (Auto) 0.0, Absolute Neuts (auto) 1.6 L, Absolute Lymphs (auto) 0.64 L, Total Counted Not Reportable 06/25/18 05:35: Sodium 144, Potassium 3.9, Chloride 114 H, Carbon Dioxide 24.0, Anion Gap 6, BUN 11, Creatinine 0.68 L, Estim Creat Clear Calc 78.68, Est GFR (MDRD) Af Amer 149, Est GFR (MDRD) Non-Af 123, BUN/Creatinine Ratio 16.2, Glucose 88, Calcium 8.0 L, Total Bilirubin 1.00, AST 109 H, ALT 77 H, Alkaline Phosphatase 77, Total Protein 6.4, Albumin 2.6 L, Globulin 3.8, Albumin/Globulin Ratio 0.7 L Current Medications Acetaminophen (Tylenol) 650 mg PO Q6H PRN PRN PRN Reason: Mild Pain (1-3)/Temp > 100.7 F Aspirin (Aspirin, Baby) 81 mg PO DAILY@0800 [facility] Last Admin: 06/25/18 08:48 Dose: 81 mg Cholecalciferol (Vitamin D) 2,000 unit PO DAILY [facility] Last Admin: 06/25/18 11:02 Dose: 2,000 unit Enoxaparin Sodium (Lovenox) 40 mg SC DAILY@1000 [facility] Last Admin: 06/25/18 11:01 Dose: 40 mg Finasteride (Proscar) 5 mg PO DAILY [facility] Last Admin: 06/25/18 11:04 Dose: 5 mg Gabapentin (Neurontin) 900 mg PO BID [facility] Last Admin: 06/25/18 11:02 Dose: 900 mg Lactated Ringer's () 1,000 mls @ 75 mls/hr IV .[id number] [facility] Stop: 06/25/18 18:27 Last Admin: 06/25/18 07:31 Dose: 75 mls/hr Nutritional Formula (Lactose Free) (Ensure Enlive) 120 ml PO 4X/DAY [facility] Last Admin: 06/25/18 10:56 Dose: 120 ml Ondansetron HCl (Zofran) 8 mg PO TIDAC [facility] Last Admin: 06/25/18 12:40 Dose: 8 mg Promethazine HCl (Phenergan) 6.25 mg IV Q6H PRN PRN PRN Reason: NAUSEA/VOMITING Sodium Chloride () 5 - 15 ml IV UD PRN PRN Reason: SALINE FLUSH Tamsulosin HCl (Flomax) 0.4 mg PO DAILY [facility] Last Admin: 06/25/18 11:04 Dose: 0.4 mg Medical Necessity - Tobacco Use Smoking Status: Former smoker Tobacco Use: Cigarettes Assessment/Plan All Active Problems (Last Updated 02/21/18 @ 01:01 by Tomer Jones MD) Status post sigmoid resection (Acute) 1. Intractable nausea * encouraged patient to try to eat, particularly since he has not vomiting for about 1 week. * change PPI to PO BID * Zofran before meals 2. failure to thrive * PT recommends additional therapy * awaiting on placement to SNF, previously declined by facilities 3. Anemia: * Hg stable * monitor 4. VTE prophylaxis: LMWH Code Visit Inpatient E&M: 12972 Subs Hosp L2
--- NOTE | 2018-06-25 14:01 | CASEMGMT ---
Social Work Note SW met with pt and pt's Juanis. Pt and Juanis agreeable to first choice [facility] and second choice [facility]. SW again explained referral process and that pt will need pre-cert. SW explained that it is unlikely pre-cert will be obtained today and pt will be at [facility] over the weekend. Pt and Juanis state understanding. SW placed a call to Alexa at [facility], updated on referral. SW faxed referral. Plan: [facility] pending acceptance and pre-cert Dawn Jordan ACCOUNTING COORDINATOR, FOOD AND BEVERAGE MANAGER
--- NOTE | 2018-06-25 14:48 | CHAPLAIN ---
Type of Pastoral Visit _x__ Initial Visit ___ Follow-up Visit ___ On-call Visit ___ General Patient Visit ___ Spiritual Assessment ___ Family Conference ___ Bereavement ___ Rapid Response ___ Code Blue ___ Other (describe below) Pastoral Care Referral From _x__ Patient ___ Family ___ Nurse ___ Physician ___ Color Print Inspector ___ Combat Information Center Officer ___ Other (describe below) Sacrament/Intervention _x__ Active listening ___ Anointing ___ Denominational ___ Bereavement ___ Communion _x__ Tori exploration ___ _x__ Life review _x__ Prayer ___ Reconciliation ___ Sacrament of Sick _x__ Supportive presence ___ Wedding ___ Other (describe below) Pastoral Comments does much of the talking; pt is tearful at times; further support and spiritual care would be beneficial
--- NOTE | 2018-06-25 14:50 | CASEMGMT ---
Social Work Note SW spoke with Alexa at [facility]. Alexa states they are able to accept pt and will submit for pre-cert. Pt and pt's Juanis updated. Plan: [facility] pending pre-cert Dawn Jordan SR. DIRECTOR, IT TEACHER
[2018-06-25] MEDS: Acetaminophen 325 MG Tablet 650 MG PO (19:33)
[2018-06-26] VITALS (12 sets, daily range): BP systolic 92–111; BP diastolic 56–68; PULSE 78–102; RESP 16–18; TEMP 36.4–37.2; O2SAT 96–98
[2018-06-26] MEDS: Ondansetron 8 MG Tablet PO ×3 (06:12→15:37)
[2018-06-26 06:33] LABS: Absolute Lymphocyte Count 0.66 X10^3/ul (0.83-4.51); Absolute Neutrophil Count 1.6 X10^3/uL (2.0-7.7); Eosinophil# 0.05 X10^3/uL; Hematocrit 29.2 % (40-54); Hemoglobin 9.3 g/dl (13.0-16.5); Lymphocyte # 0.66 X10^3/ul (4.0); Lymphocyte % 26.4 % (19-41); Mean Corp Hgb Conc 31.8 g/gl (32-36); Mean Corpuscular Hgb 26.9 pg (27.0-32.0); Mean Corpuscular Volume 84.4 fL (80-94); Mean Platelet Vol. 10.7 fl (6.2-12.0); Monocyte# 0.21 X10^3/uL; Monocyte% 8.4 % (0-10); Neutrophil # 1.57 X10^3/uL (2.7-7.7); Neutrophil % 62.8 % (47-70); Platelet Count 131 K/mm3 (150-450); RBC Distribution Width SD 58.5 fl (35.1-43.9); Red Blood Count 3.46 M/mm3 (4.6-6.2); White Blood Count 2.5 K/mm3 (4.4-11.0)
[2018-06-26 06:35] LABS: POSITIVE COUNT NO; POSITIVE DIFFERENTIAL NO; POSITIVE MORPHOLOGY NO
[2018-06-26 07:00] LABS: Anion Gap 5 (5-15); BUN 12 mg/dL (7-18); BUN/Creat Ratio 17.9 RATIO (10-20); Calcium,Total 7.8 mg/dL (8.5-10.1); Chloride 113 mmol/L (98-107); Creatinine, Serum 0.67 mg/dL (0.70-1.30); EST Glomerular Filtration Rate 126 mL/min (>60); Est Glom Filt Rate - Afr Amer 152 mL/min (>60); Estimated Creatinine Clearance 78.68 ml/min; Glucose 98 mg/dL (74-106); Potassium 3.6 mmol/L (3.5-5.1); Sodium Level 144 mmol/L (136-145)
[2018-06-26] MEDS: Enoxaparin 40 MG/0.4 ML Syringe SC (08:55)
--- NOTE | 2018-06-26 10:16 | PCM.PN.HOSP ---
Patient Problems: Active and Suspected Problems (Last Updated 02/21/18 @ 01:01 by Tomer Jones MD) Status post sigmoid resection (Acute) Subjective: feeling much better. Zofran before meals has allowed him to eat significantly more yesterday. Vitals/I&O's: Vital Signs Temp Pulse Resp BP Pulse Ox 36.4 C L 94 18 92/64 96 06/26/18 09:00 06/26/18 09:11 06/26/18 09:00 06/26/18 09:00 06/26/18 09:00 Oxygen Delivery Method Room Air Weight: 94.3 kg Body Mass Index (BMI) 27.5 Intake and Output for Last 24 Hours 06/24/18 06/25/18 06/26/18 23:59 23:59 23:59 Intake Total 1043 / 1043 3450 / 3450 200 / 200 Output Total 300 / 300 1475 / 1475 Balance 743 / 743 1974 / 1974 200 / 200 General: Alert, No apparent distress HEENT: Atraumatic, Normocephalic Oral: Moist Mucosa, No Gingival or Mucosal Lesions/ Ulcerations Neck: No Nodes, Thyroid Normal Size and Texture Lungs: Clear to auscultation, Normal air movement, No rhonchi, No wheeze Cardiovascular: Regular rate, Regular Rhythm, Normal S1, Normal S2, No murmurs Abdomen: Bowel Sounds Present, Soft, Non Tender, Non-Distended Extremities: No edema, No Calf Tenderness Skin: No rashes, No breakdown Musculoskeletal: No Tenderness to Palpation of Joints or Extremities, No Muscle Wasting Psych/Mental Status: Normal Affect, Appropriate Microbiology Past 72 Hours 06/25/18 14:00 Stool Enteric Bacteriology - Final 06/25/18 14:00 Stool C. difficile DNA Amplification - Final Laboratory Results 06/26/18 05:50: WBC 2.5 L, RBC 3.46 L, Hgb 9.3 L, Hct 29.2 L, MCV 84.4, MCH 26.9 L, MCHC 31.8 L, RDW 19.0 H, RDW Differential 58.5 H, Plt Count 131 L, MPV 10.7, Immature Gran % (Auto) 0.400, Neut % (Auto) 62.8, Lymph % (Auto) 26.4, [place] % (Auto) 8.4, Eos % (Auto) 2.0, Baso % (Auto) 0.0, Absolute Neuts (auto) 1.6 L, Absolute Lymphs (auto) 0.66 L, Total Counted Not Reportable 06/26/18 05:50: Sodium 144, Potassium 3.6, Chloride 113 H, Carbon Dioxide 26.0, Anion Gap 5, BUN 12, Creatinine 0.67 L, Estim Creat Clear Calc 78.68, Est GFR (MDRD) Af Amer 152, Est GFR (MDRD) Non-Af 126, BUN/Creatinine Ratio 17.9, Glucose 98, Calcium 7.8 L Current Medications Acetaminophen (Tylenol) 650 mg PO Q6H PRN PRN PRN Reason: Mild Pain (1-3)/Temp > 100.7 F Last Admin: 06/25/18 19:33 Dose: 650 mg Aspirin (Aspirin, Baby) 81 mg PO DAILY@0800 [facility] Last Admin: 06/26/18 08:53 Dose: Not Given Cholecalciferol (Vitamin D) 2,000 unit PO DAILY [facility] Last Admin: 06/26/18 08:54 Dose: Not Given Enoxaparin Sodium (Lovenox) 40 mg SC DAILY@1000 [facility] Last Admin: 06/26/18 08:55 Dose: 40 mg Finasteride (Proscar) 5 mg PO DAILY [facility] Last Admin: 06/26/18 08:54 Dose: Not Given Gabapentin (Neurontin) 900 mg PO BID [facility] Last Admin: 06/26/18 08:54 Dose: Not Given Nutritional Formula (Lactose Free) (Ensure Enlive) 120 ml PO 4X/DAY [facility] Last Admin: 06/26/18 08:53 Dose: Not Given Ondansetron HCl (Zofran) 8 mg PO TIDAC [facility] Last Admin: 06/26/18 06:12 Dose: 8 mg Promethazine HCl (Phenergan) 6.25 mg IV Q6H PRN PRN PRN Reason: NAUSEA/VOMITING Sodium Chloride () 5 - 15 ml IV UD PRN PRN Reason: SALINE FLUSH Tamsulosin HCl (Flomax) 0.4 mg PO DAILY [facility] Last Admin: 06/26/18 08:54 Dose: Not Given Medical Necessity - Tobacco Use Smoking Status: Former smoker Tobacco Use: Cigarettes Assessment/Plan All Active Problems (Last Updated 02/21/18 @ 01:01 by Tomer Jones MD) Status post sigmoid resection (Acute) 1. Intractable nausea Improved encouraged patient to try to eat, particularly since he has not vomiting for about 1 week. change PPI to PO BID Zofran before meals 2. failure to thrive PT recommends additional therapy awaiting on placement to SNF, previously declined by facilities 3. Anemia: Hg stable monitor 4. VTE prophylaxis: LMWH Code Visit Inpatient E&M: 28758 Subs Hosp L2
--- NOTE | 2018-06-26 10:21 | PN_ITS ---
Patient Problems: Active and Suspected Problems (Last Updated 02/21/18 @ 01:01 by Tomer Jones MD) Status post sigmoid resection (Acute) Subjective: feeling much better. Zofran before meals has allowed him to eat significantly more yesterday. Vitals/I&O's: Vital Signs Temp Pulse Resp BP Pulse Ox 36.4 C L 94 18 92/64 96 06/26/18 09:00 06/26/18 09:11 06/26/18 09:00 06/26/18 09:00 06/26/18 09:00 Oxygen Delivery Method Room Air Weight: 94.3 kg Body Mass Index (BMI) 27.5 Intake and Output for Last 24 Hours 06/24/18 06/25/18 06/26/18 23:59 23:59 23:59 Intake Total 1043 / 1043 3450 / 3450 200 / 200 Output Total 300 / 300 1475 / 1475 Balance 743 / 743 1974 / 1974 200 / 200 General: Alert, No apparent distress HEENT: Atraumatic, Normocephalic Oral: Moist Mucosa, No Gingival or Mucosal Lesions/ Ulcerations Neck: No Nodes, Thyroid Normal Size and Texture Lungs: Clear to auscultation, Normal air movement, No rhonchi, No wheeze Cardiovascular: Regular rate, Regular Rhythm, Normal S1, Normal S2, No murmurs Abdomen: Bowel Sounds Present, Soft, Non Tender, Non-Distended Extremities: No edema, No Calf Tenderness Skin: No rashes, No breakdown Musculoskeletal: No Tenderness to Palpation of Joints or Extremities, No Muscle Wasting Psych/Mental Status: Normal Affect, Appropriate Microbiology Past 72 Hours 06/25/18 14:00 Stool Enteric Bacteriology - Final 06/25/18 14:00 Stool C. difficile DNA Amplification - Final Laboratory Results 06/26/18 05:50: WBC 2.5 L, RBC 3.46 L, Hgb 9.3 L, Hct 29.2 L, MCV 84.4, MCH 26.9 L, MCHC 31.8 L, RDW 19.0 H, RDW Differential 58.5 H, Plt Count 131 L, MPV 10.7, Immature Gran % (Auto) 0.400, Neut % (Auto) 62.8, Lymph % (Auto) 26.4, [place] % (Auto) 8.4, Eos % (Auto) 2.0, Baso % (Auto) 0.0, Absolute Neuts (auto) 1.6 L, Absolute Lymphs (auto) 0.66 L, Total Counted Not Reportable 06/26/18 05:50: Sodium 144, Potassium 3.6, Chloride 113 H, Carbon Dioxide 26.0, Anion Gap 5, BUN 12, Creatinine 0.67 L, Estim Creat Clear Calc 78.68, Est GFR (MDRD) Af Amer 152, Est GFR (MDRD) Non-Af 126, BUN/Creatinine Ratio 17.9, Glucose 98, Calcium 7.8 L Current Medications Acetaminophen (Tylenol) 650 mg PO Q6H PRN PRN PRN Reason: Mild Pain (1-3)/Temp > 100.7 F Last Admin: 06/25/18 19:33 Dose: 650 mg Aspirin (Aspirin, Baby) 81 mg PO DAILY@0800 [facility] Last Admin: 06/26/18 08:53 Dose: Not Given Cholecalciferol (Vitamin D) 2,000 unit PO DAILY [facility] Last Admin: 06/26/18 08:54 Dose: Not Given Enoxaparin Sodium (Lovenox) 40 mg SC DAILY@1000 [facility] Last Admin: 06/26/18 08:55 Dose: 40 mg Finasteride (Proscar) 5 mg PO DAILY [facility] Last Admin: 06/26/18 08:54 Dose: Not Given Gabapentin (Neurontin) 900 mg PO BID [facility] Last Admin: 06/26/18 08:54 Dose: Not Given Nutritional Formula (Lactose Free) (Ensure Enlive) 120 ml PO 4X/DAY [facility] Last Admin: 06/26/18 08:53 Dose: Not Given Ondansetron HCl (Zofran) 8 mg PO TIDAC [facility] Last Admin: 06/26/18 06:12 Dose: 8 mg Promethazine HCl (Phenergan) 6.25 mg IV Q6H PRN PRN PRN Reason: NAUSEA/VOMITING Sodium Chloride () 5 - 15 ml IV UD PRN PRN Reason: SALINE FLUSH Tamsulosin HCl (Flomax) 0.4 mg PO DAILY [facility] Last Admin: 06/26/18 08:54 Dose: Not Given Medical Necessity - Tobacco Use Smoking Status: Former smoker Tobacco Use: Cigarettes Assessment/Plan All Active Problems (Last Updated 02/21/18 @ 01:01 by Tomer Jones MD) Status post sigmoid resection (Acute) 1. Intractable nausea * Improved * encouraged patient to try to eat, particularly since he has not vomiting for about 1 week. * change PPI to PO BID * Zofran before meals 2. failure to thrive * PT recommends additional therapy * awaiting on placement to SNF, previously declined by facilities 3. Anemia: * Hg stable * monitor 4. VTE prophylaxis: LMWH Code Visit Inpatient E&M: 98850 Subs Hosp L2
--- NOTE | 2018-06-26 16:22 | PCM.PN.SRG ---
Patient Problems: Active and Suspected Problems (Last Updated 02/21/18 @ 01:01 by Tomer Jones MD) Status post sigmoid resection (Acute) Subjective: slowly improving, better appetite according to , patient able to ambulate somewhat placement has been obtained - awaiting insurance approval patient complaint of frequent and copious output - Physical Exam General: Alert, Oriented x3 Oral: Moist Mucosa Neck: Supple Lungs: Normal air movement Abdomen: Soft, - - stoma functioning Vital Signs Temp Pulse Resp BP Pulse Ox 98.0 F 88 18 111/68 98 06/26/18 15:00 06/26/18 15:34 06/26/18 15:00 06/26/18 15:00 06/26/18 15:00 Oxygen Delivery Method Room Air Weight: 94.3 kg Body Mass Index (BMI) 27.5 Intake and Output for Last 24 Hours 06/24/18 06/25/18 06/26/18 23:59 23:59 23:59 Intake Total 1043 / 1043 3450 / 3450 560 / 560 Output Total 300 / 300 1475 / 1475 300 / 300 Balance 743 / 743 1974 / 1974 260 / 260 Microbiology Past 72 Hours 06/25/18 14:00 Enteric Bacteriology - Final Stool 06/25/18 14:00 C. difficile DNA Amplification - Final Stool Laboratory Tests Past 24 Hrs 06/26/18 06/26/18 05:50 05:50 WBC 2.5 L RBC 3.46 L Hgb 9.3 L Hct 29.2 L MCV 84.4 MCH 26.9 L MCHC 31.8 L RDW 19.0 H RDW Differential 58.5 H Plt Count 131 L MPV 10.7 Immature Gran % (Auto) 0.400 Neut % (Auto) 62.8 Lymph % (Auto) 26.4 [place] % (Auto) 8.4 Eos % (Auto) 2.0 Baso % (Auto) 0.0 Absolute Neuts (auto) 1.6 L Absolute Lymphs (auto) 0.66 L Total Counted Not Reportable Sodium 144 Potassium 3.6 Chloride 113 H Carbon Dioxide 26.0 Anion Gap 5 BUN 12 Creatinine 0.67 L Estim Creat Clear Calc 78.68 Est GFR (MDRD) Af Amer 152 Est GFR (MDRD) Non-Af 126 BUN/Creatinine Ratio 17.9 Glucose 98 Calcium 7.8 L Medical Necessity - Tobacco Use Smoking Status: Former smoker Tobacco Use: Cigarettes Assessment/Plan All Active Problems (Last Updated 02/21/18 @ 01:01 by Tomer Jones MD) Status post sigmoid resection (Acute) Impression: status post sigmoid resection, failure to thrive Plan: patient with failure to thrive, had attempted home health care and failed, awaiting nursing rehab facility placement
[2018-06-26] MEDS: Acetaminophen 325 MG Tablet 650 MG PO (18:14)
[2018-06-27] VITALS (12 sets, daily range): BP systolic 101–106; BP diastolic 58–69; PULSE 66–92; RESP 18–20; TEMP 36.4–37.3; O2SAT 93–97
[2018-06-27] MEDS: Ondansetron 8 MG Tablet PO ×3 (06:53→15:54)
[2018-06-27] MEDS: Enoxaparin 40 MG/0.4 ML Syringe SC (07:37)
--- NOTE | 2018-06-27 10:38 | PCM.PN.HOSP ---
Patient Problems: Active and Suspected Problems (Last Updated 02/21/18 @ 01:01 by Tomer Jones MD) Status post sigmoid resection (Acute) Subjective: feels good. tolerating diet. Vitals/I&O's: Vital Signs Temp Pulse Resp BP Pulse Ox 36.4 C L 79 18 101/64 96 06/27/18 07:36 06/27/18 07:36 06/27/18 07:36 06/27/18 07:36 06/27/18 07:36 Oxygen Delivery Method Room Air Weight: 94.3 kg Body Mass Index (BMI) 27.5 Intake and Output for Last 24 Hours 06/25/18 06/26/18 06/27/18 23:59 23:59 23:59 Intake Total 3450 / 3450 1000 / 1000 350 / 350 Output Total 1475 / 1475 300 / 300 Balance 1974 / 1974 700 / 700 350 / 350 General: Alert, No apparent distress HEENT: Atraumatic, Normocephalic Oral: Moist Mucosa, No Gingival or Mucosal Lesions/ Ulcerations Neck: No Nodes, Thyroid Normal Size and Texture Lungs: Clear to auscultation, Normal air movement, No rhonchi, No wheeze Cardiovascular: Regular rate, Regular Rhythm, Normal S1, Normal S2, No murmurs Abdomen: Bowel Sounds Present, Soft, Non Tender, Non-Distended, No Hepato-splenomegaly Extremities: No edema Skin: No rashes, No breakdown Microbiology Past 72 Hours 06/25/18 14:00 Stool Enteric Bacteriology - Final 06/25/18 14:00 Stool C. difficile DNA Amplification - Final Current Medications Acetaminophen (Tylenol) 650 mg PO Q6H PRN PRN PRN Reason: Mild Pain (1-3)/Temp > 100.7 F Last Admin: 06/26/18 18:14 Dose: 650 mg Aspirin (Aspirin, Baby) 81 mg PO DAILY@0800 [facility] Last Admin: 06/27/18 07:37 Dose: Not Given Cholecalciferol (Vitamin D) 2,000 unit PO DAILY [facility] Last Admin: 06/27/18 07:38 Dose: Not Given Enoxaparin Sodium (Lovenox) 40 mg SC DAILY@1000 [facility] Last Admin: 06/27/18 07:37 Dose: 40 mg Finasteride (Proscar) 5 mg PO DAILY [facility] Last Admin: 06/27/18 07:38 Dose: Not Given Gabapentin (Neurontin) 900 mg PO BID [facility] Last Admin: 06/27/18 07:38 Dose: Not Given Nutritional Formula (Lactose Free) (Ensure Enlive) 120 ml PO 4X/DAY [facility] Last Admin: 06/27/18 07:38 Dose: Not Given Ondansetron HCl (Zofran) 8 mg PO TIDAC [facility] Last Admin: 06/27/18 06:53 Dose: 8 mg Promethazine HCl (Phenergan) 6.25 mg IV Q6H PRN PRN PRN Reason: NAUSEA/VOMITING Sodium Chloride () 5 - 15 ml IV UD PRN PRN Reason: SALINE FLUSH Tamsulosin HCl (Flomax) 0.4 mg PO DAILY [facility] Last Admin: 06/27/18 07:37 Dose: Not Given Medical Necessity - Tobacco Use Smoking Status: Former smoker Tobacco Use: Cigarettes Assessment/Plan All Active Problems (Last Updated 02/21/18 @ 01:01 by Tomer Jones MD) Status post sigmoid resection (Acute) 1. Intractable nausea Improved. Tolerating diet with Zofran before meals. Will continue with Zofran for meals in the short-term, but would anticipate deescalating in the coming weeks. 2. failure to thrive PT recommends additional therapy awaiting on placement to SNF, previously declined by facilities 3. Anemia: Hg stable monitor 4. VTE prophylaxis: LMWH 5. Disposition: to SNF pending precertification Avoidable day #2 Code Visit Inpatient E&M: 57974 Subs Hosp L2
--- NOTE | 2018-06-27 10:41 | PN_ITS ---
Patient Problems: Active and Suspected Problems (Last Updated 02/21/18 @ 01:01 by Tomer Jones MD) Status post sigmoid resection (Acute) Subjective: feels good. tolerating diet. Vitals/I&O's: Vital Signs Temp Pulse Resp BP Pulse Ox 36.4 C L 79 18 101/64 96 06/27/18 07:36 06/27/18 07:36 06/27/18 07:36 06/27/18 07:36 06/27/18 07:36 Oxygen Delivery Method Room Air Weight: 94.3 kg Body Mass Index (BMI) 27.5 Intake and Output for Last 24 Hours 06/25/18 06/26/18 06/27/18 23:59 23:59 23:59 Intake Total 3450 / 3450 1000 / 1000 350 / 350 Output Total 1475 / 1475 300 / 300 Balance 1974 / 1974 700 / 700 350 / 350 General: Alert, No apparent distress HEENT: Atraumatic, Normocephalic Oral: Moist Mucosa, No Gingival or Mucosal Lesions/ Ulcerations Neck: No Nodes, Thyroid Normal Size and Texture Lungs: Clear to auscultation, Normal air movement, No rhonchi, No wheeze Cardiovascular: Regular rate, Regular Rhythm, Normal S1, Normal S2, No murmurs Abdomen: Bowel Sounds Present, Soft, Non Tender, Non-Distended, No Hepato- splenomegaly Extremities: No edema Skin: No rashes, No breakdown Microbiology Past 72 Hours 06/25/18 14:00 Stool Enteric Bacteriology - Final 06/25/18 14:00 Stool C. difficile DNA Amplification - Final Current Medications Acetaminophen (Tylenol) 650 mg PO Q6H PRN PRN PRN Reason: Mild Pain (1-3)/Temp > 100.7 F Last Admin: 06/26/18 18:14 Dose: 650 mg Aspirin (Aspirin, Baby) 81 mg PO DAILY@0800 [facility] Last Admin: 06/27/18 07:37 Dose: Not Given Cholecalciferol (Vitamin D) 2,000 unit PO DAILY [facility] Last Admin: 06/27/18 07:38 Dose: Not Given Enoxaparin Sodium (Lovenox) 40 mg SC DAILY@1000 [facility] Last Admin: 06/27/18 07:37 Dose: 40 mg Finasteride (Proscar) 5 mg PO DAILY [facility] Last Admin: 06/27/18 07:38 Dose: Not Given Gabapentin (Neurontin) 900 mg PO BID [facility] Last Admin: 06/27/18 07:38 Dose: Not Given Nutritional Formula (Lactose Free) (Ensure Enlive) 120 ml PO 4X/DAY [facility] Last Admin: 06/27/18 07:38 Dose: Not Given Ondansetron HCl (Zofran) 8 mg PO TIDAC [facility] Last Admin: 06/27/18 06:53 Dose: 8 mg Promethazine HCl (Phenergan) 6.25 mg IV Q6H PRN PRN PRN Reason: NAUSEA/VOMITING Sodium Chloride () 5 - 15 ml IV UD PRN PRN Reason: SALINE FLUSH Tamsulosin HCl (Flomax) 0.4 mg PO DAILY [facility] Last Admin: 06/27/18 07:37 Dose: Not Given Medical Necessity - Tobacco Use Smoking Status: Former smoker Tobacco Use: Cigarettes Assessment/Plan All Active Problems (Last Updated 02/21/18 @ 01:01 by Tomer Jones MD) Status post sigmoid resection (Acute) 1. Intractable nausea * Improved. Tolerating diet with Zofran before meals. * Will continue with Zofran for meals in the short-term, but would anticipate deescalating in the coming weeks. 2. failure to thrive * PT recommends additional therapy * awaiting on placement to SNF, previously declined by facilities 3. Anemia: * Hg stable * monitor 4. VTE prophylaxis: LMWH 5. Disposition: to SNF pending precertification Avoidable day #2 Code Visit Inpatient E&M: 09460 Subs Hosp L2
--- NOTE | 2018-06-27 13:36 | PCM.PN.SRG ---
Patient Problems: Active and Suspected Problems (Last Updated 02/21/18 @ 01:01 by Tomer Jones MD) Status post sigmoid resection (Acute) Subjective: Patient states that he is feeling well, still with increased output per stoma - Physical Exam General: Alert, Oriented x3 Oral: Moist Mucosa Neck: Supple Lungs: Normal air movement Abdomen: Bowel Sounds Present, Soft Vital Signs Temp Pulse Resp BP Pulse Ox 97.6 F L 87 18 101/64 96 06/27/18 07:36 06/27/18 11:41 06/27/18 07:36 06/27/18 07:36 06/27/18 07:36 Oxygen Delivery Method Room Air Weight: 94.3 kg Body Mass Index (BMI) 27.5 Intake and Output for Last 24 Hours 06/25/18 06/26/18 06/27/18 23:59 23:59 23:59 Intake Total 3450 / 3450 1000 / 1000 590 / 590 Output Total 1475 / 1475 300 / 300 Balance 1974 / 1974 700 / 700 590 / 590 Microbiology Past 72 Hours 06/25/18 14:00 Enteric Bacteriology - Final Stool 06/25/18 14:00 C. difficile DNA Amplification - Final Stool Medical Necessity - Tobacco Use Smoking Status: Former smoker Tobacco Use: Cigarettes Assessment/Plan All Active Problems (Last Updated 02/21/18 @ 01:01 by Tomer Jones MD) Status post sigmoid resection (Acute) Impression: status post sigmoid resection, failure to thrive Plan: patient with failure to thrive awaiting nursing rehab facility placement - hopefully tomorrow
[2018-06-27] MEDS: Acetaminophen 325 MG Tablet 650 MG PO (13:53)
[2018-06-28 02:42] VITALS: BP 119/75; PULSE 79; RESP 18; TEMP 36.4; O2SAT 98
[2018-06-28 03:59] VITALS: PULSE 72
[2018-06-28] MEDS: Ondansetron 8 MG Tablet PO ×2 (06:10→11:05)
[2018-06-28 08:15] VITALS: BP 98/66; PULSE 90; RESP 20; TEMP 36.9; O2SAT 97
[2018-06-28] MEDS: Aspirin 81 MG TAB.CHEW PO (08:32)
[2018-06-28] MEDS: Enoxaparin 40 MG/0.4 ML Syringe SC (08:33)
--- NOTE | 2018-06-28 08:59 | CASEMGMT ---
Addendum entered by Dawn Jordan 06/28/18 14:19: [facility] received call from Alexa at [facility] stating pre-cert has been obtained and pt is able to discharge today. Original Note: Addendum entered by Dawn Jordan 06/28/18 12:07: [facility] placed a call to Alexa at [facility]. Alexa confirms she received updated clinicals, and is still awaiting pre-cert. Original Note: Social Work Note [facility] faxed updated clinicals to [facility]. 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
[2018-06-28 09:21] VITALS: PULSE 83
[2018-06-28 09:28] VITALS: PULSE 76
--- NOTE | 2018-06-28 09:39 | PCM.PN.HOSP ---
Patient Problems: Active and Suspected Problems (Last Updated 02/21/18 @ 01:01 by Tomer Jones MD) Status post sigmoid resection (Acute) Subjective: Feels good. Continues to eat with zofran before meals. Vitals/I&O's: Vital Signs Temp Pulse Resp BP Pulse Ox 36.9 C 76 20 H 98/66 97 06/28/18 08:15 06/28/18 09:28 06/28/18 08:15 06/28/18 08:15 06/28/18 08:15 Oxygen Delivery Method Room Air Weight: 94.3 kg Body Mass Index (BMI) 27.5 Intake and Output for Last 24 Hours 06/26/18 06/27/18 06/28/18 23:59 23:59 23:59 Intake Total 1000 / 1000 950 / 950 300 / 300 Output Total 300 / 300 450 / 450 Balance 700 / 700 950 / 950 -150 / -150 General: Alert, No apparent distress HEENT: Atraumatic, Normocephalic Oral: Moist Mucosa, No Gingival or Mucosal Lesions/ Ulcerations Neck: No Nodes, Thyroid Normal Size and Texture Lungs: Clear to auscultation, Normal air movement, No rhonchi, No wheeze Cardiovascular: Regular rate, Regular Rhythm, Normal S1, Normal S2, No murmurs Abdomen: Bowel Sounds Present, Soft, Non Tender, Non-Distended, No Hepato-splenomegaly Extremities: No edema, No Calf Tenderness Skin: No rashes, No breakdown Neurological: Cranial nerves II-XII grossly intact, Deep Tendon Reflexes 2+/4 and Symmetrical Microbiology Past 72 Hours 06/25/18 14:00 Stool Enteric Bacteriology - Final 06/25/18 14:00 Stool C. difficile DNA Amplification - Final Current Medications Acetaminophen (Tylenol) 650 mg PO Q6H PRN PRN PRN Reason: Mild Pain (1-3)/Temp > 100.7 F Last Admin: 06/27/18 13:53 Dose: 650 mg Aspirin (Aspirin, Baby) 81 mg PO DAILY@0800 [facility] Last Admin: 06/28/18 08:32 Dose: 81 mg Cholecalciferol (Vitamin D) 2,000 unit PO DAILY [facility] Last Admin: 06/28/18 08:35 Dose: Not Given Enoxaparin Sodium (Lovenox) 40 mg SC DAILY@1000 [facility] Last Admin: 06/28/18 08:33 Dose: 40 mg Finasteride (Proscar) 5 mg PO DAILY [facility] Last Admin: 06/28/18 08:35 Dose: Not Given Gabapentin (Neurontin) 900 mg PO BID [facility] Last Admin: 06/28/18 08:35 Dose: Not Given Nutritional Formula (Lactose Free) (Ensure Enlive) 120 ml PO 4X/DAY [facility] Last Admin: 06/28/18 08:32 Dose: Not Given Ondansetron HCl (Zofran) 8 mg PO TIDAC [facility] Last Admin: 06/28/18 06:10 Dose: 8 mg Promethazine HCl (Phenergan) 6.25 mg IV Q6H PRN PRN PRN Reason: NAUSEA/VOMITING Sodium Chloride () 5 - 15 ml IV UD PRN PRN Reason: SALINE FLUSH Tamsulosin HCl (Flomax) 0.4 mg PO DAILY [facility] Last Admin: 06/28/18 08:35 Dose: Not Given Medical Necessity - Tobacco Use Smoking Status: Former smoker Tobacco Use: Cigarettes Assessment/Plan All Active Problems (Last Updated 02/21/18 @ 01:01 by Tomer Jones MD) Status post sigmoid resection (Acute) 1. Intractable nausea Improved. Tolerating diet with Zofran before meals. Will continue with Zofran for meals in the short-term, but would anticipate deescalating in the coming weeks. 2. failure to thrive PT recommends additional therapy awaiting on placement to SNF, previously declined by facilities 3. Anemia: Hg stable monitor 4. VTE prophylaxis: LMWH 5. Disposition: to SNF pending precertification, hopefully today. Avoidable day #3 Code Visit Inpatient E&M: 59955 Subs Hosp L2
--- NOTE | 2018-06-28 09:45 | PCM.TXEXTCAR ---
- Diet 06/24/18 15:49 Diet: Regular Diet - Therapies Weight Bearing: Full weight bearing Physical Therapy: Eval and Treat Occupational Therapy: Eval and Treat - Allergies/Procedures Done in Hospital Allergies/Adverse Reactions: Allergies cod liver oil [From Desitin] Allergy (Verified 06/24/18 08:57) Rash zinc oxide [From Desitin] Allergy (Verified 06/24/18 08:57) Rash Procedures: None - Type of Care/Length of Stay Estimated LOS: Convalescent Care Less Than 30 days Type of Care Needed: Skilled Rehab Potential: Good Prognosis: Good - Additional Orders/Day of Discharge Day of Discharge: 06/28/18 - Dietary and Speech Recommendations Dietitian Recommendations/Changes: Rec continue ONS medpass for increased nutrition if consumed - Follow Up Care Primary Care Physician: Napoleon Larson MD [Primary Care Provider] - Within 2 Weeks Please Follow Up With: iLgia Leos MD When: 2 weeks
--- NOTE | 2018-06-28 09:47 | PCM.DC.SUM ---
Discharge Date and Diagnosis Date of Admission: 06/24/18 Date of Discharge: 06/28/18 - Primary Discharge Diagnosis Active and Suspected Problems (Last Updated 02/21/18 @ 01:01 by Tomer Jones MD) Status post sigmoid resection (Acute) 1. Intractable nausea Improved. Tolerating diet with Zofran before meals. Will continue with Zofran for meals in the short-term, but would anticipate deescalating in the coming weeks. 2. failure to thrive PT recommends additional therapy awaiting on placement to SNF, previously declined by facilities 3. Anemia: Hg stable - Secondary Discharge Diagnosis Chronic Problems (Last Updated 02/21/18 @ 01:01 by Tomer Jones MD) BPH (benign prostatic hyperplasia) (Chronic) Hospital Course and Treatment Imaging Results: Clinical Impression(s) from Imaging Studies Chest X-Ray 06/24/18 09:26 IMPRESSION: No acute abnormality is seen. Electronically Signed: Jose Harrington, at 9:54 EDT , Service support , Abdomen/Pelvis CT 06/24/18 11:31 IMPRESSION: Colostomy is seen in the left anterior mid abdomen. Scattered sigmoid diverticula. Material is seen in the right hemicolon. Fatty infiltration of the liver. Electronically Signed: Jose Harrington, at 13:30 EDT , Service support , Ligia Leos MD: general surgery Operations: None Procedures: None Summary of Care Provided: The patient is a 67 year old M presents with weakness and poor oral intake. Patient recently underwent a sigmoid resection and colostomy on April 25. Subsequently, patient was just progressively getting weak, having poor oral intake due to persistent nausea. So patient was presented here and was put on PRN Zofran though still having nausea not eating much when I saw the patient on the , started the patient on 8 mg before meals of Zofran. On the , patient had felt much better and was eating. Patient was in the hospital awaiting precertification. Current still waiting on precertification of the time of documentation but once precertification has been obtained patient will be discharged to a shelter facility. I touch base with the patient and his about the Zofran and for the time being, would continue with Zofran before meals but in the coming weeks, would not be weaned down to see how he is tolerating not being on it. Additionally, I will start the patient on 20 mg of omeprazole as well. [] - Physical Exam Vital Signs Temp Pulse Resp BP Pulse Ox 36.9 C 76 20 H 98/66 97 06/28/18 08:15 06/28/18 09:28 06/28/18 08:15 06/28/18 08:15 06/28/18 08:15 Oxygen Delivery Method Room Air Weight: 94.3 kg Body Mass Index (BMI) 27.5 Intake and Output for Last 24 Hours 06/26/18 06/27/18 06/28/18 23:59 23:59 23:59 Intake Total 1000 / 1000 950 / 950 300 / 300 Output Total 300 / 300 450 / 450 Balance 700 / 700 950 / 950 -150 / -150 Microbiology Past 72 Hours 06/25/18 14:00 Enteric Bacteriology - Final Stool 06/25/18 14:00 C. difficile DNA Amplification - Final Stool Discharge Diet: No Restrictions Discharge Activity: Return to Normal Activity May resume sexual activity in: No Restrictions Weight Bearing Status: Weight bearing as tolerated, Full weight bearing Call your doctor if you observe: Fever of 101 or Higher, - - Worsening abdominal pain, intractable nausea and vomiting. Home Medications: Medications to take at Discharge Aspirin [Aspirin, Baby] 81 mg PO DAILY@0800 12/08/16 Cholecalciferol (VIT D3) [Vitamin D3] 2,000 unit PO DAILY 12/08/16 Gabapentin [Neurontin] 900 mg PO BID 12/08/16 Multivit-Min/FA/Lycopen/Lutein [Centrum Silver Men Tablet] 1 each PO DAILY 12/08/16 Tamsulosin HCl [Flomax] 0.4 mg PO DAILY 12/08/16 Acetaminophen [Tylenol] 650 mg PO Q6H PRN PRN #30 tablet 02/24/18 Ibuprofen 400 mg PO Q6H PRN PRN #30 tablet 02/24/18 Finasteride 5 mg PO DAILY 06/24/18 Omeprazole 20 mg PO DAILY #1 tab.rap. 05/13/19 Ondansetron [Zofran] 8 mg PO TIDAC tablet 06/28/18 Following Prescrptions Were Given to Patient: Omeprazole 20 mg PO DAILY #1 tab.rap.dr Primary Care Physician: Napoleon Larson MD [Primary Care Provider] - Within 2 Weeks Please Follow Up With: Ligia Leos MD When: 2 weeks Disposition: Halfway facility Minutes spent on discharge:: 32 Patient Condition:: Good Medical Necessity - Tobacco Use Smoking Status: Former smoker Tobacco Use: Cigarettes Meaningful Use Info Meaningful Use Diagnoses (Choose all that apply): None applicable Code Visit Inpatient E&M: 42600 Disch Hosp
--- NOTE | 2018-06-28 09:51 | DS.PCM_ITS ---
Discharge Date and Diagnosis Date of Admission: 06/24/18 Date of Discharge: 06/28/18 - Primary Discharge Diagnosis Active and Suspected Problems (Last Updated 02/21/18 @ 01:01 by Tomer Jones MD) Status post sigmoid resection (Acute) 1. Intractable nausea * Improved. Tolerating diet with Zofran before meals. * Will continue with Zofran for meals in the short-term, but would anticipate deescalating in the coming weeks. 2. failure to thrive * PT recommends additional therapy * awaiting on placement to SNF, previously declined by facilities 3. Anemia: * Hg stable - Secondary Discharge Diagnosis Chronic Problems (Last Updated 02/21/18 @ 01:01 by Tomer Jones MD) BPH (benign prostatic hyperplasia) (Chronic) Hospital Course and Treatment Imaging Results: Clinical Impression(s) from Imaging Studies Chest X-Ray 06/24/18 09:26 IMPRESSION: No acute abnormality is seen. Electronically Signed: Jose Harrington, at 9:54 EDT , Service support , Abdomen/Pelvis CT 06/24/18 11:31 IMPRESSION: Colostomy is seen in the left anterior mid abdomen. Scattered sigmoid diverticula. Material is seen in the right hemicolon. Fatty infiltration of the liver. Electronically Signed: Jose Harrington, at 13:30 EDT , Service support , Ligia Leos MD: general surgery Operations: None Procedures: None Summary of Care Provided: The patient is a 67 year old M presents with weakness and poor oral intake. Patient recently underwent a sigmoid resection and colostomy on April 25. Subsequently, patient was just progressively getting weak, having poor oral intake due to persistent nausea. So patient was presented here and was put on PRN Zofran though still having nausea not eating much when I saw the patient on the , started the patient on 8 mg before meals of Zofran. On the , patient had felt much better and was eating. Patient was in the hospital awaiting precertification. Current still waiting on precertification of the time of documentation but once precertification has been obtained patient will be discharged to a custodial facility. I touch base with the patient and his about the Zofran and for the time being, would continue with Zofran before meals but in the coming weeks, would not be weaned down to see how he is tolerating not being on it. Additionally, I will start the patient on 20 mg of omeprazole as well. [] - Physical Exam Vital Signs Temp Pulse Resp BP Pulse Ox 36.9 C 76 20 H 98/66 97 06/28/18 08:15 06/28/18 09:28 06/28/18 08:15 06/28/18 08:15 06/28/18 08:15 Oxygen Delivery Method Room Air Weight: 94.3 kg Body Mass Index (BMI) 27.5 Intake and Output for Last 24 Hours 06/26/18 06/27/18 06/28/18 23:59 23:59 23:59 Intake Total 1000 / 1000 950 / 950 300 / 300 Output Total 300 / 300 450 / 450 Balance 700 / 700 950 / 950 -150 / -150 Microbiology Past 72 Hours 06/25/18 14:00 Enteric Bacteriology - Final Stool 06/25/18 14:00 C. difficile DNA Amplification - Final Stool Discharge Diet: No Restrictions Discharge Activity: Return to Normal Activity May resume sexual activity in: No Restrictions Weight Bearing Status: Weight bearing as tolerated, Full weight bearing Call your doctor if you observe: Fever of 101 or Higher, - - Worsening abdominal pain, intractable nausea and vomiting. Home Medications: Medications to take at Discharge Aspirin [Aspirin, Baby] 81 mg PO DAILY@0800 12/08/16 Cholecalciferol (VIT D3) [Vitamin D3] 2,000 unit PO DAILY 12/08/16 Gabapentin [Neurontin] 900 mg PO BID 12/08/16 Multivit-Min/FA/Lycopen/Lutein [Centrum Silver Men Tablet] 1 each PO DAILY 12/08/16 Tamsulosin HCl [Flomax] 0.4 mg PO DAILY 12/08/16 Acetaminophen [Tylenol] 650 mg PO Q6H PRN PRN #30 tablet 02/24/18 Ibuprofen 400 mg PO Q6H PRN PRN #30 tablet 02/24/18 Finasteride 5 mg PO DAILY 06/24/18 Omeprazole 20 mg PO DAILY #1 tab.rap. 06/28/18 Ondansetron [Zofran] 8 mg PO TIDAC tablet 06/28/18 Following Prescrptions Were Given to Patient: Omeprazole 20 mg PO DAILY #1 tab.rap.dr Primary Care Physician: Napoleon Larson MD [Primary Care Provider] - Within 2 Weeks Please Follow Up With: Ligia Leos MD When: 2 weeks Disposition: [facility] facility Minutes spent on discharge:: 32 Patient Condition:: Good Medical Necessity - Tobacco Use Smoking Status: Former smoker Tobacco Use: Cigarettes Meaningful Use Info Meaningful Use Diagnoses (Choose all that apply): None applicable Code Visit Inpatient E&M: 29589 Disch Hosp
--- NOTE | 2018-06-28 14:49 | CASEMGMT ---
Social Work Note [facility] faxed completed discharge paperwork to Alexa at [facility] including transfer to extended care facility, signed medication list, any scripts. Original in SNF folder and copy on pt's chart. [facility] completed PAS/RR in HENS. Original in SNF folder and copy on pt's chart. [facility] spoke with RN who states pt's should be able to transport pt. [facility] placed a call to pt's Juanis, updated her on approval to go to [facility] today and she is able to transport pt and will be at [facility] around 4:00pm. [facility] placed call to Alexa at [facility] and updated her on transportation time. RN updated on transportation time. Plan: Pt to discharge to [facility] skilled today with pt's Juanis transporting Dawn Kearneyes MOLECULAR PATHOLOGIST, SAS DEVELOPER ANALYST
--- NOTE | 2018-06-28 14:53 | CHAPLAIN ---
Type of Pastoral Visit ___ Initial Visit _x__ Follow-up Visit ___ On-call Visit ___ General Patient Visit ___ Spiritual Assessment ___ Family Conference ___ Bereavement ___ Rapid Response ___ Code Blue ___ Other (describe below) Pastoral Care Referral From _x__ Patient ___ Family ___ Nurse ___ Physician ___ Manager Operations And Procurement ___ Director Of Exhibit Development ___ Other (describe below) Sacrament/Intervention _x__ Active listening ___ Anointing ___ Methodist ___ Bereavement ___ Communion ___ Tori exploration ___ ___ Life review _x__ Prayer ___ Reconciliation ___ Sacrament of Sick _x__ Supportive presence ___ Wedding ___ Other (describe below) Pastoral Comments
[2018-06-28 14:55] VITALS: BP 104/60; PULSE 89; RESP 16; TEMP 36.8; O2SAT 95
--- NOTE | 2018-06-28 15:29 | NURSING ---
[facility].
[2018-06-29 10:27] LABS: Vitamin D 1,25-Dihydroxy 37.8 pg/mL (19.9-79.3)
== END 2018-06-28 15:32 | disposition skilled nursing facility (03) ==
LOC: ED 09:50 → MS3 14:59
PROVIDERS: Admitting Provider Hospitalist; Emergency Provider Emergency Medicine; Family Provider Family Medicine; PCP Family Medicine; Referring Provider Hospitalist
DX: R62.7 Adult failure to thrive (principal); Z68.27 Body mass index [BMI] 27.0-27.9, adult; R11.0 Nausea; Z90.49 Acquired absence of other specified parts of digestive tract; Z79.899 Other long term (current) drug therapy; Z79.82 Long term (current) use of aspirin; N40.0 Benign prostatic hyperplasia without lower urinary tract symptoms; Z93.3 Colostomy status; D69.6 Thrombocytopenia, unspecified; G62.9 Polyneuropathy, unspecified; Z87.891 Personal history of nicotine dependence; R53.1 Weakness; D64.9 Anemia, unspecified; R79.89 Other specified abnormal findings of blood chemistry; Z85.830 Personal history of malignant neoplasm of bone
CPT/HCPCS: 36415; 71045; 74177; 80048; 80053; 80076; 81001; 82550; 82607; 82652; 82728; 82746; 83540; 83550; 83605; 83615; 83690; 83735; 84100; 84134; 84425; 84443; 84484; 85025; 85610; 85730; 87493; 87506; 93005; 96361; 96365; 96372; 96375; 97110; 97116; 97163; 97166; 97530; 97802; 99218; 99285; J7030; J7120; Q9967; A4216; G0378; J2405

== ENCOUNTER 2018-07-14 10:37 | Day surgery (SDC) | payer MEDICARE, SELFPAY ==
[2018-02-21 01:33] VITALS: BMI 34.1
[2018-06-24 15:32] VITALS: BMI 27.5
--- NOTE | 2018-07-13 19:24 | HP.PCM_ITS ---
History of Present Illness Date of Admission: 07/14/18 Chief Complaint: aorta thrive, abdominal discomfort, diverticulitis The patient is a 67 year old male with worsening failure to thrive when I saw him on April 22, 2018. ?He was seen by his primary care physician 2 days previously. ?He was sent to [facility] for a chest x-ray and laboratory studies. ?Laboratory studies were relatively unremarkable with normal white blood cell count, mild anemia, normal protein and albumin, slightly elevated liver profile. ?Chest x-ray did demonstrate significant free air. ? The patient states that he has a degree of apprehension eating food due to his diverticulitis but does not complain of pain. ?Unfortunately, the patient is very stoic. ?He denies change in his bowel habits. ?He denies fever or chills. ?He states he does not have pain when he eats but again a degree of food aversion. ?The most concerning feature to his is that he has lost approximately 20 pounds of weight and is having increasing weakness. ? The patient has a recently complex history related to his diverticulitis. ? The patient has a known history of right upper extremity sarcoma. ?He was scheduled for a follow-up chest CAT scan which he underwent at [facility] yesterday. ?Incidental finding was free intra-abdominal air. ?The patient's orthopedic surgeon, Dr. Hill called the patient this morning from a virtual visit. The patient had eaten breakfast and did not report any concerns. ? The patient was placed on my schedule for a diagnosis of pneumoperitoneum. ? ? In discussions with the patient, he notes pain in the left lower quadrant starting around Thanksgiving and then pain across the upper mid abdomen and through to the back. ?He states his been typically eating Jell-O since that time. ?He denies fever or chills. ?He notes that actually has been feeling better for the last 2 days. ? The patient has a diagnosis approximately one year ago of pancreatitis from unknown etiology. ?He was maintained in the hospital for 2 days without diagnosis. ?He assumed that his pain started on Thanksgiving was also p ancreatitis and he felt it would be a waist at this time to return to the hospital. ?I had seen the patient 5 year previously were he underwent laparoscopic appendectomy for missed appendicitis. ? The patient was initially scheduled for later in the afternoon. ?I had him present to my office as soon as he could be contacted. ?In the office, he looked remarkably comfortable. ?His vitals were stable and he had no diffuse peritoneal signs. ?I reviewed the CT scan of the chest which did demonstrate significant free air. ?I did not see any time signs of intra-abdominal fluid collections and the stomach and duodenum did not demonstrate signs of inflammation. ?I elected to obtain laboratory studies-CBC chemistry panel and lipase, and a noncontrast CT scan. ? Again the patient had improved abdominal symptoms and was tolerating a low residue diet without challenges by the time he presented to my office. ? My interpretation of the CT scan as this is most likely descending colon/sigmoid diverticulitis. ?I received a phone call from the radiologist later commenting on the same findings. ?We agreed that this would be very clinically worrisome in the acute setting. ?We concluded it was reasonable to plan for a follow-up CT scan a week. ?He was discharged home from my office on a low residue diet with oral antibiotics. ? The patient still denies any significant abdominal pain. ?He notes no fever or chills. ?He is taking his oral antibiotics. ?He would like to advance his diet. ? Repeat CT scan was obtained. ?This demonstrated: ? IMPRESSION: Improving perforated diverticulitis without interval developing abscess. ? The patient was then doing well until February 20 when he noted fever to 105 and left-sided abdominal pain. ?He presented to [facility] emergency department. ?Follow-up CT scan demonstrated a 2-1/2 cm abscess near the site of recurrent diverticulitis. ?He was admitted, given IV antibiotics and underwent percutaneous drainage with pigtail catheter placement. He did well and was transitioned to oral antibiotics and discharged to home on February 24, 2018. ?I saw him approximately 3 weeks previously. ?Our plan was to perform colonoscopy and then sigmoid resection on May 04 and . ? He was admitted to the hospital on April 22, 2018. ?CT scan of the abdomen and pelvis was obtained at that time. ?This demonstrated his diverticulosis without was felt to be significantly active diverticulitis significant free air with no fluid and was felt to be inflammation in the duodenum interpreted as possible perforated duodenal ulcer. ?Given his relatively benign abdomen, significant free air and no signs of fluid along with the remarkably normal white count and the fact that the patient's said they had trouble buttoning his pants for the past 8-10 days, I entertained the possibility of a perforated duodenal ulcer. ?He was taken for upper endoscopy on April 23 and found to have duodenitis. ?Ultrasound-guided aspiration yielded no intra-abdominal fluid for culture. ?The patient was maintained on proton pump inhibitors and antibiotics. ?2 days later he had increasing abdominal pain and spiking fevers. ?Repeat CAT scan now demonstrated active diverticulitis with a more pericolonic air and gas then the CAT scan on April 22 ? I performed a exploratory laparotomy with segmental sigmoid colon resection and Timmons's colostomy ?on April 25, 2018. ?The patient had a protracted hospital course due to ileus, malnutrition, and overall debilitation. ?He was discharged home on May 05. ?The patient had recurring urinary retention and was discharged on double dose Flomax and having a Ríos catheter in place ? At the time of discharge, the patient had a normal white blood cell count. ?His albumin was low at 2.4, his prealbumin was 9.8 with normal 20-40 and his protein was lower limits of normal at 6.4. ??The patient currently notes that he is proceeding with his physical therapy but they noted him to be tachycardic and hypotensive. ?He notes he is making good urine and actually has an increase in his urine output. ?his?appetite has been fair but his is encouraging him to eat. ?He is generally drinking 3 cans of ensure per day and taking some food in. ?he?denies fever, chills or abdominal pain. ?he?does note some mild incisional discomfort. he was readmitted earlier this month with a complaint of overall failure to thrive. He was started on antiemetics and has been tolerating moderately well a diet since that time. He is currently undergoing rehabilitation and nutritional support at [facility]. Given the above findings I plan to perform upper endoscopy to assess his stomach in addition to performing colonoscopy through the stoma and rectum into the rectal stump Past Medical History Past Medical History (Chronic Problems): Chronic Problems (Last Updated 02/21/18 @ 01:01 by Tomer Jones MD) Status post sigmoid resection (Chronic) BPH (benign prostatic hyperplasia) (Chronic) Medical History: Medical History (Last Updated 02/21/18 @ 01:01 by Tomer Jones MD) Sarcoma C49.9 Small fiber neuropathy G62.9 Allergies cod liver oil [From Desitin] Allergy (Verified 06/24/18 08:57) Rash zinc oxide [From Desitin] Allergy (Verified 06/24/18 08:57) Rash Home Medications: Ambulatory Orders Medication Instructions Recorded Aspirin [Aspirin, Baby] 81 mg PO DAILY@0800 12/08/16 Cholecalciferol (VIT D3) [Vitamin 2,000 unit PO DAILY 12/08/16 D3] Gabapentin [Neurontin] 900 mg PO BID 12/08/16 Multivit-Min/FA/Lycopen/Lutein 1 each PO DAILY 12/08/16 [Centrum Silver Men Tablet] Tamsulosin HCl [Flomax] 0.4 mg PO DAILY 12/08/16 Acetaminophen [Tylenol] 650 mg PO Q6H PRN PRN #30 tablet 02/24/18 Ibuprofen 400 mg PO Q6H PRN PRN #30 tablet 02/24/18 Finasteride 5 mg PO DAILY 06/24/18 Omeprazole 20 mg PO DAILY #1 tab.rap. 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 Denies: Chills, Fever, Weight Change HEENT: Denies: Head Aches, Sinus Congestion, Sinus Drainage Cardiovascular: Denies: Chest Pain, Palpitations Respiratory: Denies: Cough, Shortness of breath at rest, Sputum production Gastrointestinal: Reports: Nausea. Denies: Abdominal Pain, Vomiting Genitourinary: Denies: Dysuria Musculoskeletal: Denies: Joint Pain, Joint Tenderness Skin: Denies: Rash, Wounds Neurological: Denies: Numbness, Tingling, Focal weakness Psychiatric: Denies: Anxiety, Depression, Homicidal Ideations, Suicidal Ideations Hematologic/ Lymphatic: Denies: Easy Bruising, Easy Bleeding VTE Information - Inpt Only VTE Present on Admission: No - Physical Exam General: Alert, Oriented x3, Cooperative HEENT: Atraumatic, PERRLA, EOMI, Normocephalic Neck: Supple, No JVD, Negative Carotid Bruits Lungs: Clear to auscultation, Normal air movement Cardiovascular: Regular rate, No murmurs Abdomen: Bowel Sounds Present, Soft, Non Tender, - - stoma site clean Extremities: No edema, Capillary Refill Less than 3 Seconds Skin: No rashes, No breakdown Musculoskeletal: No Tenderness to Palpation of Joints or Extremities Neurological: Cranial nerves II-XII grossly intact Psych/Mental Status: Normal Affect, Appropriate Body Mass Index (BMI) 34.1 Assessment/Plan complicated diverticulitis requiring end Timmons colostomy, failure to thrive, nausea vomiting I plan to perform upper endoscopy, colonoscopy through the stoma and colonoscopy to the rectum to the Timmons's pouch. The patient understands the risks, benefits, complications and possible alternatives and agrees to the planned procedure. He received bowel prep while in the extended care facility. Plan for monitored anesthetic care for sedation.
[2018-07-14] VITALS (7 sets, daily range): BP systolic 81–104; BP diastolic 56–82; PULSE 76–93; RESP 18–20; TEMP 36.5–36.9; O2SAT 95–99; BMI 28.2
--- NOTE | 2018-07-14 | EGD_PTH ---
PATIENT: MARILEE SIMPSON [place] [facility] [id number] AGE/SX: 67/M ROOM: RE07/14/[address]: Dr. Ravindra Watson MD : 1950 BED: DIS: 07/14/2018 SPEC #: [id number] RECD: 07/14/18 14:10 STATUS: ABRAHAM VAL #: [id number] LEROY: 07/14/18 00:[address]: Ravindra Watson DEPT: SURGICAL PATHOLOGY RECD BY: David Whitman ENTERED: 07/15/18 10:14 SP TYPE: EGD BIOPSY OTHR DR: Dr. Napoleon Larson MD Tissues: A - Duodenum, NOS B - Gastric mucous membrane C - Gastric mucous membrane Procedures: Special Stain Group II Surgery Specimen Level IV Alcian Blue/PAS (control) HEADER OPERATION: Colonoscopy, EGD ([facility] [place]) PRE-OP DIAGNOSIS: Nausea, vomiting, diverticulitis TISSUE SUBMITTED: A - Duodenum biopsy, B - Antrum biopsy for H. pylori and path, C - GE junction biopsy MICROSCOPIC DIAGNOSIS A. Duodenum, biopsy: Minimal nonspecific chronic inflammation. B. Gastric antrum, biopsy: Mild chronic gastritis. See comment. C. GE junction, biopsy: Fragments of benign squamous mucosa. See comment. AM:hernando 07/16/18 COMMENT B. The results of immunohistochemistry for Helicobacter pylori will be reported separately ([id number]). C. Glandular epithelium is not represented in the biopsy. Clinical correlation is suggested. Alcian blue/PAS stain with matched control supports the above diagnosis. MICROSCOPIC DESCRIPTION Slides are reviewed. GROSS DESCRIPTION A - Received in fixative is one container labeled with the patient's name and designated duodenum biopsy. The specimen consists of one irregular fragment of light rhodes soft tissue that measures 0.2 x 0.1 x 0.1 cm. The specimen is totally submitted in one cassette. B - Received in fixative is one container labeled with the patient's name and designated antrum biopsy. The specimen consists of one irregular fragment of light rhodes soft tissue that measures 0.2 x 0.1 x 0.1 cm. The specimen is totally submitted in one cassette. C - Received in fixative is one container labeled with the patient's name and designated GE junction biopsy. The specimen consists of one irregular fragment of light rhodes soft tissue that measures 0.2 x 0.2 x 0.1 cm. The specimen is totally submitted in one cassette. / CE:hernando 07/15/18 TC:3 CPT: 71563 x3
--- NOTE | 2018-07-14 11:50 | IMM_PTH ---
PATIENT: MARILEE SIMPSON [place] [facility] [place][id number] AGE/SX: 67/M ROOM: RE07/14/[address]: Dr. Ravindra Watson MD : 1950 BED: DIS: 07/14/2018 SPEC #: [id number] RECD: 07/15/18 10:52 STATUS: ABRAHAM REQ #: [id number] LEROY: 07/14/18 11:[address]: Ravindra Watson DEPT: IMMUNOHISTOCHEMISTRY RECD BY: Gladis Arteaga ENTERED: 07/15/18 10:52 SP TYPE: IMMUNO OTHR DR: Dr. Napoleon Larson MD Tissues: B - Stomach, NOS Procedures: H Pylori (initial) PHYSICIAN & INSTITUTION [place] [address] SPECIMEN INFORMATION: Tissue Source: B - Antrum biopsy Clinical Info: Nausea, vomiting, diverticulitis Specimen Number: [id number] CPT code: 09648 METHODOLOGY: Deparaffinized sections of prefer/formalin-fixed tissue or PAP/DQ stained slides are incubated with monoclonal/polyclonal antibodies/oligonucleotide probes. Localization is made via biotin free immunoperoxidase method. Appropriate controls are performed and reacted as expected. Results on target cell population are indicated in the following table: RESULTS: ANTIBODY / CLONE RESULT Block B H Pylori (polyclonal) negative These tests were developed and their performance characteristics determined by [facility]. They may not have been cleared or approved by the U.S. Food and Drug Administration. The FDA has determined that such clearance or approval is not necessary. INTERPRETATION: B. Antrum, biopsy: Negative for Helicobacter pylori organisms. AM:hernando 07/16/18
--- NOTE | 2018-07-14 12:09 | OP.ENDO_ITS ---
07/14/2018 Napoleon Larson Re : Upper GI endoscopy procedure for Richard Rosen Marsha This procedure was performed on Saturday, July 14, 2018. My impressions and recommendations are as follows: Impressions : - Normal examined jejunum. - Duodenitis. Biopsied. - Gastritis. Biopsied. - Small hiatal hernia. - Mildly severe reflux esophagitis. Biopsied. Recommendations : - Await pathology results. - Telephone my office for pathology results in 1 week. - Continue present medications. My findings are described in the full procedure note, which is enclosed. If I can be of further assistance, please feel free to contact me at Doctor phone number(s): , Work: . Sincerely, Ravindra Watson MD 07/14/2018 12:08:51 PM This report has been signed electronically.
--- NOTE | 2018-07-14 12:12 | OP.ENDO_ITS ---
07/14/2018 Napoleon Larson Re : Colonoscopy procedure for Richard Becerrar Marsha This procedure was performed on Saturday, July 14, 2018. My impressions and recommendations are as follows: Impressions : - Diverticulosis in the sigmoid colon and in the descending colon. - Patent end sigmoid colostomy, characterized by healthy appearing mucosa. - No specimens collected. Recommendations : - Discharge patient to a [facility]. - Resume previous diet. - Continue present medications. - Await pathology results. - Telephone my office for pathology results in 1 week. - Repeat colonoscopy in 1 year for surveillance. My findings are described in the full procedure note, which is enclosed. If I can be of further assistance, please feel free to contact me at Doctor phone number(s): , Work: . Sincerely, Ravindra Watson MD 07/14/2018 12:12:26 PM This report has been signed electronically.
== END 2018-07-14 13:18 | disposition home or self-care (01) ==
LOC: SDC 10:38 → AC 10:39
PROVIDERS: Family Provider Family Medicine; PCP Family Medicine; Referring Provider Surgery; Visit Provider Surgery
PROC: 0DJD8ZZ Inspection of Lower Intestinal Tract, Via Natural or Artificial Opening Endoscopic (ICD-10-PCS; CPT 45378; principal; 2018-07-14 11:45)
DX: K21.0 Gastro-esophageal reflux disease with esophagitis (principal); K29.80 Duodenitis without bleeding; K29.50 Unspecified chronic gastritis without bleeding; K44.9 Diaphragmatic hernia without obstruction or gangrene; K57.32 Diverticulitis of large intestine without perforation or abscess without bleeding; K57.30 Diverticulosis of large intestine without perforation or abscess without bleeding; R11.2 Nausea with vomiting, unspecified; R62.7 Adult failure to thrive; Z68.28 Body mass index [BMI] 28.0-28.9, adult; N40.0 Benign prostatic hyperplasia without lower urinary tract symptoms; M06.9 Rheumatoid arthritis, unspecified; Z93.3 Colostomy status; Z79.82 Long term (current) use of aspirin; Z79.899 Other long term (current) drug therapy; Z87.891 Personal history of nicotine dependence
CPT/HCPCS: 43239; G0121; 88305; 88313; 88342; J7120

== ENCOUNTER → 2018-07-23 07:55 | Outpatient (CLI) | payer MEDICARE, SELFPAY ==
[2018-07-14 10:58] VITALS: BMI 28.2
[2018-07-23 08:03] LABS: Bacteria 0 SEEN /hpf (None Seen); Red Blood Cells-Urine 0 SEEN /hpf (0-5); Squamous Epithelial Cells - UA 0 SEEN /hpf (0-5)
--- NOTE | 2018-07-23 08:24 | RAD_ITS ---
STUDY: X-RAY - LEFT HAND REASON FOR EXAM: Male, 67 years old. Arthritis TECHNIQUE: 3 view(s) of the hand. COMPARISON: Report of previous study of 08/14/2010 FINDINGS: There are mild degenerative changes of the radiocarpal articulation. Normal distal radioulnar joint. Normal visualized carpal bones. Normal carpal articulations There are severe arthritic changes of the first metacarpal greater multangular joint. Normal second through fifth carpometacarpal joints. Normal metacarpi. Normal metacarpophalangeal joint of the thumb. Normal interphalangeal joint of the thumb. Normal proximal and distal phalanges of the thumb. Normal metacarpophalangeal joints of the second through fifth fingers. Normal proximal and distal interphalangeal joints of the second through fifth fingers. A ring obscures the mid shaft of the fourth proximal phalanx. The soft tissue structures are unremarkable. RAD/Hand Min 3 Views IMPRESSION: Mild arthritic changes of the radiocarpal articulation. Severe hypertrophic degenerative changes of the first metacarpal greater multangular joint. Electronically Signed: Stan Gonzales MD at 23:20 EDT , Service support ,
--- NOTE | 2018-07-23 08:24 | RAD_ITS ---
STUDY: X-RAY - RIGHT HAND REASON FOR EXAM: Male, 67 years old. Arthritis TECHNIQUE: 3 view(s) of the hand. COMPARISON: Report of previous study of 08/14/2010 FINDINGS: Normal radiocarpal articulation. Normal distal radioulnar joint. Normal visualized carpal bones. There are degenerative changes of the greater multangular navicular joint. There are mild arthritic changes of the first metacarpal greater multangular joint. Normal second through fifth carpometacarpal joints. Normal metacarpi. Normal metacarpophalangeal joint of the thumb. There is degenerative arthrosis of the interphalangeal joint of the thumb with articular joint space narrowing. Normal proximal and distal phalanges of the thumb. Normal metacarpophalangeal joints of the second through fifth fingers. Normal proximal and distal interphalangeal joints of the second through fifth fingers. Normal phalanges of the second through fifth fingers. The soft tissue structures are unremarkable. RAD/Hand Min 3 Views IMPRESSION: Degenerative changes as detailed above. Electronically Signed: Stan Gonzales MD at 23:26 EDT , Service support ,
--- NOTE | 2018-07-23 08:24 | RAD_ITS ---
STUDY: X-RAY - LEFT FOOT CLINICAL: Male, 67 years old. Arthritis TECHNIQUE: 3 view(s) of the foot. COMPARISON: None. FINDINGS: There is an enthesophyte involving the posterior superior calcaneus at the site of insertion of the Achilles tendon. A tiny plantar aspect calcaneal spur is also noted. Normal visualized subtalar, talonavicular, calcaneocuboid, tarsal and tarsometatarsal articulations. Normal metatarsi. Normal metatarsophalangeal joint of the great toe. Normal tibial and fibular sesamoid bones. Normal interphalangeal joint of the great toe. Normal phalanges of the great toe. Normal second through fifth metatarsophalangeal joints. Normal interphalangeal joints and phalanges of the lesser toes. The soft tissue structures are unremarkable. RAD/Foot min 3 Views IMPRESSION: Calcaneal spurs. Electronically Signed: Stan Gonzales MD at 23:29 EDT , Service support ,
--- NOTE | 2018-07-23 08:25 | RAD_ITS ---
STUDY: X-RAY - RIGHT ANKLE REASON FOR EXAM: Male, 67 years old. Arthritis TECHNIQUE: 3 view(s) of the ankle. COMPARISON: Report a previous study of 08/14/2010 FINDINGS: Normal visualized distal tibia and fibula. Normal medial and lateral malleoli. Normal tibiotalar articulation and ankle mortise. There is an enthesophyte in the region of the Achilles tendon insertion on the posterior calcaneal tuberosity. The visualized subtalar, talonavicular, calcaneocuboid and tarsal articulations are normal. There is soft tissue swelling over the lateral malleolus. RAD/Ankle min 3 Views IMPRESSION: Calcaneal enthesophyte. Soft tissue swelling overlying the lateral malleolus. Electronically Signed: Stan Gonzales MD at 23:18 EDT , Service support ,
--- NOTE | 2018-07-23 08:25 | RAD_ITS ---
STUDY: X-RAY - LEFT KNEE REASON FOR EXAM: Male, 67 years old. Arthritis TECHNIQUE: 2 view(s) of the knee. COMPARISON: Report of previous study of 02/23/2012 FINDINGS: Normal visualized distal femur. Normal visualized proximal tibia and fibula. Normal proximal tibiofibular articulation. There are mild degenerative changes of the medial knee compartment. Normal lateral femorotibial compartment. Normal patellofemoral articulation. The soft tissue structures are unremarkable. RAD/Knee 1 or 2 Views IMPRESSION: Mild degenerative changes of the medial knee compartment. Electronically Signed: Stan Gonzales MD at 23:28 EDT , Service support ,
--- NOTE | 2018-07-23 08:25 | RAD_ITS ---
STUDY: X-RAY - RIGHT KNEE REASON FOR EXAM: Male, 67 years old. Arthritis TECHNIQUE: 2 view(s) of the knee. COMPARISON: None. FINDINGS: There is a loculated 9 mm lucent focus of the anterior lateral femoral condyle Normal visualized proximal tibia and fibula. Normal proximal tibiofibular articulation. There is mild degenerative arthrosis of the medial femorotibial compartment. Normal lateral femorotibial compartment. Normal patellofemoral articulation. The soft tissue structures are unremarkable. RAD/Knee 1 or 2 Views IMPRESSION: Mild degenerative changes of the medial knee compartment. Loculated 9 mm lucent focus of the anterior lateral femoral condyle which is of unknown etiology or significance. Orthopedic consultation is recommended. Electronically Signed: Stan Gonzales MD at 23:24 EDT , Service support ,
--- NOTE | 2018-07-23 08:26 | RAD_ITS ---
STUDY: X-RAY - LEFT ANKLE REASON FOR EXAM: Male, 67 years old. Arthritis TECHNIQUE: 3 view(s) of the ankle. COMPARISON: Report of prior study of 08/14/2010 FINDINGS: Normal visualized distal tibia and fibula. Normal medial and lateral malleoli. Normal tibiotalar articulation and ankle mortise. Calcaneal spurs are noted. The visualized subtalar, talonavicular, calcaneocuboid and tarsal articulations are normal. The soft tissue structures are unremarkable. RAD/Ankle min 3 Views IMPRESSION: The left ankle appears within normal limits. Calcaneal spurs are present. Electronically Signed: Stan Gonzales MD at 22:32 EDT , Service support ,
--- NOTE | 2018-07-23 08:26 | RAD_ITS ---
STUDY: X-RAY - RIGHT FOOT CLINICAL: Male, 67 years old. Arthritis TECHNIQUE: 3 view(s) of the foot. COMPARISON: None. FINDINGS: There is an enthesophyte involving the posterior superior calcaneus at the site of insertion of the Achilles tendon. There is a crescentic calcification on the oblique view lateral to the cuboid. Normal visualized subtalar, talonavicular, calcaneocuboid, tarsal and tarsometatarsal articulations. Normal metatarsi. Normal metatarsophalangeal joint of the great toe. Normal tibial and fibular sesamoid bones. Normal interphalangeal joint of the great toe. Normal phalanges of the great toe. Normal second through fifth metatarsophalangeal joints. Normal interphalangeal joints and phalanges of the lesser toes. RAD/Foot min 3 Views IMPRESSION: Enthesophyte of the posterior calcaneus at the site of the Achilles tendon insertion. There is a soft tissue crescentic calcification lateral to the cuboid. This may represent process such as old avulsion injury or tendinitis. Electronically Signed: Stan Gonzales MD at 23:32 EDT , Service support ,
[2018-07-23 10:22] LABS: Erythrocyte Sedimentation Rate 22 mm/hr (0-20)
[2018-07-23 10:26] LABS: AST(SGOT) 65 U/L (15-37); Alanine Aminotransfer ALT/SGPT 41 U/L (16-61); Albumin, Serum 2.5 g/dL (3.2-5.0); Alkaline Phosphatase 78 U/L (45-117); Bilirubin, Direct 0.17 mg/dL (0.00-0.30); Globulin 4.1 g/dL (2.2-4.2); Protein, Total 6.6 g/dL (6.4-8.2)
[2018-07-23 10:37] LABS: Color, Urine Yellow (Yellow); Glucose, Dipstick Normal (Normal); Ketone-Dipstick Negative (Negative); Leukocyte Esterase-Dipstick 25 /ul (Negative); Nitrite-Dipstick Negative (Negative); Occult Blood-Urine Negative /ul (Negative); Protein-Dipstick 15 mg/dl (Negative); Specific Gravity, Urine 1.015 (1.002-1.030); Urine Bilirubin Dipstick Negative (Negative); Urine Clarity Sl. Cloudy (Clear); Urine Urobilinogen Normal (Normal)
[2018-07-23 10:57] LABS: Mucous, Urine 1+ /hpf (<or=2+); White Blood Cells 0-5 SEEN /hpf (0-5)
[2018-07-26 16:07] LABS: Cytoplasmic Ab (C-ANCA) <1:20 titer (Neg:<1:20)
[2018-07-26 19:39] LABS: CCP IgG Antibodies 13 units (0-19); Perinuclear Ab (P-ANCA) <1:20 titer (Neg:<1:20)
== END ==
PROVIDERS: Family Provider Family Medicine; PCP Family Medicine; Referring Provider Internal Medicine Rheumatology; Visit Provider Internal Medicine Rheumatology
DX: M15.0 Primary generalized (osteo)arthritis (principal)
CPT/HCPCS: 36415; 73130; 73560; 73610; 73630; 80076; 81001; 84550; 85652; 86140; 86200; 86256; 86431

== ENCOUNTER → 2018-08-05 08:52 | Outpatient (CLI) | payer MEDICARE, SELFPAY ==
[2018-07-14 10:58] VITALS: BMI 28.2
--- NOTE | 2018-08-05 09:06 | RAD_ITS ---
STUDY: X-RAY - RIGHT SCAPULA REASON FOR EXAM: Male, 67 years old. Pain TECHNIQUE: 3 view(s) of the scapula were obtained. COMPARISON: None. FINDINGS: Normal scapula, including the osseous glenoid rim, acromion, scapular neck, spine, coracoid process, and visualized body. Normal glenohumeral articulation. Normal acromioclavicular joint. Normal visualized humeral head. Normal visualized pulmonary apex. RAD/Scapula IMPRESSION: Normal plain film x-ray examination of the scapula. Electronically Signed: Ravindra Casiano MD at 16:49 EDT Tel , Service support ,
[2018-08-05 09:56] LABS: Absolute Lymphocyte Count 0.63 X10^3/ul (0.83-4.51); Absolute Neutrophil Count 3.2 X10^3/uL (2.0-7.7); Basophil# 0.02 X10^3/uL; Basophil% 0.5 % (0-1); Eosinophil# 0.06 X10^3/uL; Eosinophils% 1.4 % (0-5); Hemoglobin 11.1 g/dl (13.0-16.5); Lymphocyte # 0.63 X10^3/ul (4.0); Lymphocyte % 14.7 % (19-41); Mean Corp Hgb Conc 31.7 g/gl (32-36); Mean Corpuscular Hgb 26.7 pg (27.0-32.0); Mean Corpuscular Volume 84.3 fL (80-94); Mean Platelet Vol. 10.3 fl (6.2-12.0); Monocyte% 9.3 % (0-10); Neutrophil # 3.17 X10^3/uL (2.7-7.7); Neutrophil % 73.9 % (47-70); Platelet Count 219 K/mm3 (150-450); RBC Distribution Width CV 18.1 % (11.6-14.6); RBC Distribution Width SD 56.1 fl (35.1-43.9); Red Blood Count 4.15 M/mm3 (4.6-6.2); White Blood Count 4.3 K/mm3 (4.4-11.0)
[2018-08-05 10:16] LABS: POSITIVE COUNT NO; POSITIVE DIFFERENTIAL NO; POSITIVE MORPHOLOGY NO
[2018-08-05 10:32] LABS: ALB/GLOB Ratio 0.7 RATIO (0.9-2.4); AST(SGOT) 59 U/L (15-37); Alanine Aminotransfer ALT/SGPT 37 U/L (16-61); Alkaline Phosphatase 76 U/L (45-117); Anion Gap 6 (5-15); BUN 18 mg/dL (7-18); BUN/Creat Ratio 19.4 RATIO (10-20); Calcium,Total 8.6 mg/dL (8.5-10.1); Chloride 108 mmol/L (98-107); Creatinine, Serum 0.93 mg/dL (0.70-1.30); EST Glomerular Filtration Rate 86 mL/min (>60); Est Glom Filt Rate - Afr Amer 104 mL/min (>60); Globulin 4.5 g/dL (2.2-4.2); Glucose 111 mg/dL (74-106); Protein, Total 7.5 g/dL (6.4-8.2); Sodium Level 138 mmol/L (136-145); Thyroid Stim Hormone (TSH) 3.08 uIU/mL (0.358-3.74)
== END ==
PROVIDERS: Family Provider Family Medicine; PCP Family Medicine; Referring Provider Family Medicine; Visit Provider Family Medicine
DX: M89.8X1 Other specified disorders of bone, shoulder (principal); G89.29 Other chronic pain; R62.7 Adult failure to thrive; K63.1 Perforation of intestine (nontraumatic); M06.9 Rheumatoid arthritis, unspecified
CPT/HCPCS: 36415; 73010; 80053; 84134; 84443; 85025

== ENCOUNTER 2018-08-24 14:36 | Emergency (ER) | payer MEDICARE, SELFPAY ==
[2018-07-14 10:58] VITALS: BMI 28.2
[2018-08-24] VITALS (7 sets, daily range): BP systolic 104–126; BP diastolic 63–84; PULSE 95–104; RESP 16–28; TEMP 36.3–39.5; O2SAT 95–99; BMI 28.0
--- NOTE | 2018-08-24 15:10 | CT_ITS ---
STUDY: CT BRAIN WITHOUT CONTRAST REASON FOR EXAM: Male, 67 years old. Trauma. RADIATION DOSAGE (If Supplied By Facility): CTDIvol = ( 44.99 ) mGy, DLP = ( 846.73 ) mGycm TECHNIQUE: Transaxial CT imaging of the brain was performed without administration of intravenous contrast material. Individualized dose optimization techniques were used for this CT. COMPARISON: None. FINDINGS: There is a 9 mm contusion in the left cerebellar hemisphere (image 13 series 2). There are no additional areas of hemorrhage. There is no acute infarct. There are chronic ischemic and atrophic changes. The ventricles are normal in configuration. There is no hydrocephalus. The visualized paranasal sinuses are clear. The mastoid air cells are well aerated. There is no skull fracture. There is a 1.2 x 0.9 cm hematoma overlying the right side of the forehead. CT/Brain/Head without Contrast IMPRESSION: 9 mm contusion in the left cerebellar hemisphere. 1.2 x 0.9 cm hematoma overlying the right side of the forehead. N.B. : The above information has been verbally conveyed by Carlos Dexter to Aide Grijalva MD, on 08/24/2018 16:27:10 (ET). Electronically Signed: Carlos Dexter, at 16:22 EDT Tel , Service support ,
--- NOTE | 2018-08-24 15:11 | CT_ITS ---
STUDY: CT CERVICAL SPINE WITHOUT CONTRAST REASON FOR EXAM: Male, 67 years old. Trauma. RADIATION DOSAGE (If Supplied By Facility): CTDIvol = ( 25.88 ) mGy, DLP = ( 541.32 ) mGycm TECHNIQUE: High resolution transaxial imaging was performed without contrast material. Sagittal and coronal images were reconstructed. Individualized dose optimization techniques were used for this CT. COMPARISON: None available. FINDINGS: There is no evidence of fracture or dislocation in the cervical spine. The dens is intact. Alignment is normal. The vertebral body heights are well-maintained. There are mild multilevel degenerative changes. The visualized paraspinal soft tissues are within normal limits. CT/Spine Cervical without Contras IMPRESSION: No fracture or dislocation in the cervical spine. Mild degenerative change. Electronically Signed: Carlos Dexter, at 16:16 EDT Tel , Service support ,
--- NOTE | 2018-08-24 15:11 | CT_ITS ---
STUDY: CT CHEST WITHOUT CONTRAST REASON FOR EXAM: Male, 67 years old. Trauma to left ribs. RADIATION DOSAGE (If Supplied By Facility): CTDIvol = ( 19.76 ) mGy, DLP = ( 765.28 ) mGycm TECHNIQUE: Transaxial imaging was performed without the administration of intravenous contrast material. Coronal and sagittal reformatted images were created. Individualized dose optimization techniques were used for this CT. COMPARISON: None FINDINGS: The study is limited by patient motion and by streak artifact due to the patient's arms being at his sides. There are no pulmonary infiltrates or pleural effusions. There is dependent atelectasis noted in the lungs. There is no pneumothorax. The heart and pericardium are within normal limits. There is no thoracic lymphadenopathy. There is no evidence of thoracic aortic aneurysm. Images through the upper abdomen demonstrate no significant abnormality. The visualized thoracic osseous structures are intact. CT/Chest without Contrast IMPRESSION: No acute traumatic findings demonstrated on this noncontrast CT of the chest Electronically Signed: Carlos Dexter, at 16:21 EDT Tel , Service support ,
--- NOTE | 2018-08-24 15:11 | EKG12_ITS ---
Test Reason : FALL Blood Pressure : / mmHG Vent. Rate : 097 BPM Atrial Rate : 097 BPM P-R Int : 140 ms QRS Dur : 108 ms QT Int : 386 ms P-R-T Axes : 047 -46 093 degrees QTc Int : 490 ms Normal sinus rhythm Left anterior fascicular block Abnormal QRS-T angle, consider primary T wave abnormality Prolonged QT Abnormal ECG Confirmed by RITA NINA ([id number]), editorial director WILLIAM JOHNSON ([id number]) on 08/26/2018 1:43:27 PM Referred By: RAJI Confirmed By:RITA NINA
--- NOTE | 2018-08-24 15:14 | ED.VISSUMM ---
- ER Visit Summary Date of Service: 08/24/18 Chief Complaint: Fall History of Present Illness: The patient is a 67 M presented after fall. Patient states he was walking in his driveway and tripped on a stone and fell. He hit his face. He does not believe he lost consciousness. Family states he was disoriented after the fall and is returning to baseline. He was discharged from a [place] [facility] on July 17 after prolonged illness after diverticulitis and colon resection. They state he has been getting stronger and stopped using his walker last week. He is not on anticoagulants. His tetanus is up-to-date. He has an abrasion to his right face. He complains of left-sided rib pain. He was able to ambulate after the fall. Denies other complaints. Physical Examination: Vitals are stable. Patient is afebrile. Alert no acute distress. HEENT exam abrasion right forehead and right face. 1.5 cm laceration under right eye. PERRL, EOMI Neck is supple. Nontender Lungs are clear and equal bilaterally. Left lower rib tenderness with no crepitus Heart is regular rate and rhythm. Abdomen is soft nontender nondistended. Colostomy in place, no guarding or rebound. Extremities abrasion right small finger with active full range of motion No focal neurologic deficit. Remainder of exam is unremarkable. Emergency Department Course and Treatment: EKG is sinus rate of 97, unchanged from previous. CBC normal except hemoglobin 10.3, platelet 108. This is near his baseline. Chemistries unremarkable. Troponin is negative. Patient was given tetanus IM. Laceration was repaired. Irrigated with saline, anesthetized with lidocaine. 2, 5-0 simple sutures were placed. CT cervical spine shows no acute fracture. CT chest shows no acute process. CT head shows 9 mm contusion in the left cerebellar hemisphere. 1.2 x 0.9 cm hematoma overlying the right side of the forehead. Patient and family prefer [facility] for transfer. Discussed with [facility]. Disposition: Transfer to [facility] Impression: Status post mechanical fall, left cerebellar contusion, facial laceration, laceration repair This note was generated with [email or web address] dictation software. It may contain incorrect words, spelling, and punctuation that were not noted in review of the chart prior to signing ED Disposition - Plan for ED Patient: Referrals: Napoleon Larson MD [Primary Care Provider] -
[2018-08-24 15:52] LABS: Absolute Neutrophil Count 4.2 X10^3/uL (2.0-7.7); Eosinophil# 0.03 X10^3/uL; Eosinophils% 0.6 % (0-5); Hematocrit 31.7 % (40-54); Hemoglobin 10.3 g/dl (13.0-16.5); Lymphocyte % 10.2 % (19-41); Mean Corp Hgb Conc 32.5 g/gl (32-36); Mean Corpuscular Hgb 27.9 pg (27.0-32.0); Mean Corpuscular Volume 85.9 fL (80-94); Mean Platelet Vol. 9.8 fl (6.2-12.0); Monocyte# 0.15 X10^3/uL; Monocyte% 3.1 % (0-10); Neutrophil # 4.21 X10^3/uL (2.7-7.7); Neutrophil % 85.9 % (47-70); Platelet Count 108 K/mm3 (150-450); RBC Distribution Width CV 18.8 % (11.6-14.6); RBC Distribution Width SD 59.5 fl (35.1-43.9); Red Blood Count 3.69 M/mm3 (4.6-6.2); White Blood Count 4.9 K/mm3 (4.4-11.0)
[2018-08-24 15:53] LABS: Differential Indicated SCAN CRITERIA MET; POSITIVE COUNT NO; POSITIVE DIFFERENTIAL YES; POSITIVE MORPHOLOGY NO
[2018-08-24 16:13] LABS: Anion Gap 6 (5-15); BUN 15 mg/dL (7-18); BUN/Creat Ratio 16.5 RATIO (10-20); Chloride 106 mmol/L (98-107); Creatinine, Serum 0.91 mg/dL (0.70-1.30); EST Glomerular Filtration Rate 88 mL/min (>60); Est Glom Filt Rate - Afr Amer 107 mL/min (>60); Estimated Creatinine Clearance 86.46 ml/min; Glucose 143 mg/dL (74-106); Potassium 4.2 mmol/L (3.5-5.1); Sodium Level 139 mmol/L (136-145)
[2018-08-24 16:28] LABS: Bacteria 0 SEEN /hpf (None Seen); Mucous, Urine 0 SEEN /hpf (<or=2+); Red Blood Cells-Urine 0 SEEN /hpf (0-5); White Blood Cells 0 SEEN /hpf (0-5)
[2018-08-24 16:30] LABS: Differential Comment SCANNED
[2018-08-24 16:39] LABS: Color, Urine Yellow (Yellow); Glucose, Dipstick Normal (Normal); Ketone-Dipstick Negative (Negative); Leukocyte Esterase-Dipstick Negative /ul (Negative); Nitrite-Dipstick Negative (Negative); Occult Blood-Urine Negative /ul (Negative); Protein-Dipstick 15 mg/dl (Negative); Urine Bilirubin Dipstick Negative (Negative); Urine Clarity Sl. Cloudy (Clear); Urine Urobilinogen Normal (Normal)
[2018-08-24] MEDS: Diphth,Pertuss(Acell),Tet Vac 0.5 ML Vial IM (16:45)
[2018-08-24 16:50] LABS: Squamous Epithelial Cells - UA 0-5 SEEN /hpf (0-5)
--- NOTE | 2018-08-24 16:51 | NURSING ---
CALLED [facility] FOR TRANSFER.
--- NOTE | 2018-08-24 17:39 | ED.RN ---
OUT OF ADULT C-COLLARS. DR ALEGRIA AWARE. STATES TO HAVE TRANSPORT [facility]. TRANSPORT [facility] MADE AWARE AND AGREES TO.
--- NOTE | 2018-08-24 20:34 | ED.RN ---
WENT IN TO PULL PT UP IN BED. PT HAD URINATED HIMSELF AND DID NOT REALIZE IT WELL. PT WAS CLEANED UP WITH LINEN CHANGE. NOTICED PT WAS WARM VERY WARM TO THE TOUCH. PT HAD A TEMP OF 103.[address] ALEGRIA MADE AWARE OF TEMP AND URINATING HIMSELF.
[2018-08-24] MEDS: Acetaminophen 500 MG Tablet 1000 MG PO (20:38)
--- NOTE | 2018-08-24 20:45 | ED.RN ---
TRANSPORT AT BEDSIDE, REPORT GIVEN. DENIES QUESTIONS OR NEEDS. C-COLLAR PLACED BY TRANSPORT BEFORE DEPARTURE.
== END 2018-08-24 20:59 | disposition short-term general hospital (02) ==
LOC: ED 15:42
PROVIDERS: Emergency Provider Emergency Medicine; Family Provider Family Medicine; PCP Family Medicine
DX: S06.379A Contusion, laceration, and hemorrhage of cerebellum with loss of consciousness of unspecified duration, initial encounter (principal); S01.81XA Laceration without foreign body of other part of head, initial encounter; W01.0XXA Fall on same level from slipping, tripping and stumbling without subsequent striking against object, initial encounter; Y93.01 Activity, walking, marching and hiking; Y92.008 Other place in unspecified non-institutional (private) residence as the place of occurrence of the external cause; M06.9 Rheumatoid arthritis, unspecified; K21.9 Gastro-esophageal reflux disease without esophagitis; N40.0 Benign prostatic hyperplasia without lower urinary tract symptoms; Z79.82 Long term (current) use of aspirin; Z79.899 Other long term (current) drug therapy
CPT/HCPCS: 12011; 70450; 71250; 72125; 80048; 81001; 84484; 85025; 90715; 93005; 99285; J7030; J7040; A4216

== ENCOUNTER → 2018-10-05 07:40 | Outpatient (CLI) | payer MEDICARE, SELFPAY ==
[2018-08-24 14:38] VITALS: BMI 28.0
--- NOTE | 2018-10-05 07:44 | CT_ITS ---
STUDY: CT RIGHT SHOULDER REASON FOR EXAM: Male, 67 years old. 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 High resolution transaxial imaging was performed without the administration of intravenous contrast material. Sagittal and coronal images were reconstructed. Individualized dose optimization techniques were used for this CT. COMPARISON: None. FINDINGS: There is mild osteoarthritis of the glenohumeral articulation, with mild articular joint space narrowing and mild osteoarthritic spurring. Intact glenoid rim, neck and visualized scapula. Intact humeral head, neck and tuberosities. Small focus of calcification along the humeral head measuring 4.9 mm suggestive of calcific tendinopathy. Intact coracoid process. Normal visualized lateral clavicle. There is mild osteoarthritis with articular joint space narrowing. There is a Type II morphology (curved), with a neutral orientation. Mild degree of atrophy of the visualized supraspinatus and infraspinatus muscle belly.. CT/Extremity Upper without Contra IMPRESSION: Calcific tendinopathy of rotator cuff. Mild glenohumeral osteophytosis. Mild AC joint arthrosis. Mild atrophy of the visualized supraspinatus and infraspinatus muscle bellies likely due to disuse. No acute displaced fracture, or traumatic subluxation based on current assessment. Correlation with patient's symptoms and history is recommended. Electronically Signed: Curry Mena MD at 9:30 EDT Tel [phone], Service support ,
== END ==
PROVIDERS: Family Provider Family Medicine; PCP Family Medicine; Referring Provider Family Medicine; Visit Provider Family Medicine
DX: C49.10 Malignant neoplasm of connective and soft tissue of unspecified upper limb, including shoulder (principal)
CPT/HCPCS: 73200

== ENCOUNTER 2018-10-11 11:48 | Day surgery (SDC) | payer MEDICARE, SELFPAY ==
[2018-08-24 14:38] VITALS: BMI 28.0
--- NOTE | 2018-10-09 06:22 | PCM.HP.BLA ---
History and Physical Date of Admission: 10/11/18 HISTORY AND PHYSICAL Richard Fraire 1950 REFERRING PHYSICIAN: Ravindra Watson MD CHIEF COMPLAINT: Post Op HPI: The patient is a 67 year old male referred for endoscopy. Richard notes worsening upper GI complaints consistent with his previous gastritis and poor appetite for the last week. The patient is a 67 year old male with worsening failure to thrive when I saw him on April 22, 2018. He was seen by his primary care physician 2 days previously. He was sent to [facility] for a chest x-ray and laboratory studies. Laboratory studies were relatively unremarkable with normal white blood cell count, mild anemia, normal protein and albumin, slightly elevated liver profile. Chest x-ray did demonstrate significant free air. The patient states that he has a degree of apprehension eating food due to his diverticulitis but does not complain of pain. Unfortunately, the patient is very stoic. He denies change in his bowel habits. He denies fever or chills. He states he does not have pain when he eats but again a degree of food aversion. The most concerning feature to his is that he has lost approximately 20 pounds of weight and is having increasing weakness. The patient has a recently complex history related to his diverticulitis. The patient has a known history of right upper extremity sarcoma. He was scheduled for a follow-up chest CAT scan which he underwent at [facility] yesterday. Incidental finding was free intra-abdominal air. The patient's orthopedic surgeon, Dr. Hill called the patient this morning from a virtual visit. The patient had eaten breakfast and did not report any concerns. The patient was placed on my schedule for a diagnosis of pneumoperitoneum. In discussions with the patient, he notes pain in the left lower quadrant starting around Thanksgiving and then pain across the upper mid abdomen and through to the back. He states his been typically eating Jell-O since that time. He denies fever or chills. He notes that actually has been feeling better for the last 2 days. The patient has a diagnosis approximately one year ago of pancreatitis from unknown etiology. He was maintained in the hospital for 2 days without diagnosis. He assumed that his pain started on Thanksgiving was also pancreatitis and he felt it would be a waist at this time to return to the hospital. I had seen the patient 5 year previously were he underwent laparoscopic appendectomy for missed appendicitis. The patient was initially scheduled for later in the afternoon. I had him present to my office as soon as he could be contacted. In the office, he looked remarkably comfortable. His vitals were stable and he had no diffuse peritoneal signs. I reviewed the CT scan of the chest which did demonstrate significant free air. I did not see any time signs of intra-abdominal fluid collections and the stomach and duodenum did not demonstrate signs of inflammation. I elected to obtain laboratory studies-CBC chemistry panel and lipase, and a noncontrast CT scan. Again the patient had improved abdominal symptoms and was tolerating a low residue diet without challenges by the time he presented to my office. My interpretation of the CT scan as this is most likely descending colon/sigmoid diverticulitis. I received a phone call from the radiologist later commenting on the same findings. We agreed that this would be very clinically worrisome in the acute setting. We concluded it was reasonable to plan for a follow-up CT scan a week. He was discharged home from my office on a low residue diet with oral antibiotics. The patient still denies any significant abdominal pain. He notes no fever or chills. He is taking his oral antibiotics. He would like to advance his diet. Repeat CT scan was obtained. This demonstrated: IMPRESSION: Improving perforated diverticulitis without interval developing abscess. The patient was then doing well until February 20, 2018 when he noted fever to 105 and left-sided abdominal pain. He presented to [facility] emergency department. Follow-up CT scan demonstrated a 2-1/2 cm abscess near the site of recurrent diverticulitis. He was admitted, given IV antibiotics and underwent percutaneous drainage with pigtail catheter placement. He did well and was transitioned to oral antibiotics and discharged to home on February 24, 2018. I saw him approximately 3 weeks previously. Our plan was to perform colonoscopy and then sigmoid resection on May 04 and . He was admitted to the hospital on April 22, 2018. CT scan of the abdomen and pelvis was obtained at that time. This demonstrated his diverticulosis without was felt to be significantly active diverticulitis significant free air with no fluid and was felt to be inflammation in the duodenum interpreted as possible perforated duodenal ulcer. Given his relatively benign abdomen, significant free air and no signs of fluid along with the remarkably normal white count and the fact that the patient's said they had trouble buttoning his pants for the past 8-10 days, I entertained the possibility of a perforated duodenal ulcer. He was taken for upper endoscopy on April 23 and found to have duodenitis. Ultrasound-guided aspiration yielded no intra-abdominal fluid for culture. The patient was maintained on proton pump inhibitors and antibiotics. 2 days later he had increasing abdominal pain and spiking fevers. Repeat CAT scan now demonstrated active diverticulitis with a more pericolonic air and gas then the CAT scan on April 22 I performed a exploratory laparotomy with segmental sigmoid colon resection and Timmons's colostomy on April 25, 2018. The patient had a protracted hospital course due to ileus, malnutrition, and overall debilitation. He was discharged home on May 05. The patient had recurring urinary retention and was discharged on double dose Flomax and having a Ríos catheter in place At the time of discharge, the patient had a normal white blood cell count. His albumin was low at 2.4, his prealbumin was 9.8 with normal 20-40 and his protein was lower limits of normal at 6.4. The patient currently notes that he is proceeding with his physical therapy but they noted him to be tachycardic and hypotensive. He notes he is making good urine and actually has an increase in his urine output. his appetite has been fair but his is encouraging him to eat. He is generally drinking 3 cans of ensure per day and taking some food in. he denies fever, chills or abdominal pain. he does note some mild incisional discomfort. He was readmitted on June 24 with overall failure to thrive and nausea and vomiting. He was hydrated and started on Zofran. He was then better tolerating oral intake and discharged to an ECF. Laboratory studies WBC 2.5, Hgb 9.3 Protein - 6.4, Albumin 2.6 I performed upper and lower endoscopy on July 14, 2018. Upper endoscopy demonstrated inflammation in the duodenum, stomach and distal esophagus. Lower endoscopy demonstrated normal appearing rectum. Endoscopy through the stoma demonstrated diverticula, maximally in the descending and sigmoid region. Pathology returned as mild duodenitis and gastritis. He was started on prilosec and notes he is doing better, he is pretty much stopped his Zofran but has taken it on 2 occasions when he felt somewhat nauseated. He is now home from his ECF. His appetite is improving. His has been watching his calorie counts. He is eating between 1600 and 2200 calories per day per her record. There were 2 days where the patient had trouble getting out of bed due to lower leg swelling and discomfort. He had seen a ab initio etl developer who diagnosed rheumatoid arthritis. He was started on prednisone and is feeling much better. He understands his ab initio etl developer to be starting another medication but the patient is uncertain what this medication is. I saw the patient last on August 12, 2018. The patient apparently had a fall on August 24, 2018. He felt dizzy fell down and hit his head. He had a laceration and was seen in the emergency department. CT scan of the brain was obtained which was interpreted as a left hemispheric cerebral contusion. The patient was transferred to [facility] was admitted to the ICU. An MRI was obtained which felt this was likely not a cerebral contusion but an incidental meningioma. MRI report: IMPRESSION: Posterior fossa lesion on the left broad-based along the transverse sinus measuring approximately 10-12 mm in maximal diameter with only minimal associated mass effect as described above. ?Leading differential diagnostic consideration is an incidental meningioma. The patient was discharged on August 27 with recommendation to follow-up with neurosurgery in 1 month. The patient notes that last week worsening epigastric symptoms consistent with the problems he had previously when he had more advanced gastritis. He states he is poorly tolerating his oral ensure and Zofran is not improving his nausea like it had in the past. The patient's called insults his symptoms were likely more consistent with recurrent diverticulitis and did not wish to have him undergo repeat endoscopy after the last visit on September 16. I therefore did a repeat CT scan of the abdomen pelvis. This demonstrated: IMPRESSION: No acute intra-abdominal or pelvic process. Stable postoperative CT. I also obtained repeat laboratory studies which demonstrated no suspicious agents on stool culture but positive for lactoferrin, CBC demonstrated mild anemia but this was improved from his previous study., Pre-albumin was 20. Albumin was slightly low at 3.6 but the remainder of his complex metabolic panel was unremarkable. The patient also had a follow-up MRI of his brain performed on September 17, 2018. This was felt to have a stable posterior fossa lesion felt to be compatible with meningioma. The patient's still remains concerned that he is overall not thriving. He continues to lose weight. PAST MEDICAL HISTORY Diagnosis Date ? BPH (benign prostatic hyperplasia) ? Cancer (HCC) leiomyosarcoma ? Hyperlipidemia PAST SURGICAL HISTORY Procedure Laterality Date ? APPENDECTOMY 08/28/12 ? COLONOSCOPY ? EGD W/O OR W/BRUSH/WASH 04/23/2018 EGD ? KNEE SURGERY HX Right 1974 ? LAP COLECTMY W END COLOSTOMY 04/25/2018 ? PAST SURGICAL HISTORY OF Right 2016 RUE sarcoma excision ? PAST SURGICAL HISTORY OF Right 2003 removeal of aneurysm behind rt knee Current Outpatient Medications: CANNABIDIOL, CBD, EXTRACT ORAL Take by mouth. iv contrast (will be provided with radiology test) CT Chest ABD/PEL-Inject, intravenously, once for 1 dose.No IV access, insert saline lock prior to the beginning of sedation, infusion, injection of imaging exam. Discontinue saline lock post exam. If Pt. has a central line or IVAD, may access for administration according to line specific nursing protocol. Once exam is complete flush line and de-access according to line specific nursing protocol in the CT contrast administration guidelines link. enteric contrast (will be provided with radiology test) For CT CHESTABD/PEL W IVCON Routine order Administer, As Directed One Time Only, via Oral, Rectal, both Oral and Rectal, Enteric Tube, Stoma or Indwelling Catheter, Enteric Contrast as designated per enteric contrast guidelines tamsulosin ER (FLOMAX) 0.4 mg cap Take 0.4 mg by mouth daily at bedtime. predniSONE (DELTASONE) 10 mg tablet Take 1 tablet by mouth daily hydroxychloroquine (PLAQUENIL) 200 mg tablet Take 400 mg by mouth twice daily. omeprazole (PRILOSEC) 20 mg capsule Take 40 mg by mouth once daily. finasteride (PROSCAR) 5 mg tablet TAKE 1 TABLET BY MOUTH EVERY DAY ondansetron (ZOFRAN) 4 mg tablet Take 8 mg by mouth every 4 hours as needed. Aspirin 81 mg Tab Take 81 mg by mouth once daily. MULTI-VITAMIN ORAL Take 1 tablet by mouth once daily. Cholecalciferol, Vitamin D3, (VITAMIN D-3) 2,000 unit cap Take by mouth. simvastatin (ZOCOR) 40 mg tablet Take 40 mg by mouth daily at bedtime. Gabapentin 300 mg Tab Take 600 mg by mouth twice daily. No current facility-administered medications for this visit. ALLERGIES: Desitin [Zinc Oxide] PERSONAL HISTORY: Social History Socioeconomic History Marital status: Spouse name: Not on file Number of children: Not on file Years of education: Not on file Highest education level: Not on file Occupational History Not on file Social Needs Financial resource strain: Not on file Food insecurity: Worry: Not on file Inability: Not on file Transportation needs: Medical: Not on file Non-medical: Not on file Tobacco Use Smoking status: Former Smoker Packs/day: 1.00 Years: 15.00 Pack years: 15 Types: Cigarettes Smokeless tobacco: Never Used Tobacco comment: Quit 20yrs ago Substance and Sexual Activity Alcohol use: No Drug use: Never Sexual activity: Not on file Lifestyle Physical activity: Days per week: Not on file Minutes per session: Not on file Stress: Not on file Relationships Social connections: Talks on phone: Not on file Gets together: Not on file Attends shinto service: Not on file Active member of club or organization: Not on file Attends meetings of clubs or organizations: Not on file Relationship status: Not on file Intimate partner violence: Fear of current or ex partner: Not on file Emotionally abused: Not on file Physically abused: Not on file Forced sexual activity: Not on file Other Topics Concerns: Not on file Social History Narrative Not on file FAMILY HISTORY: FAMILY HISTORY Problem Relation Age of Onset ? Cancer Mother uterine ? Cancer Father lung ? Cancer Sister multiple myeloma ? Diabetes Brother REVIEW OF SYMPTOMS: The review of systems data was entered by the nurse and reviewed by me There are no exam notes on file for this visit. PHYSICAL EXAMINATION: General: The patient is 67 year old male, poorly nourished, well hydrated in no acute distress. The patient is oriented to time, place, and person. VITALS: Blood pressure 92/68, pulse 92, temperature 36.6 ?C (97.9 ?F), weight 88.3 kg (194 lb 9.6 oz), SpO2 99 %. Body mass index is 25.67 kg/m?. HEENT: Normal cephalic, ataumatic, pupils are equally round, sclera are anicteric, mucous membranes are moist, oropharynx is clear. Neck has no masses, asymmetry or lymphadenopathy. Thyroid is unremarkable. Respiratory: Clear to auscultation and percussion. Normal respiratory excursion and pattern. Cardiac: Examination is regular rate and rhythm. No rubs, murmurs, or additional cardiac tones Abdominal exam: Soft, nontender, with no palpable masses. No hepatosplenomegaly. No palpable hernias. Rectal exam: exam deferred Extremities: no clubbing, cyanosis or edema. No adenopathy. Other: LABORATORY VALUES: As Noted RADIOLOGIC STUDIES: As Noted Assessment IMPRESSION: Recurring epigastric pain and poor appetite, failure to thrive PLAN: I plan to perform upper endoscopy. We discussed the risks and benefits of the planned endoscopy. I have informed the patient that complications can occur including failure to complete the endoscopy and perforation. The patient had the opportunity to ask questions concerning the planned endoscopy. My staff has also explained the procedure to the patient in understandable terms and has given the patient printed material concerning the procedure. The patient freely consents to surgery. Patient has significant:comorbidities. I plan for monitored anesthetic care. I will contact Dr. Napoleon Smith to ask if he has any other considerations currently for this patient given his overall failure to improve/thrive without a more specific current issue for second opinion. Diagnoses: (K57.92) Diverticulitis (primary encounter diagnosis) A letter was sent to Dr. Napoleon Larson MD indicating the above finding for this patient. Return to Clinic: The patient is instructed to follow-up with me after the testing has been completed. Ravindra Watson MD FOLLOW UP VISIT - POST OP NAME: Richard Fraire CLINIC NO.: [id number] DATE OF SERVICE: September 16, 2018 : 1950 REFERRING PHYSICIAN: Napoleon Larson MD VITALS: Blood pressure 92/68, pulse 92, temperature 36.6 ?C (97.9 ?F), weight 88.3 kg (194 lb 9.6 oz), SpO2 99 %. Still significant masseter and thenar wasting. Abdominal exam is normal active bowel sounds. His bisi are in place and intact. His colostomy has solid stool in the bag. His stoma is pink. Assessment IMPRESSION: Status post emergency sigmoid colectomy with end Timmons's colostomy, malnutrition, deconditioning, PLAN: I plan to perform upper endoscopy. We discussed the risks and benefits of the planned endoscopy. I have informed the patient that complications can occur including failure to complete the endoscopy and perforation. The patient had the opportunity to ask questions concerning the planned endoscopy. My staff has also explained the procedure to the patient in understandable terms and has given the patient printed material concerning the procedure. The patient freely consents to surgery. Diagnoses: (K57.92) Diverticulitis (primary encounter diagnosis) Return to Clinic: The patient is instructed to follow-up with me post op. Ravindra Watson MD
[2018-10-11] VITALS (7 sets, daily range): BP systolic 81–93; BP diastolic 58–66; PULSE 70–77; RESP 16; TEMP 36.3–36.4; O2SAT 97–100; BMI 25.8
--- NOTE | 2018-10-11 | IMM_PTH ---
PATIENT: MARILEE SIMPSON LOC: EN U#:[id number] AGE/SX: 67/M ROOM: RE10/11/[address]: Dr. Ravindra Watson MD : 1950 BED: DIS: 10/11/2018 SPEC #: [id number] RECD: 10/13/18 12:33 STATUS: ABRAHAM REAriadne #: [id number] LEROY: 10/11/18 00:[address]: Ravindra Watson DEPT: IMMUNOHISTOCHEMISTRY RECD BY: Radha Lyle ENTERED: 10/13/18 12:34 SP TYPE: IMMUNO OTHR DR: Dr. Napoleon Larson MD Tissues: Gastric mucous membrane Procedures: H Pylori (initial) PHYSICIAN & INSTITUTION [place] [address] SPECIMEN INFORMATION: Tissue Source: B. Antral biopsy Clinical Info: Epigastric pain, poor appetite, failure to thrive Specimen Number: [id number] CPT code: 63008 METHODOLOGY: Deparaffinized sections of prefer/formalin-fixed tissue or PAP/DQ stained slides are incubated with monoclonal/polyclonal antibodies/oligonucleotide probes. Localization is made via biotin free immunoperoxidase method. Appropriate controls are performed and reacted as expected. Results on target cell population are indicated in the following table: RESULTS: ANTIBODY / CLONE RESULT Block B H Pylori (polyclonal) negative These tests were developed and their performance characteristics determined by [facility]. They may not have been cleared or approved by the U.S. Food and Drug Administration. The FDA has determined that such clearance or approval is not necessary. INTERPRETATION: Antral, biopsy: Negative for Helicobacter pylori organisms. AM:navarro 10/14/18
[2018-10-11] MEDS: Lactated Ringers 1,000 ML 100 ML IV (12:27)
--- NOTE | 2018-10-11 12:45 | EGD_PTH ---
PATIENT: MARILEE SIMPSON LOC: EN U#:[id number] AGE/SX: 67/M ROOM: RE10/11/[address]: Dr. Ravindra Watson MD : 1950 BED: DIS: 10/11/2018 SPEC #: [id number] RECD: 10/11/18 14:54 STATUS: ABRAHAM VAL #: [id number] LEROY: 10/11/18 12:[address]: Ravindra Watson DEPT: SURGICAL PATHOLOGY RECD BY: Juan Foster ENTERED: 10/12/18 14:07 SP TYPE: EGD BIOPSY LISETH DR: Dr. Napoleon Larson MD Tissues: A - Duodenum, NOS B - Gastric mucous membrane Procedures: Surgery Specimen Level IV HEADER OPERATION: EGD (TX) PRE-OP DIAGNOSIS: Epigastric pain, poor appetite, failure to thrive TISSUE SUBMITTED: A. Biopsy of duodenum, B. Antral biopsy MICROSCOPIC DIAGNOSIS A. Duodenum, biopsy: Suggestive of Mitchell's gland hyperplasia. Gastric metaplasia. B. Gastric antrum, biopsy: Mild chronic gastritis. AM:olga 10/13/18 COMMENT B. The results of immunohistochemistry for Helicobacter pylori will be reported separately ([id number]). The specimen shows fragments of gastric mucosa with chronic inflammatory cell infiltrates in the lamina propria consisting of lymphocytes and plasma cells, consistent with mild chronic gastritis. MICROSCOPIC DESCRIPTION Slides are reviewed. GROSS DESCRIPTION A.Received is one container labeled with the patient name and designated biopsy duodenum. The specimen consists of multiple irregular fragments of light rhodes soft tissue that in aggregate measure 0.3 x 0.3 x 0.1 cm. The specimen is totally submitted in one cassette. B. Received is one container labeled with the patient name and designated antral biopsy. The specimen consists of two irregular fragments of light rhodes soft tissue that in aggregate measure 0.4 x 0.3 x 0.1 cm. The specimen is totally submitted in one cassette. /SJ:olga 10/12/18 TC: 3 [facility]: [id number] x2
--- NOTE | 2018-10-11 13:35 | OP.ENDO_ITS ---
10/11/2018 Napoleon Larson Re : Upper GI endoscopy procedure for Richard Rosen Marsha This procedure was performed on Thursday, October 11, 2018. My impressions and recommendations are as follows: Impressions : - Normal examined jejunum. - Duodenitis. Biopsied. - Gastritis. Biopsied. - Small hiatal hernia. - Normal esophagus. Recommendations : - Await pathology results. - Return to my office in 2 weeks. - Continue present medications. My findings are described in the full procedure note, which is enclosed. If I can be of further assistance, please feel free to contact me at Doctor phone number(s): , Work: . Sincerely, Ravindra Watson MD 10/11/2018 1:34:55 PM This report has been signed electronically.
== END 2018-10-11 14:20 | disposition home or self-care (01) ==
LOC: EN 11:51 → AC 11:52
PROVIDERS: Family Provider Family Medicine; PCP Family Medicine; Referring Provider Family Medicine; Visit Provider Surgery
PROC: 0DJ08ZZ Inspection of Upper Intestinal Tract, Via Natural or Artificial Opening Endoscopic (ICD-10-PCS; CPT 43235; principal; 2018-10-11 12:40)
DX: D12.6 Benign neoplasm of colon, unspecified (principal); K29.50 Unspecified chronic gastritis without bleeding; K29.80 Duodenitis without bleeding; K44.9 Diaphragmatic hernia without obstruction or gangrene; K31.89 Other diseases of stomach and duodenum; K57.92 Diverticulitis of intestine, part unspecified, without perforation or abscess without bleeding; R10.13 Epigastric pain; M06.9 Rheumatoid arthritis, unspecified; N40.0 Benign prostatic hyperplasia without lower urinary tract symptoms; E78.5 Hyperlipidemia, unspecified; R62.7 Adult failure to thrive; Z93.3 Colostomy status; Z79.82 Long term (current) use of aspirin; Z79.899 Other long term (current) drug therapy; Z87.891 Personal history of nicotine dependence
CPT/HCPCS: 43239; 88305; 88342; J7120; J2405

== ENCOUNTER → 2019-02-18 11:58 | Outpatient (CLI) | payer MEDICARE, SELFPAY ==
[2018-10-11 12:20] VITALS: BMI 25.8
[2019-02-18 14:04] LABS: Vitamin B12 555 pg/mL (211-911)
[2019-02-18 14:06] LABS: ALB/GLOB Ratio 0.7 RATIO (0.9-2.4); AST(SGOT) 36 U/L (15-37); Alanine Aminotransfer ALT/SGPT 31 U/L (16-61); Albumin, Serum 3.2 g/dL (3.2-5.0); Alkaline Phosphatase 71 U/L (45-117); Anion Gap 6 (5-15); BUN 15 mg/dL (7-18); BUN/Creat Ratio 14.4 RATIO (10-20); Calcium,Total 8.4 mg/dL (8.5-10.1); Chloride 110 mmol/L (98-107); Creatinine, Serum 1.04 mg/dL (0.70-1.30); EST Glomerular Filtration Rate 75 mL/min (>60); Est Glom Filt Rate - Afr Amer 91 mL/min (>60); Globulin 4.4 g/dL (2.2-4.2); Glucose 111 mg/dL (74-106); Potassium 3.6 mmol/L (3.5-5.1); Protein, Total 7.6 g/dL (6.4-8.2); Sodium Level 144 mmol/L (136-145); Thyroid Stim Hormone (TSH) 3.12 uIU/mL (0.358-3.74)
[2019-02-18 14:33] LABS: Absolute Lymphocyte Count 0.61 X10^3/uL (0.83-4.51); Absolute Neutrophil Count 4.2 X10^3/uL (2.0-7.7); Basophil# 0.02 X10^3/uL; Basophil% 0.4 % (0-1); Eosinophil# 0.05 X10^3/uL; Hematocrit 35.3 % (40-54); Hemoglobin 11.5 g/dL (13.0-16.5); Lymphocyte # 0.61 X10^3/ul (4.0); Lymphocyte % 11.6 % (19-41); Mean Corp Hgb Conc 32.6 g/dL (32-36); Mean Corpuscular Hgb 30.5 pg (27.0-32.0); Mean Corpuscular Volume 93.6 fL (80-94); Mean Platelet Vol. 10.5 fl (6.2-12.0); Monocyte# 0.33 X10^3/uL; Monocyte% 6.3 % (0-10); NRBC Flagged by Analyzer 0 % (0-5); Neutrophil # 4.17 X10^3/uL (2.7-7.7); Neutrophil % 79.2 % (47-70); Platelet Count 151 K/mm3 (150-450); RBC Distribution Width SD 54.5 fl (35.1-43.9); Red Blood Count 3.77 M/mm3 (4.6-6.2); White Blood Count 5.3 K/mm3 (4.4-11.0)
== END ==
PROVIDERS: Family Provider Family Medicine; PCP Family Medicine; Referring Provider Family Medicine; Visit Provider Family Medicine
DX: D69.6 Thrombocytopenia, unspecified (principal); M06.9 Rheumatoid arthritis, unspecified; E78.5 Hyperlipidemia, unspecified
CPT/HCPCS: 36415; 80053; 82607; 84443; 85025

== ENCOUNTER → 2019-06-21 10:01 | Outpatient (CLI) | payer MEDICARE, SELFPAY ==
[2018-10-11 12:20] VITALS: BMI 25.8
[2019-06-21 12:34] LABS: Absolute Lymphocyte Count 0.96 X10^3/uL (0.83-4.51); Absolute Neutrophil Count 3.9 X10^3/uL (2.0-7.7); Basophil# 0.01 X10^3/uL; Basophil% 0.2 % (0-1); Eosinophil# 0.09 X10^3/uL; Eosinophils% 1.7 % (0-5); Hematocrit 35.3 % (40-54); Hemoglobin 10.9 g/dL (13.0-16.5); Lymphocyte # 0.96 X10^3/ul (4.0); Lymphocyte % 17.7 % (19-41); Mean Corp Hgb Conc 30.9 g/dL (32-36); Mean Corpuscular Hgb 29.5 pg (27.0-32.0); Mean Corpuscular Volume 95.4 fL (80-94); Mean Platelet Vol. 10.6 fl (6.2-12.0); Monocyte# 0.36 X10^3/uL; Monocyte% 6.7 % (0-10); NRBC Flagged by Analyzer 0 % (0-5); Neutrophil # 3.92 X10^3/uL (2.7-7.7); Neutrophil % 72.4 % (47-70); Platelet Count 167 K/mm3 (150-450); RBC Distribution Width CV 17.1 % (11.6-14.6); RBC Distribution Width SD 59.8 fl (35.1-43.9); White Blood Count 5.4 K/mm3 (4.4-11.0)
[2019-06-21 13:01] LABS: ALB/GLOB Ratio 0.7 RATIO (0.9-2.4); AST(SGOT) 30 U/L (15-37); Alanine Aminotransfer ALT/SGPT 26 U/L (16-61); Albumin, Serum 3.2 g/dL (3.2-5.0); Alkaline Phosphatase 78 U/L (45-117); Anion Gap 6 (5-15); BUN 19 mg/dL (7-18); BUN/Creat Ratio 15.7 RATIO (10-20); Calcium,Total 8.9 mg/dL (8.5-10.1); Chloride 109 mmol/L (98-107); Creatinine, Serum 1.21 mg/dL (0.70-1.30); EST Glomerular Filtration Rate 63 mL/min (>60); Est Glom Filt Rate - Afr Amer 77 mL/min (>60); Ferritin 792 ng/mL (26-388); Globulin 4.5 g/dL (2.2-4.2); Glucose 95 mg/dL (74-106); Iron 83 ug/dL (65-175); Potassium 3.8 mmol/L (3.5-5.1); Protein, Total 7.7 g/dL (6.4-8.2); Sodium Level 142 mmol/L (136-145)
== END ==
PROVIDERS: PCP Family Medicine; Referring Provider Family Medicine; Visit Provider Family Medicine
DX: D69.6 Thrombocytopenia, unspecified (principal); D64.9 Anemia, unspecified; I95.89 Other hypotension
CPT/HCPCS: 36415; 80053; 82728; 83540; 85025

== ENCOUNTER 2019-07-19 06:38 | Observation (INO) | payer MEDICARE, SELFPAY ==
[2018-10-11 12:20] VITALS: BMI 25.8
[2019-07-19] VITALS (10 sets, daily range): BP systolic 104–123; BP diastolic 70–84; PULSE 75–89; RESP 16–20; TEMP 36.6–37.2; O2SAT 95–100; BMI 28.9; BMI 28.5; BMI 28.6
--- NOTE | 2019-07-19 07:08 | ED.RN ---
meds confirmed with bottles and
--- NOTE | 2019-07-19 07:11 | CT_ITS ---
STUDY: CT ABDOMEN AND PELVIS WITH CONTRAST REASON FOR EXAM: Male, 68 years old. ABD PAIN, WEAKNESS X 1 MONTH, N/V THIS AM, COLECTOMY WITH COLOSTOMY, SARCOMA, SURG-right shoulder leiomyosarcoma removed, colostomy, right leg aneurysm, appendectomy RADIATION DOSAGE (If Supplied By Facility): CTDIvol = ( 13.56 ) mGy, DLP = ( 1293.9 ) mGycm TECHNIQUE: Transaxial images were obtained from the dome of the diaphragm to the symphysis pubis without oral contrast. IV 100mL Isovue-370 was administered. Sagittal and coronal images were reconstructed. Individualized dose optimization techniques were used for this CT. COMPARISON: Comparison is made with prior examination dated June 24, 2018. FINDINGS: Stable mild degree of increased markings at the lung bases suggestive of scarring. The visualized portions of the heart are within normal limits. There is decreased attenuation of the liver consistent with steatosis. Normal gallbladder and extrahepatic biliary system. There is mild splenomegaly. Normal pancreas. Normal bilateral adrenal glands. Normal right kidney. Normal left kidney. Normal visualized stomach. Normal small intestine. A colostomy is seen in the left lower quadrant. Scattered sigmoid diverticula. The appendix is visualized and appears normal. There is diffuse atherosclerotic calcification of the abdominal aorta, without a demonstrated aneurysm. Normal inferior vena cava. Normal retroperitoneum. There is enlargement of the prostate gland. The prostate measures 5.4 cm x 6.2 cm. This causes indentation at the bladder base. Central prostatic calcification. There is a 2 mm calculus at the base of the bladder on the right side. This may represent recent passage of a right ureteral calculus. Clinical correlation is recommended. Normal abdominal wall. There are mild degenerative changes of the visualized lumbar spine. CT/Abdomen/Pelvis W IV Cont ONLY IMPRESSION: 2 mm calculus at the base of the bladder on the right side suggestive of a recently passed right ureteral calculus. Fatty infiltration of the liver. A colostomy is seen in the left lower quadrant. Prostatic enlargement with prostatic calcifications. Electronically Signed: Jose Harrington, at 8:53 EDT , Service support ,
--- NOTE | 2019-07-19 07:11 | EKG12_ITS ---
Test Reason : WEAKNESS Blood Pressure : / mmHG Vent. Rate : 086 BPM Atrial Rate : 086 BPM P-R Int : 152 ms QRS Dur : 106 ms QT Int : 408 ms P-R-T Axes : 015 -36 093 degrees QTc Int : 488 ms Normal sinus rhythm Left axis deviation Incomplete left bundle branch block Abnormal ECG Confirmed by ОЛЬГА GARCIA, NARCISO ([id number]), script editor JULY TALAVERA ([id number]) on 07/21/2019 10:39:02 AM Referred By: FREDA Confirmed By:NARCISO ROLON MD
--- NOTE | 2019-07-19 07:13 | CT_ITS ---
STUDY: CT BRAIN WITHOUT CONTRAST REASON FOR EXAM: Male, 68 years old. ABD PAIN, WEAKNESS X 1 Month, n/v THIS AM, COLECTOMY WITH COLOSTOMY, SARCOMA, SURG-right shoulder leiomyosarcoma removed, colostomy, right leg aneurysm, appendectomy RADIATION DOSAGE (If Supplied By Facility): CTDIvol = ( 44.99 ) mGy, DLP = ( 846.73 ) mGycm TECHNIQUE: Transaxial CT imaging of the brain was performed without administration of intravenous contrast material. Individualized dose optimization techniques were used for this CT. COMPARISON: Comparison is made with prior examination dated August 24, 2018. FINDINGS: Normal soft tissue structures. Normal calvarium. There is mild cerebral atrophy with widening of the extra-axial spaces and ventricular dilatation. Normal white matter tracts of the cerebral hemispheres. Normal basal ganglia and thalami. Normal brainstem. There is a 5.5 mm focal calcification in the peripheral lateral aspect of the left cerebellar hemisphere. There is no intracranial hemorrhage. There are no findings of an acute ischemic infarction. Normal visualized paranasal sinuses. CT/Brain/Head without Contrast IMPRESSION: Chronic involutional changes of the brain. 5.5 mm focal calcification in the peripheral aspect of the left cerebral hemisphere. Electronically Signed: Jose Harrington, at 8:55 EDT , Service support ,
[2019-07-19] MEDS: Ondansetron 4 MG/2 ML Vial IV (07:19)
[2019-07-19 07:23] LABS: Absolute Lymphocyte Count 0.61 X10^3/uL (0.83-4.51); Basophil# 0.02 X10^3/uL; Basophil% 0.4 % (0-1); Eosinophil# 0.06 X10^3/uL; Eosinophils% 1.2 % (0-5); Hematocrit 32.7 % (40-54); Hemoglobin 10.4 g/dL (13.0-16.5); Lymphocyte # 0.61 X10^3/ul (4.0); Lymphocyte % 12.4 % (19-41); Mean Corp Hgb Conc 31.8 g/dL (32-36); Mean Corpuscular Hgb 29.4 pg (27.0-32.0); Mean Corpuscular Volume 92.4 fL (80-94); Monocyte# 0.24 X10^3/uL; Monocyte% 4.9 % (0-10); NRBC Flagged by Analyzer 0 % (0-5); Neutrophil # 3.96 X10^3/uL (2.7-7.7); Neutrophil % 80.3 % (47-70); Platelet Count 137 K/mm3 (150-450); RBC Distribution Width CV 16.8 % (11.6-14.6); RBC Distribution Width SD 57.1 fl (35.1-43.9); Red Blood Count 3.54 M/mm3 (4.6-6.2); White Blood Count 4.9 K/mm3 (4.4-11.0)
--- NOTE | 2019-07-19 07:32 | ED.DCSUM_ITS ---
History of Present Illness Chief Complaint: Weakness Informant: Patient, Significant Other Onset: Days Context: Gradual Onset Timing: Continuous Narrative: Patient is a 68-year-old male who is status post partial colon resection with colostomy by Dr. Watson in April 2018. He is presenting today with his via EMS for worsening weakness. Patient states ever since his surgery he is had significant weakness what sounds like failure to thrive. Over the past 2 days it is worsened. Patient is unable to ambulate now is had multiple falls because his legs are so weak. This morning he also developed worsening nausea and dry heaves. states he threw up a small amount of liquid but is mostly dry heaves. His states that he intermittently complains of abdominal pain but when I asked patient states he feels nauseous. Today patient fell while trying to go to the bathroom. He landed on his . Is not clear if he hit his head. Patient denies any headache or vision changes. He can no longer get around there house. He denies associated chest pain, shortness of breath or difficulty breathing. Denies any urinary symptoms. He had normal ostomy output and the changed his colostomy bag just prior to arrival. notes his temperatures been 99.7 over the past 2 days which is high for him. His gabapentin dose was recently decreased but no other recent medication changes. No other complaints at this time. 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 Denies: Chills, Fever, Sweats Eyes: Denies: Visual changes - bilaterally, Diplopia ENT: Denies: Rhinorrhea, Sore throat Cardiovascular: Denies: Chest pain, Palpitations Respiratory: Denies: Dyspnea, Cough, Dyspnea on exertion Gastrointestinal: Reports: Nausea, Vomiting. Denies: Abdominal pain, Diarrhea, Constipation, Melena, Hematochezia Genitourinary: Denies: Dysuria, Hematuria, Frequency Musculoskeletal: Denies: Back pain, Extremity Pain Skin: Denies: Rash, Wounds Neurological: Reports: Weakness - generalized. Denies: Headache, Numbness Physical Exam Vital Signs/Narrative: Vital Signs Temp Pulse Resp BP Pulse Ox 07/19/19 06:39 98.4 F 89 18 109/81 H 99 Inital Vital Signs reviewed: Yes General: Well nourished, Well developed, No Acute Distress Head: Normocephalic, Atraumatic Eyes: Perrl, EOMI ENT: Moist mucous membranes, No rhinorrhea, - - Bilateral cerumen impactions occluding the TMs Neck: Supple, Nontender Cardiovascular: Regular rate, Regular rhythm, No murmurs Respiratory: No distress, CTA bilaterally, Chest nontender Abdomen: Soft, Nontender, Nondistended, Hyperactive bowel sounds, - - Colostomy in place Back: Nontender, Normal Inspection Extremities: Nontender, No edema, - - 2+ bilateral DP pulses Skin: Normal color, No rash Neurological: Alert, Oriented x3, Cranial nerves II-XII grossly intact, Normal Strength, Normal Sensation, - - 5 out of 5 strength with hip flexion bilaterally, out of 5 strength with dorsiflexion and plantarflexion of the feet bilaterally. Negative for: Weakness Psychological: Normal affect, Normal Mood Diagnostic/Tx/Re-eval Chest X-Ray - ED: 1 View, 2 View, Read by ED Physician, No Acute Disease Clinical Impression(s) from Imaging Studies Abdomen/Pelvis CT 07/19/19 07:11 IMPRESSION: 2 mm calculus at the base of the bladder on the right side suggestive of a recently passed right ureteral calculus. Fatty infiltration of the liver. A colostomy is seen in the left lower quadrant. Prostatic enlargement with prostatic calcifications. Electronically Signed: Jose Harrington, at 8:53 EDT , Service support , Brain CT 07/19/19 07:13 IMPRESSION: Chronic involutional changes of the brain. 5.5 mm focal calcification in the peripheral aspect of the left cerebral hemisphere. Electronically Signed: Jose Harrington, at 8:55 EDT , Service support , Laboratory Data 07/19/19 07/19/19 07/19/19 06:55 06:55 06:55 WBC 4.9 RBC 3.54 L Hgb 10.4 L Hct 32.7 L MCV 92.4 MCH 29.4 MCHC 31.8 L RDW Std Deviation 57.1 H RDW Coeff of Brittny 16.8 H Plt Count 137 L MPV 10.0 Immature Gran % (Auto) 0.800 Neut % (Auto) 80.3 H Lymph % (Auto) 12.4 L [place] % (Auto) 4.9 Eos % (Auto) 1.2 Baso % (Auto) 0.4 Absolute Neuts (auto) 4.0 Absolute Lymphs (auto) 0.61 L Nucleated RBC % 0 Sodium 145 Potassium 4.0 Chloride 110 H Carbon Dioxide 25.0 Anion Gap 10 BUN 19 H Creatinine 1.06 Estim Creat Clear Calc 75.38 Est GFR (MDRD) Af Amer 89 Est GFR (MDRD) Non-Af 74 BUN/Creatinine Ratio 17.9 Glucose 93 Calcium 8.4 L Phosphorus Magnesium 1.7 Total Bilirubin 0.70 GGT 37 AST 32 ALT 27 Alkaline Phosphatase 76 Total Creatine Kinase 71 Troponin I < 0.015 Total Protein 7.5 Albumin 3.0 L Globulin 4.5 H Albumin/Globulin Ratio 0.7 L Prealbumin Lipase 164 Urine Color Urine Clarity Urine pH Ur Specific [place] Urine Protein Urine Glucose (UA) Urine Ketones Urine Occult Blood Urine Nitrite Urine Bilirubin Urine Urobilinogen Ur Leukocyte Esterase Urine RBC Urine WBC Ur Squamous Epith Cells Urine Bacteria Hyaline Casts Urine Mucus Urine Opiates Screen Urine Methadone Screen Ur Barbiturates Screen Ur Phencyclidine Scrn Ur Amphetamines Screen U Methamphetamin-MDMA U Benzodiazepines Scrn Urine Cocaine Screen U Cannabinoids Screen Ur Drug Screen Comment Ethyl Alcohol 07/19/19 07/19/19 07/19/19 06:55 06:55 06:55 WBC RBC Hgb Hct MCV MCH MCHC RDW Std Deviation RDW Coeff of Brittny Plt Count MPV Immature Gran % (Auto) Neut % (Auto) Lymph % (Auto) [place] % (Auto) Eos % (Auto) Baso % (Auto) Absolute Neuts (auto) Absolute Lymphs (auto) Nucleated RBC % Sodium Potassium Chloride Carbon Dioxide Anion Gap BUN Creatinine Estim Creat Clear Calc Est GFR (MDRD) Af Amer Est GFR (MDRD) Non-Af BUN/Creatinine Ratio Glucose Calcium Phosphorus 3.5 Magnesium Total Bilirubin GGT AST ALT Alkaline Phosphatase Total Creatine Kinase Troponin I Total Protein Albumin Globulin Albumin/Globulin Ratio Prealbumin 21.1 Lipase Urine Color Urine Clarity Urine pH Ur Specific [place] Urine Protein Urine Glucose (UA) Urine Ketones Urine Occult Blood Urine Nitrite Urine Bilirubin Urine Urobilinogen Ur Leukocyte Esterase Urine RBC Urine WBC Ur Squamous Epith Cells Urine Bacteria Hyaline Casts Urine Mucus Urine Opiates Screen Urine Methadone Screen Ur Barbiturates Screen Ur Phencyclidine Scrn Ur Amphetamines Screen U Methamphetamin-MDMA U Benzodiazepines Scrn Urine Cocaine Screen U Cannabinoids Screen Ur Drug Screen Comment Ethyl Alcohol < 3.0 07/19/19 07/19/19 08:50 08:50 WBC RBC Hgb Hct MCV MCH MCHC RDW Std Deviation RDW Coeff of Brittny Plt Count MPV Immature Gran % (Auto) Neut % (Auto) Lymph % (Auto) [place] % (Auto) Eos % (Auto) Baso % (Auto) Absolute Neuts (auto) Absolute Lymphs (auto) Nucleated RBC % Sodium Potassium Chloride Carbon Dioxide Anion Gap BUN Creatinine Estim Creat Clear Calc Est GFR (MDRD) Af Amer Est GFR (MDRD) Non-Af BUN/Creatinine Ratio Glucose Calcium Phosphorus Magnesium Total Bilirubin GGT AST ALT Alkaline Phosphatase Total Creatine Kinase Troponin I Total Protein Albumin Globulin Albumin/Globulin Ratio Prealbumin Lipase Urine Color Yellow Urine Clarity Clear Urine pH 6.0 Ur Specific [place] 1.010 Urine Protein 15 H Urine Glucose (UA) Normal Urine Ketones Negative Urine Occult Blood Negative Urine Nitrite Negative Urine Bilirubin Negative Urine Urobilinogen Normal Ur Leukocyte Esterase 25 H Urine RBC 0 SEEN Urine WBC 0-5 SEEN Ur Squamous Epith Cells 0 SEEN Urine Bacteria 0 SEEN Hyaline Casts 0-5 SEEN Urine Mucus RARE Urine Opiates Screen NEGATIVE Urine Methadone Screen NEGATIVE Ur Barbiturates Screen NEGATIVE Ur Phencyclidine Scrn NEGATIVE Ur Amphetamines Screen NEGATIVE U Methamphetamin-MDMA NEGATIVE U Benzodiazepines Scrn NEGATIVE Urine Cocaine Screen NEGATIVE U Cannabinoids Screen POSITIVE H Ur Drug Screen Comment Ethyl Alcohol - Rhythm Strip Rhythm Strip: Sinus Rhythm Rate: 86 Ectopy: None - EKG Initial EKG Interpretation: Sinus Rhythm, - - Sinus rhythm at a rate of 86 MT interval 152, QRS 106, QTc 488 Nonspecific T wave changes No change prior to prior EKG on 08/24/2018 - Medical Decision Making Patient is evaluated after an episode of nausea and vomiting this morning as well as increased frequency of falls and generalized weakness. Patient is no longer able to ambulate at home. Physical exam is benign. Does not have any focal neuro vascular deficits. Do not suspect stroke. Head CT is obtained which shows a 5.5 mm focal calcification of the peripheral aspect of the left cerebral hemisphere. This is consistent with the same area where he had a contusion last year. I do not think this is acute or the cause of his symptoms. Patient is afebrile and has no source of infection to be causing his weakness. Does not have any significant electrolyte abnormalities. Because he was complaining of abdominal pain to his and had nausea and vomiting I did perform a CT which showed 2 mm stone in the bladder consistent with recent passage of a stone. This might have been the cause of his episode this morning. Patient did not have any further pain while in the emergency room. We did attempt to ambulate him and he did very poorly. Patient is agreeable to admission to the hospital for physical therapy evaluation and possible rehab placement. Patient is stable at time of disposition. ED Disposition - Plan for ED Patient: Disposition: Acute Care Hospital [facility] Diagnosis: Fall, Unable to ambulate, Generalized weakness
[2019-07-19 07:37] LABS: ALB/GLOB Ratio 0.7 RATIO (0.9-2.4); AST(SGOT) 32 U/L (15-37); Alanine Aminotransfer ALT/SGPT 27 U/L (16-61); Alkaline Phosphatase 76 U/L (45-117); Anion Gap 10 (5-15); BUN 19 mg/dL (7-18); BUN/Creat Ratio 17.9 RATIO (10-20); Calcium,Total 8.4 mg/dL (8.5-10.1); Chloride 110 mmol/L (98-107); Creatinine, Serum 1.06 mg/dL (0.70-1.30); EST Glomerular Filtration Rate 74 mL/min (>60); Est Glom Filt Rate - Afr Amer 89 mL/min (>60); Estimated Creatinine Clearance 75.38 ml/min; Globulin 4.5 g/dL (2.2-4.2); Glucose 93 mg/dL (74-106); Lipase 164 U/L (73-393); Protein, Total 7.5 g/dL (6.4-8.2); Sodium Level 145 mmol/L (136-145)
[2019-07-19 08:54] LABS: Bacteria 0 SEEN /hpf (None Seen); Red Blood Cells-Urine 0 SEEN /hpf (0-5); Squamous Epithelial Cells - UA 0 SEEN /hpf (0-5)
[2019-07-19 08:56] LABS: Color, Urine Yellow (Yellow); Glucose, Dipstick Normal (Normal); Ketone-Dipstick Negative (Negative); Leukocyte Esterase-Dipstick 25 /ul (Negative); Nitrite-Dipstick Negative (Negative); Occult Blood-Urine Negative /ul (Negative); Protein-Dipstick 15 mg/dl (Negative); Urine Bilirubin Dipstick Negative (Negative); Urine Clarity Clear (Clear); Urine Urobilinogen Normal (Normal)
[2019-07-19 09:11] LABS: Hyaline Cast 0-5 SEEN /lpf (0-5); Mucous, Urine RARE /hpf (<or=2+); White Blood Cells 0-5 SEEN /hpf (0-5)
--- NOTE | 2019-07-19 10:18 | NURSING ---
pt with full assist to dangle and sit at bedside. Attempted to stand but unable to stand
--- NOTE | 2019-07-19 10:20 | NURSING ---
DR CARROLL FOR DR GIL
--- NOTE | 2019-07-19 10:29 | NURSING ---
MED SURG OBS CARLY INABILITY TO AMBULATE, WEAKNESS
[2019-07-19 10:47] LABS: Amphetamine Urine VISTA NEGATIVE (<1000 ng/mL); Barbiturate Urine VISTA NEGATIVE (< 200 ng/mL); Benzodiazepine Urine VISTA NEGATIVE (< 200 ng/mL); Cocaine Urine VISTA NEGATIVE (< 300 ng/mL); Ecstacy Urine VISTA NEGATIVE (< 500 ng/mL); Methadone Urine VISTA NEGATIVE (< 300 ng/mL); PCP Urine VISTA NEGATIVE (< 25 ng/mL); THC Urine VISTA POSITIVE (< 50 ng/mL); Vista UDS pH Range 5
[2019-07-19 10:52] LABS: Alcohol, Blood (Medical)-Serum < 3.0 mg/dL
[2019-07-19 10:56] LABS: CPK Total, Creatine Kinase 71 U/L (39-308); GGTP 37 U/L (15-85); Magnesium 1.7 mg/dL (1.6-2.6); Phosphorus 3.5 mg/dL (2.5-4.9)
--- NOTE | 2019-07-19 11:11 | HP.PCM_ITS ---
Problem List (1) Fall Status: Acute (2) Paraparesis of both lower limbs Status: Acute (3) Status post sigmoid resection Status: Chronic (4) Acute diverticulitis of intestine Status: Inactive (5) BPH (benign prostatic hyperplasia) Status: Chronic History of Present Illness Date of Admission: 07/19/19 Chief Complaint: Generalized weakness, fall The patient is a 68 year old M with history of sigmoid resection with colostomy in April 2018 for sigmoid diverticulitis by Dr. June came to ER for progressive worsening of weakness of both lower extremities and fall. Patient lower extremities are weak since January 2019 and has been admitted in June 2018 for failure to thrive and ER visit in August 2018 for fall. Patient has poor oral and suboptimal energy intake. For last 2 days patient also having nausea and had dry heaving/clear vomiting 3-4 times yesterday and abdominal pain, 3-4/10 intensity mainly around colostomy in left lower quadrant and mid abdomen. His colostomy output is generally solid but sometimes it gets hard and liquid stool. As per , he normally has elevated temperature but had fever about 100-101 Fahrenheit about 2 times in the last week. He easily gets winded on exertion. Patient also has history of sarcoma in the right arm which was resected in the past. Vitals in ED stable. CT abdomen done in the ED shows normal small intestine and colon with scattered sigmoid diverticula and colostomy. 2 mm calculus at the base of bladder on the right side possibly recently passed right ureteral calculus. [] Past Medical History Past Medical History (Chronic Problems): Chronic Problems (Last Updated 02/21/18 @ 01:[address] Tomer Jones MD) Status post sigmoid resection (Chronic) BPH (benign prostatic hyperplasia) (Chronic) Medical History: Medical History (Last Updated 02/21/18 @ 01:[address] Tomer Jones MD) Sarcoma C49.9 Small fiber neuropathy G62.9 Allergies cod liver oil [From Desitin] Allergy (Verified 07/19/19 07:05) Rash zinc oxide [From Desitin] Allergy (Verified 07/19/19 07:05) Rash Home Medications: Ambulatory Orders Medication Instructions Recorded Aspirin [Aspirin, Baby] 81 mg PO DAILY@0800 12/08/16 Cholecalciferol (VIT D3) [Vitamin 2,000 unit PO DAILY 12/08/16 D3] Gabapentin [Neurontin] 600 mg PO BID 12/08/16 Multivit-Min/FA/Lycopen/Lutein 1 each PO DAILY 12/08/16 [Centrum Silver Men Tablet] Tamsulosin HCl [Flomax] 0.4 mg PO DAILY 12/08/16 Acetaminophen [Tylenol] 650 mg PO Q6H PRN PRN #30 tablet 02/24/18 Ibuprofen 400 mg PO Q6H PRN PRN #30 tablet 02/24/18 Finasteride 5 mg PO DAILY 06/24/18 Ondansetron [Zofran] 8 mg PO TID PRN 10/11/18 Prednisone 10 mg PO DAILY 10/11/18 Hydrochlorothiazide 100 mg PO BID 07/19/19 Omeprazole 40 mg PO DAILY 07/19/19 Surgical History: appendectomy, colectomy, - Psychiatric History: No pertinent psych hx Lives: Spouse/ Significant Other Smoking Status: Former smoker - *Family History Maternal History Items: Heart Disease Paternal History Items: Cancer - Lung cancer Sibling History Items: - - Multiple myeloma Review of Systems Constitutional: Reports: Chills, Fever HEENT: Denies: Head Aches, Sinus Congestion, Sinus Drainage Cardiovascular: Denies: Chest Pain, Palpitations Respiratory: Reports: Shortness of breath upon exertion. Denies: Cough, Shortness of breath at rest, Sputum production Gastrointestinal: Reports: Abdominal Pain, Nausea, Vomiting. Denies: Hematemesis, Hematochezia, Melena Genitourinary: Denies: Dysuria, Frequency Musculoskeletal: Reports: Joint Pain. Denies: Joint Tenderness Skin: Denies: Rash, Wounds Neurological: Reports: Balance problems, Focal weakness - Lower extremity weakness, Incoordination. Denies: Numbness, Tingling Psychiatric: Denies: Anxiety, Depression, Homicidal Ideations, Suicidal Ideations Hematologic/ Lymphatic: Denies: Easy Bruising, Easy Bleeding VTE Information - Inpt Only VTE Present on Admission: No VTE Mechan Device Prophylaxis: None VTE Pharm Prophylaxis ordered?: Yes Patient Problems: Active and Suspected Problems (Last Updated 02/21/18 @ 01:[address] Tomer Jones MD) Fall (Acute) Paraparesis of both lower limbs (Acute) - Physical Exam Vitals/I&O's: Vital Signs Temp Pulse Resp BP Pulse Ox 98.1 F 86 16 111/80 98 07/19/19 10:24 07/19/19 10:24 07/19/19 10:24 07/19/19 10:24 07/19/19 10:24 Oxygen Delivery Method Room Air Weight: 219 lb 2.232 oz Body Mass Index (BMI) 28.9 General: Alert, Oriented x3, Cooperative HEENT: Atraumatic, PERRLA, EOMI, Normocephalic Oral: No Gingival or Mucosal Lesions/ Ulcerations, Dry Mucosa Neck: Supple, No JVD, Negative Carotid Bruits Lungs: Clear to auscultation, No rhonchi, No wheeze, No rales, Diminished - Air entry diminished bilaterally Cardiovascular: Regular rate, Regular Rhythm, Normal S1, Normal S2, No murmurs Abdomen: Bowel Sounds Present, Soft, Non Tender, Non-Distended, Hypoactive Bowel Sounds, - - Colostomy bag in left lower quadrant Extremities: No edema, Capillary Refill Less than 3 Seconds Skin: No rashes, No breakdown Musculoskeletal: No Tenderness to Palpation of Joints or Extremities, Arthritic Changes, Tenderness - Tenderness present in lower extremity muscle groups mainly in quadriceps but also in calf muscles and hamstrings Neurological: Cranial nerves II-XII grossly intact, - - Muscle strength 4/5 at major knee and hip joints Psych/Mental Status: Normal Affect, Appropriate, Flat Affect Laboratory Results 07/19/19 06:55: WBC 4.9, RBC 3.54 L, Hgb 10.4 L, Hct 32.7 L, MCV 92.4, MCH 29.4, MCHC 31.8 L, RDW Std Deviation 57.1 H, RDW Coeff of Brittny 16.8 H, Plt Count 137 L , MPV 10.0, Immature Gran % (Auto) 0.800, Neut % (Auto) 80.3 H, Lymph % (Auto) 12.4 L, [place] % (Auto) 4.9, Eos % (Auto) 1.2, Baso % (Auto) 0.4, Absolute Neuts (auto) 4.0, Absolute Lymphs (auto) 0.61 L, Nucleated RBC % 0 07/19/19 06:55: Sodium 145, Potassium 4.0, Chloride 110 H, Carbon Dioxide 25.0, Anion Gap 10, BUN 19 H, Creatinine 1.06, Estim Creat Clear Calc 75.38, Est GFR (MDRD) Af Amer 89, Est GFR (MDRD) Non-Af 74, BUN/Creatinine Ratio 17.9, Glucose 93, Calcium 8.4 L, Total Bilirubin 0.70, AST 32, ALT 27, Alkaline Phosphatase 76, Troponin I < 0.015, Total Protein 7.5, Albumin 3.0 L, Globulin 4.5 H, Albumin/Globulin Ratio 0.7 L, Lipase 164 07/19/19 06:55: Magnesium 1.7, GGT 37, Total Creatine Kinase 71 07/19/19 06:55: Ethyl Alcohol < 3.0 07/19/19 06:55: Phosphorus 3.5 07/19/19 08:50: Urine Color Yellow, Urine Clarity Clear, Urine pH 6.0, Ur Specific [place] 1.010, Urine Protein 15 H, Urine Glucose (UA) Normal, Urine Ketones Negative, Urine Occult Blood Negative, Urine Nitrite Negative, Urine Bilirubin Negative, Urine Urobilinogen Normal, Ur Leukocyte Esterase 25 H, Urine RBC 0 SEEN, Urine WBC 0-5 SEEN, Ur Squamous Epith Cells 0 SEEN, Urine Bacteria 0 SEEN, Hyaline Casts 0-5 SEEN, Urine Mucus RARE 07/19/19 08:50: Urine Opiates Screen NEGATIVE, Urine Methadone Screen NEGATIVE, Ur Barbiturates Screen NEGATIVE, Ur Phencyclidine Scrn NEGATIVE, Ur Amphetamines Screen NEGATIVE, U Methamphetamin-MDMA NEGATIVE, U Benzodiazepines Scrn NEGATIVE, Urine Cocaine Screen NEGATIVE, U Cannabinoids Screen POSITIVE H, Ur Drug Screen Comment Assessment/Plan All Active Problems (Last Updated 02/21/18 @ 01:[address] Tomer Jones MD) Fall (Acute) Paraparesis of both lower limbs (Acute) The patient is a 68 year old M with history of sigmoid resection with colostomy in April 2018 for sigmoid diverticulitis by Dr. June came to ER for progressive worsening of weakness of both lower extremities and fall, along with nausea, vomiting and abdominal pain. CT abdomen done in the ED shows normal small intestine and colon with scattered sigmoid diverticula and colostomy. 2 mm calculus at the base of bladder on the right side possibly recently passed right ureteral calculus. 1. Intermittent abdominal pain, nausea and vomiting, exact etiology unclear but seems more functional due to poor oral intake: Patient is being admitted on MedSurg floor. IV fluid normal saline at 100 mL/h. It Risk Analyst consult. Nursing swallow screen. 2. Bilateral lower extremity weakness and myalgia most probably secondary to medication effect along with hypoalbuminemia and malnutrition: A/G ratio 0.7 PT and OT. Prealbumin ordered. Nutritional supplement. Magnesium and phosphorus levels are normal. Chest x-ray ordered. 3. Failure to thrive and recurrent fall 4. Sigmoid resection with colostomy: Patient had seen Dr. June and was told he is not physically strong enough for surgery. 5. Severe protein calorie malnutrition, suggested by suboptimal energy intake, paraparesis and recurrent fall: 6. Osteoarthritis: Patient is on prednisone 10 mg daily. As per patient is on hydroxychloroquine but it is not there in patient's home medication. Taper the prednisone to 5 mg daily for 3 days and then 2.5 mg daily. CK level is normal. 7. BPH: On Flomax and finasteride. Incidental 2 mm calculus at base of bladder. DVT prophylaxis: Lovenox 40 mg subcu daily Living will/advanced directive/end of life care: Patient does have living will or advanced directive. After discussion of procedures involved with full code, DNR CC arrest and DNR CC, the patient and his wanted full code for now for any reversible cause. Patient does want artificial life support including intubation, tube feed, ventilator and/chest compression, central venous catheter, vasopressor and DC shock if needed Total time spent in [id number] encounter in discussion of advanced directive 16 minutes. [] Clinical Impression(s) from Imaging Studies Abdomen/Pelvis CT 07/19/19 07:11 IMPRESSION: 2 mm calculus at the base of the bladder on the right side suggestive of a recently passed right ureteral calculus. Fatty infiltration of the liver. A colostomy is seen in the left lower quadrant. Prostatic enlargement with prostatic calcifications. Brain CT 07/19/19 07:13 IMPRESSION: Chronic involutional changes of the brain. 5.5 mm focal calcification in the peripheral aspect of the left cerebral hemisphere. Inpatient E&M: 12288 Init Hosp L3 Procedures: 20397 Advncd Care Plan 30 Min
--- NOTE | 2019-07-19 11:35 | RAD_ITS ---
STUDY: X-RAY CHEST REASON FOR EXAM: Male, 68 years old. SOB/DYSPNEA AND WEAKNESS INTERMITTENT FEVER. TECHNIQUE: AP and lateral views of the chest. COMPARISON: Comparison is made with prior examination dated June 24, 2018. FINDINGS: EKG electrodes are seen. The lungs are clear and expanded. There is no demonstrated pleural abnormality. Normal size heart. Normal mediastinum and aidee. Normal visualized pulmonary arteries. There is atherosclerotic calcification of the aortic arch with tortuosity. There are diffuse degenerative changes of the visualized thoracic spine. Normal visualized ribs, clavicles, and shoulders. There is no demonstrated abnormality of the visualized soft tissue structures of the upper abdomen. RAD/Chest PA and Lateral IMPRESSION: No acute abnormality is seen. Electronically Signed: Jose Harrington, at 15:29 EDT , Service support ,
[2019-07-19] MEDS: 0.45% Normal Saline 1,000 ML 100 ML IV (13:22)
[2019-07-19] MEDS: 0.9% Saline Lock 10 ML Syringe IV ×2 (13:23→15:13)
[2019-07-19 13:30] LABS: Prealbumin 21.1 mg/dL (20.0-40.0)
[2019-07-19] MEDS: Enoxaparin 40 MG/0.4 ML Syringe SC (15:12)
--- NOTE | 2019-07-19 15:37 | NT.THERAPY_ITS ---
Nutrition Therapy Report - History Nutrition Services has been consulted to:: Manage nutrient details of diet order Current diet / nutrition support order:: regular; ensure enlive 120mL 4x/day - Anthropometric Measurements Height:: 6 ft 1 in Weight:: 98.2 kg Body Mass Index (BMI):: 28.5 - Relevant Labs Relevant Labs:: RBC 3.54 M/mm3 (4.6-6.2) L 07/19/19 06:55 Hgb 10.4 g/dL (13.0-16.5) L 07/19/19 06:55 Hct 32.7 % (40-54) L 07/19/19 06:55 MCHC 31.8 g/dL (32-36) L 07/19/19 06:55 RDW Std Deviation 57.1 fl (35.1-43.9) H 07/19/19 06:55 RDW Coeff of Brittny 16.8 % (11.6-14.6) H 07/19/19 06:55 Plt Count 137 K/mm3 (150-450) L 07/19/19 06:55 Neut % (Auto) 80.3 % (47-70) H 07/19/19 06:55 Lymph % (Auto) 12.4 % (19-41) L 07/19/19 06:55 Absolute Lymphs (auto) 0.61 X10^3/uL (0.83-4.51) L 07/19/19 06:55 Chloride 110 mmol/L (98-107) H 07/19/19 06:55 BUN 19 mg/dL (7-18) H 07/19/19 06:55 Calcium 8.4 mg/dL (8.5-10.1) L 07/19/19 06:55 Albumin 3.0 g/dL (3.2-5.0) L 07/19/19 06:55 Globulin 4.5 g/dL (2.2-4.2) H 07/19/19 06:55 Albumin/Globulin Ratio 0.7 RATIO (0.9-2.4) L 07/19/19 06:55 - Assessment Food / Nutrition-Related History:: 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 Complains of nausea/emesis and hiccups w/ PO intake. Was not consuming ONS at home but has during previous hospitalizations. SECURITY SYSTEMS INTEGRATOR consulted- will be on soft diet to ease chewing. Pt claims he has lost wt over past few weeks. However per EMR, wt on 07/04/18 was 207.9# and CBW 216.5# suggesting no wt loss over past 1 year. Currently w/ BLE 1+ pitting edema per nursing documentation, likely masking wt loss. NFPA suggests mild muscle wasting/fat loss in orbital region, clavicle, and temporal areas. - Nutrition Diagnosis Problem / Etiology / Signs & Symptoms (PES):: Non-severe (moderate) malnutrition in context of acute illness related to nasuea, emesis, and burping while eating as evidenced by reported PO intake meeting < 75% of estimated energy needs for greater than 7 days; mild muscle wasting/fat loss in orbital region, clavicle, and temporal areas. Evidence of Malnutrition Exists:: Yes Moderate PCM:: Acute Illness - Nutrition Intervention Nutrition Prescription:: [id number] calories/day, 98-108 g protein/day - Food / Nutrient Delivery Interventions Summary of nutrition intervention:: Pt is agreeable to Ensure Enlive w/ medpass but states he is not hungry at time of assessment. Will monitor acceptance of ONS and provide additional ONS as indicated at time of follow-up. Nutrition support ordered as / adjusted to:: continue regular diet, ensure enlive w/ medpass. Nutrition education provided?: No - MNT Monitoring Further MNT monitoring and evaluation required?: Yes MNT Follow-up in:: 3-5 days
--- NOTE | 2019-07-19 15:54 | NURSING ---
cannabis path from home (placed 07/17) removed from right upper arm and place in RX destroyer. witnessed by RODNEY Simon.
[2019-07-19] MEDS: Gabapentin 600 MG Tablet PO (21:30)
[2019-07-20] MEDS: 0.45% Normal Saline 1,000 ML 100 ML IV (01:16)
[2019-07-20 03:15] VITALS: BP 112/72; PULSE 83; RESP 18; TEMP 36.6; O2SAT 98
[2019-07-20 06:18] LABS: Thyroid Stim Hormone (TSH) 3.43 uIU/mL (0.358-3.74)
--- NOTE | 2019-07-20 07:00 | NURSING ---
this RN updated pt's , Juanis. assisted pt to call from his cell phone.
[2019-07-20 07:06] VITALS: O2SAT 94
--- NOTE | 2019-07-20 07:51 | NURSING ---
had requested that this nurse assess the peristomal skin since there had been a skin tear with last appliance change. Pt is currently using a 2 piece flat Paco appliance with disposable pouches. no stool noted in pouch so will change flange and reapply the pouch. removed the flange. the peristomal skin is intact. no open areas noted. no redness noted. stoma sits at skin level and is oval in size. measures approx 1.5cm x 3cm. placed a new flat Paco flange with a small amount of stoma paste. reapplied the disposable pouch. pt tolerated well. denies further needs at this time.
[2019-07-20] MEDS: Aspirin 81 MG TAB.CHEW PO (08:02)
[2019-07-20] MEDS: Multivitamins,Ther W-Minerals Tablet 1 TABLET PO (08:03)
[2019-07-20] MEDS: predniSONE 5 MG Tablet PO (08:06)
[2019-07-20 08:47] VITALS: BP 121/75; PULSE 73; RESP 18; TEMP 37.2; O2SAT 98
[2019-07-20 09:58] LABS: ALB/GLOB Ratio 0.7 RATIO (0.9-2.4); AST(SGOT) 30 U/L (15-37); Alanine Aminotransfer ALT/SGPT 23 U/L (16-61); Albumin, Serum 2.7 g/dL (3.2-5.0); Alkaline Phosphatase 63 U/L (45-117); Anion Gap 9 (5-15); BUN 17 mg/dL (7-18); BUN/Creat Ratio 21.4 RATIO (10-20); Calcium,Total 8.6 mg/dL (8.5-10.1); Chloride 109 mmol/L (98-107); Creatinine, Serum 0.79 mg/dL (0.70-1.30); EST Glomerular Filtration Rate 103 mL/min (>60); Est Glom Filt Rate - Afr Amer 125 mL/min (>60); Globulin 3.9 g/dL (2.2-4.2); Glucose 76 mg/dL (74-106); Potassium 3.7 mmol/L (3.5-5.1); Protein, Total 6.6 g/dL (6.4-8.2); Sodium Level 142 mmol/L (136-145)
--- NOTE | 2019-07-20 09:59 | MRI_ITS ---
STUDY: MRI BRAIN WITHOUT CONTRAST REASON FOR EXAM: Male, 68 years old. hx intracranial bleed 1 year ago, confusion, bilat leg weakness, fall, fevers x 2 weeks, abd pain TECHNIQUE: Standardized multiplanar fat and water weighted pulse sequences were obtained. COMPARISON: Head CT 07/19/2019. FINDINGS: The exam is limited due to motion artifact. There is no restricted diffusion. Normal size of the ventricles and extra-axial spaces for the patient''s age. Normal white matter tracts of the supratentorial brain. Normal bilateral basal ganglia. Normal thalami. There is no extra-axial fluid accumulation. Normal flow voids within the major intracranial circulation suggesting patency by spin echo criteria. Normal sella turcica, pituitary gland, infundibular stalk, optic chiasm and hypothalamus. Normal tectal plate and pineal gland. Normal midbrain, kalyani and medulla. Normal cerebellum. Normal basal cisterns. Normal bilateral temporal bones. Normal bilateral internal auditory canals. No demonstrated orbital abnormality, within the constraints of a routine brain study. Normal visualized paranasal sinuses. Normal calvarium and skull base. Normal visualized soft tissue structures. Normal visualized upper cervical spine. MRI/Brain without Contrast IMPRESSION: Normal unenhanced MRI of the brain. Electronically Signed: Camron Rodriguez, at 18:36 EDT Tel , Service support ,
--- NOTE | 2019-07-20 10:02 | MRI_ITS ---
STUDY: MRI THORACIC SPINE WITHOUT CONTRAST REASON FOR EXAM: Male, 68 years old. paraplegia, bilat lower extremity weakness,falls TECHNIQUE: Standardized fat and water weighted pulse sequences were obtained in the sagittal and axial planes. COMPARISON: None. FINDINGS: Normal kyphosis of the thoracic spine. There is no substantial scoliosis. No evidence for acute fracture or subluxation. There are scattered interosseous hemangiomata or lipomatous deposits. Disc space heights are well-maintained however there is multilevel disc degeneration but no significant disc protrusion spinal stenosis or cord compression. Normal visualized thoracic cord. Normal conus medullaris that terminates at T12-L1 The soft tissue structures are unremarkable. MRI/Spine Thoracic (Routine) IMPRESSION: No evidence for acute fracture or other significant bony pathology. Multilevel disc degeneration without significant disc protrusion spinal stenosis or cord compression.. Electronically Signed: Bebo Caban MD at 17:01 EDT , Service support ,
--- NOTE | 2019-07-20 10:02 | MRI_ITS ---
STUDY: MRI LUMBAR SPINE WITHOUT CONTRAST REASON FOR EXAM: Male, 68 years old. History of intracranial bleed 1 year ago, confusion, bilat leg weakness, fall, fevers x 2 weeks, abd pain TECHNIQUE: Standardized fat and water weighted pulse sequences were obtained in the sagittal and axial planes. COMPARISON: CT abdomen and pelvis 07/19/2019. FINDINGS: No fracture or acute osseous abnormality. Sagittal avid anatomic. Mild right scoliosis centered at L3. Heterogenous marrow signal on T1 and T2 but homogeneous on STIR. Conus terminates at the level of the middle 1 vertebral body with normal contour and signal. Normal arborization of the cauda equina. The thecal sac terminates at the S2-3 level. At L1-L2, mild facet degeneration causes no significant narrowing. At L2-3 and L3-4, small diffuse disc bulge and moderate bilateral facet degeneration causes no significant narrowing. At L4-5, diffuse disc bulge, larger on the left, causes mild right and moderate left subarticular zone and foraminal narrowing. Disc abuts but does not compress the exiting left L4 and traversing left L5 nerve roots. At L5-S1 diffuse disc bulge, larger on the right, combined with vertebral body osteophyte to moderately narrow the right foramen, with mild mass effect upon the exiting right L5 nerve root. Only mild narrowing of the spinal canal and left foramen. No acute finding in the paraspinal soft tissues. Enlarged prostate partially visible. MRI/Spine Lumbar (Routine) IMPRESSION: Mild for age degenerative changes. Heterogenous marrow signal on T1 and T2 but homogeneous on STIR, likely red marrow reconversion or other benign etiology. Electronically Signed: Stan Richmond, at 0:27 EDT Tel , Service support ,
--- NOTE | 2019-07-20 10:13 | PCM.PN.HOSP ---
Patient Problems: Active and Suspected Problems (Last Updated 02/21/18 @ 01:[address] Tomer Jones MD) Fall (Acute) Paraparesis of both lower limbs (Acute) Unable to ambulate (Acute) Generalized weakness (Acute) Reason for Visit: Follow-up for confusion, disorientation, decreased lower extremity strength. Objective: As per the patient's patient had a intracranial bleed probably hemorrhagic stroke about a year ago and was managed in [facility]. He had 3 times MRI and follows neurologist in [place], [place]. After the stroke, patient was little bit slow in mentation and thinking but it got worse in the last 2 to 3 days. Patient also has mild residual weakness in lower extremity after stroke but it got much worse after coronavirus lockdown about 1 month as he remained in-house without physical therapy. Patient's also had found a mass in the brain which is not growing probably benign. As per , his voice was also more high pitch after stroke. Vitals/I&O's: Vital Signs Temp Pulse Resp BP Pulse Ox 97.9 F 83 18 112/72 94 07/20/19 03:15 07/20/19 03:15 07/20/19 03:15 07/20/19 03:15 07/20/19 07:06 Oxygen Delivery Method Room Air Weight: 216 lb 7.903 oz Body Mass Index (BMI) 28.5 Intake and Output for Last 24 Hours 07/18/19 07/19/19 07/20/19 23:59 23:59 23:59 Intake Total 1200 / 1250 80 / 80 Output Total 275 / 425 300 / 300 Balance 925 / 825 -220 / -220 General: Alert, Oriented x3, Cooperative HEENT: Atraumatic, PERRLA, EOMI, Normocephalic Neck: Supple, No JVD, Negative Carotid Bruits Lungs: Clear to auscultation, Normal air movement Cardiovascular: Regular rate, Regular Rhythm, Normal S1, Normal S2, No murmurs Abdomen: Bowel Sounds Present, Soft, Non Tender Extremities: No edema, Capillary Refill Less than 3 Seconds Skin: No rashes, No breakdown Musculoskeletal: No Tenderness to Palpation of Joints or Extremities, Arthritic Changes Neurological: Cranial nerves II-XII grossly intact, - - Lower extremity weakness, strength 4/5 at major joints 4/5. Patient slow in recall and registration about month, year. Slow to respond. Psych/Mental Status: Normal Affect, Appropriate Laboratory Results 07/19/19 06:55: Magnesium 1.7, GGT 37, Total Creatine Kinase 71 07/19/19 06:55: Ethyl Alcohol < 3.0 07/19/19 06:55: Phosphorus 3.5 07/19/19 06:55: Prealbumin 21.1 07/19/19 08:50: Urine Opiates Screen NEGATIVE, Urine Methadone Screen NEGATIVE, Ur Barbiturates Screen NEGATIVE, Ur Phencyclidine Scrn NEGATIVE, Ur Amphetamines Screen NEGATIVE, U Methamphetamin-MDMA NEGATIVE, U Benzodiazepines Scrn NEGATIVE, Urine Cocaine Screen NEGATIVE, U Cannabinoids Screen POSITIVE H, Ur Drug Screen Comment 07/20/19 05:25: TSH 3.43 07/20/19 05:25: Sodium 142, Potassium 3.7, Chloride 109 H, Carbon Dioxide 24.0, Anion Gap 9, BUN 17, Creatinine 0.79, Estim Creat Clear Calc 79.90, Est GFR (MDRD) Af Amer 125, Est GFR (MDRD) Non-Af 103, BUN/Creatinine Ratio 21.4 H, Glucose 76, Calcium 8.6, Total Bilirubin 0.90, AST 30, ALT 23, Alkaline Phosphatase 63, Total Protein 6.6, Albumin 2.7 L, Globulin 3.9, Albumin/Globulin Ratio 0.7 L Current Medications Acetaminophen (Tylenol) 650 mg PO Q6H PRN PRN PRN Reason: Pain Score 1-10/Temp > 100.7 F Aspirin (Aspirin, Baby) 81 mg PO DAILY@0800 [facility] Last Admin: 07/20/19 08:02 Dose: 81 mg Documented by: Bisacodyl (Dulcolax) 5 mg PO DAILY PRN PRN PRN Reason: severe Constipation Cholecalciferol (Vitamin D (25mcg)) 5,000 unit PO DAILY [facility] Last Admin: 07/19/19 13:23 Dose: 5,000 unit Documented by: Dextrose (D50w Syringe) 0 gm IV X1 PRN; Protocol PRN Reason: Hypoglycemia Enoxaparin Sodium (Lovenox) 40 mg SC DAILY [facility] Last Admin: 07/19/19 15:12 Dose: 40 mg Documented by: Finasteride (Proscar) 5 mg PO DAILY [facility] Glucagon () 1 mg IM .X1 PRN PRN Reason: Hypoglycemia Morphine Sulfate () 2 mg IV Q3H PRN PRN PRN Reason: Pain Score 6-10/10 Multivitamins/Minerals (Multivitamin With Minerals (Bkc)) 1 tablet PO DAILY@0800 [facility] Last Admin: 07/20/19 08:03 Dose: 1 tablet Documented by: Nutritional Formula (Lactose Free) (Ensure Enlive) 120 ml PO 4X/DAY [facility] Last Admin: 07/19/19 21:26 Dose: Not Given Documented by: Ondansetron HCl (Zofran) 4 mg IV Q8H PRN PRN PRN Reason: NAUSEA/VOMITING Oxycodone HCl (Oxyir) 5 mg PO Q4H PRN PRN PRN Reason: Pain Score 4-5/10 Pantoprazole Sodium (Protonix) 40 mg PO DAILY [facility] Prednisone () 5 mg PO DAILY@0800 [facility]; Taper Stop: 08/22/19 07:59 Last Admin: 07/20/19 08:06 Dose: 5 mg Documented by: Senna/Docusate Sodium (Senokot-S, Rhoda-Colace) 2 tablet PO BID PRN PRN PRN Reason: mild Constipation Sodium Chloride () 10 - 40 ml IV UD PRN PRN Reason: SALINE FLUSH Last Admin: 07/19/19 15:13 Dose: 10 ml Documented by: Tamsulosin HCl (Flomax) 0.4 mg PO DAILY [facility] STROKE Vital Signs/Narrative: Vital Signs Pulse Ox 07/20/19 07:06 94 Medical Necessity - Tobacco Use Smoking Status: Former smoker Assessment/Plan All Active Problems (Last Updated 02/21/18 @ 01:[address] 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 Watson came to ER for progressive worsening of weakness of both lower extremities and fall, along with nausea, vomiting and abdominal pain. CT abdomen done in the ED shows normal small intestine and colon with scattered sigmoid diverticula and colostomy. 2 mm calculus at the base of bladder on the right side possibly recently passed right ureteral calculus. 1. Acute encephalopathy on chronic stroke, progression of lower extremity weakness/myalgia most probably secondary to medication effect along with hypoalbuminemia and malnutrition. Patient also has intracranial most probably benign mass as per : Prealbumin 21 on lower side. Magnesium and phosphorus levels are normal. Chest x-ray no acute change. Discussed with patient's on phone and clinical updates were given. CT head does not show acute change but 5.5 mm focal calcification of peripheral aspect of left cerebral hemisphere. MRI brain, thoracic spine and lumbar spine ordered. Neuro consult after that. Further after neurology consult. 2. Intermittent abdominal pain, nausea and vomiting, exact etiology unclear but seems more functional due to poor oral intake: Patient is being admitted on [facility] floor. IV fluid D5 half NS for nutritional purposes.seen by traffic warehouse supervisor and is on Ensure. Abdominal pain is resolved. 3. Failure to thrive and recurrent fall 4. Sigmoid resection with colostomy: Patient had seen Dr. June and was told he is not physically strong enough for surgery. 5. Severe protein calorie malnutrition, suggested by suboptimal energy intake, paraparesis and recurrent fall: 6. Osteoarthritis: Patient is on prednisone 10 mg daily. As per patient is on hydroxychloroquine but it is not there in patient's home medication. Taper the prednisone to 5 mg daily for 3 days and then 2.5 mg daily. CK level is normal. 7. BPH: On Flomax and finasteride. Incidental 2 mm calculus at base of bladder. DVT prophylaxis: Lovenox 40 mg subcu daily Total time of the visit including total time spent in counseling or coordination of care, (more than 50% of the total time, spent in obtaining medical information from nurses and other ancillary care providers), phone call to patient's , review of labs and imaging is 30 minutes Living will/advanced directive/end of life care: Patient does have living will or advanced directive. Full code. Laboratory Results 07/20/19 05:25: TSH 3.43 07/20/19 05:25: Sodium 142, Potassium 3.7, Chloride 109 H, Carbon Dioxide 24.0, Anion Gap 9, BUN 17, Creatinine 0.79, Estim Creat Clear Calc 79.90, Est GFR (MDRD) Af Amer 125, Est GFR (MDRD) Non-Af 103, BUN/Creatinine Ratio 21.4 H, Glucose 76, Calcium 8.6, Total Bilirubin 0.90, AST 30, ALT 23, Alkaline Phosphatase 63, Total Protein 6.6, Albumin 2.7 L, Globulin 3.9, Albumin/Globulin Ratio 0.7 L 07/20/19 05:25: C-React Prot Ext Range 56.20 H 07/20/19 05:25: Vitamin B12 786 07/20/19 05:25: RBC Folate Hemolysate Pending, RBC Folate Pending, Hematocrit Pending [] Clinical Impression(s) from Imaging Studies Abdomen/Pelvis CT 07/19/19 07:11 IMPRESSION: 2 mm calculus at the base of the bladder on the right side suggestive of a recently passed right ureteral calculus. Fatty infiltration of the liver. A colostomy is seen in the left lower quadrant. Prostatic enlargement with prostatic calcifications. Brain CT 07/19/19 07:13 IMPRESSION: Chronic involutional changes of the brain. 5.5 mm focal calcification in the peripheral aspect of the left cerebral hemisphere. Inpatient E&M: 79825 Subs Hosp L3
[2019-07-20] MEDS: Tamsulosin HCl 0.4 MG Capsule PO (10:43)
[2019-07-20] MEDS: Pantoprazole Sodium 40 MG Tablet PO (10:43)
[2019-07-20] MEDS: Enoxaparin 40 MG/0.4 ML Syringe SC (10:47)
[2019-07-20] MEDS: Finasteride 5 MG Tablet PO (10:48)
--- NOTE | 2019-07-20 11:52 | CASEMGMT ---
Addendum entered by Dawn Jordan 07/20/19 12:01: CHICO did place a call to Nara in TCU who confirms the governor is still not allowing visitors to SNF. Original Note: Social Work Note SW reviewed pt's chart. Last time pt was at [facility], pt's family wanted TCU but at that time TCU didn't accept pt's insurance. CHICO placed a call to Nara in TCU, Nara states they do accept pt's insurance now. CHICO received consult from for SNF placement. CHICO reviewed notes, pt has confusion and is disorientated. CHICO placed a call to pt's Juanis to discuss discharge plans. CHICO updated Juanis that the recommendation is SNF for pt. Juanis states I am not sending pt to SNF as I am not able to see pt. Juanis states I cried all morning when the RN updated me that pt was asking where I was at. CHICO spoke with Juanis about pt's needs and pt being assist of 2. uJanis states I am having Home Health Care set up, [facility] get [facility] and to get a hospital bed and wheelchair for pt. Juanis states if pt needs something and I am unable to help, I will have someone available to help. CHICO asked [facility] about pt going to TCU. Juanis states they tried to get pt to TCU the last time pt was at [facility] TCU and they didn't take his insurance. CHICO informed [facility] that this worker is aware of that so this worker called TCU today to determine if they take pt's insurance or not and this worker was informed that they do. Juanis states she would consider TCU only if they allowed her to visit everyday. Juanis states the last time pt went to a SNF she was there all day with pt and even fed pt. CHICO updated Juanis that at this time, the governor is not allowing any visitors to any SNF so she wouldn't be able to visit pt at TCU either. Juanis again then states she will be taking pt home at discharge. CHICO updated Juanis that this worker will update RN CM who will be reaching out to her. Juanis states understanding. CHICO updated RN CM of plan for pt to return home with HHC, hospital bed, wheelchair. Dawn Jordan TELEVISION PROGRAM DIRECTOR, DENIER CONTROL OPERATOR
[2019-07-20 12:00] LABS: Vitamin B12 786 pg/mL (211-911)
--- NOTE | 2019-07-20 14:18 | CASEMGMT ---
RODNEY LOUIS called to review [employer] form due to patient being confused. voiced understanding and telephone consent given as witnessed by CHICO Jordan. RODNEY LOUIS filed original form in chart. Copy of form provided to patient. also voiced concerns for HHC at discharge and requested list of in-network HHC be emailed to her. RODNEY LOUIS emailed list of in-network HHC agencies to . states she arranged for hospital bed and wheelchair through PCP. CM will continue to monitor this patient and plan for a safe discharge.
[2019-07-20 16:47] VITALS: BP 113/75; PULSE 75; RESP 18; TEMP 36.9; O2SAT 98
[2019-07-20] MEDS: Dext 5%-0.45% NS 1,000 ML 75 ML IV (17:47)
[2019-07-20 22:07] VITALS: BP 110/71; PULSE 77; RESP 18; TEMP 37.1; O2SAT 99
[2019-07-21 03:00] VITALS: BP 117/71; PULSE 78; RESP 20; TEMP 36.6; O2SAT 99
[2019-07-21 06:12] LABS: Absolute Lymphocyte Count 0.52 X10^3/uL (0.83-4.51); Basophil# 0.01 X10^3/uL; Basophil% 0.4 % (0-1); Eosinophil# 0.07 X10^3/uL; Eosinophils% 2.5 % (0-5); Hematocrit 28.2 % (40-54); Hemoglobin 8.9 g/dL (13.0-16.5); Lymphocyte # 0.52 X10^3/ul (4.0); Lymphocyte % 18.7 % (19-41); Mean Corp Hgb Conc 31.6 g/dL (32-36); Mean Corpuscular Hgb 29.1 pg (27.0-32.0); Mean Corpuscular Volume 92.2 fL (80-94); Mean Platelet Vol. 10.3 fl (6.2-12.0); Monocyte# 0.16 X10^3/uL; Monocyte% 5.8 % (0-10); Neutrophil # 1.99 X10^3/uL (2.7-7.7); Neutrophil % 71.5 % (47-70); POSITIVE DIFFERENTIAL YES; Platelet Count 124 K/mm3 (150-450); RBC Distribution Width CV 16.6 % (11.6-14.6); RBC Distribution Width SD 55.8 fl (35.1-43.9); Red Blood Count 3.06 M/mm3 (4.6-6.2); White Blood Count 2.8 K/mm3 (4.4-11.0)
[2019-07-21 06:16] LABS: Differential Indicated SCAN CRITERIA MET
[2019-07-21 06:31] LABS: Differential Comment SCANNED; NRBC Flagged by Analyzer 0 % (0-5)
[2019-07-21] MEDS: Dext 5%-0.45% NS 1,000 ML 75 ML IV (06:40)
[2019-07-21 06:41] LABS: Anion Gap 8 (5-15); BUN 14 mg/dL (7-18); BUN/Creat Ratio 17.6 RATIO (10-20); Calcium,Total 8.5 mg/dL (8.5-10.1); Chloride 108 mmol/L (98-107); EST Glomerular Filtration Rate 103 mL/min (>60); Est Glom Filt Rate - Afr Amer 124 mL/min (>60); Estimated Creatinine Clearance 99.88 ml/min; Glucose 98 mg/dL (74-106); Potassium 3.5 mmol/L (3.5-5.1); Sodium Level 141 mmol/L (136-145)
[2019-07-21] MEDS: Multivitamins,Ther W-Minerals Tablet 1 TABLET PO (08:50)
[2019-07-21] MEDS: predniSONE 5 MG Tablet PO (08:50)
[2019-07-21] MEDS: Aspirin 81 MG TAB.CHEW PO (08:50)
[2019-07-21] MEDS: Finasteride 5 MG Tablet PO (08:51)
[2019-07-21] MEDS: Pantoprazole Sodium 40 MG Tablet PO (08:51)
[2019-07-21] MEDS: Tamsulosin HCl 0.4 MG Capsule PO (08:51)
[2019-07-21] MEDS: Enoxaparin 40 MG/0.4 ML Syringe SC (08:52)
[2019-07-21 09:41] VITALS: BP 118/67; PULSE 78; RESP 18; TEMP 36.7; O2SAT 100
--- NOTE | 2019-07-21 10:44 | PCM.PN.HOSP ---
Patient Problems: Active and Suspected Problems (Last Updated 02/21/18 @ 01:[address] Tomer Jones MD) Fall (Acute) Paraparesis of both lower limbs (Acute) Unable to ambulate (Acute) Generalized weakness (Acute) Reason for Visit: Patient looks more awake and alert. Patient is more responsive too. Patient is still weak on his legs and needs assistance to stand up but not able to walk independently. Vitals/I&O's: Vital Signs Temp Pulse Resp BP Pulse Ox 98.1 F 78 18 118/67 100 07/21/19 09:41 07/21/19 09:41 07/21/19 09:41 07/21/19 09:41 07/21/19 09:41 Oxygen Delivery Method Room Air Weight: 219 lb 2.232 oz Body Mass Index (BMI) 28.5 Intake and Output for Last 24 Hours 07/19/19 07/20/19 07/21/19 23:59 23:59 23:59 Intake Total 1200 / 1250 2563.33 / 2563.33 1206.25 / 1206.25 Output Total 275 / 425 1770 / 1770 550 / 550 Balance 925 / 825 793.33 / 793.33 656.25 / 656.25 General: Alert, Oriented x3, Cooperative HEENT: Atraumatic, PERRLA, EOMI, Normocephalic Neck: Supple, No JVD, Negative Carotid Bruits Lungs: Clear to auscultation, Normal air movement Cardiovascular: Regular rate, Regular Rhythm, Normal S1, Normal S2, No murmurs Abdomen: Bowel Sounds Present, Soft, Non Tender, Non-Distended Extremities: No edema, Capillary Refill Less than 3 Seconds Skin: No rashes, No breakdown Musculoskeletal: Arthritic Changes, Muscle Wasting, Tenderness - Tenderness on the quadriceps muscles have improved. Neurological: Cranial nerves II-XII grossly intact, - - DTR 2+. Muscle strength 4/5 at major joints, mainly weak at quadriceps muscles. Psych/Mental Status: Normal Affect, Appropriate Laboratory Results 07/20/19 05:25: Vitamin B12 786 07/21/19 05:40: WBC 2.8 L, RBC 3.06 L, Hgb 8.9 L, Hct 28.2 L, MCV 92.2, MCH 29.1, MCHC 31.6 L, RDW Std Deviation 55.8 H, RDW Coeff of Brittny 16.6 H, Plt Count 124 L, MPV 10.3, Immature Gran % (Auto) 1.100 H, Neut % (Auto) 71.5 H, Lymph % (Auto) 18.7 L, Phillips % (Auto) 5.8, Eos % (Auto) 2.5, Baso % (Auto) 0.4, Absolute Neuts (auto) 2.0, Absolute Lymphs (auto) 0.52 L, Nucleated RBC % 0, Differential Comment SCANNED, Diff Path Review June [facility] 07/21/19 05:40: Sodium 141, Potassium 3.5, Chloride 108 H, Carbon Dioxide 25.0, Anion Gap 8, BUN 14, Creatinine 0.80, Estim Creat Clear Calc 99.88, Est GFR (MDRD) Af Amer 124, Est GFR (MDRD) Non-Af 103, BUN/Creatinine Ratio 17.6, Glucose 98, Calcium 8.5 Current Medications Acetaminophen (Tylenol) 650 mg PO Q6H PRN PRN PRN Reason: Pain Score 1-10/Temp > 100.7 F Aspirin (Aspirin, Baby) 81 mg PO DAILY@0800 [facility] Last Admin: 07/21/19 08:50 Dose: 81 mg Documented by: Bisacodyl (Dulcolax) 5 mg PO DAILY PRN PRN PRN Reason: severe Constipation Cholecalciferol (Vitamin D (25mcg)) 5,000 unit PO DAILY [facility] Last Admin: 07/21/19 08:51 Dose: 5,000 unit Documented by: Dextrose (D50w Syringe) 0 gm IV X1 PRN; Protocol PRN Reason: Hypoglycemia Enoxaparin Sodium (Lovenox) 40 mg SC DAILY [facility] Last Admin: 07/21/19 08:52 Dose: 40 mg Documented by: Finasteride (Proscar) 5 mg PO DAILY [facility] Last Admin: 07/21/19 08:51 Dose: 5 mg Documented by: Glucagon () 1 mg IM .X1 PRN PRN Reason: Hypoglycemia Dextrose/Sodium Chloride () 1,000 mls @ 50 mls/hr IV .Q20H [facility] Last Admin: 07/21/19 06:40 Dose: 75 mls/hr Documented by: Morphine Sulfate () 2 mg IV Q3H PRN PRN PRN Reason: Pain Score 6-10/10 Multivitamins/Minerals (Multivitamin With Minerals (Bkc)) 1 tablet PO DAILY@0800 [facility] Last Admin: 07/21/19 08:50 Dose: 1 tablet Documented by: Ondansetron HCl (Zofran) 4 mg IV Q8H PRN PRN PRN Reason: NAUSEA/VOMITING Oxycodone HCl (Oxyir) 5 mg PO Q4H PRN PRN PRN Reason: Pain Score 4-5/10 Pantoprazole Sodium (Protonix) 40 mg PO DAILY [facility] Last Admin: 07/21/19 08:51 Dose: 40 mg Documented by: Prednisone () 5 mg PO DAILY@0800 [facility]; Taper Stop: 08/22/19 07:59 Last Admin: 07/21/19 08:50 Dose: 5 mg Documented by: Senna/Docusate Sodium (Senokot-S, Rhoda-Colace) 2 tablet PO BID PRN PRN PRN Reason: mild Constipation Sodium Chloride () 10 - 40 ml IV UD PRN PRN Reason: SALINE FLUSH Last Admin: 07/19/19 15:13 Dose: 10 ml Documented by: Tamsulosin HCl (Flomax) 0.4 mg PO DAILY [facility] Last Admin: 07/21/19 08:51 Dose: 0.4 mg Documented by: STROKE Vital Signs/Narrative: Vital Signs Temp Pulse Resp BP Pulse Ox 07/21/19 09:41 98.1 F 78 18 118/67 100 Medical Necessity - Tobacco Use Smoking Status: Former smoker Assessment/Plan All Active Problems (Last Updated 02/21/18 @ 01:[address] 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 Watson came to ER for progressive worsening of weakness of both lower extremities and fall, along with nausea, vomiting and abdominal pain. CT abdomen done in the ED shows normal small intestine and colon with scattered sigmoid diverticula and colostomy. 2 mm calculus at the base of bladder on the right side possibly recently passed right ureteral calculus. 1. Acute encephalopathy on chronic stroke, progression of lower extremity weakness/myalgia most probably secondary to medication effect along with hypoalbuminemia and malnutrition. Patient also has intracranial most probably benign mass as per : Prealbumin 21 on lower side. Magnesium and phosphorus levels are normal. Chest x-ray no acute change. 07/20: Discussed with patient's on phone and clinical updates were given. CT head does not show acute change but 5.5 mm focal calcification of peripheral aspect of left cerebral hemisphere. MRI brain, thoracic spine and lumbar spine did not show acute change. Lumbar spine and thoracic spine shows age-related degenerative changes. MRI brain reported as normal unenhanced MRI of the brain. No intracranial mass reported. Patient was seen by [facility] neurologist. CRP elevated but vitamin B12 and TSH are normal. As per neurologist, he raised differential of PMR but patient was only taking heavy dose of prednisone 40 mg and is going on taper, 10 mg daily before admission along with hydroxychloroquine. Exact diagnosis unclear but most probably suspected rheumatoid arthritis as per the . Prednisone is further taper. Hydroxychloroquine discontinued. CK level normal. [facility] neurologist suggested further follow-up neurologist as an outpatient. Discussed with team on phone. 2. Intermittent abdominal pain, nausea and vomiting, exact etiology unclear but seems more functional due to poor oral intake: Patient is being admitted on MedSur floor. IV fluid D5 half NS for nutritional purposes.seen by car mover and is on Ensure. Abdominal pain is resolved. 3. Failure to thrive and recurrent fall 4. Sigmoid resection with colostomy: Patient had seen Dr. June and was told he is not physically strong enough for surgery. 5. Severe protein calorie malnutrition, suggested by suboptimal energy intake, paraparesis and recurrent fall: Patient had about 30 pound weight loss. Patient seen by car mover. 6. Exact arthritis diagnosis acute possible rheumatoid arthritis as per : As mentioned above 7. BPH: On Flomax and finasteride. Incidental 2 mm calculus at base of bladder. DVT prophylaxis: Lovenox 40 mg subcu daily Total time of the visit including total time spent in counseling or coordination of care, (more than 50% of the total time, spent in obtaining medical information from nurses and other ancillary care providers), phone call to patient's , review of labs and imaging is 30 minutes Living will/advanced directive/end of life care: Patient does have living will or advanced directive. Full code. Clinical Impression(s) from Imaging Studies Abdomen/Pelvis CT 07/19/19 07:11 IMPRESSION: 2 mm calculus at the base of the bladder on the right side suggestive of a recently passed right ureteral calculus. Fatty infiltration of the liver. A colostomy is seen in the left lower quadrant. Prostatic enlargement with prostatic calcifications. Brain CT 07/19/19 07:13 IMPRESSION: Chronic involutional changes of the brain. 5.5 mm focal calcification in the peripheral aspect of the left cerebral hemisphere. Chest X-Ray 07/19/19 11:35 IMPRESSION: No acute abnormality is seen. Brain MRI 07/20/19 09:59 IMPRESSION: Normal unenhanced MRI of the brain. Lumbar Spine MRI 07/20/19 10:02 IMPRESSION: Mild for age degenerative changes. Heterogenous marrow signal on T1 and T2 but homogeneous on STIR, likely red marrow reconversion or other benign etiology. Thoracic Spine MRI 07/20/19 10:02 IMPRESSION: No evidence for acute fracture or other significant bony pathology. Multilevel disc degeneration without significant disc protrusion spinal stenosis or cord compression.. Laboratory Results 07/20/19 05:25: Vitamin B12 786 07/21/19 05:40: WBC 2.8 L, RBC 3.06 L, Hgb 8.9 L, Hct 28.2 L, MCV 92.2, MCH 29.1, MCHC 31.6 L, RDW Std Deviation 55.8 H, RDW Coeff of Brittny 16.6 H, Plt Count 124 L, MPV 10.3, Immature Gran % (Auto) 1.100 H, Neut % (Auto) 71.5 H, Lymph % (Auto) 18.7 L, Phillips % (Auto) 5.8, Eos % (Auto) 2.5, Baso % (Auto) 0.4, Absolute Neuts (auto) 2.0, Absolute Lymphs (auto) 0.52 L, Nucleated RBC % 0, Differential Comment SCANNED, Diff Path Review June foll 07/21/19 05:40: Sodium 141, Potassium 3.5, Chloride 108 H, Carbon Dioxide 25.0, Anion Gap 8, BUN 14, Creatinine 0.80, Estim Creat Clear Calc 99.88, Est GFR (MDRD) Af Amer 124, Est GFR (MDRD) Non-Af 103, BUN/Creatinine Ratio 17.6, Glucose 98, Calcium 8.5 07/20/19 05:25: TSH 3.43 06/03/20 05:25: Sodium 142, Potassium 3.7, Chloride 109 H, Carbon Dioxide 24.0, Anion Gap 9, BUN 17, Creatinine 0.79, Estim Creat Clear Calc 79.90, Est GFR (MDRD) Af Amer 125, Est GFR (MDRD) Non-Af 103, BUN/Creatinine Ratio 21.4 H, Glucose 76, Calcium 8.6, Total Bilirubin 0.90, AST 30, ALT 23, Alkaline Phosphatase 63, Total Protein 6.6, Albumin 2.7 L, Globulin 3.9, Albumin/Globulin Ratio 0.7 L 07/20/19 05:25: C-React Prot Ext Range 56.20 H 07/20/19 05:25: Vitamin B12 786 07/20/19 05:25: RBC Folate Hemolysate Pending, RBC Folate Pending, Hematocrit Pending Inpatient E&M: 17446 Subs Hosp L3
--- NOTE | 2019-07-21 15:14 | CASEMGMT ---
RODNEY LOUIS called to inquire if she has chosen a [facility] agencies. Juanis states that she is still reviewing agencies and will have choice in the morning. is working with PCP office to obtain hospital bed. RODNEY LOUIS received request from [facility] for clinical documentation for hospital bed, information faxed to [facility]. RODNEY LOUIS will continue to follow this patient and plan for a safe discharge.
[2019-07-21] MEDS: Psyllium 1 PACKET PO (15:23)
[2019-07-21] MEDS: Senna/Docusate Sodium 1 Tablet 2 TABLET PO ×2 (15:23→21:08)
[2019-07-21 16:08] LABS: Folate, RBC (Hct) Test 25.7 % (37.5-51.0)
[2019-07-21 16:39] VITALS: BP 131/78; PULSE 81; RESP 18; TEMP 36.8; O2SAT 100
[2019-07-21 16:42] VITALS: PULSE 78
[2019-07-21 21:00] VITALS: BP 125/74; PULSE 75; RESP 16; TEMP 36.9; O2SAT 100
[2019-07-21] MEDS: Dext 5%-0.45% NS 1,000 ML 50 ML IV (21:07)
[2019-07-21] MEDS: Mirtazapine 15 MG Tablet 7.5 MG PO (21:08)
[2019-07-21] MEDS: Acetaminophen 325 MG Tablet 650 MG PO (21:29)
[2019-07-22 03:00] VITALS: BP 129/75; PULSE 77; RESP 16; TEMP 36.6; O2SAT 99
[2019-07-22 06:25] LABS: Absolute Lymphocyte Count 0.57 X10^3/uL (0.83-4.51); Absolute Neutrophil Count 1.8 X10^3/uL (2.0-7.7); Basophil# 0.01 X10^3/uL; Basophil% 0.4 % (0-1); Eosinophil# 0.09 X10^3/uL; Eosinophils% 3.3 % (0-5); Hematocrit 28.6 % (40-54); Lymphocyte # 0.57 X10^3/ul (4.0); Mean Corp Hgb Conc 31.5 g/dL (32-36); Mean Corpuscular Hgb 29.3 pg (27.0-32.0); Mean Corpuscular Volume 93.2 fL (80-94); Mean Platelet Vol. 10.1 fl (6.2-12.0); Monocyte# 0.18 X10^3/uL; Monocyte% 6.6 % (0-10); NRBC Flagged by Analyzer 0 % (0-5); Neutrophil # 1.82 X10^3/uL (2.7-7.7); Neutrophil % 66.9 % (47-70); POSITIVE DIFFERENTIAL YES; Platelet Count 130 K/mm3 (150-450); RBC Distribution Width CV 16.8 % (11.6-14.6); RBC Distribution Width SD 57.1 fl (35.1-43.9); Red Blood Count 3.07 M/mm3 (4.6-6.2); White Blood Count 2.7 K/mm3 (4.4-11.0)
[2019-07-22 06:41] LABS: Differential Indicated SCAN CRITERIA MET
[2019-07-22 06:51] LABS: Anion Gap 5 (5-15); BUN 12 mg/dL (7-18); BUN/Creat Ratio 16.1 RATIO (10-20); Calcium,Total 8.6 mg/dL (8.5-10.1); Chloride 112 mmol/L (98-107); Creatinine, Serum 0.75 mg/dL (0.70-1.30); EST Glomerular Filtration Rate 111 mL/min (>60); Est Glom Filt Rate - Afr Amer 134 mL/min (>60); Glucose 91 mg/dL (74-106); Potassium 3.6 mmol/L (3.5-5.1); Sodium Level 142 mmol/L (136-145)
[2019-07-22 07:02] LABS: Differential Comment SCANNED; Hypochromasia 2+; Ovalocyte 2+
--- NOTE | 2019-07-22 08:06 | NURSING ---
mirna called in and requested that staff go to pt's room and have him call her on his cell phone. This RN entered pt's room and assisted him with same.
--- NOTE | 2019-07-22 09:00 | DCINST_ITS ---
- Discharge Diagnoses Current Active Problems: Current Active and Chronic Problems (Last Updated 02/21/18 @ 01:[address] Tomer Jones MD) Fall (Acute) Paraparesis of both lower limbs (Acute) Unable to ambulate (Acute) Generalized weakness (Acute) You will use the following diet at home:: Regular - Supervised feed Your food should be the consistency of: Regular Discharge Activity: May Not Drive Weight Bearing Status: Weight bearing as tolerated Call your doctor if you observe: Fever of 101 or Higher, Numbness or Tingling, Change in Color, Inability to urinate, Shortness of breath, Dizziness, Fainting spells, Swelling in the ankles, Chest pain, Prolonged hiccoughing, Increased palpitations (irregular heartbeat), Calf discomfort Additional Instructions: Patient was on HCTZ 50 mg twice daily which is discontinued because of dehydration, fall and weakness. Patient's blood pressures gets elevated more than 130 mmHg, can start low-dose HCTZ 6.25 mg daily or other antihypertensive medication. Allergies/Adverse Reactions: Allergies cod liver oil [From Desitin] Allergy (Verified 07/19/19 07:05) Rash zinc oxide [From Desitin] Allergy (Verified 07/19/19 07:05) Rash Medications to take at Discharge Aspirin [Aspirin, Baby] 81 mg PO DAILY@0800 12/08/16 Cholecalciferol (VIT D3) [Vitamin D3] 2,000 unit PO DAILY 12/08/16 Multivit-Min/FA/Lycopen/Lutein [Centrum Silver Men Tablet] 1 each PO DAILY 12/08/16 Tamsulosin HCl [Flomax] 0.4 mg PO DAILY 12/08/16 Finasteride 5 mg PO DAILY 06/24/18 Ondansetron [Zofran] 8 mg PO TID 10/11/18 Omeprazole 40 mg PO DAILY 07/19/19 Gabapentin [Neurontin] 100 mg PO BID #0 07/22/19 Polyethylene Glycol 3350 [Miralax] 17 gm PO DAILY PRN PRN packet 07/22/19 Prednisone 5 mg PO DAILY #0 07/22/19 Psyllium [Metamucil] 1 packet PO BID PRN packet 07/22/19 Primary Care Physician: Napoleon Larson MD [Primary Care Provider] - Please follow up with your Primary Care Physician in: In 1 to 2 weeks Test Results: Test results from this visit will be discussed in further detail at your follow- up appointment, if applicable. Please Follow Up With: Ravindra Watson MD When: in 3-4 weeks Please Follow Up With: Martin Rubio MD When: in 1-2 weeks
--- NOTE | 2019-07-22 09:10 | DS.PCM_ITS ---
Discharge Date and Diagnosis Date of Admission: 07/19/19 Date of Discharge: 07/22/19 - Primary Discharge Diagnosis Acute Problems: Active Problems (Last Updated 02/21/18 @ 01:[address] 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 Watson came to ER for progressive worsening of weakness of both lower extremities and fall, along with nausea, vomiting and abdominal pain. CT abdomen done in the ED shows normal small intestine and colon with scattered sigmoid diverticula and colostomy. 2 mm calculus at the base of bladder on the right side possibly recently passed right ureteral calculus. 1. Acute encephalopathy on chronic stroke, progression of lower extremity weakness/myalgia most probably secondary to medication effect along with hypoalb uminemia and malnutrition. Patient also has intracranial most probably benign mass as per : Prealbumin 21 on lower side. Magnesium and phosphorus levels are normal. Chest x-ray no acute change. CT head does not show acute change but 5.5 mm focal calcification of peripheral aspect of left cerebral hemisphere. MRI brain, thoracic spine and lumbar spine did not show acute change. Lumbar spine and thoracic spine shows age-related degenerative changes. MRI brain reported as normal unenhanced MRI of the brain. No intracranial mass reported. Patient was seen by [facility] neurologist. CRP elevated but vitamin B12 and TSH are normal. As per neurologist, he raised differential of PMR but patient was only taking heavy dose of prednisone 40 mg and is going on taper, 10 mg daily before admission along with hydroxychloroquine. Exact diagnosis unclear but most probably suspected rheumatoid arthritis as per the . Prednisone is further taper. Hydroxychloroquine discontinued. CK level normal. [facility] neurologist suggested further follow-up neurologist as an outpatient. 2. Intermittent abdominal pain, nausea and vomiting, exact etiology unclear but seems more functional due to poor oral intake:seen by field gauger and is on Ensure. Abdominal pain is resolved. Abdominal CT shows stool present in large bowel therefore on a stool softener including MiraLAX, senna S for mild constip ation and Dulcolax oral 5 mg for severe constipation 3. Failure to thrive and recurrent fall patient's agreed for home physical therapy. 4. Sigmoid resection with colostomy: Patient had seen Dr. June and was told he is not physically strong enough for surgery. 5. Severe protein calorie malnutrition, suggested by suboptimal energy intake, paraparesis and recurrent fall: Patient had about 30 pound weight loss. Patient seen by field gauger. 6. Exact arthritis diagnosis acute possible rheumatoid arthritis as per : As mentioned above 7. BPH: On Flomax and finasteride. Incidental 2 mm calculus at base of bladder. DVT prophylaxis: Lovenox 40 mg subcu daily Living will/advanced directive/end of life care: Patient does have living will or advanced directive. Full code. Discharge medication reconciliation done. Discharge follow-up instructions completed. Discharge process discussed with the patient and all questions were answered to patient's satisfaction. Total time spent, exact 35 minutes on discharge meds reconciliation, examination, coordination of care with nurses and ancillary staff, review of imaging and blood test and discussion with the patient on follow-up instructions Objective: Seen and examined. Patient is more awake alert. Patient did not have much colostomy output as per the nursing staff therefore Dulcolax was added on top of senna S and MiraLAX. On physical exam General: Alert, Oriented x3, Cooperative HEENT: Atraumatic, PERRLA, EOMI, Normocephalic Neck: Supple, No JVD, Negative Carotid Bruits Lungs: Clear to auscultation, Normal air movement Cardiovascular: Regular rate, Regular Rhythm, Normal S1, Normal S2, No murmurs Abdomen: Bowel Sounds Present, Soft, Non Tender, Non-Distended. Extremities: No edema, Capillary Refill Less than 3 Seconds Skin: No rashes, No breakdown Musculoskeletal: Arthritic Changes, Muscle Wasting, Tenderness on the quadriceps muscles has improved. Neurological: Cranial nerves II-XII grossly intact, DTR 2+. Muscle strength 4/5 at major joints, mainly weak at quadriceps muscles. Psych/Mental Status: Normal Affect, Appropriate - Physical Exam Vitals/I&O's: Vital Signs Temp Pulse Resp BP Pulse Ox 97.9 F 77 16 129/75 H 99 07/22/19 03:00 07/22/19 03:00 07/22/19 03:00 07/22/19 03:00 07/22/19 03:00 Oxygen Delivery Method Room Air Weight: 216 lb 0.848 oz Body Mass Index (BMI) 28.5 Intake and Output for Last 24 Hours 07/20/19 07/21/19 07/22/19 23:59 23:59 23:59 Intake Total 2563.33 / 2563.33 2712.08 / 2952.08 580 / 580 Output Total 1770 / 1770 1450 / 1700 850 / 850 Balance 793.33 / 793.33 1262.08 / 1252.08 -270 / -270 Laboratory Results 07/22/19 05:59: WBC 2.7 L, RBC 3.07 L, Hgb 9.0 L, Hct 28.6 L, MCV 93.2, MCH 29.3, MCHC 31.5 L, RDW Std Deviation 57.1 H, RDW Coeff of Brittny 16.8 H, Plt Count 130 L, MPV 10.1, Immature Gran % (Auto) 1.800 H, Neut % (Auto) 66.9, Lymph % (Auto) 21.0, [place] % (Auto) 6.6, Eos % (Auto) 3.3, Baso % (Auto) 0.4, Absolute Neuts (auto) 1.8 L, Absolute Lymphs (auto) 0.57 L, Nucleated RBC % 0, Differential Comment SCANNED, Diff Path Review May foll, Hypochromasia 2+, Ovalocytes 2+ 07/22/19 05:59: Sodium 142, Potassium 3.6, Chloride 112 H, Carbon Dioxide 25.0, Anion Gap 5, BUN 12, Creatinine 0.75, Estim Creat Clear Calc 79.90, Est GFR (MDRD) Af Amer 134, Est GFR (MDRD) Non-Af 111, BUN/Creatinine Ratio 16.1, Glucose 91, Calcium 8.6 Current Medications Acetaminophen (Tylenol) 650 mg PO Q6H PRN PRN PRN Reason: Pain Score 1-10/Temp > 100.7 F Last Admin: 07/21/19 21:29 Dose: 650 mg Documented by: Aspirin (Aspirin, Baby) 81 mg PO DAILY@0800 [facility] Last Admin: 07/21/19 08:50 Dose: 81 mg Documented by: Bisacodyl (Dulcolax) 5 mg PO DAILY [facility] Cholecalciferol (Vitamin D (25mcg)) 5,000 unit PO DAILY [facility] Last Admin: 07/21/19 08:51 Dose: 5,000 unit Documented by: Dextrose (D50w Syringe) 0 gm IV X1 PRN; Protocol PRN Reason: Hypoglycemia Enoxaparin Sodium (Lovenox) 40 mg SC DAILY [facility] Last Admin: 07/21/19 08:52 Dose: 40 mg Documented by: Finasteride (Proscar) 5 mg PO DAILY [facility] Last Admin: 07/21/19 08:51 Dose: 5 mg Documented by: Glucagon () 1 mg IM .X1 PRN PRN Reason: Hypoglycemia Dextrose/Sodium Chloride () 1,000 mls @ 50 mls/hr IV .Q20H [facility] Last Admin: 07/21/19 21:07 Dose: 50 mls/hr Documented by: Mirtazapine (Remeron) 7.5 mg PO QHS [facility] Last Admin: 07/21/19 21:08 Dose: 7.5 mg Documented by: Morphine Sulfate () 2 mg IV Q3H PRN PRN PRN Reason: Pain Score 6-10/10 Multivitamins/Minerals (Multivitamin With Minerals (Bkc)) 1 tablet PO DAILY@0800 [facility] Last Admin: 07/21/19 08:50 Dose: 1 tablet Documented by: Ondansetron HCl (Zofran) 4 mg IV Q8H PRN PRN PRN Reason: NAUSEA/VOMITING Oxycodone HCl (Oxyir) 5 mg PO Q4H PRN PRN PRN Reason: Pain Score 4-5/10 Pantoprazole Sodium (Protonix) 40 mg PO DAILY [facility] Last Admin: 07/21/19 08:51 Dose: 40 mg Documented by: Polyethylene Glycol (Miralax) 17 gm PO DAILY [facility] Prednisone () 5 mg PO DAILY@0800 [facility]; Taper Stop: 08/22/19 07:59 Last Admin: 07/21/19 08:50 Dose: 5 mg Documented by: Psyllium Hydrophilic Mucilloid (Metamucil) 1 packet PO BID PRN PRN Reason: constipation Last Admin: 07/21/19 15:23 Dose: 1 packet Documented by: Senna/Docusate Sodium (Senokot-S, Rhoda-Colace) 2 tablet PO BID JERED Last Admin: 07/21/19 21:08 Dose: 2 tablet Documented by: Sodium Chloride () 10 - 40 ml IV UD PRN PRN Reason: SALINE FLUSH Last Admin: 07/19/19 15:13 Dose: 10 ml Documented by: Tamsulosin HCl (Flomax) 0.4 mg PO DAILY [facility] Last Admin: 07/21/19 08:51 Dose: 0.4 mg Documented by: Discharge Activity: May Not Drive Weight Bearing Status: Weight bearing as tolerated Call your doctor if you observe: Fever of 101 or Higher, Numbness or Tingling, Change in Color, Inability to urinate, Shortness of breath, Dizziness, Fainting spells, Swelling in the ankles, Chest pain, Prolonged hiccoughing, Increased palpitations (irregular heartbeat), Calf discomfort Home Medications: Medications to take at Discharge Aspirin [Aspirin, Baby] 81 mg PO DAILY@0800 12/08/16 Cholecalciferol (VIT D3) [Vitamin D3] 2,000 unit PO DAILY 12/08/16 Multivit-Min/FA/Lycopen/Lutein [Centrum Silver Men Tablet] 1 each PO DAILY 12/08/16 Tamsulosin HCl [Flomax] 0.4 mg PO DAILY 12/08/16 Finasteride 5 mg PO DAILY 06/24/18 Ondansetron [Zofran] 8 mg PO TID 10/11/18 Omeprazole 40 mg PO DAILY 07/19/19 Gabapentin [Neurontin] 100 mg PO BID #0 07/22/19 Polyethylene Glycol 3350 [Miralax] 17 gm PO DAILY PRN PRN packet 07/22/19 Prednisone 5 mg PO DAILY #0 07/22/19 Psyllium [Metamucil] 1 packet PO BID PRN packet 07/22/19 Primary Care Physician: Napoleon Larson MD [Primary Care Provider] - Please follow up with your Primary Care Physician in: In 1 to 2 weeks Please Follow Up With: Walter,Ravindra, MD When: in 3-4 weeks Please Follow Up With: Martin Rubio MD When: in 1-2 weeks Medical Necessity - Tobacco Use Smoking Status: Former smoker Meaningful Use Info Meaningful Use Diagnoses (Choose all that apply): None applicable Inpatient E&M: 64262 [facility]
[2019-07-22 09:15] VITALS: BP 121/77; PULSE 76; RESP 16; TEMP 36.8; O2SAT 99
[2019-07-22] MEDS: Bisacodyl 5 MG Tablet PO (09:22)
[2019-07-22] MEDS: Polyethylene Glycol 3350 17 GM PACKET PO (09:23)
[2019-07-22] MEDS: Aspirin 81 MG TAB.CHEW PO (09:25)
[2019-07-22] MEDS: Tamsulosin HCl 0.4 MG Capsule PO (09:25)
[2019-07-22] MEDS: Pantoprazole Sodium 40 MG Tablet PO (09:25)
[2019-07-22] MEDS: Finasteride 5 MG Tablet PO (09:25)
[2019-07-22] MEDS: predniSONE 5 MG Tablet PO (09:25)
[2019-07-22] MEDS: Enoxaparin 40 MG/0.4 ML Syringe SC (09:26)
[2019-07-22] MEDS: Senna/Docusate Sodium 1 Tablet 2 TABLET PO (09:26)
[2019-07-22] MEDS: Multivitamins,Ther W-Minerals Tablet 1 TABLET PO (09:26)
--- NOTE | 2019-07-22 11:37 | CASEMGMT ---
Addendum entered by Dawn Oliveira 07/22/19 14:57: [facility] with not able to accept patient. [facility] is able to accept and will call to update . Original Note: RODNEY LOUIS called in regards to HHC choice. would like [facility]. RODNEY LOUIS sent referral to [facility] and received call back. Patient has [employer] and [facility] is preferred provider for C. [facility] has agreement with [facility] to foward referrals. RODNEY LOUIS called Juanis and updated and she is agreeable to [facility]. [facility] called back and updated regarding being agreeable to [facility]. [facility] to forward referral to [facility].
[2019-07-22 12:14] VITALS: BP 109/78; PULSE 71; RESP 16; TEMP 36.6; O2SAT 98
[2019-07-22 13:14] LABS: Folates, RBC Test 2054 ng/mL (>498)
[2019-07-25 12:01] LABS: Pathologist Review Reviewed
[2019-07-25 12:12] LABS: Pathologist Review Reviewed
== END 2019-07-22 12:57 | disposition home or self-care (01) ==
LOC: ED 07:20 → MS3 10:50
PROVIDERS: Admitting Provider Internal Medicine; Emergency Provider Emergency Medicine; PCP Family Medicine; Visit Provider Internal Medicine
DX: G72.0 Drug-induced myopathy (principal); T37.8X5A Adverse effect of other specified systemic anti-infectives and antiparasitics, initial encounter; G82.20 Paraplegia, unspecified; I69.398 Other sequelae of cerebral infarction; G93.49 Other encephalopathy; N40.0 Benign prostatic hyperplasia without lower urinary tract symptoms; Z93.3 Colostomy status; Z87.442 Personal history of urinary calculi; E43 Unspecified severe protein-calorie malnutrition; R29.6 Repeated falls; K76.0 Fatty (change of) liver, not elsewhere classified; Z87.891 Personal history of nicotine dependence; R62.7 Adult failure to thrive; Z79.899 Other long term (current) drug therapy
CPT/HCPCS: 36415; 70450; 70551; 71046; 72146; 72148; 74177; 80048; 80053; 80307; 80320; 81001; 82550; 82607; 82747; 82977; 83690; 83735; 84100; 84134; 84443; 84484; 85014; 85025; 86140; 87086; 87088; 92507; 92526; 92610; 93005; 96361; 96372; 96374; 97110; 97116; 97162; 97166; 97530; 97535; 97802; 99218; 99285; Q9967; A4216; G0378; G0480; J2405; J7799